=== PATIENT | male | born 1970 | race Caucasian/White ===

== ENCOUNTER → 2020-06-18 10:38 | Outpatient (CLI) | payer OTHER, SELFPAY ==
[2020-06-18 12:44] LABS: Anion Gap 6 (5-15); BUN 17 mg/dL (7-18); BUN/Creat Ratio 16.7 RATIO (10-20); Calcium,Total 9.1 mg/dL (8.5-10.1); Chloride 105 mmol/L (98-107); Cholesterol 213 mg/dL (200); Creatinine, Serum 1.02 mg/dL (0.70-1.30); EST Glomerular Filtration Rate 83 mL/min (>60); Est Glom Filt Rate - Afr Amer 100 mL/min (>60); Glucose 87 mg/dL (74-106); High Density Lipoprotein 52 mg/dL; Potassium 4.2 mmol/L (3.5-5.1); Sodium Level 137 mmol/L (136-145); Triglycerides 90 mg/dL; Very Low Density Lipoprotein 18 mg/dL (5-40)
[2020-06-22 09:08] LABS: Testosterone, Free 7.89 ng/dL (5.00-21.00)
[2020-06-22 10:18] LABS: Testosterone, % Free 3.57 % (1.50-4.20); Testosterone, Total 221 ng/dL (264-916)
== END ==
PROVIDERS: PCP Family Medicine; Visit Provider Family Medicine
DX: R79.89 Other specified abnormal findings of blood chemistry (principal); Z13.220 Encounter for screening for lipoid disorders; Z13.1 Encounter for screening for diabetes mellitus
CPT/HCPCS: 36415; 80048; 80061; 84402; 84403

== ENCOUNTER → 2020-07-19 08:16 | Outpatient (CLI) | payer OTHER, SELFPAY ==
[2020-07-19 13:28] LABS: Anion Gap 8 (5-15); BUN 19 mg/dL (7-18); Calcium,Total 8.8 mg/dL (8.5-10.1); Chloride 109 mmol/L (98-107); Cholesterol 178 mg/dL (200); Creatinine, Serum 0.91 mg/dL (0.70-1.30); EST Glomerular Filtration Rate 95 mL/min (>60); Est Glom Filt Rate - Afr Amer 115 mL/min (>60); Glucose 82 mg/dL (74-106); High Density Lipoprotein 52 mg/dL; Potassium 3.8 mmol/L (3.5-5.1); Sodium Level 141 mmol/L (136-145); Triglycerides 84 mg/dL; Very Low Density Lipoprotein 17 mg/dL (5-40)
[2020-07-22 08:08] LABS: Testosterone, Free 7.35 ng/dL (5.00-21.00)
[2020-07-22 09:34] LABS: Testosterone, Total 210 ng/dL (264-916)
== END ==
PROVIDERS: PCP Family Medicine; Visit Provider Family Medicine
DX: R79.89 Other specified abnormal findings of blood chemistry (principal); Z13.1 Encounter for screening for diabetes mellitus; Z13.220 Encounter for screening for lipoid disorders
CPT/HCPCS: 36415; 80048; 80061; 84402; 84403

== ENCOUNTER → 2022-06-30 | Outpatient (CLI) | payer OTHER, SELFPAY ==
[2022-06-30 12:36] LABS: ALB/GLOB Ratio 0.7 RATIO (0.9-2.4); AST(SGOT) 13 U/L (15-37); Alanine Aminotransfer ALT/SGPT 29 U/L (16-61); Albumin, Serum 3.4 g/dL (3.2-5.0); Alkaline Phosphatase 92 U/L (45-117); Anion Gap 7 (5-15); BUN 13 mg/dL (7-18); BUN/Creat Ratio 15.9 RATIO (10-20); Calcium,Total 8.8 mg/dL (8.5-10.1); Chloride 105 mmol/L (98-107); Cholesterol 168 mg/dL (200); Creatinine, Serum 0.82 mg/dL (0.70-1.30); EST Glomerular Filtration Rate 106 mL/min (>60); Est Glom Filt Rate - Afr Amer 128 mL/min (>60); Globulin 4.9 g/dL (2.2-4.2); Glucose 86 mg/dL (74-106); High Density Lipoprotein 45 mg/dL; PSA,Total - Annual Screen 0.82 ng/mL (0.00-4.00); Protein, Total 8.3 g/dL (6.4-8.2); Sodium Level 138 mmol/L (136-145); Triglycerides 101 mg/dL; Very Low Density Lipoprotein 20 mg/dL (5-40)
[2022-07-04 13:07] LABS: PROEL- A/G Ratio 0.8 (0.7-1.7); PROEL- Albumin 3.3 g/dL (2.9-4.4); PROEL- Alpha-1 Globulin 0.3 g/dL (0.0-0.4); PROEL- Alpha-2 Globulin 0.9 g/dL (0.4-1.0); PROEL- Beta Globulin 1.2 g/dL (0.7-1.3); PROEL- Gamma Globulin 1.8 g/dL (0.4-1.8); PROEL- Globulin, Total 4.2 g/dL (2.2-3.9); PROEL- TOTAL PROTEIN 7.5 g/dL (6.0-8.5)
== END | disposition home or self-care (01) ==
LOC: MTLAB 10:03
PROVIDERS: PCP Family Medicine; Referring Provider Family Medicine; Visit Provider Family Medicine
DX: R79.89 Other specified abnormal findings of blood chemistry (principal); Z13.220 Encounter for screening for lipoid disorders; Z12.5 Encounter for screening for malignant neoplasm of prostate
CPT/HCPCS: 36415; 80053; 80061; 84153; 84165; 84403; G0103

== ENCOUNTER → 2022-08-25 | Outpatient (CLI) | payer OTHER, SELFPAY | END | disposition home or self-care (01) | LOC: MFPLAB 09:59 | PROVIDERS: PCP Family Medicine; Visit Provider Family Medicine | DX: R79.89 Other specified abnormal findings of blood chemistry (principal) | CPT/HCPCS: 36415; 84403 ==

== ENCOUNTER → 2022-09-29 | Outpatient (CLI) | payer OTHER, SELFPAY | END | disposition home or self-care (01) | LOC: MFPLAB 15:50 | PROVIDERS: PCP Family Medicine; Visit Provider Family Medicine | DX: R79.89 Other specified abnormal findings of blood chemistry (principal) | CPT/HCPCS: 36415; 84403 ==

== ENCOUNTER → 2022-11-07 | Outpatient (CLI) | payer OTHER, SELFPAY ==
[2022-11-11 14:10] LABS: Testosterone, % Free 2.05 % (1.50-4.20); Testosterone, Free 17.57 ng/dL (5.00-21.00); Testosterone, Total 857 ng/dL (264-916)
== END | disposition home or self-care (01) ==
LOC: MFPLAB 08:39
PROVIDERS: PCP Family Medicine; Visit Provider Family Medicine
DX: R79.89 Other specified abnormal findings of blood chemistry (principal)
CPT/HCPCS: 36415; 84402; 84403

== ENCOUNTER → 2023-01-06 | Outpatient (CLI) | payer OTHER, SELFPAY ==
[2023-01-12 11:09] LABS: Testosterone, % Free 3.37 % (1.50-4.20); Testosterone, Free 8.19 ng/dL (5.00-21.00); Testosterone, Total 243 ng/dL (264-916)
== END | disposition home or self-care (01) ==
LOC: LAB 10:15
PROVIDERS: PCP Family Medicine; Visit Provider Family Medicine
DX: R79.89 Other specified abnormal findings of blood chemistry (principal)
CPT/HCPCS: 36415; 84402; 84403

== ENCOUNTER → 2023-04-19 | Outpatient (CLI) | payer OTHER, SELFPAY ==
[2023-04-19 15:01] LABS: Hematocrit 45.6 % (40-54); Hemoglobin 13.4 g/dL (13.0-16.5); Mean Corp Hgb Conc 29.4 g/dL (32-36); Mean Corpuscular Hgb 23.7 pg (27.0-32.0); Mean Corpuscular Volume 80.7 fL (80-94); Mean Platelet Vol. 9.5 fl (6.2-12.0); Platelet Count 389 K/mm3 (150-450); RBC Distribution Width CV 17.6 % (11.6-14.6); RBC Distribution Width SD 50.2 fl (35.1-43.9); Red Blood Count 5.65 M/mm3 (4.6-6.2); White Blood Count 11.6 K/mm3 (4.4-11.0)
[2023-04-19 15:34] LABS: ALB/GLOB Ratio 0.6 RATIO (0.9-2.4); AST(SGOT) 17 U/L (15-37); Alanine Aminotransfer ALT/SGPT 26 U/L (16-61); Albumin, Serum 3.1 g/dL (3.2-5.0); Alkaline Phosphatase 85 U/L (45-117); Anion Gap 5 (5-15); BUN 16 mg/dL (7-18); BUN/Creat Ratio 17.6 RATIO (10-20); Calcium,Total 9.1 mg/dL (8.5-10.1); Chloride 104 mmol/L (98-107); Creatinine, Serum 0.91 mg/dL (0.70-1.30); EST Glomerular Filtration Rate 94 mL/min (>60); Est Glom Filt Rate - Afr Amer 113 mL/min (>60); Globulin 5.1 g/dL (2.2-4.2); Glucose 74 mg/dL (74-106); Potassium 3.9 mmol/L (3.5-5.1); Protein, Total 8.2 g/dL (6.4-8.2); Sodium Level 137 mmol/L (136-145)
== END | disposition home or self-care (01) ==
LOC: MFPLAB 13:44
PROVIDERS: PCP Family Medicine; Visit Provider Family Medicine
DX: R79.89 Other specified abnormal findings of blood chemistry (principal)
CPT/HCPCS: 36415; 80053; 84403; 85027

== ENCOUNTER → 2023-07-20 | Outpatient (CLI) | payer OTHER, SELFPAY | END | disposition home or self-care (01) | LOC: MFPLAB 09:43 | PROVIDERS: PCP Family Medicine; Visit Provider Family Medicine | DX: Z00.00 Encounter for general adult medical examination without abnormal findings (principal) ==

== ENCOUNTER → 2023-08-06 | Outpatient (CLI) | payer OTHER, SELFPAY ==
[2023-08-06 12:09] LABS: Hematocrit 45.4 % (40-54); Hemoglobin 14.1 g/dL (13.0-16.5); Mean Corp Hgb Conc 31.1 g/dL (32-36); Mean Corpuscular Hgb 24.4 pg (27.0-32.0); Mean Corpuscular Volume 78.7 fL (80-94); Mean Platelet Vol. 9.4 fl (6.2-12.0); Platelet Count 391 K/mm3 (150-450); RBC Distribution Width CV 18.4 % (11.6-14.6); RBC Distribution Width SD 50.8 fl (35.1-43.9); Red Blood Count 5.77 M/mm3 (4.6-6.2); White Blood Count 11.7 K/mm3 (4.4-11.0)
[2023-08-06 13:08] LABS: ALB/GLOB Ratio 0.6 RATIO (0.9-2.4); AST(SGOT) 20 U/L (15-37); Alanine Aminotransfer ALT/SGPT 29 U/L (16-61); Albumin, Serum 3.4 g/dL (3.2-5.0); Alkaline Phosphatase 99 U/L (45-117); Anion Gap 7 (5-15); BUN 16 mg/dL (7-18); BUN/Creat Ratio 18.2 RATIO (10-20); Calcium,Total 9.2 mg/dL (8.5-10.1); Chloride 107 mmol/L (98-107); Cholesterol 190 mg/dL (200); Creatinine, Serum 0.88 mg/dL (0.70-1.30); EST Glomerular Filtration Rate 97 mL/min (>60); Est Glom Filt Rate - Afr Amer 118 mL/min (>60); Globulin 5.3 g/dL (2.2-4.2); Glucose 83 mg/dL (74-106); High Density Lipoprotein 47 mg/dL; PSA,Total- Diagnostic 1.43 ng/mL (0.0-4.0); Protein, Total 8.7 g/dL (6.4-8.2); Sodium Level 138 mmol/L (136-145); Triglycerides 111 mg/dL; Very Low Density Lipoprotein 22 mg/dL (5-40)
--- OUTSIDE RECORDS SUMMARY | 2023-08-06 18:41 | XMS RPT_ITS | CCD ---
Author Name Unknown Address [address] [place] [address] Organization [facility] Care Team Providers Care Quality Assurance Practice Manager Name Role Phone XIN HOWARD Unavailable Unavailable PHYSICIAN, NONE Unavailable Unavailable Arlin, Xin K Unavailable Unavailable Problems Active Problems Problem Classification Problem Date Documented Da te Episodic/Chronic Unclassified (1 source) Unknown / UNK(Unknown) Onset: 04-30-2018 Past or Other Problems Problem Classification Problem Date Documented Da te Episodic/Chronic Unclassified (1 source) RIGHT KNEE PRIMARY OA, PAIN Onset: 04-30-2018 Results Test Name Value Interpretation Reference Range Facil ity Encounters Encounter Date Encounter Type Care Provider Facility Start: 04-30-2018 Patient encounter procedure Xin Mendes Dago josé Facility:[facility] Start: 04-22-2018 End: 04-24-2018 Patient encounter procedure XIN HOWARD Facility:A Payers Date Payer Category Payer Private Health Insurance [id number] 1970 Unknown [id number] Unknown [id number] Summary Purpose Family History No Family History Records FoundNo Family History Records FoundNo Family History Records Found Advance Directives No Advanced Directives Records FoundNo Advanced Directives Records FoundNo Advanced Directives Records Found Additional Source Comments (unrecognized sect ion and content) No Status Records FoundNo Status Records FoundNo Status Records Found INFORMATION SOURCE (unrecogn ized section and content) DATE CREATED AUTHOR AUTHOR'S ORGANIZ ATION 05/22/2018 [facility] Josselin Sanchez DATE CREATED AUTHOR AUTHOR'S ORGANIZ ATION 10/25/2019 [facility] FOR RECORDS PERTAINING TO PATIENTS WHO ARE OR HAVE BEEN ENROLLED IN A CHEMICAL DEPENDENCY/SUBSTANCEABUSE PROGRAM, SOME INFORMATION MAY BE OMITTED. This clinical summary was aggregated from multiple sources. Caution should be exercised in using it in the provision of clinical care. This summary normalizes information from multiple sources, and as a consequence, information in this document may materially change the coding, format and clinical context of patient data. In addition, data may be omitted in some cases. CLINICAL DECISIONS SHOULD BE BASED ON THE PRIMARY CLINICAL RECORDS. [facility] [employer] [facility]. provides no warranty or guarantee of the accuracy or completeness of information in this document.
== END | disposition home or self-care (01) ==
LOC: MFPLAB 11:08
PROVIDERS: PCP Family Medicine; Visit Provider Family Medicine
DX: R79.89 Other specified abnormal findings of blood chemistry (principal)
CPT/HCPCS: 36415; 80053; 80061; 84153; 85027

== ENCOUNTER → 2024-02-15 | Outpatient (CLI) | payer OTHER, SELFPAY ==
[2024-02-15 15:19] LABS: Hematocrit 45.6 % (40-54); Hemoglobin 13.7 g/dL (13.0-16.5); Mean Platelet Vol. 9.7 fl (6.2-12.0); Platelet Count 368 K/mm3 (150-450); RBC Distribution Width CV 16.2 % (11.6-14.6); RBC Distribution Width SD 46.6 fl (35.1-43.9); White Blood Count 11.9 K/mm3 (4.4-11.0)
[2024-02-15 16:09] LABS: ALB/GLOB Ratio 0.7 RATIO (0.9-2.4); AST(SGOT) 15 U/L (15-37); Alanine Aminotransfer ALT/SGPT 23 U/L (16-61); Albumin, Serum 3.4 g/dL (3.2-5.0); Alkaline Phosphatase 91 U/L (45-117); Anion Gap 8 (5-15); BUN 14 mg/dL (7-18); Calcium,Total 9.6 mg/dL (8.5-10.1); Chloride 105 mmol/L (98-107); Creatinine, Serum 0.82 mg/dL (0.70-1.30); EST Glomerular Filtration Rate 104 mL/min (>60); Est Glom Filt Rate - Afr Amer 126 mL/min (>60); Globulin 4.9 g/dL (2.2-4.2); Glucose 75 mg/dL (74-106); Potassium 3.7 mmol/L (3.5-5.1); Protein, Total 8.3 g/dL (6.4-8.2); Sodium Level 137 mmol/L (136-145)
== END | disposition home or self-care (01) ==
LOC: MFPLAB 12:41
PROVIDERS: PCP Family Medicine; Visit Provider Family Medicine
DX: G47.30 Sleep apnea, unspecified (principal)
CPT/HCPCS: 36415; 80053; 84403; 85027

== ENCOUNTER 2024-03-21 16:45 | Inpatient (IN) | payer OTHER, SELFPAY ==
[2024-03-21] VITALS (10 sets, daily range): BP systolic 138–168; BP diastolic 76–107; PULSE 72–88; RESP 11–18; TEMP 36.2–37; O2SAT 87–100; BMI 40.0
--- NOTE | 2024-03-21 10:25 | EKG12_ITS ---
Test Reason : PREOP Blood Pressure : / mmHG Vent. Rate : 066 BPM Atrial Rate : 066 BPM P-R Int : 178 ms QRS Dur : 100 ms QT Int : 390 ms P-R-T Axes : 050 -05 007 degrees QTc Int : 408 ms Normal sinus rhythm Normal ECG No previous ECGs available Confirmed by Ashwin Segal ([id number]), video tape editor SYDNIE POWELL ([id number]) on 03/26/2024 2:02:51 PM Referred By: Wilman Agrawal Confirmed By:Ashwin Segal
--- NOTE | 2024-03-21 10:38 | PCM.PRE.AN2 ---
ASA Classification* ASA Classification ASA Classification: 2 Assessment & Plan Anesthesia* Anesthesia Assessment Anesthesia Assessment: Discussed sedation and/or anesthesia options, risks, benefits, and alternatives with patient/parents/legal guardian/POA. Questions invited. The patient/parents/legal guardian/POA seems to understand and agrees to proceed with anesthesia plan. Reviewed the physical assessment, medical history, allergy history and patient home medications list prior to surgery/procedure/anesthetic and documented any changes. Performed airway and anesthesia risk assessments. Anesthesia Type Anesthesia Type: General (see written pre anesthesia record for full assessment) Anesthesia Focused Assessment* Airway Assessment Mouth opens: >3 cm Mallampati Score: II Focused Labs Anesthesia Preop lab: CBC WBC 11.9 K/mm3 (4.4-11.0) H 02/15/24 12:41 RBC 5.70 M/mm3 (4.6-6.2) 02/15/24 12:41 Hgb 13.7 g/dL (13.0-16.5) 02/15/24 12:41 Hct 45.6 % (40-54) 02/15/24 12:41 Plt Count 368 K/mm3 (150-450) 02/15/24 12:41 CHEMISTRY Potassium 3.7 mmol/L (3.5-5.1) 02/15/24 12:41 Sodium 137 mmol/L (136-145) 02/15/24 12:41 BUN 14 mg/dL (7-18) 02/15/24 12:41 Creatinine 0.82 mg/dL (0.70-1.30) 02/15/24 12:41 Glucose 75 mg/dL (74-106) 02/15/24 12:41 TSH 1.03 uIU/mL (0.358-3.74) 10/02/14 08:59 COAG Pre-Assessment Diagnosis/Proposed Procedure Planned Operative Procedure(s): EXPLANTATION OF RIGHT TOTAL KNEE PROTEHSIS PLACEMENT OF ARTICULATING ANTIBIOTIC Anesthesia History 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 When Was Last Pacemaker Check QUESTION #4 FULL TEXT: You/Your Family Experience fever (hyperthermia) with Anesthesia Last Oral Intake Last Oral intake: Last Oral Intake NPO since Meds taken in AM with sips of water? Meds patient instructed to take am of surgery PONV PONV - licensed embalmer supervisor: PONV - licensed embalmer supervisor Female No 03/20/24 09:23 HX of Motion Sickness No 03/20/24 09:23 HX of N/V After Surgery No 03/20/24 09:23 Non-Smoker No 03/20/24 09:23 Duration of Surgery greater Yes 03/20/24 09:23 than 60 minutes Number of Risk Factors 1 03/20/24 09:23 PONV Score Low Risk 03/20/24 09:23 Respiratory Assessment Respiratory Assessment - licensed embalmer supervisor: Respiratory Tract Infection Hx - licensed embalmer supervisor Hx Respiratory Tract Infection No 03/20/24 09:23 STOP Sleep Apnea STOP Sleep Apnea - licensed embalmer supervisor: STOP Sleep Apnea - licensed embalmer supervisor Hx Hypertension No 03/20/24 09:23 Hx Sleep Apnea Yes 03/20/24 09:23 CPAP Yes 03/20/24 09:23 BIPAP No 03/20/24 09:23 Do you snore loudly (louder than talking or can be heard Do you often feel tired/ fatigued/ sleepy during daytime? Has anyone observed you stop breathing during sleep? STOP Results Positive 03/20/24 09:23 QUESTION #5 FULL TEXT : Do you snore loudly (louder than talking or can be heard through closed doors)? 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 Specify any problems Hx of Preganancy in last 3 N/A 03/20/24 09:23 Months Nurse Filling Out Transfusion DSCHRIBER 03/20/24 09:23 & Questions: Date: 03/20/24 03/20/24 09:23 Time: 09:25 03/20/24 09:23 Patient unable to answer at this time (ie. confused, unrespo /Reproduction History /Reproductive History - licensed embalmer supervisor: /Reproductive Hx- licensed embalmer supervisor Hx Now No 03/20/24 09:23 Gestational Age (in weeks): EDC: Hx Hx Para Hx Section SAB No 03/20/24 09:23 Active Medications Active Medications: Current Medications Generic Name Dose Route Start Last Admin Trade Name Freq PRN Reason Stop Dose Admin Acetaminophen 1,000 mg 03/21/24 12:30 Acetaminophen 500 Mg Tablet PO 03/21/24 12:31 X1 ONE Cefazolin Sodium 2 gm 03/21/24 12:30 Cefazolin 1 Gm/5 Ml Vial OPERA.SITE 03/21/24 12:31 X1 ONE Dexamethasone Sodium Phosphate 10 mg 03/21/24 12:30 Dexamethasone 10 Mg/Ml Vial IV 03/21/24 12:31 X1 ONE Gabapentin 600 mg 03/21/24 12:30 Gabapentin 600 Mg Tablet PO 03/21/24 12:31 X1 ONE Lactated Ringer's 1,000 mls @ 999 mls/hr 03/21/24 12:30 IV 03/21/24 13:30 .Q1H1M CRYSTAL Tranexamic Acid 1,000 mg/ 110 mls @ 660 mls/hr 03/21/24 12:30 Sodium Chloride IV 03/21/24 12:39 X1 ONE Tranexamic Acid 1,000 mg/ 110 mls @ 660 mls/hr 03/21/24 12:30 Sodium Chloride IV 03/21/24 12:39 X1 ONE Vancomycin HCl 2,000 mg/ 540 mls @ 250 mls/hr 03/21/24 12:30 Sodium Chloride IV 03/21/24 14:39 PREOP ONE Insulin Human Lispro 1 - 6 unit 03/21/24 12:30 Insulin Lispro 100 Unit/Ml Insuln.Pen SC Q4H PRN PRN BG>/= 180, SEE PROTOCOL Protocol Tobramycin Sulfate 4.8 gm 03/21/24 12:30 Tobramycin 1.2 Gm Powder OPERA.SITE 03/21/24 12:31 X1 ONE Vancomycin HCl 6,000 mg 03/21/24 12:30 Vancomycin Iv 1,000 Mg/20 Ml Vial OPERA.SITE 03/21/24 12:31 X1 ONE PFSH Medical History Arthritis Chewing tobacco dependence History of pain when walking History of edema Home Medications ?Medication ?Instructions ?Recorded ?Last Taken ?Type doxycycline hyclate 100 mg capsule 100 mg PO BID INFECTION 03/20/24 Unknown History ibuprofen 600 mg tablet (IBU) 600 mg PO Q8H PRN PAIN 03/20/24 Unknown History testosterone 100 mg/mL 1 mg IM .Q2WEEK HORMONE 03/20/24 Unknown History intramuscular suspension Allergy/AdvReac Type Severity Reaction Status Date / Time No Known Allergies Allergy Verified 03/20/24 09:19 Surgical History Hx of total knee arthroplasty Hx of right knee surgery Hx of right knee surgery Social History Smoking Status: Current every day smoker tobacco type: smokeless tobacco Review of Systems (Anesthesia) ROS Narrative System reviewed and no additional complaints, except as documented.
[2024-03-21] MEDS: Magnesium 1 GM over 15 mins IV (10:45)
[2024-03-21] MEDS: Lactated Ringers 1,000 ML 999 ML IV (11:00)
[2024-03-21 11:10] LABS: Magnesium 2.1 mg/dL (1.6-2.6)
[2024-03-21] MEDS: Vancomycin HCl 2,000 MG in 0.9% Normal Saline (500mL Bag) 500 ML 250 MG IV (11:10)
[2024-03-21] MEDS: Acetaminophen 500 MG Tablet 1000 MG PO ×2 (11:20→21:23)
[2024-03-21] MEDS: Gabapentin 600 MG Tablet PO (11:20)
[2024-03-21 12:09] LABS: Bedside Glucose 99 mg/dL (74-106)
[2024-03-21] MEDS: TXA 1000mg in NS100 100ml (IVPB at Closure) 660 MG IV (12:30)
[2024-03-21] MEDS: dexAMETHasone 10 MG/ML Vial IV (12:30)
[2024-03-21] MEDS: TXA 1000mg in NS100 100ml (IVPB at Incision) 660 MG IV (12:30)
--- NOTE | 2024-03-21 12:30 | WND_PTH ---
PATIENT: ABDIRAHMAN HERRON LOC: MS3 U#:[id number] AGE/SX: 53/M ROOM: [facility] RE03/22/[address]: Dr. Wilman Agrawal MD : 1970 BED: 1 DIS: 03/31/2024 SPEC #: [id number] RECD: 03/21/24 16:48 STATUS: DAYANNA REAna aMria #: [id number] CANDE: 03/21/24 12:[address]: Wilman Agrawal DEPT: SURGICAL PATHOLOGY RECD BY: Rivka Vizcarra ENTERED: 03/24/24 08:21 SP TYPE: Wound OTHR DR: MD Dr. Amarilis Yuen MD Dr. Robert Leininger, MD Dr. Robert Siska, MD Tissues: Knee, NOS Procedures: Surgery Specimen Level IV HEADER OPERATION: Total knee explant, with ATB spacer, placement of wound PRE-OP DIAGNOSIS: Infection and inflammatory reaction due to internal right knee prosthesis TISSUE SUBMITTED: Lateral sinus tract MICROSCOPIC DIAGNOSIS Lateral sinus tract: Skin with underlying tissue with acute and chronic inflammation, abscess formation and fat necrosis, clinically sinus tract. 03/25/2024 MICROSCOPIC DESCRIPTION Slides are reviewed. GROSS DESCRIPTION Received in fixative is one container labeled with the patient's name and designated Lateral sinus tract. The specimen consists of a piece of skin with underlying tissue measuring 8.8 x 2.7cm and up to 2.0cm in thickness. No mass lesion is identified. Focal area of ulceration is noted. Sections reveal sinus tracts underneath the area of ulceration. Arresting Gear Operator sections are submitted in two cassettes. 03/24/2024 TC:2 CPT:46807
[2024-03-21] MEDS: Cefazolin 3 GM in Syringe 1 EACH IV (12:45)
[2024-03-21] MEDS: Cefazolin 1 GM/5 ML Vial 2 GM OPERA.SITE (13:28)
[2024-03-21] MEDS: Sodium Hypochlorite (Dakin's) 0.125% Wound Irrigation IRRIGATION (15:00)
[2024-03-21] MEDS: Vancomycin IV 1,000 MG/20 ML Vial 6000 MG OPERA.SITE (15:25)
--- NOTE | 2024-03-21 15:52 | CON.PCM.SX_ITS ---
Assessment & Plan Assessment/Plan (1) Infection and inflammatory reaction due to internal right knee prosthesis, subsequent encounter: PLAN: I discussed with the patient and his extensively my role in assisting Dr. Agrawal. I discussed with them the option of a lateral gastrocnemius muscle flap with overlying skin graft, the idea being that this would provide healthy tissue and close off the communication between the wound and the joint. We discussed how this muscle flap would weaken the calf but the other muscles would compensate over time. We discussed the risks of permanent damage or temporary neuropraxia to the peroneal nerve, and we discussed the distribution of numbness as well as motor deficits (foot drop and inability to satya the foot). We also talked about flap failure and need for further options, including vastus lateralis or ALT as backup options. All her questions were answered. I talked them also about the general risks of surgery, including bleeding, infection, damage to surrounding structures, surgical site dehiscence and wound formation, need for wound care, need for repeat operations, failure to obtain the desired result (heal the wound), DVT/PE, and the risks of anesthesia including . Plan for repeat washout and debridement of the lateral wound on Sunday, 24 March 2024 (n.p.o. at midnight, okay to continue prophylactic Lovenox), and irrigating wound VAC placement. Subsequent plan will be lateral gastrocnemius flap, 26 March 2024, with skin graft from right thigh and wound VAC placement. HPI Consult Data Date of Consult: 03/22/24 Attending Care Provider: Abdirahman Fulton is a 53-year-old male who has a history of right ACL reconstruction followed by a total knee replacement in 2018 by a surgeon from an outside hospital. The patient recently presented to [facility] (Dr. Agrawal) with 2 draining sinuses over the lateral knee. His x-ray demonstrated tibial baseplate loosening and bony erosions. Dr. Agrawal recommended operative intervention with a two-stage revision of his knee. The patient was taken back to the operating room yesterday, 2023, by Dr. Agrawal where right knee explantation and placement of an articulating antibiotic spacer was performed, followed by debridement of the lateral knee wound and its sinus tracts. Cultures were taken. Plastic surgery was consulted intraoperatively for the wound and the defect was photgraphed. The sinuses tracked down to the joint via a small joint opening on the lateral aspect of the knee. Dr. Agrawal would like muscle coverage over this opening to seal off the joint. I made the recommendation for an irrigating VeraFlow wound VAC (Dakin's irrigation) to be placed. Infectious diseases has been consulted to follow-up the cultures. The patient is currently on broad-spectrum antibiotics. I spoke with the patient and his this morning about his problem and my level of involvement has a reconstructive surgeon. Patient is not a smoker, but he does chew tobacco. He does not have diabetes. He has limited medical comorbidities (BMI of 40). HPI Narrative HPI Narrative: ABDIRAHMAN FULTON, is a 53 M who presents [facility] Medical History Arthritis Chewing tobacco dependence History of pain when walking History of edema Home Medications ?Medication ?Instructions ?Recorded ?Last Taken ?Type doxycycline hyclate 100 mg capsule 100 mg PO BID INFECTION 03/20/24 03/20/24 History ibuprofen 600 mg tablet (IBU) 600 mg PO Q8H PRN PAIN 03/20/24 Unknown History testosterone 100 mg/mL 1 mg IM .Q2WEEK HORMONE 03/20/24 Unknown History intramuscular suspension Allergy/AdvReac Type Severity Reaction Status Date / Time No Known Allergies Allergy Verified 03/21/24 11:38 Surgical History Hx of total knee arthroplasty Hx of right knee surgery Hx of right knee surgery Social History Smoking Status: Current every day smoker tobacco type: smokeless tobacco Physical Exam Narrative Right upper extremity Seen and examined on the floor today. Ice pack and dressings over the knee. VeraFlow wound VAC in place holding suction. Sensation: Intact to light touch on the dorsum and plantar foot. Sensation to light touch intact over the leg. Motor: He is able to extend his foot and satya his foot. Vascular: Foot appears warm and well-perfused, 2+ dorsalis pedis and posterior tibial pulses. Photographs from the operating room: Lab / Micro Data 03/22/24 05:55 03/22/24 05:55 Labs: Laboratory Results - last 24 hr 03/21/24 10:43: Magnesium 2.1 03/21/24 11:28: POC Glucose 99 Charges/Coding Multi Select Codes Visit Charges Office Visit/Consults: 13605 IP Consult L5 (Reviewed complex history of infection, examined in the OR and on the floor, reviewed xrays )
--- NOTE | 2024-03-21 16:52 | PCM.POST.ANE ---
Anesthesia: Postop Eval I Current Vital Signs Temperature: 97.2 F Pulse Rate: 88 Blood Pressure: 159/89 Respiratory Rate: 18 Pulse Ox: 100 Oxygen Delivery Method: Simple Mask Oxygen Flow Rate (L/min): 6 Assessment Airway patent: Yes Spontaneous unlabored respirations: Yes Mental status: Awake and Calm nausea: No Vomiting: No Anesthesia Complication: No Fluid Hydration Crystalloid volume administer (ml): 1,500 Total IV fluid infused: 1,500 Progress Note Anesthesia document: Postop Eval 1 completed: Yes
--- NOTE | 2024-03-21 16:58 | OP.PCM_ITS ---
Report of Operation Date of Procedure: 03/21/24 Pre-Operative Diagnosis: Right knee periprosthetic joint infection Right knee draining sinus lateral aspect of knee times two 2 cm x 2 cm, 2 cm x 2 cm Post-Operative Diagnosis: Right knee periprosthetic joint infection Right knee draining sinus lateral aspect of knee times two 2 cm x 2 cm, 2 cm x 2 cm Surgery/Procedure Performed:: Right knee explantation and placement of articulating antibiotic spacer Right knee sinus tract excision 2 cm x 2 cm Right knee sinus tract excision 2 cm x 2 cm Placement of wound VAC 5 cm x 11 cm ellipse. Description of Surgical Findings:: Wound was not well debrided. Articulating spacer was stable. Lateral wound after sinus tract incision x 2 measured 5 cm in width by 11 cm in length with a small 1 cm x 1 cm rent communicating with joint. Surgeon: Wilman Agrawal personnel interviewer: Thai Carpenter Type of Anesthesia: General Anesthesiologist: Luis Mendez Special Medications: 3 g Ancef, vancomycin, Ancef and gentamicin in cement mixture. Specimen's removed: 4 separate specimens were sent to microbiology. Sinus tracts were sent to pathology. Drains: Wound VAC drain was placed on the lateral wound Estimated Blood Loss (mL): 500 mL Fluids Replaced: 1500 mL crystalloid Description of Procedure: Brief history operative indications: 53-year-old m with limited medical comorbidities, history of previous ACL reconstruction had a total knee replacement in 2018 by a surgeon outside of [facility]. Patient presented to my care with 2 draining sinuses over his lateral knee and x-rays consistent with tibial baseplate loosening and bony erosions behind the patella button. We obtain medical clearance at that point. Based on her history and meeting appropriate cirteria for PJI I did recommend a two-stage revision. After discussion of risks and benefits including reinfection, continued infection, blood loss, DVTs, PEs, nervous damage, fractures with explantion infection, continued and super infection, wound healing complication and the risk of anesthesia including loss of life patient was able to proceed and signed an informed consent. Procedure: On the date of procedure patient's R lower extremity was marked in the preoperative area. The patient was then taken back to the operating room where the patient was placed on the table in the supine position. All bony prominences were identified a well-padded. Anesthesia assumed control of the C-spine and airway and remained controlled throughout the remainder of the procedure. A tourniquet was placed on the R upper thigh and the leg was prepped in a sterile fashion. The surgeon then scrubbed at this time. Upon reentering the room R lower extremity was draped in a standard orthopedic fashion. A timeout was then called and everyone agreed upon the side, the site, the procedure to be performed, patient's identity and antibiotics given. The leg was elevated for period of time and the tourniquet was placed up to 250 mmHg with the knee in flexion. A midline skin incision was made using the previous incision and extending it proximally and distally to identify normal tissue planes. Medial and lateral flaps were developed appropriate releases. The standard medial parapatellar arthrotomy was made and the patella was subluxed laterally. At this time an aggressive synovectomy was performed re-creating the medial gutter first, then the suprapatellar pouch than the lateral gutter. Once this was completed the knee was flexed up an osteotome was used to remove the tibial polyethylene. The remainder of the synovium was debrided. The standard deep MCL release was done and the patella scar pad was resected and lateral releases were performed. Next our attention was directed to the femur. Flexible osteotomes and TPS saw were used to systematically break up the bone cement/implant interface. Once we had adequately disrupted this interface bone tamp was used to remove the implant. This was done with minimal bone loss on the implant however there was significant areas of bone loss especially in the posterior lateral femoral condyle.. At this time attention was now directed towards the proximal tibia. Flexible osteotomes and TPS saw were used to systematically break up the bone cement/implant interface. Once we had adequately disrupted this interface bone tamp was used to remove the implant. This was done with minimal bone loss however, due to the previous infectious etiology there was significant bony erosions mostly posterior medially and posterior laterally. Membrane was removed from these erosions. There was a contained defect. Attention was directed then towards the patella where the patella implant was removed using osteotomes and TPS saw. There was significant bony erosion behind the patella. After this was completed we carefully debrided any synovial membrane from the distal femur as well as proximal tibia. Using a bur and curettes to remove any of this. Once we are happy with this we then flexed the knee at 90 degrees and made a cut neutral to the tibial axis on the tibia to clean up the tibia. We then debrided the remainder of the posterior knee. Tourniquet was let down hemostasis was obtained. Tourniquet was placed back up as we then trialed. We trialed a size 7 femur which showed an adequate fit as well as a size 6, 16 mm tibia. After we are happy with our trial implants the trial implants were removed from the wound or tension was then directed laterally where the previous sinus tracts were wrapped. Based on the proximity of the 2 sinus tracts 1 large ellipse was used. This did leave us with a 3 to 4 cm skin bridge between the incision and the area of the sinus tracts. This area was debrided there was significant purulent and necrotic fatty tissue the tract down to the fascia. The fascia over the anterior and lateral compartments of the leg appeared to be intact. There was however communication into the joint at the level of the joint line wi th a 1 cm x 1 cm rent in the lateral structures. After this was adequately debrided with sharp dissection, the wounds were copiously irrigated out with 6 L of normal saline under low-pressure lavage while two antibiotic cement dowels were created on the back table. Femoral and tibial antibiotic cement dowels were then placed in the canals after irrigating out the knee. At this time the cement was mixed with the tibia and the tibia was connected to the cement dowel for a stem. The knee was flexed exposing the tibia and the tibia was cemented into place with cement mixing in a portion of the antibiotics. Once this was set we then mixed our cement and mixing for the femur to be carefully exposed the femur and try to pack cement into the bone defect. We then placed cement on the end of the femur and cemented the femur into place. Knee was placed in extension. Excess cement was removed from both the femur and the tibia. The cement was allowed to cure with the knee in extension. Once the final components were placed a dilute Betadine solution was used to irrigate out the wound for 3 minutes followed by chlorhexidine solution finally the wound was copiously irrigated with normal saline solution. The arthrotomy and midline incision was closed in a layer yao fashion using #1 vicryl interrupted sutures for the arthrotomy, 2-0 interrupted Vicryl for the subcuticular layer and nylon sutures for final skin closure. Our attention was then directed towards the lateral wound which could not be closed due to the significant soft tissue defect. A wound VAC with Dakin's irrigation was placed over this area and vacuum sealed. A sterile compressive dressing was then placed over the incision. The patient was then awakened from anesthesia, transferred to the [facility] and transferred to the PACU for recovery. Post op plan DVT ppx: Lovenox 40 subcu twice daily, thigh high compression stockings. We did use Lovenox so that the DVT prophylaxis could be reversed for repeat washouts and potential plastics coverage over the lateral wound. Follow up: in office in 2 weeks for wound check PT: to start POD #0 at hospital. Patient will be partial 50% weightbearing for 2 weeks followed by partial weightbearing. Based on the need for coverage patient's range of motion will be held until plastic surgery feels the wound is adequately healed. Plastic surgery will consult this weekend with future plans for coverage at their discretion. Infection: Infectious diseases consulted for antibiotic management. Infectious disease will not be in house until Sunday. I have contacted them by phone we will start the patient on vancomycin and ceftriaxone based on his reported history My physician child care assistant was a vital part of this case. He was important in appropriate retraction during the case, and protection of soft tissues during bony cuts. His intimate knowledge of the case and my steps aided in safe and expedient completion of the procedure as well as appropriate position of the leg during the case. He was also vital in assisting with closure under my direct supervision. Implants Used: Dolores 3 x size 6, 16 mm all polyethylene tibia, size 7 CR Triatholon femur Complications No intraoperative complications Admit VTE Documentation VTE Present on Admission: No VTE Mechan Device Prophylaxis: SCD's and Thigh High MUNIR Hose (Due to wound VAC we will hold stockings on the right leg) VTE Pharm Prophylaxis ordered?: Yes
[2024-03-21] MEDS: Lactated Ringers 1,000 ML 15 ML IV (17:00)
--- NOTE | 2024-03-21 17:00 | RAD_ITS ---
STUDY: X-RAY - RIGHT KNEE REASON FOR EXAM: Male, 53 years old. post op -- AP and Lateral xray of operative knee in PACU TECHNIQUE: 2 view(s) of the knee. COMPARISON: None. FINDINGS: Normal visualized distal femur. Normal visualized proximal tibia and fibula. Normal proximal tibiofibular articulation. There is no demonstrated fracture. There has been a total knee arthroplasty. Satisfactory appearance of femoral component. It appears the tibial component has been removed and spacer is in place. Normal alignment of the tibia and femur. Normal position of the patella. There is prominent soft tissue swelling consistent with the recent surgery. There is wound VAC just lateral to the head of the fibula. RAD/Knee 1 or 2 Views IMPRESSION: Postsurgical changes of the right knee as above. Electronically Signed: Dimitrios García MD at 17:54 EDT ,
[2024-03-21 18:32] LABS: Anion Gap 5 (5-15); BUN 12 mg/dL (7-18); BUN/Creat Ratio 15.2 RATIO (10-20); Calcium,Total 9.1 mg/dL (8.5-10.1); Chloride 107 mmol/L (98-107); Creatinine, Serum 0.79 mg/dL (0.70-1.30); EST Glomerular Filtration Rate 110 mL/min (>60); Est Glom Filt Rate - Afr Amer 133 mL/min (>60); Estimated Creatinine Clearance 152.25 ml/min; Glucose 90 mg/dL (74-106); Potassium 3.7 mmol/L (3.5-5.1); Sodium Level 138 mmol/L (136-145)
--- NOTE | 2024-03-21 18:46 | PCM.RX.CS ---
Consult Antibiotic Management Pharmacy has been consulted to manage selected antibiotic: Vancomycin Type of Intervention Type of Consult: New start Suspected Infection Suspected Infection: Other Labs Labs: Sodium 138 mmol/L (136-145) 03/21/24 10:43 Potassium 3.7 mmol/L (3.5-5.1) 03/21/24 10:43 Chloride 107 mmol/L (98-107) 03/21/24 10:43 Carbon Dioxide 26.0 mmol/L (21.0-32.0) 03/21/24 10:43 Anion Gap 5 (5-15) 03/21/24 10:43 BUN 12 mg/dL (7-18) 03/21/24 10:43 Creatinine 0.79 mg/dL (0.70-1.30) 03/21/24 10:43 Est GFR (MDRD) Af Amer 133 mL/min (>60) 03/21/24 10:43 Est GFR (MDRD) Non-Af 110 mL/min (>60) 03/21/24 10:43 BUN/Creatinine Ratio 15.2 RATIO (10-20) 03/21/24 10:43 Glucose 90 mg/dL (74-106) 03/21/24 10:43 Goal Trough Goal Trough: 15-20 mcg/mL Pharmacy Plan for Drug Dosing Pharmacy Plan for Drug Dosing: NEW IV VANCOMYCIN Consulting Physician: Dr. Agrawal Indication: Joint Infection Goal Trough: 15-20 SrCr: 0.79 CrCl: 150 mL/min Comments: Patient received vancomycin 2g IV preop 03/21/24 @1110 Vancomycin Dose: 1500mg IV Q8h to start 03/21/24 @1900 Pending Level: 03/22/24 @1030, prior to 4th total dose per protocol Pharmacy Service will continue to monitor and adjust dosing as required.
[2024-03-21] MEDS: 0.9% Saline Lock 10 ML Syringe IV (19:32)
[2024-03-21] MEDS: Ketorolac 15 MG/ML Vial IV (19:32)
[2024-03-21] MEDS: oxyCODONE 5 MG Tablet PO (19:33)
[2024-03-21] MEDS: Vancomycin HCl 1,500 MG in 0.9% Normal Saline (500mL Bag) 500 ML 250 MG IV (19:39)
[2024-03-21] MEDS: Senna/Docusate Sodium 1 Tablet 2 TABLET PO (21:23)
[2024-03-22 02:01] VITALS: BP 119/78; PULSE 73; RESP 16; TEMP 36.8; O2SAT 99
[2024-03-22] MEDS: Vancomycin HCl 1,500 MG in 0.9% Normal Saline (500mL Bag) 500 ML 250 MG IV ×3 (02:16→18:41)
[2024-03-22] MEDS: 0.9% Saline Lock 10 ML Syringe IV (02:17)
[2024-03-22] MEDS: Ketorolac 15 MG/ML Vial IV ×2 (02:17→07:48)
[2024-03-22] MEDS: oxyCODONE 5 MG Tablet PO ×3 (05:48→21:03)
[2024-03-22] MEDS: Acetaminophen 500 MG Tablet 1000 MG PO ×3 (05:48→21:03)
[2024-03-22] MEDS: Enoxaparin 40 MG/0.4 ML Syringe SC (05:49)
[2024-03-22 06:28] LABS: Hematocrit 38.7 % (40-54); Hemoglobin 11.6 g/dL (13.0-16.5); Mean Corpuscular Hgb 24.6 pg (27.0-32.0); Mean Corpuscular Volume 82.2 fL (80-94); Mean Platelet Vol. 9.5 fl (6.2-12.0); Platelet Count 278 K/mm3 (150-450); RBC Distribution Width CV 16.6 % (11.6-14.6); RBC Distribution Width SD 49.1 fl (35.1-43.9); Red Blood Count 4.71 M/mm3 (4.6-6.2); White Blood Count 16.8 K/mm3 (4.4-11.0)
--- NOTE | 2024-03-22 06:59 | PCM.PN.ORT ---
Subjective Subjective Patient doing well this morning. Up alert and oriented. Staff getting ready to get the patient up for the first time. Patient is in good spirits. Plastics discussed the plan with the patient. Was able to discuss the plan with me this morning. No acute events overnight. Does report some paresthesias over the foot as a whole. Primarily over the dorsum of the foot. No microbiology has returned yet. Objective Data Objective Data Vital Signs: Vital Signs Temp Pulse Resp BP Pulse Ox O2 Del Method O2 Flow Rate 98.2 F 73 16 119/78 99 Room Air 2 03/22/24 02:01 03/22/24 02:01 03/22/24 02:01 03/22/24 02:01 03/22/24 02:01 03/22/24 02:01 03/21/24 20:48 Oxygen Flow Rate (L/min) 2 Oxygen Delivery Method Room Air Weight: 287 lb 4.197 oz Body Mass Index (BMI) 40.0 Intake & Output: Intake and Output for Last 24 Hours 03/20/24 03/21/24 03/22/24 23:59 23:59 23:59 Intake Total 2484.75 / 2484.75 652.25 / 652.25 Output Total 350 / 350 500 / 500 Balance 2134.75 / 2134.75 152.25 / 152.25 Lab / Micro Data Attestation: I reviewed the patient's lab results. 03/22/24 05:55 03/21/24 10:43 Labs: Laboratory Results - last 24 hr 03/21/24 10:43: Sodium 138, Potassium 3.7, Chloride 107, Carbon Dioxide 26.0, Anion Gap 5, BUN 12, Creatinine 0.79, Estim Creat Clear Calc 152.25, Est GFR (MDRD) Af Amer 133, Est GFR (MDRD) Non-Af 110, BUN/Creatinine Ratio 15.2, Glucose 90, Calcium 9.1, Magnesium 2.1 03/21/24 11:28: POC Glucose 99 03/22/24 05:55: WBC 16.8 H, RBC 4.71, Hgb 11.6 L, Hct 38.7 L, MCV 82.2, MCH 24.6 L, MCHC 30.0 L, RDW Std Deviation 49.1 H, RDW Coeff of Luigi 16.6 H, Plt Count 278, MPV 9.5 Radiography Diagnostic Testing: Radiology Impression Knee X-Ray 03/21/24 17:00 IMPRESSION: Postsurgical changes of the right knee as above. Electronically Signed: Dimitrios García MD at 17:54 EDT , Physical Exam Const alert, oriented x3 and no apparent distress General Appearance: cooperative and comfortable Extremity Extremity Narrative: Right lower extremity: Wound VAC dressing is clean dry and intact with intermittent irrigation with Dakin solution. Sensations intact to light touch saphenous, sural, superficial peroneal, deep peroneal, and tibial distributions however, patient does report that in all distributions there is a feeling of decreased sensation Motors intact EHL, DF, PF calves are soft and supple Assessment & Plan Assessment/Plan (1) Infection and inflammatory reaction due to internal right knee prosthesis, subsequent encounter: PLAN: 1. Antibiotic treatment: Case is discussed with infectious disease. Service will round on Sunday. Cultures are pending. Patient has been started on ceftriaxone 2 g every 24 hours and vancomycin IV. Does have a history of impetigo diagnosis in that area. No previous cultures. Patient did have extensive antibiotic treatment prior to initiating treatment and obtaining cultures yesterday. Patient will require PICC line order will be placed today. 2. Lateral wound: Plastic surgery service has been consulted. Case was discussed with the's morning. Plan is to take back to the operating room to irrigate and debride once more on Sunday with soft tissue coverage most likely lateral gastroc flap on Sunday and wound VAC with removal of wound VAC and placement of skin graft the following Sunday. Patient is currently in a knee immobilizer to reduce tension on the skin. Currently patient has a wound VAC with intermittent irrigation with Dakin solution. Wound VAC will be removed on Sunday in the operating room when taken back by plastics for debridement 3. Therapy: Patient is 50% weightbearing of the right lower extremity. Should have physical therapy daily. Patient should be mobilized consistently and up to chair throughout the day. Patient is to remain in knee immobilizer with no flexion of the knee. 4. Pain control: Will use postoperative pain regimen with Tylenol, oxycodone and morphine. Have not prescribed NSAIDs at this time, may increase bleeding risk with future plastic surgery planned. 5. DVT prophylaxis: Lovenox 40 units subcu twice a day prophylactic dose. We used this because has a short half-life and will allow for good coverage up to the time of surgery as well as the ability to stop coverage for plastic surgeries planned. May want to consider aspirin or direct oral anticoagulant upon discharge from hospital. Disposition: Patient will need antibiotic regimen finalized and plastic surgery to complete their surgical plan prior to discharge. From an orthopedic standpoint patient's midline sutures can be removed at 2 weeks postoperatively. Patient will need minimum of 2 weeks coverage for DVT prophylaxis with Lovenox for direct oral anticoagulant followed by 2 weeks of aspirin 81 mg p.o. twice daily as long as this does not interfere with plastic soft tissue surgeries or coverage plans. Patient and family both expressed a desire to return home upon discharge we will plan to transfer to plastic surgery service after his surgery on Sunday. Orthopedics continue to follow at this time next planned surgery and from orthopedics this for replantation however, patient may require further debridement depending on state of the wound and joint. PATRICIA [facility] Office:
[2024-03-22 07:09] LABS: Anion Gap 4 (5-15); BUN 12 mg/dL (7-18); BUN/Creat Ratio 14.4 RATIO (10-20); Chloride 106 mmol/L (98-107); Creatinine, Serum 0.83 mg/dL (0.70-1.30); EST Glomerular Filtration Rate 103 mL/min (>60); Est Glom Filt Rate - Afr Amer 125 mL/min (>60); Estimated Creatinine Clearance 144.91 ml/min; Glucose 125 mg/dL (74-106); Potassium 3.8 mmol/L (3.5-5.1); Sodium Level 137 mmol/L (136-145)
[2024-03-22 08:00] VITALS: BP 121/75; PULSE 70; RESP 16; TEMP 36.7; O2SAT 98
[2024-03-22] MEDS: Ceftriaxone 2 GM in 0.9% Normal Saline (50mL MB+) 50 ML IV (09:46)
[2024-03-22] MEDS: Famotidine 20 MG Tablet PO (09:46)
[2024-03-22] MEDS: Senna/Docusate Sodium 1 Tablet 2 TABLET PO ×2 (09:46→21:03)
--- NOTE | 2024-03-22 10:04 | NURSING ---
pt has knee immobilizer on Right leg at all times-pt doing ankle pumps frequently
--- NOTE | 2024-03-22 11:00 | PCM.PN.HOSP ---
Subjective Subjective 53-year-old male with an infected knee replacement status post washout with a plastic surgery consult as well as an ID consult patient. Patient has no medical history and takes no medications chronically Objective Data Objective Data Vital Signs: Vital Signs Temp Pulse Resp BP Pulse Ox O2 Del Method O2 Flow Rate 98.1 F 70 16 121/75 H 98 Room Air 2 03/22/24 08:00 03/22/24 08:00 03/22/24 08:00 03/22/24 08:00 03/22/24 08:00 03/22/24 08:00 03/21/24 20:48 Oxygen Flow Rate (L/min) 2 Oxygen Delivery Method Room Air Weight: 287 lb 4.197 oz Body Mass Index (BMI) 40.0 Intake & Output: Intake and Output for Last 24 Hours 03/21/24 03/22/24 03/23/24 03:59 03:59 03:59 Intake Total 2484.75 / 2484.75 652.25 / 652.25 Output Total 350 / 350 950 / 950 Balance 2134.75 / 2134.75 -297.75 / -297.75 Lab / Micro Data 03/22/24 05:55 03/22/24 05:55 Labs: Laboratory Results - last 24 hr 03/21/24 10:43: Sodium 138, Potassium 3.7, Chloride 107, Carbon Dioxide 26.0, Anion Gap 5, BUN 12, Creatinine 0.79, Estim Creat Clear Calc 152.25, Est GFR (MDRD) Af Amer 133, Est GFR (MDRD) Non-Af 110, BUN/Creatinine Ratio 15.2, Glucose 90, Calcium 9.1, Magnesium 2.1 03/21/24 11:28: POC Glucose 99 03/22/24 05:55: WBC 16.8 H, RBC 4.71, Hgb 11.6 L, Hct 38.7 L, MCV 82.2, MCH 24.6 L, MCHC 30.0 L, RDW Std Deviation 49.1 H, RDW Coeff of Luigi 16.6 H, Plt Count 278, MPV 9.5, Sodium 137, Potassium 3.8, Chloride 106, Carbon Dioxide 26.0, Anion Gap 4 L, BUN 12, Creatinine 0.83, Estim Creat Clear Calc 144.91, Est GFR (MDRD) Af Amer 125, Est GFR (MDRD) Non-Af 103, BUN/Creatinine Ratio 14.4, Glucose 125 H, Calcium 8.0 L Radiography Diagnostic Testing: Radiology Impression Knee X-Ray 03/21/24 17:00 IMPRESSION: Postsurgical changes of the right knee as above. Electronically Signed: Dimitrios García MD at 17:54 EDT Reading Location ID and State: [facility] / [place] , Service support , Physical Exam Narrative General: Alert, Oriented x3, Cooperative, No apparent distress HEENT: Atraumatic, PERRLA, EOMI, Normocephalic Oral: Moist Mucosa Neck: Supple, No JVD Lungs: Clear to auscultation, Normal air movement, No rhonchi, No wheeze, No rales Cardiovascular: Regular rate, Regular Rhythm, Normal S1, Normal S2, No murmurs Abdomen: Soft, Non Tender, Non-Distended, No Hepato-splenomegaly Extremities: No edema, Capillary Refill Less than 3 Seconds Skin: Right lower extremity in a brace, wound VAC in place with serosanguineous drainage Musculoskeletal: No Tenderness to Palpation of Joints or Extremities Neurological: No focal neurological deficits, Motor Exam 5/5 strength throughout, Sensory exam intact to light touch and pain Psych/Mental Status: Normal Affect, Appropriate Assessment & Plan Assessment/Plan (1) Infection and 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 Pain management per primary ? Awaiting infectious disease evaluation and culture data for antibiotic long-term recommendations ? Plan is to combine with plastic surgery for flap in the meantime we will continue with wound VAC ? PT/OT No other medical history, takes testosterone injections every 2 weeks DVT: Lovenox Charges/Coding Visit Charges Office Visits / Consults: [id number] OV L3 New 30min
[2024-03-22 11:07] LABS: Vancomycin, Trough Level 16.3 ug/mL (5.0-15.0)
--- NOTE | 2024-03-22 11:07 | NURSING ---
pt 1100 vanc is not on unit at this time for pt administration-pt now having PICC line placed and nurse unable to enter room until completed
--- NOTE | 2024-03-22 11:14 | PHA.PHARE_ITS ---
Consult Antibiotic Management Pharmacy has been consulted to manage selected antibiotic: Vancomycin Type of Intervention Type of Consult: Follow-up Labs Labs: Sodium 137 mmol/L (136-145) 03/22/24 05:55 Potassium 3.8 mmol/L (3.5-5.1) 03/22/24 05:55 Chloride 106 mmol/L (98-107) 03/22/24 05:55 Carbon Dioxide 26.0 mmol/L (21.0-32.0) 03/22/24 05:55 Anion Gap 4 (5-15) L 03/22/24 05:55 BUN 12 mg/dL (7-18) 03/22/24 05:55 Creatinine 0.83 mg/dL (0.70-1.30) 03/22/24 05:55 Est GFR (MDRD) Af Amer 125 mL/min (>60) 03/22/24 05:55 Est GFR (MDRD) Non-Af 103 mL/min (>60) 03/22/24 05:55 BUN/Creatinine Ratio 14.4 RATIO (10-20) 03/22/24 05:55 Glucose 125 mg/dL (74-106) H 03/22/24 05:55 Vancomycin Trough 16.3 ug/mL (5.0-15.0) H 03/22/24 10:30 Pharmacy Plan for Drug Dosing Pharmacy Plan for Drug Dosing: VANCOMYCIN LEVEL RECEIVED Current Vancomycin Dose: 1500MG Q8 Number of Doses Received: 3 Vancomycin Level: 16.3 MG/DL Hours Since Last Dose: 8 Renal Function: SCR 0.83 MG/DL, CRCL 144 ML/MIN Renal Function Trend: STABLE Lab/Micro: surgery cultures pending Vancomycin Plan/Comments: 8 hour trough is therapeutic at 16.3 mg/dl (goal 15- 20). Will continue current dosing at this time and get a trough in 2 days. Pending Level: 03/24/24 @ 1030 Pharmacy Service will continue to monitor and adjust dosing as required.
--- NOTE | 2024-03-22 11:59 | NURSING ---
PICC in right upper arm, ready for use-pt assisted back to chair, in right knee immobilizer,walker and knee elevated 1100 vancomycin not here for pt administration at this time
[2024-03-22 13:55] VITALS: BP 119/68; PULSE 66; RESP 18; TEMP 36.7; O2SAT 97
--- NOTE | 2024-03-22 15:18 | POSTOPAN2_ITS ---
Anesthesia Postop Eval I Sum Postop Eval Completion status Anesthesia document: Postop Eval 1 completed: Yes Anesthesia Postop Eval I Summary Anesthesia Postop Eval I Summary: Anesthesia Postop Eval I: Assessment Summary Airway patent Yes 03/21/24 16:52 [email or web address] Spontaneous unlabored Yes 03/21/24 16:52 [email or web address] [email or web address] respirations Mental status Awake,Calm 03/21/24 16:52 [email or web address] nausea No 03/21/24 16:52 [email or web address] [email or web address] Vomiting No 03/21/24 16:52 [email or web address] Anesthesia Postop Eval I: Fluid Summary Crystalloid volume administer 1,500 03/21/24 16:52 [email or web address] (ml) Colloids volume administered ( ml) Blood Product volume administered (ml) Total IV fluid infused 1,500 03/21/24 16:52 [email or web address] Anesthesia Postop Eval I: Summary Notes Anesthesia Complication No 03/21/24 16:52 [email or web address] Anesthesia Complication Comment: Post-operative progress note Anesthesia: Postop Eval II Evaluation Mental status: Awake Pain Level: 2 nausea: No Vomiting: No
--- NOTE | 2024-03-22 15:18 | PCM.POSTANE2 ---
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 respirations Mental status Awake,Calm 03/21/24 16:52 [email or web address] [email or web address] [email or web address] nausea No 03/21/24 16:52 [email or web address] SCENE [email or web address] Vomiting No 03/21/24 16:52 [email or web address] SCENE [email or web address] Anesthesia Postop Eval I: Fluid Summary Crystalloid volume administer 1,500 03/21/24 16:52 CRIME [email or web address] [email or web address] (ml) Colloids volume administered ( ml) Blood Product volume administered (ml) Total IV fluid infused 1,500 03/21/24 16:52 [email or web address] [email or web address] Anesthesia Postop Eval I: Summary Notes Anesthesia Complication No 03/21/24 16:52 [email or web address] [email or web address].[email or web address] Anesthesia Complication Comment: Post-operative progress note Anesthesia: Postop Eval II Evaluation Mental status: Awake Pain Level: 2 nausea: No Vomiting: No
[2024-03-22 18:03] VITALS: BP 140/86; PULSE 63; RESP 18; TEMP 36.7; O2SAT 96
[2024-03-22 21:00] VITALS: BP 143/85; PULSE 70; RESP 16; TEMP 36.2; O2SAT 99
[2024-03-23 03:00] VITALS: BP 134/74; PULSE 72; RESP 16; TEMP 36.6; O2SAT 97
[2024-03-23] MEDS: Vancomycin HCl 1,500 MG in 0.9% Normal Saline (500mL Bag) 500 ML 250 MG IV ×3 (03:40→18:16)
[2024-03-23] MEDS: 0.9% Saline Lock 10 ML Syringe IV (03:40)
[2024-03-23] MEDS: oxyCODONE 5 MG Tablet PO ×2 (03:40→07:17)
[2024-03-23 05:45] LABS: Absolute Lymphocyte Count 1.71 X10^3/uL (0.83-4.51); Absolute Neutrophil Count 6.7 X10^3/uL (2.0-7.7); Basophil# 0.03 X10^3/uL; Basophil% 0.3 % (0-1); Eosinophil# 0.13 X10^3/uL; Eosinophils% 1.3 % (0-5); Hematocrit 34.6 % (40-54); Hemoglobin 10.8 g/dL (13.0-16.5); Lymphocyte # 1.71 X10^3/ul (0.83-4.51); Lymphocyte % 17.6 % (19-41); Mean Corp Hgb Conc 31.2 g/dL (32-36); Mean Corpuscular Hgb 25.2 pg (27.0-32.0); Mean Corpuscular Volume 80.8 fL (80-94); Mean Platelet Vol. 9.2 fl (6.2-12.0); Monocyte# 1.14 X10^3/uL; Monocyte% 11.7 % (0-10); NRBC Flagged by Analyzer 0 % (0-5); Neutrophil # 6.69 X10^3/uL (2.7-7.7); Neutrophil % 68.8 % (47-70); Platelet Count 223 K/mm3 (150-450); RBC Distribution Width CV 16.9 % (11.6-14.6); RBC Distribution Width SD 48.2 fl (35.1-43.9); Red Blood Count 4.28 M/mm3 (4.6-6.2); White Blood Count 9.7 K/mm3 (4.4-11.0)
[2024-03-23 06:31] LABS: Anion Gap 3 (5-15); BUN 8 mg/dL (7-18); BUN/Creat Ratio 12.3 RATIO (10-20); Calcium,Total 8.2 mg/dL (8.5-10.1); Chloride 109 mmol/L (98-107); Creatinine, Serum 0.65 mg/dL (0.70-1.30); EST Glomerular Filtration Rate 137 mL/min (>60); Est Glom Filt Rate - Afr Amer 165 mL/min (>60); Estimated Creatinine Clearance 185.04 ml/min; Glucose 98 mg/dL (74-106); Potassium 3.6 mmol/L (3.5-5.1); Sodium Level 139 mmol/L (136-145)
[2024-03-23] MEDS: Enoxaparin 40 MG/0.4 ML Syringe SC (06:49)
[2024-03-23] MEDS: Acetaminophen 500 MG Tablet 1000 MG PO ×3 (06:52→20:55)
--- NOTE | 2024-03-23 08:01 | PCM.PN.SRG ---
Subjective Subjective Doing well overall. Some numbness on the very distal plantar foot, but otherwise no numbness on the foot. Objective Data Objective Data Vital Signs: Vital Signs Temp Pulse Resp BP Pulse Ox O2 Del Method O2 Flow Rate 97.8 F 72 16 134/74 H 97 Room Air 2 03/23/24 03:00 03/23/24 03:00 03/23/24 03:00 03/23/24 03:00 03/23/24 03:00 03/23/24 03:00 03/21/24 20:48 Oxygen Flow Rate (L/min) 2 Oxygen Delivery Method Room Air Weight: 287 lb 4.197 oz Body Mass Index (BMI) 40.0 Intake & Output: Intake and Output for Last 24 Hours 03/21/24 03/22/24 03/23/24 23:59 23:59 23:59 Intake Total 2484.75 / 2484.75 3862.25 / 3862.25 530 / 530 Output Total 350 / 350 1450 / 2950 2500 / 2500 Balance 2134.75 / 2134.75 2412.25 / 912.25 -1969 / Lab / Micro Data 03/23/24 05:32 03/23/24 05:32 Labs: Laboratory Results - last 24 hr 03/22/24 10:30: Vancomycin Trough 16.3 H 03/23/24 05:32: WBC 9.7, RBC 4.28 L, Hgb 10.8 L, Hct 34.6 L, MCV 80.8, MCH 25.2 L, MCHC 31.2 L, RDW Std Deviation 48.2 H, RDW Coeff of Luigi 16.9 H, Plt Count 223, MPV 9.2, Immature Gran % (Auto) 0.300, Neut % (Auto) 68.8, Lymph % (Auto) 17.6 L, [place] % (Auto) 11.7 H, Eos % (Auto) 1.3, Baso % (Auto) 0.3, Absolute Neuts (auto) 6.7, Absolute Lymphs (auto) 1.71, Nucleated RBC % 0, Sodium 139, Potassium 3.6, Chloride 109 H, Carbon Dioxide 27.0, Anion Gap 3 L, BUN 8, Creatinine 0.65 L, Estim Creat Clear Calc 185.04, Est GFR (MDRD) Af Amer 165, Est GFR (MDRD) Non-Af 137, BUN/Creatinine Ratio 12.3, Glucose 98, Calcium 8.2 L Micro: Microbiology 03/21/24 16:53 Tissue - Knee Gram Stain - Final 03/21/24 16:53 Tissue - Knee Wound Culture - Preliminary No growth-Final to follow 03/21/24 16:53 Tissue - Knee Gram Stain - Final 03/21/24 16:53 Tissue - Knee Wound Culture - Preliminary No growth-Final to follow 03/21/24 16:53 Tissue - Knee Gram Stain - Final 03/21/24 16:53 Tissue - Knee Wound Culture - Preliminary No growth-Final to follow 03/21/24 16:53 Tissue - Knee Gram Stain - Final 03/21/24 16:53 Tissue - Knee Wound Culture - Preliminary No growth-Final to follow 03/21/24 10:43 Swab (Method) Nasal Screen MRSA/MSSA - Final Physical Exam Narrative Right upper extremity Seen and examined on the floor today. Ice pack and dressings over the knee. VeraFlow wound VAC in place holding suction. Sensation: Intact to light touch on the dorsum and plantar foot (feels a little different/numb on distal plantar surface, however). Sensation to light touch intact over the leg. Motor: He is able to extend his foot and satya his foot. Vascular: Foot appears warm and well-perfused, 2+ dorsalis pedis and posterior tibial pulses. Photographs from the operating room: Assessment & Plan Assessment/Plan (1) Infection and inflammatory reaction due to internal right knee prosthesis, subsequent encounter: PLAN: I discussed with the patient and his extensively my role in assisting Dr. Agrawal. I discussed with them the option of a lateral gastrocnemius muscle flap with overlying skin graft, the idea being that this would provide healthy tissue and close off the communication between the wound and the joint. We discussed how this muscle flap would weaken the calf but the other muscles would compensate over time. We discussed the risks of permanent damage or temporary neuropraxia to the peroneal nerve, and we discussed the distribution of numbness as well as motor deficits (foot drop and inability to satya the foot). We also talked about flap failure and need for further options, including vastus lateralis or ALT as backup options. All her questions were answered. I talked them also about the general risks of surgery, including bleeding, infection, damage to surrounding structures, surgical site dehiscence and wound formation, need for wound care, need for repeat operations, failure to obtain the desired result (heal the wound), DVT/PE, and the risks of anesthesia including . PLAN FROM 23 MAR 2024: Repeat washout and debridement of the lateral wound on Sunday, 24 March 2024 (n.p.o. at midnight, okay to continue prophylactic Lovenox), and irrigating wound VAC placement. Subsequent plan will be lateral gastrocnemius flap, Sunday, 26 March 2024, with skin graft from right thigh and wound VAC placement. Charges/Coding Visit Charges Inpatient E&M: 71094 Subs Hosp L1
--- NOTE | 2024-03-23 08:36 | PCM.PN.HOSP ---
Subjective Subjective Doing well, no issues overnight Objective Data Objective Data Vital Signs: Vital Signs Temp Pulse Resp BP Pulse Ox O2 Del Method O2 Flow Rate 97.8 F 72 16 134/74 H 97 Room Air 2 03/23/24 03:00 03/23/24 03:00 03/23/24 03:00 03/23/24 03:00 03/23/24 03:00 03/23/24 03:00 03/21/24 20:48 Oxygen Flow Rate (L/min) 2 Oxygen Delivery Method Room Air Weight: 287 lb 4.197 oz Body Mass Index (BMI) 40.0 Intake & Output: Intake and Output for Last 24 Hours 03/22/24 03/23/24 03/24/24 03:59 03:59 03:59 Intake Total 2484.75 / 2484.75 3862.25 / 3862.25 530 / 530 Output Total 350 / 350 2950 / 2950 1000 / 1000 Balance 2134.75 / 2134.75 912.25 / 912.25 -470 / -470 Lab / Micro Data 03/23/24 05:32 03/23/24 05:32 Labs: Laboratory Results - last 24 hr 03/22/24 10:30: Vancomycin Trough 16.3 H 03/23/24 05:32: WBC 9.7, RBC 4.28 L, Hgb 10.8 L, Hct 34.6 L, MCV 80.8, MCH 25.2 L, MCHC 31.2 L, RDW Std Deviation 48.2 H, RDW Coeff of Luigi 16.9 H, Plt Count 223, MPV 9.2, Immature Gran % (Auto) 0.300, Neut % (Auto) 68.8, Lymph % (Auto) 17.6 L, [place] % (Auto) 11.7 H, Eos % (Auto) 1.3, Baso % (Auto) 0.3, Absolute Neuts (auto) 6.7, Absolute Lymphs (auto) 1.71, Nucleated RBC % 0, Sodium 139, Potassium 3.6, Chloride 109 H, Carbon Dioxide 27.0, Anion Gap 3 L, BUN 8, Creatinine 0.65 L, Estim Creat Clear Calc 185.04, Est GFR (MDRD) Af Amer 165, Est GFR (MDRD) Non-Af 137, BUN/Creatinine Ratio 12.3, Glucose 98, Calcium 8.2 L Micro: Microbiology 03/21/24 16:53 Tissue - Knee Gram Stain - Final 03/21/24 16:53 Tissue - Knee Wound Culture - Preliminary No growth-Final to follow 03/21/24 16:53 Tissue - Knee Gram Stain - Final 03/21/24 16:53 Tissue - Knee Wound Culture - Preliminary No growth-Final to follow 03/21/24 16:53 Tissue - Knee Gram Stain - Final 03/21/24 16:53 Tissue - Knee Wound Culture - Preliminary No growth-Final to follow 03/21/24 16:53 Tissue - Knee Gram Stain - Final 03/21/24 16:53 Tissue - Knee Wound Culture - Preliminary No growth-Final to follow 03/21/24 10:43 Swab (Method) Nasal Screen MRSA/MSSA - Final Physical Exam Narrative General: Alert, Oriented x3, Cooperative, No apparent distress HEENT: Atraumatic, PERRLA, EOMI, Normocephalic Oral: Moist Mucosa Neck: Supple, No JVD Lungs: Clear to auscultation, Normal air movement, No rhonchi, No wheeze, No rales Cardiovascular: Regular rate, Regular Rhythm, Normal S1, Normal S2, No murmurs Abdomen: Soft, Non Tender, Non-Distended, No Hepato-splenomegaly Extremities: No edema, Capillary Refill Less than 3 Seconds Skin: Right lower extremity in a brace, wound VAC in place with serosanguineous drainage Musculoskeletal: No Tenderness to Palpation of Joints or Extremities Neurological: No focal neurological deficits, Motor Exam 5/5 strength throughout, Sensory exam intact to light touch and pain Psych/Mental Status: Normal Affect, Appropriate Assessment & Plan Assessment/Plan (1) Infection and 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 Pain management per primary ? Awaiting infectious disease evaluation and culture data for antibiotic long-term recommendations ? Plan is to combine with plastic surgery for flap with continued washouts on on Sunday with flap on Sunday. In the meantime we will continue with wound VAC ? PT/OT No other medical history, takes testosterone injections every 2 weeks DVT: Lovenox Will sign off please contact with any questions Charges/Coding Visit Charges Inpatient E&M: 17258 Subs Hosp L2
[2024-03-23 09:00] VITALS: BP 146/81; PULSE 68; RESP 18; TEMP 36.7; O2SAT 96
[2024-03-23] MEDS: Ceftriaxone 2 GM in 0.9% Normal Saline (50mL MB+) 50 ML IV (09:20)
[2024-03-23] MEDS: Famotidine 20 MG Tablet PO (09:21)
[2024-03-23] MEDS: Senna/Docusate Sodium 1 Tablet 2 TABLET PO ×2 (09:21→20:54)
[2024-03-23] MEDS: Meloxicam 7.5 MG Tablet PO ×2 (12:03→15:54)
--- NOTE | 2024-03-23 12:13 | PN.ORTHO_ITS ---
Subjective Subjective The patient was sitting in bedside chair with family present upon examination. Patient denies any chest pain, shortness of breath, dizziness, lightheadedness, nausea or vomiting, or calf pain. Pain is controlled on medications. No adverse overnight events. Patient overall is doing well this morning. The pain has been controlled. Patient states the numbness in his foot is significantly improved. He only has a very slight numbness on the ball of his foot. Plastics is currently involved and the plan is for patient to undergo washout on March 24, 2024 followed by the flap repair on March 26, 2024. Objective Data Objective Data Vital Signs: Vital Signs Temp Pulse Resp BP Pulse Ox O2 Del Method O2 Flow Rate 98.1 F 68 18 146/81 H 96 Room Air 2 03/23/24 09:00 03/23/24 09:00 03/23/24 09:00 03/23/24 09:00 03/23/24 09:00 03/23/24 09:00 03/21/24 20:48 Oxygen Flow Rate (L/min) 2 Oxygen Delivery Method Room Air Weight: 130.3 kg Body Mass Index (BMI) 40.0 Intake & Output: Intake and Output for Last 24 Hours 03/21/24 03/22/24 03/23/24 23:59 23:59 23:59 Intake Total 2484.75 / 2484.75 3862.25 / 3862.25 580 / 580 Output Total 350 / 350 1450 / 2950 2500 / 2500 Balance 2134.75 / 2134.75 2412.25 / 912.25 -1920 / -1920 Lab / Micro Data 03/23/24 05:32 03/23/24 05:32 Labs: Laboratory Results - last 24 hr 03/23/24 05:32: WBC 9.7, RBC 4.28 L, Hgb 10.8 L, Hct 34.6 L, MCV 80.8, MCH 25.2 L, MCHC 31.2 L, RDW Std Deviation 48.2 H, RDW Coeff of Luigi 16.9 H, Plt Count 223, MPV 9.2, Immature Gran % (Auto) 0.300, Neut % (Auto) 68.8, Lymph % (Auto) 17.6 L, [place] % (Auto) 11.7 H, Eos % (Auto) 1.3, Baso % (Auto) 0.3, Absolute Neuts (auto) 6.7, Absolute Lymphs (auto) 1.71, Nucleated RBC % 0, Sodium 139, Potassium 3.6, Chloride 109 H, Carbon Dioxide 27.0, Anion Gap 3 L, BUN 8, C reatinine 0.65 L, Estim Creat Clear Calc 185.04, Est GFR (MDRD) Af Amer 165, Est GFR (MDRD) Non-Af 137, BUN/Creatinine Ratio 12.3, Glucose 98, Calcium 8.2 L Micro: Microbiology 03/21/24 16:53 Tissue - Knee Gram Stain - Final 03/21/24 16:53 Tissue - Knee Wound Culture - Preliminary No growth-Final to follow 03/21/24 16:53 Tissue - Knee Gram Stain - Final 03/21/24 16:53 Tissue - Knee Wound Culture - Preliminary No growth-Final to follow 03/21/24 16:53 Tissue - Knee Gram Stain - Final 03/21/24 16:53 Tissue - Knee Wound Culture - Preliminary No growth-Final to follow 03/21/24 16:53 Tissue - Knee Gram Stain - Final 03/21/24 16:53 Tissue - Knee Wound Culture - Preliminary No growth-Final to follow 03/21/24 10:43 Swab (Method) Nasal Screen MRSA/MSSA - Final Physical Exam Narrative Vital signs stable and afebrile. SCDs and MUNIR hose in place Patient is able to plantarflex and dorsiflex actively. Sensation is intact to light touch to saphenous, sural, superficial and deep peroneal, and tibial distribution. Knee immobilizer in place. Patient currently has wound VAC being managed by plastics Negative Homans bilaterally, negative signs and symptoms of DVT. Const alert, oriented x3 and no apparent distress General Appearance: cooperative and comfortable Extremity Extremity Narrative: Right lower extremity: Wound VAC dressing is clean dry and intact with intermittent irrigation with Dakin solution. Sensations intact to light touch saphenous, sural, superficial peroneal, deep peroneal, and tibial distributions however, patient does report that in all distributions there is a feeling of decreased sensation Motors intact EHL, DF, PF calves are soft and supple Assessment & Plan Assessment/Plan (1) Infection and inflammatory reaction due to internal right knee prosthesis, subsequent encounter: PLAN: 1. Status post right knee explantation and placement of articulating antibiotic spacer with sinus tract POD#2 2. Antibiotic treatment: Case has been discussed with infectious disease and will round on Sunday. Cultures have been reviewed and are without any growth. Patient has been started on ceftriaxone 2 g every 24 hours and vancomycin IV. Does have a history of impetigo diagnosis in that area. No previous cultures. Patient did have extensive antibiotic treatment prior to initiating treatment and obtaining cultures yesterday. Patient has had PICC line established. Appreciate recommendations from infectious disease. 3. Lateral wound: Plastic surgery service has been consulted. Plan is to take back to the operating room to irrigate and debride once more on Sunday with soft tissue coverage most likely lateral gastroc flap on Sunday and wound VAC with removal of wound VAC and placement of skin graft the following Sunday. Patient is currently in a knee immobilizer to reduce tension on the skin. Currently patient has a wound VAC with intermittent irrigation with Dakin solution. Wound VAC will be removed on Sunday in the operating room when taken back by plastics for debridement 4. H&H: 10.8/34.6, asymptomatic. Vitals have been stable. Patient's reactive leukocytosis has resolved and the white blood cell count is currently 9.7. 5. Therapy: Patient is 50% weightbearing of the right lower extremity. Continue with physical therapy daily. Patient should be mobilized consistently and up to chair throughout the day. Patient is to remain in knee immobilizer with no flexion of the knee. 6. Continue pain medications: Will use postoperative pain regimen with Tylenol, oxycodone and meloxicam. Nursing did reach out to plastics and they are okay with patient using the meloxicam. 7. DVT prophylaxis: Lovenox 40 units subcu twice a day prophylactic dose. We used this because has a short half-life and will allow for good coverage up to the time of surgery as well as the ability to stop coverage for plastic surgeries planned. May want to consider aspirin or direct oral anticoagulant upon discharge from hospital. 8. Continue postoperative medical management per medicine 9. Encouraged incentive spirometer 10. Patient is aware of postoperative constipation that can occur from 1-3 days postoperatively. Will continue with senna 2 tablets twice daily until first bowel movement. Patient was advised if not having a bowel movement after day 3 she is to contact orthopedics so appropriate change can be made. Patient voiced understanding. 11. Disposition: Patient will need antibiotic regimen finalized and plastic surgery to complete their surgical plan prior to discharge. From an orthopedic standpoint patient's midline sutures can be removed at 2 weeks postoperatively. Patient will need minimum of 2 weeks coverage for DVT prophylaxis with Lovenox for direct oral anticoagulant followed by 2 weeks of aspirin 81 mg p.o. twice daily as long as this does not interfere with plastic soft tissue surgeries or coverage plans. Patient and family both expressed a desire to return home upon discharge we will plan to transfer to plastic surgery service after his surgery on Sunday. Orthopedics continue to follow at this time next planned surgery and from orthopedics this for replantation however, patient may require further debridement depending on state of the wound and joint. Patient and family had many questions with regards to course of treatment. This dictation was created using voice recognition software. Phonetic and/or grammatical errors may exist.
[2024-03-23 15:45] VITALS: BP 142/85; PULSE 72; RESP 18; TEMP 37.1; O2SAT 97
[2024-03-23 20:43] VITALS: BP 135/94; PULSE 70; RESP 18; TEMP 36.8; O2SAT 98
[2024-03-23 21:00] VITALS: BP 135/94; PULSE 70; RESP 18; TEMP 36.8; O2SAT 98
[2024-03-24] VITALS (12 sets, daily range): BP systolic 129–156; BP diastolic 73–97; PULSE 60–100; RESP 16–20; TEMP 36.4–36.9; O2SAT 92–100; BMI 40.0
[2024-03-24] MEDS: Vancomycin HCl 1,500 MG in 0.9% Normal Saline (500mL Bag) 500 ML 250 MG IV (03:51)
[2024-03-24] MEDS: Acetaminophen 500 MG Tablet 1000 MG PO ×2 (05:46→20:05)
--- NOTE | 2024-03-24 08:52 | PCM.PN.SRG ---
Subjective Subjective Doing well overall. Has been NPO for today's wash out/debridement. Objective Data Objective Data NGTD from OR cultures taken on 21 Mar 2024 Vital Signs: Vital Signs Temp Pulse Resp BP Pulse Ox O2 Del Method O2 Flow Rate 97.6 F L 60 16 129/87 H 98 Room Air 2 03/24/24 08:14 03/24/24 08:14 03/24/24 08:14 03/24/24 08:14 03/24/24 08:14 03/24/24 08:14 03/21/24 20:48 Oxygen Flow Rate (L/min) 2 Oxygen Delivery Method Room Air Weight: 287 lb 4.197 oz Body Mass Index (BMI) 40.0 Intake & Output: Intake and Output for Last 24 Hours 03/22/24 03/23/24 03/24/24 23:59 23:59 23:59 Intake Total 3862.25 / 3862.25 3000 / 3360 360 / 360 Output Total 1450 / 2950 2500 / 2500 Balance 2412.25 / 912.25 500 / 860 360 / 360 Lab / Micro Data 03/23/24 05:32 03/23/24 05:32 Micro: Microbiology 03/21/24 16:53 Tissue - Knee Gram Stain - Final 03/21/24 16:53 Tissue - Knee Wound Culture - Preliminary No growth-Final to follow 03/21/24 16:53 Tissue - Knee Gram Stain - Final 03/21/24 16:53 Tissue - Knee Wound Culture - Preliminary No growth-Final to follow 03/21/24 16:53 Tissue - Knee Gram Stain - Final 03/21/24 16:53 Tissue - Knee Wound Culture - Preliminary No growth-Final to follow 03/21/24 16:53 Tissue - Knee Gram Stain - Final 03/21/24 16:53 Tissue - Knee Wound Culture - Preliminary No growth-Final to follow 03/21/24 10:43 Swab (Method) Nasal Screen MRSA/MSSA - Final Physical Exam Narrative Right upper extremity Seen and examined on the floor today. Ice pack and dressings over the knee. VeraFlow wound VAC in place holding suction. Sensation: Intact to light touch on the dorsum and plantar foot (feels a little different/numb on distal plantar surface, however). Sensation to light touch intact over the leg. Motor: He is able to extend his foot and satya his foot. Vascular: Foot appears warm and well-perfused, 2+ dorsalis pedis and posterior tibial pulses. Photographs from the operating room: Assessment & Plan Assessment/Plan (1) Infection and inflammatory reaction due to internal right knee prosthesis, subsequent encounter: PLAN: I discussed with the patient and his extensively my role in assisting Dr. Agrawal. I discussed with them the option of a lateral gastrocnemius muscle flap with overlying skin graft, the idea being that this would provide healthy tissue and close off the communication between the wound and the joint. We discussed how this muscle flap would weaken the calf but the other muscles would compensate over time. We discussed the risks of permanent damage or temporary neuropraxia to the peroneal nerve, and we discussed the distribution of numbness as well as motor deficits (foot drop and inability to satya the foot). We also talked about flap failure and need for further options, including vastus lateralis or ALT as backup options. All her questions were answered. I talked them also about the general risks of surgery, including bleeding, infection, damage to surrounding structures, surgical site dehiscence and wound formation, need for wound care, need for repeat operations, failure to obtain the desired result (heal the wound), DVT/PE, and the risks of anesthesia including . PLAN FROM 24 MAR 2024: Repeat washout and debridement of the lateral wound today (n.p.o., O.K. to continue prophylactic Lovenox), and irrigating wound VAC placement. Subsequent plan will be lateral gastrocnemius flap, Sunday, 26 March 2024, with skin graft from right thigh and wound VAC placement. I will discuss with infectious disease today and make sure they're O.K. with our plans.. Charges/Coding Visit Charges Inpatient E&M: 06637 Subs Hosp L1
[2024-03-24] MEDS: Ceftriaxone 2 GM in 0.9% Normal Saline (50mL MB+) 50 ML IV (09:55)
--- NOTE | 2024-03-24 10:17 | CASEMGMT ---
SAGE MARQUEZ Assessment: Face to Face with pt for initial transition planning/care coordination assessment. SAGE MARQUEZ introduced self and role at [facility], pt voices understanding and consents to assessment. Pt is A&O x4 and answers all questions appropriately at this time. Pt sitting up in bed in no distress with at bedside. Hospitalist came in during assessment. Care providers, pharmacy, and demographics verified/updated. Admitting Dx: periprosthetic R knee infection Strata Score: 1 PCP:Esther Specialists:horacio Agrawal Pharmacy: [facility] Insurance: [facility] Prescription Benefit: yes LNOK: Yolis F[place], Living Arrangements: Pt lives with in a single story home with 3 steps to enter with a rail. Pt reports he is I in ADLs and IADLs and still works. Pt denies concerns at home. Transportation: Pt drives self and denies concerns with transportation. Pt will transport pt until he is able to drive again. DME:CPAP, FWWW, w/c, raised toilet seat HHC/SNF: Denies hx of Pt states no concerns with going home at time of dc. Discussed potential option of IV atb. Pt states she would learn how to do this. Pt has a picc line currently and has plans for surgery today and Sunday. Pt has wound vac on knee currently. Pt states no further concerns/needs. CM to follow. Advised pt to ask CM if any further question/concerns/needs arise, voices understanding. Pt Goal: Home Plan: Home pending course of hospitalization and ID consult Jessenia CAZARES CM
[2024-03-24 11:23] LABS: Vancomycin, Trough Level 13.8 ug/mL (5.0-15.0)
--- NOTE | 2024-03-24 11:34 | CASEMGMT ---
Discharge Planning A list of?HH providers including quality and resource use data and consistent with the patient's preferred geographic region, medical needs, and insurance network was created in [facility] Guide.? This list was provided to the RN JIMMY. Zena Deluca, Discharge Planning Asst.
--- NOTE | 2024-03-24 11:34 | PCM.RX.CS ---
Consult Antibiotic Management Pharmacy has been consulted to manage selected antibiotic: Vancomycin Type of Intervention Type of Consult: Follow-up Suspected Infection Suspected Infection: Skin/Soft tissue (JOINT) Prior Doses of Antibiotics Prior Doses of Antibiotics Received/Current Regimen: Vancomycin 1500 mg Q8H last dose given 03/24 @ 0351 Labs Labs: Sodium 139 mmol/L (136-145) 03/23/24 05:32 Potassium 3.6 mmol/L (3.5-5.1) 03/23/24 05:32 Chloride 109 mmol/L (98-107) H 03/23/24 05:32 Carbon Dioxide 27.0 mmol/L (21.0-32.0) 03/23/24 05:32 Anion Gap 3 (5-15) L 03/23/24 05:32 BUN 8 mg/dL (7-18) 03/23/24 05:32 Creatinine 0.65 mg/dL (0.70-1.30) L 03/23/24 05:32 Est GFR (MDRD) Af Amer 165 mL/min (>60) 03/23/24 05:32 Est GFR (MDRD) Non-Af 137 mL/min (>60) 03/23/24 05:32 BUN/Creatinine Ratio 12.3 RATIO (10-20) 03/23/24 05:32 Glucose 98 mg/dL (74-106) 03/23/24 05:32 Vancomycin Trough 13.8 ug/mL (5.0-15.0) 03/24/24 10:30 Microbiology Microbiology: Microbiology 03/21/24 16:53 Tissue - Knee Gram Stain - Final 03/21/24 16:53 Tissue - Knee Wound Culture - Preliminary No growth-Final to follow 03/21/24 16:53 Tissue - Knee Gram Stain - Final 03/21/24 16:53 Tissue - Knee Wound Culture - Preliminary No growth-Final to follow 03/21/24 16:53 Tissue - Knee Gram Stain - Final 03/21/24 16:53 Tissue - Knee Wound Culture - Preliminary No growth-Final to follow 03/21/24 16:53 Tissue - Knee Gram Stain - Final 03/21/24 16:53 Tissue - Knee Wound Culture - Preliminary No growth-Final to follow 03/21/24 10:43 Swab (Method) Nasal Screen MRSA/MSSA - Final Dosing Weight Weight used for dosin kg Estimated Creatinine Clearance Estimated Creatinine Clearance: ~ 185 Goal Trough Goal Trough: 15-20 mcg/mL Pharmacy Plan for Drug Dosing Pharmacy Plan for Drug Dosing: Vancomycin trough = 13.8, increase to 1750 mg Q8H Pharmacy Service will continue to monitor and adjust dosing as required. Follow-Up Labs Follow-Up Labs: Trough: Vancomycin Date/Time Labs Ordered Labs to be done on [date and time ordered]: 03/25 @ 1137
[2024-03-24] MEDS: Vancomycin HCl 1,750 MG in 0.9% Normal Saline (500mL Bag) 500 ML 250 MG IV ×2 (11:56→20:05)
--- NOTE | 2024-03-24 12:37 | PCM.PROGNOTE ---
Subjective Subjective Patient seen and examined. His was by his bedside. He had no active complaints and review of systems was otherwise negative. Pain in left knee is controlled. Objective Data Objective Data Vital Signs: Vital Signs Temp Pulse Resp BP Pulse Ox O2 Del Method O2 Flow Rate 97.6 F L 60 16 129/87 H 98 Room Air 2 03/24/24 08:14 03/24/24 08:14 03/24/24 08:14 03/24/24 08:14 03/24/24 08:14 03/24/24 08:14 03/21/24 20:48 Oxygen Flow Rate (L/min) 2 Oxygen Delivery Method Room Air Weight: 287 lb 4.197 oz Body Mass Index (BMI) 40.0 Intake & Output: Intake and Output for Last 24 Hours 03/22/24 03/23/24 03/24/24 23:59 23:59 23:59 Intake Total 3862.25 / 3862.25 3000 / 3360 940 / 940 Output Total 1450 / 2950 2500 / 2500 Balance 2412.25 / 912.25 500 / 860 940 / 940 Lab / Micro Data 03/23/24 05:32 03/23/24 05:32 Labs: Laboratory Results - last 24 hr 03/24/24 10:30: Vancomycin Trough 13.8 Micro: Microbiology 03/21/24 16:53 Tissue - Knee Gram Stain - Final 03/21/24 16:53 Tissue - Knee Wound Culture - Preliminary No growth-Final to follow 03/21/24 16:53 Tissue - Knee Gram Stain - Final 03/21/24 16:53 Tissue - Knee Wound Culture - Preliminary No growth-Final to follow 03/21/24 16:53 Tissue - Knee Gram Stain - Final 03/21/24 16:53 Tissue - Knee Wound Culture - Preliminary No growth-Final to follow 03/21/24 16:53 Tissue - Knee Gram Stain - Final 03/21/24 16:53 Tissue - Knee Wound Culture - Preliminary No growth-Final to follow 03/21/24 10:43 Swab (Method) Nasal Screen MRSA/MSSA - Final Physical Exam Const alert, oriented x3, no apparent distress and well nourished Constitutional Narrative: obese General Appearance: cooperative HEENT normocephalic, head/scalp atraumatic and moist oral mucous membranes Eyes PERRL and EOMs intact bilaterally Neck no lymphadenopathy and supple Lymph Lymphatic: no lymphadenopathy noted and no lymphedema noted Resp normal respiratory effort, normal air movement and clear to auscultation bilaterally Cardio regular rate, regular rhythm, S1 normal heart sound, S2 normal heart sound and no murmurs GI normal to inspection, nondistended, normoactive bowel sounds, soft to palpation, non-tender and non-distended Extremity Extremity Narrative: right knee in knee brace, with intact dressing. Skin General Skin Exam: no breakdown Neuro CN's II-XII intact bilaterally and no focal motor deficits Coordination / Balance: [id number] test normal Motor Exam: strength 5/5 throughout Psych thought process normal and cooperative Appearance: appropriate Assessment & Plan Assessment/Plan (1) Infection and inflammatory reaction due to internal right knee prosthesis, subsequent encounter: PLAN: Plan #RIght knee periprosthetic infection s/p knee explanation and placement of antibiotic spacer on 03/21/2024. Today is POD2 pain is well controlled. Management of pain as per primary service. ID consulted for antibiotic recommendations. Await [facility] plastic surgery on board. for a lateral gastrocnemius flap with overlying skin graft. on IV vancomycin DVT prophylaxis: lovenox Charges/Coding Visit Charges Inpatient E&M: 64185 Subs Hosp L2
--- NOTE | 2024-03-24 13:26 | PCM.CONS.GEN ---
Assessment & Plan Assessment/Plan (1) Infection and inflammatory reaction due to internal right knee prosthesis, subsequent encounter: PLAN: He does not think any outpt swabs were taken in [place] or [place]. Taken to OR 03/21/24 for I&D and spacer placement. On vanc/ceftriaxone. Surg cx neg so far. Picc in place. Plan per plastic surgery is OR later this week for reconstructive surgery, agree from ID perspective. Will follow, thank you HPI Consult Data Date of Consult: 03/24/24 HPI Narrative Reason for Consultation: PJI HPI Narrative: ABDIRAHMAN HERRON, is a 53 M with R knee replacement 2017, presented with about 3 weeks R knee pain, swelling, redness, and drainage. Had purulence over lateral knee, no known inciting event. No fever or chills. 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 Went to urgent care in [place], they squeezed some pus out, and he was given po abx (he thinks bactrim and keflex). Sx continued, went back to urgent care, sent to ED in [place] ([facility] kept overnight, CT done, recommended he return home to be seen by Dr. Agrawal. Admitted here, taken to OR 03/21/24 for I&D and spacer placement. On vanc/ceftriaxone, feeling better, plastic surgery now following as well. No n/v/d. Full ROS performed and neg except as noted above PFSH Medical History Arthritis Chewing tobacco dependence History of pain when walking History of edema Home Medications ?Medication ?Instructions ?Recorded ?Last Taken ?Type doxycycline hyclate 100 mg capsule 100 mg PO BID INFECTION 03/20/24 03/20/24 History ibuprofen 600 mg tablet (IBU) 600 mg PO Q8H PRN PAIN 03/20/24 Unknown History testosterone 100 mg/mL 1 mg IM .Q2WEEK HORMONE 03/20/24 Unknown History intramuscular suspension Allergy/AdvReac Type Severity Reaction Status Date / Time No Known Allergies Allergy Verified 03/21/24 11:38 Surgical History Hx of total knee arthroplasty Hx of right knee surgery Hx of right knee surgery Social History Smoking Status: Current every day smoker tobacco type: smokeless tobacco Physical Exam Const alert, oriented x3 and no apparent distress General Appearance: cooperative HEENT normocephalic and head/scalp atraumatic Eyes PERRL and EOMs intact bilaterally Neck supple and No nodes Resp normal air movement and clear to auscultation bilaterally Cardio regular rate and regular rhythm GI soft to palpation, non-tender and non-distended Extremity General Extremity: edema Skin Skin Narrative: reviewed photos Neuro CN's II-XII intact bilaterally Lab / Micro Data Attestation: I reviewed the patient's lab results. 03/23/24 05:32 03/23/24 05:32 Labs: Laboratory Results - last 24 hr 03/24/24 10:30: Vancomycin Trough 13.8
--- NOTE | 2024-03-24 13:51 | PCM.PN.ORT ---
Subjective Subjective Patient seen and examined today. He is doing well. Numbness on the top of his foot is resolved. Objective Data Objective Data Vital Signs: Vital Signs Temp Pulse Resp BP Pulse Ox O2 Del Method O2 Flow Rate 97.7 F L 65 16 145/93 H 100 Room Air 2 03/24/24 12:46 03/24/24 12:46 03/24/24 12:46 03/24/24 12:46 03/24/24 12:46 03/24/24 12:46 03/21/24 20:48 Oxygen Flow Rate (L/min) 2 Oxygen Delivery Method Room Air Weight: 287 lb 4.197 oz Body Mass Index (BMI) 40.0 Intake & Output: Intake and Output for Last 24 Hours 03/22/24 03/23/24 03/24/24 23:59 23:59 23:59 Intake Total 3862.25 / 3862.25 3000 / 3360 940 / 940 Output Total 1450 / 2950 2500 / 2500 Balance 2412.25 / 912.25 500 / 860 940 / 940 Lab / Micro Data 03/23/24 05:32 03/23/24 05:32 Labs: Laboratory Results - last 24 hr 03/24/24 10:30: Vancomycin Trough 13.8 Micro: Microbiology 03/21/24 16:53 Tissue - Knee Gram Stain - Final 03/21/24 16:53 Tissue - Knee Wound Culture - Preliminary No growth-Final to follow 03/21/24 16:53 Tissue - Knee Gram Stain - Final 03/21/24 16:53 Tissue - Knee Wound Culture - Preliminary No growth-Final to follow 03/21/24 16:53 Tissue - Knee Gram Stain - Final 03/21/24 16:53 Tissue - Knee Wound Culture - Preliminary No growth-Final to follow 03/21/24 16:53 Tissue - Knee Gram Stain - Final 03/21/24 16:53 Tissue - Knee Wound Culture - Preliminary No growth-Final to follow 03/21/24 10:43 Swab (Method) Nasal Screen MRSA/MSSA - Final Physical Exam Narrative Physical exam is unchanged from previous exam except no paresthesias today. Assessment & Plan Assessment/Plan (1) Infection and inflammatory reaction due to internal right knee prosthesis, subsequent encounter: PLAN: 1. Antibiotic treatment: Patient has been started on ceftriaxone 2 g every 24 hours and vancomycin IV. Does have a history of impetigo diagnosis in that area. No previous cultures. Patient did have extensive antibiotic treatment prior to initiating treatment and obtaining cultures yesterday. Infectious disease was able to see the patient today. At this time agree with continuing Vanco and ceftriaxone. Cultures are currently negative. 2. Lateral wound: Plastic surgery service has been consulted. Case was discussed with the's morning. Plan is to take back to the operating room to irrigate and debride once more on Sunday with soft tissue coverage most likely lateral gastroc flap on Sunday and wound VAC with removal of wound VAC and placement of skin graft the following Sunday. Patient is currently in a knee immobilizer to reduce tension on the skin. Currently patient has a wound VAC with intermittent irrigation with Dakin solution. Wound VAC will be removed on today in the operating room when taken back by plastics for debridement 3. Therapy: Patient is 50% weightbearing of the right lower extremity. Should have physical therapy daily. Patient should be mobilized consistently and up to chair throughout the day. Patient is to remain in knee immobilizer with no flexion of the knee. 4. Pain control: Will use postoperative pain regimen with Tylenol, oxycodone and morphine. We did add NSAIDs with the blessing of plastics. 5. DVT prophylaxis: Lovenox 40 units subcu twice a day prophylactic dose. We used this because has a short half-life and will allow for good coverage up to the time of surgery as well as the ability to stop coverage for plastic surgeries planned. May want to consider aspirin or direct oral anticoagulant upon discharge from hospital. Disposition: Patient will need antibiotic regimen finalized and plastic surgery to complete their surgical plan prior to discharge. From an orthopedic standpoint patient's midline sutures can be removed at 2 weeks postoperatively. Patient will need minimum of 2 weeks coverage for DVT prophylaxis with Lovenox for direct oral anticoagulant followed by 2 weeks of aspirin 81 mg p.o. twice daily as long as this does not interfere with plastic soft tissue surgeries or coverage plans. Patient and family both expressed a desire to return home upon discharge we will plan to transfer to plastic surgery service after his surgery on Sunday. Orthopedics continue to follow at this time next planned surgery and from orthopedics this for replantation however, patient may require further debridement depending on state of the wound and joint. [facility] Office:
--- NOTE | 2024-03-24 14:00 | PCM.PRE.AN2 ---
ASA Classification* ASA Classification ASA Classification: 2 Assessment & Plan Anesthesia* Anesthesia Assessment Anesthesia Assessment: Discussed sedation and/or anesthesia options, risks, benefits, and alternatives with patient/parents/legal guardian/POA. Questions invited. The patient/parents/legal guardian/POA seems to understand and agrees to proceed with anesthesia plan. Reviewed the physical assessment, medical history, allergy history and patient home medications list prior to surgery/procedure/anesthetic and documented any changes. Performed airway and anesthesia risk assessments. Anesthesia Type Anesthesia Type: MAC (Patient is discussed on general anesthesia as a backup.) History Source History Obtained from:: Patient and Chart Anesthesia Focused Assessment* Temperature: 97.7 F Pulse Rate: 65 Blood Pressure: 145/93 Respiratory Rate: 16 Pulse Ox: 100 Oxygen Delivery Method: Room Air Airway Assessment Mouth opens: >3 cm Mallampati Score: II Teeth Condition: Intact Neck Range of motion (ROM): Full ROM Focused Labs Anesthesia Preop lab: CBC WBC 9.7 K/mm3 (4.4-11.0) 03/23/24 05:32 RBC 4.28 M/mm3 (4.6-6.2) L 03/23/24 05:32 Hgb 10.8 g/dL (13.0-16.5) L 03/23/24 05:32 Hct 34.6 % (40-54) L 03/23/24 05:32 Plt Count 223 K/mm3 (150-450) 03/23/24 05:32 CHEMISTRY Potassium 3.6 mmol/L (3.5-5.1) 03/23/24 05:32 Sodium 139 mmol/L (136-145) 03/23/24 05:32 Magnesium 2.1 mg/dL (1.6-2.6) 03/21/24 10:43 BUN 8 mg/dL (7-18) 03/23/24 05:32 Creatinine 0.65 mg/dL (0.70-1.30) L 03/23/24 05:32 Glucose 98 mg/dL (74-106) 03/23/24 05:32 POC Glucose 99 mg/dL (74-106) 03/21/24 11:28 TSH 1.03 uIU/mL (0.358-3.74) 10/02/14 08:59 COAG Pre-Assessment Diagnosis/Proposed Procedure Planned Operative Procedure(s): Right knee washout and wound vacuum placement Anesthesia History Anesthesia History - order control clerk blood bank: Anesthesia History - order control clerk blood bank Hx Hospitalization Yes: KNEE INFECTION 03/202403/20/24 09:23 Any Problems With Anesthesia No 03/24/24 07:53 Cholinesterase deficiency No 03/24/24 07:53 You/Your Family Experience No 03/24/24 07:53 fever (hyperthermia) with Relationship Recent Exposure to Contagious No 03/24/24 07:53 Disease Does patient have nerve No 03/24/24 07:53 stimulator Patient instructed to have device shut off --Does patient have Pacemaker No 03/24/24 08:16 or ICD? When Was Last Pacemaker Check QUESTION #4 FULL TEXT: You/Your Family Experience fever (hyperthermia) with Anesthesia Last Oral Intake Last Oral intake: Last Oral Intake NPO since 00:00 03/24/24 08:16 Meds taken in AM with sips of No 03/24/24 08:16 water? Meds patient instructed to take am of surgery PONV PONV - order control clerk blood bank: PONV - order control clerk blood bank Female No 03/20/24 09:23 HX of Motion Sickness No 03/20/24 09:23 HX of N/V After Surgery No 03/20/24 09:23 Non-Smoker No 03/20/24 09:23 Duration of Surgery greater Yes 03/20/24 09:23 than 60 minutes Number of Risk Factors 1 03/20/24 09:23 PONV Score Low Risk 03/20/24 09:23 Height & Weight Height & Weight: Anesthesia: Height & Weight Height 5 ft 11 in 03/24/24 08:16 Weight: 130.3 kg 03/24/24 08:16 Body Mass Index (BMI) 40.0 03/24/24 08:16 Respiratory Assessment Respiratory Assessment - order control clerk blood bank: Respiratory Tract Infection Hx - order control clerk blood bank Hx Respiratory Tract Infection No 03/24/24 07:53 STOP Sleep Apnea STOP Sleep Apnea - order control clerk blood bank: STOP Sleep Apnea - order control clerk blood bank Hx Hypertension No 03/20/24 09:23 Hx Sleep Apnea Yes: HAS CPAP 03/21/24 17:48 CPAP Yes 03/20/24 09:23 BIPAP No 03/20/24 09:23 Do you snore loudly (louder than talking or can be heard Do you often feel tired/ fatigued/ sleepy during daytime? Has anyone observed you stop breathing during sleep? STOP Results Positive 03/20/24 09:23 QUESTION #5 FULL TEXT : Do you snore loudly (louder than talking or can be heard through closed doors)? 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 Specify any problems Hx of Preganancy in last 3 N/A 03/20/24 09:23 Months Nurse Filling Out Transfusion DSCHRIBER 03/20/24 09:23 & Questions: Date: 03/20/24 03/20/24 09:23 Time: 03/20/24 09:23 Patient unable to answer at this time (ie. confused, unrespo /Reproduction History /Reproductive History - order control clerk blood bank: /Reproductive Hx- order control clerk blood bank Hx Now No 03/24/24 07:53 Gestational Age (in weeks): EDC: Hx Hx Para Hx Section SAB No 03/24/24 07:53 Active Medications Active Medications: Current Medications Generic Name Dose Route Start Last Admin Trade Name Freq PRN Reason Stop Dose Admin Acetaminophen 1,000 mg 03/21/24 22:00 03/24/24 05:46 Acetaminophen 500 Mg Tablet PO 1,000 mg Q8 [facility] Administration Sodium Hypochlorite 473 ml/ 0 ml 03/21/24 15:00 03/23/24 14:38 Sodium Chloride 473 ml IRRIGATION Not Given UD [facility] Enoxaparin Sodium 40 mg 03/22/24 06:00 03/24/24 05:37 Enoxaparin 40 Mg/0.4 Ml Syringe SC Not Given DAILY@0600 [facility] Enteral Nutritional Formula 237 ml 03/21/24 17:00 03/24/24 11:41 Ensure Surgery 237 Ml Liquid PO Not Given TIDCM [facility] Famotidine 20 mg 03/22/24 10:00 03/24/24 09:40 Famotidine 20 Mg Tablet PO Not Given DAILY [facility] Ceftriaxone Sodium 2 gm/ 50 mls @ 100 mls/hr 03/22/24 10:00 03/24/24 10:30 Sodium Chloride IV Infused Q24 [facility] Infusion Vancomycin IV-PHARMACY TO DOSE 500 mls @ 250 mls/hr 03/21/24 16:44 1 each/ Sodium Chloride IV PRN PRN Rx to Dose Protocol Lactated Ringer's 1,000 mls @ 15 mls/hr 03/21/24 17:45 03/23/24 16:18 IV 03/27/24 07:04 Not Given .Q48H [facility] Protocol Sodium Chloride 100 mls @ 15 mls/hr 03/21/24 18:27 IV .Q6H40M PRN Saline Flush Sodium Chloride 100 mls @ 15 mls/hr 03/21/24 18:27 IV .Q6H40M PRN Additional IVPB Infusion Vancomycin HCl 1,750 mg/ 535 mls @ 250 mls/hr 03/24/24 12:00 03/24/24 11:56 Sodium Chloride IV 250 mls/hr Q8H [facility] Administration Insulin Human Lispro 1 - 6 unit 03/21/24 12:30 Insulin Lispro 100 Unit/Ml Insuln.Pen SC Q4H PRN PRN BG>/= 180, SEE PROTOCOL Protocol Meloxicam 7.5 mg 03/23/24 10:45 03/24/24 07:12 Meloxicam 7.5 Mg Tablet PO Not Given [facility] Morphine Sulfate 2 - 4 mg 03/21/24 16:55 Morphine 2 Mg/Ml Syringe IV Q2H PRN PRN Pain Score 6-10 Morphine Sulfate 2 - 4 mg 03/21/24 17:12 Morphine 4 Mg/Ml Syringe IV Q2H PRN PRN Pain Score 6-10 Ondansetron HCl 4 mg 03/21/24 16:55 Ondansetron 4 Mg/2 Ml Vial IV Q8H PRN PRN NAUSEA Oxycodone HCl 5 - 10 mg 03/21/24 16:55 03/23/24 07:17 Oxycodone 5 Mg Tablet PO 5 mg Q4H PRN PRN Administration Pain Score 4-10 Promethazine HCl 12.5 mg 03/21/24 16:55 Promethazine 25 Mg/Ml Syringe IM Q6H PRN PRN NAUSEA/VOMITING Protocol Senna/Docusate Sodium 2 tablet 03/21/24 22:00 03/24/24 09:40 Senna/Docusate Sodium 1 Tablet PO Not Given BID [facility] Sodium Chloride 10 - 40 ml 03/21/24 18:27 03/23/24 03:40 0.9% Saline Lock 10 Ml Syringe IV 10 ml UD PRN Administration SALINE FLUSH Vancomycin Protocol 1 lab 03/25/24 09:30 Vancomycin Trough/Random Due MC 03/25/24 13:30 DAILY [facility] PFSH Medical History Arthritis Chewing tobacco dependence History of pain when walking History of edema Home Medications ?Medication ?Instructions ?Recorded ?Last Taken ?Type doxycycline hyclate 100 mg capsule 100 mg PO BID INFECTION 03/20/24 03/20/24 History ibuprofen 600 mg tablet (IBU) 600 mg PO Q8H PRN PAIN 03/20/24 Unknown History testosterone 100 mg/mL 1 mg IM .Q2WEEK HORMONE 03/20/24 Unknown History intramuscular suspension Allergy/AdvReac Type Severity Reaction Status Date / Time No Known Allergies Allergy Verified 03/21/24 11:38 Surgical History Hx of total knee arthroplasty Hx of right knee surgery Hx of right knee surgery Social History Smoking Status: Current every day smoker tobacco type: smokeless tobacco Review of Systems (Anesthesia) ROS Narrative System reviewed and no additional complaints, except as documented.
--- NOTE | 2024-03-24 15:07 | HP.PCM.SX_ITS ---
HPI - General General Date of Admission: 03/22/24 HPI Narrative ABDIRAHMAN HERRON, is a 53 M who presents with a right knee wound. Current Encounter (DATE OF SURGERY H&P UPDATE): I saw and examined the patient this morning in pre-operative holding. We discussed risks and benefits of today's surgery and they would like to proceed. NO CHANGE in health history since last seen and evaluated. Ready to proceed with surgery. [facility] Medical History Arthritis Chewing tobacco dependence History of pain when walking History of edema Home Medications ?Medication ?Instructions ?Recorded ?Last Taken ?Type doxycycline hyclate 100 mg capsule 100 mg PO BID INFECTION 03/20/24 03/20/24 History ibuprofen 600 mg tablet (IBU) 600 mg PO Q8H PRN PAIN 03/20/24 Unknown History testosterone 100 mg/mL 1 mg IM .Q2WEEK HORMONE 03/20/24 Unknown History intramuscular suspension Allergy/AdvReac Type Severity Reaction Status Date / Time No Known Allergies Allergy Verified 03/21/24 11:38 Surgical History Hx of total knee arthroplasty Hx of right knee surgery Hx of right knee surgery Social History Smoking Status: Current every day smoker tobacco type: smokeless tobacco Vital Signs Vital Signs Vital Signs: 03/23/24 15:45 03/23/24 20:39 03/23/24 20:43 Temperature 98.7 F 98.3 F Temperature Source Temporal Oral Pulse Rate 72 70 Pulse Strength Normal (2+) Respiratory Rate 18 18 Respiratory Effort Respiratory Depth Respiratory Pattern Blood Pressure 142/85 H 135/94 H Blood Pressure Mean 104 107 Blood Pressure Source Monitor Monitor Blood Pressure Position Semi-Fowlers Semi-Fowlers Blood Pressure Location Left Arm Left Arm Pulse Ox 97 98 Oxygen Delivery Method Room Air Room Air 03/23/24 21:00 03/23/24 21:00 03/24/24 02:45 Temperature 98.3 F 98.5 F Temperature Source Oral Oral Pulse Rate 70 74 Pulse Strength Respiratory Rate 18 18 Respiratory Effort Normal Respiratory Depth Normal Respiratory Pattern Normal Blood Pressure 135/94 H 148/96 H Blood Pressure Mean 107 113 Blood Pressure Source Monitor Blood Pressure Position Semi-Fowlers Blood Pressure Location Left Arm Pulse Ox 98 98 Oxygen Delivery Method Room Air Room Air Room Air 03/24/24 08:14 03/24/24 09:58 03/24/24 12:46 Temperature 97.6 F L 97.7 F L Temperature Source Temporal Temporal Pulse Rate 60 65 Pulse Strength Normal (2+) Respiratory Rate 16 16 Respiratory Effort Respiratory Depth Respiratory Pattern Blood Pressure 129/87 H 145/93 H Blood Pressure Mean 101 110 Blood Pressure Source Monitor Blood Pressure Position Semi-Fowlers Blood Pressure Location Left Arm Pulse Ox 98 100 Oxygen Delivery Method Room Air Room Air 03/24/24 14:10 Temperature 97.7 F L Temperature Source Pulse Rate 65 Pulse Strength Respiratory Rate 16 Respiratory Effort Respiratory Depth Respiratory Pattern Blood Pressure 145/93 H Blood Pressure Mean Blood Pressure Source Blood Pressure Position Blood Pressure Location Pulse Ox 100 Oxygen Delivery Method Room Air Weight Weight: 287 lb 4.197 oz Body Mass Index (BMI) 40.0 Physical Exam Narrative Right knee VAC holding suction Results Lab / Micro Data 03/23/24 05:32 03/23/24 05:32 Labs: Laboratory Results - last 24 hr 03/24/24 10:30: Vancomycin Trough 13.8 Micro: Microbiology 03/21/24 16:53 Tissue - Knee Gram Stain - Final 03/21/24 16:53 Tissue - Knee Wound Culture - Preliminary No growth-Final to follow 03/21/24 16:53 Tissue - Knee Anaerobic Culture - Preliminary No growth in 48 hours. 03/21/24 16:53 Tissue - Knee Gram Stain - Final 03/21/24 16:53 Tissue - Knee Wound Culture - Preliminary No growth-Final to follow 03/21/24 16:53 Tissue - Knee Anaerobic Culture - Preliminary No growth in 48 hours. 03/21/24 16:53 Tissue - Knee Gram Stain - Final 03/21/24 16:53 Tissue - Knee Wound Culture - Preliminary No growth-Final to follow 03/21/24 16:53 Tissue - Knee Anaerobic Culture - Preliminary No growth in 48 hours. 03/21/24 16:53 Tissue - Knee Gram Stain - Final 03/21/24 16:53 Tissue - Knee Wound Culture - Preliminary No growth-Final to follow 03/21/24 16:53 Tissue - Knee Anaerobic Culture - Preliminary No growth in 48 hours. Assessment & Plan Assessment/Plan (1) Infection and inflammatory reaction due to internal right knee prosthesis, subsequent encounter: PLAN: INTERVAL H&P PLAN, DATE OF SURGERY: We will proceed with surgery today. I talked the patient extensively about the risks of surgery, including bleeding, infection, damage to surrounding structures, surgical site dehiscence and wound formation, need for wound care, need for repeat operations, failure to obtain the desired result, DVT/PE, and the risks of anesthesia including . All of their questions were answered, and they agreed to proceed with surgery.
--- NOTE | 2024-03-24 16:27 | PCM.POST.ANE ---
Anesthesia: Postop Eval I Current Vital Signs Temperature: 97.9 F Pulse Rate: 100 Blood Pressure: 156/77 Respiratory Rate: 20 Pulse Ox: 93 Assessment Airway patent: Yes Spontaneous unlabored respirations: Yes nausea: No Vomiting: No Anesthesia Complication: No Fluid Hydration Crystalloid volume administer (ml): 200 Total IV fluid infused: 200 Progress Note Anesthesia document: Postop Eval 1 completed: Yes
--- NOTE | 2024-03-24 16:35 | PCM.OP.BLANK ---
Operative Report Date of Procedure: 03/24/24 Surgery/Procedure Date: 24 Mar 2024 Incision/Procedure Start Time: 15:35 Incision Close/Procedure End Time: 16:16 (41 min) PATIENT: Phoenix Fulton SURGEON: Fabio Jon MD PRE-OPERATIVE DIAGNOSIS: Right lateral knee wound POST-OPERATIVE DIAGNOSIS: same PROCEDURE PERFORMED: 1) Excision of wound bed, necrotic fat and fascia 8x 5 cm (CPT: 41968, 98656) 2) Placement of irrigating wound VAC, not disposable, <50 cm ^2 (CPT: 86231) OPERATIVE FINDINGS: Arthrotomy in the lateral joint with hematoma, but no purulence (discussed with Dr. Agrawal). INDICATIONS: Phoenix Fulton is a 53-year-old male with history of an infected right knee prosthesis that was removed and an articulating antibiotic spacer was placed by orthopedic surgery, Dr. Agrawal, for whom plastic surgery was consulted regarding coverage of the lateral knee wound that communicates the joint through a small lateral arthrotomy. The patient presents today for a washout in the operating room with anticipated flap coverage in 2 days on 26 March 2024. OPERATIVE DETAILS: Patient was marked in preoperative holding and taken back to the operating room where he was administered general anesthesia. He was prepped and draped in sterile fashion and all proper timeouts were performed. The wound was overall healthy appearing however there was some necrotic debris including necrotic fat and fascia which was excised with a 15 blade scalpel. This was an excision of wound 8 x 5 cm. Hemostasis was obtained with Bovie electrocautery. There is a small lateral joint arthrotomy which had some hematoma (approximately 50 cc) which was drained and washed out. The wound was then irrigated with the pulse lavage, 3 L of normal saline. The irrigating wound VAC was then applied for application of wound VAC less than 50 cm?. The patient tolerated the procedure well and was awakened and taken to the PACU in stable condition. The knee incision was redressed with Mepilex Ag. EBL: 50 Anesthesia: General ASA: 2 IVF: 200 cc LR UOP: unmeasured Transfusions: none Vancomycin for perioperative antibiotics (given scheduled on the floor) POST-OPERATIVE PLAN: Continue irrigating wound VAC with Dakins. Plan for return to the OR on 26 Mar 2024 for a lateral gastrocnemius flap reconstruction for the wound.
--- NOTE | 2024-03-24 16:59 | POSTOPAN2_ITS ---
Anesthesia Postop Eval I Sum Postop Eval Completion status Anesthesia document: Postop Eval 1 completed: Yes Anesthesia Postop Eval I Summary Anesthesia Postop Eval I Summary: Anesthesia Postop Eval I: Assessment Summary Airway patent Yes 03/24/24 16:27 INTERACTIVE WEB DEVELOPER.[email or web address] Spontaneous unlabored Yes 03/24/24 16:27 INTERACTIVE WEB DEVELOPER.CSIR respirations Mental status Awake 03/22/24 15:19 nausea No 03/24/24 16:27 INTERACTIVE WEB DEVELOPER.CSIR Vomiting No 03/24/24 16:27 INTERACTIVE WEB DEVELOPER.CSIR Anesthesia Postop Eval I: Fluid Summary Crystalloid volume administer 200 03/24/24 16:27 INTERACTIVE WEB DEVELOPER.CSIR (ml) Colloids volume administered ( ml) Blood Product volume administered (ml) Total IV fluid infused 200 03/24/24 16:27 INTERACTIVE WEB DEVELOPER.CSIR Anesthesia Postop Eval I: Summary Notes Anesthesia Complication No 03/24/24 16:27 INTERACTIVE WEB DEVELOPER.CSIR Anesthesia Complication Comment: Post-operative progress note Anesthesia: Postop Eval II Evaluation Mental status: Awake and Calm Pain Level: 2 nausea: No Vomiting: No Complications Anesthesia Complication: No
--- NOTE | 2024-03-24 16:59 | PCM.POSTANE2 ---
Anesthesia Postop Eval I Sum Postop Eval Completion status Anesthesia document: Postop Eval 1 completed: Yes Anesthesia Postop Eval I Summary Anesthesia Postop Eval I Summary: Anesthesia Postop Eval I: Assessment Summary Airway patent Yes 03/24/24 16:27 CULTURAL ANTHROPOLOGY PROFESSOR.CSIR Spontaneous unlabored Yes 03/24/24 16:27 CULTURAL ANTHROPOLOGY PROFESSOR.CSIR respirations Mental status Awake 03/22/24 15:19 nausea No 03/24/24 16:27 CULTURAL ANTHROPOLOGY PROFESSOR.CSIR Vomiting No 03/24/24 16:27 CULTURAL ANTHROPOLOGY PROFESSOR.CSIR Anesthesia Postop Eval I: Fluid Summary Crystalloid volume administer 200 03/24/24 16:27 CULTURAL ANTHROPOLOGY PROFESSOR.CSIR (ml) Colloids volume administered ( ml) Blood Product volume administered (ml) Total IV fluid infused 200 03/24/24 16:27 CULTURAL ANTHROPOLOGY PROFESSOR.CSIR Anesthesia Postop Eval I: Summary Notes Anesthesia Complication No 03/24/24 16:27 CULTURAL ANTHROPOLOGY PROFESSOR.CSIR Anesthesia Complication Comment: Post-operative progress note Anesthesia: Postop Eval II Evaluation Mental status: Awake and Calm Pain Level: 2 nausea: No Vomiting: No Complications Anesthesia Complication: No
--- NOTE | 2024-03-24 17:00 | ANES.CONFIRM ---
Anesthesia: Confirm Documents Multiple Procedures on Account (2) Confirmed Documents: Yes
[2024-03-24] MEDS: Meloxicam 7.5 MG Tablet PO (20:05)
[2024-03-24] MEDS: Senna/Docusate Sodium 1 Tablet 2 TABLET PO (20:05)
[2024-03-25] MEDS: Vancomycin HCl 1,750 MG in 0.9% Normal Saline (500mL Bag) 500 ML 250 MG IV ×3 (03:34→19:41)
[2024-03-25 03:41] VITALS: BP 121/79; PULSE 75; RESP 16; TEMP 36.7; O2SAT 95
[2024-03-25] MEDS: Enoxaparin 40 MG/0.4 ML Syringe SC (06:17)
[2024-03-25] MEDS: Acetaminophen 500 MG Tablet 1000 MG PO ×3 (06:17→21:38)
--- NOTE | 2024-03-25 09:36 | PCM.PN.ORT ---
Subjective Subjective The patient was sitting in bed upon examination. Patient denies any chest pain, shortness of breath, dizziness, lightheadedness, nausea or vomiting, or calf pain. Pain is controlled on medications. No adverse overnight events. Patient is overall doing very well with regards to his knee. He states he has very little pain today. He did just go under a washout with plastics yesterday. The plan is for repeat surgery tomorrow with flap repair by plastics. Infectious disease has seen the patient and has recommendations from IV antibiotics. He has IV PICC line. There has been no growth with cultures today. Objective Data Objective Data Vital Signs: Vital Signs Temp Pulse Resp BP Pulse Ox O2 Del Method O2 Flow Rate 98.0 F 75 16 121/79 H 95 Room Air 2 03/25/24 03:41 03/25/24 03:41 03/25/24 03:41 03/25/24 03:41 03/25/24 03:41 03/25/24 03:41 03/21/24 20:48 Oxygen Flow Rate (L/min) 2 Oxygen Delivery Method Room Air Weight: 130.3 kg Body Mass Index (BMI) 40.0 Intake & Output: Intake and Output for Last 24 Hours 03/23/24 03/24/24 03/25/24 23:59 23:59 23:59 Intake Total 3000 / 3360 2510 / 2510 535 / 535 Output Total 2500 / 2500 Balance 500 / 860 2510 / 2510 535 / 535 Lab / Micro Data 03/23/24 05:32 03/23/24 05:32 Labs: Laboratory Results - last 24 hr 03/24/24 10:30: Vancomycin Trough 13.8 Micro: Microbiology 03/21/24 16:53 Tissue - Knee Gram Stain - Final 03/21/24 16:53 Tissue - Knee Wound Culture - Preliminary No growth-Final to follow 03/21/24 16:53 Tissue - Knee Anaerobic Culture - Preliminary No growth in 48 hours. 03/21/24 16:53 Tissue - Knee Gram Stain - Final 03/21/24 16:53 Tissue - Knee Wound Culture - Preliminary No growth-Final to follow 03/21/24 16:53 Tissue - Knee Anaerobic Culture - Preliminary No growth in 48 hours. 03/21/24 16:53 Tissue - Knee Gram Stain - Final 03/21/24 16:53 Tissue - Knee Wound Culture - Preliminary No growth-Final to follow 03/21/24 16:53 Tissue - Knee Anaerobic Culture - Preliminary No growth in 48 hours. 03/21/24 16:53 Tissue - Knee Gram Stain - Final 03/21/24 16:53 Tissue - Knee Wound Culture - Preliminary No growth-Final to follow 03/21/24 16:53 Tissue - Knee Anaerobic Culture - Preliminary No growth in 48 hours. 03/21/24 10:43 Swab (Method) Nasal Screen MRSA/MSSA - Final Physical Exam Narrative Vital signs stable and afebrile. Patient is able to plantarflex and dorsiflex actively. Sensation is intact to light touch to saphenous, sural, superficial and deep peroneal, and tibial distribution. Wound VAC is still currently in place which is being managed by plastics No range of motion with knee immobilizer in place of the knee. Negative Homans bilaterally, negative signs and symptoms of DVT. Const alert, oriented x3 and no apparent distress Assessment & Plan Assessment/Plan (1) Infection and inflammatory reaction due to internal right knee prosthesis, subsequent encounter: PLAN: PLAN: 1. Status post right knee explantation and placement of articulating antibiotic spacer with sinus tract POD#4 2. Antibiotic treatment: Infectious disease has seen the patient. Cultures have been reviewed and are without any growth. Patient has been started on ceftriaxone 2 g every 24 hours and vancomycin IV. Does have a history of impetigo diagnosis in that area. No previous cultures. Patient did have extensive antibiotic treatment prior to initiating treatment and obtaining cultures yesterday. Patient has had PICC line established. Appreciate recommendations from infectious disease. 3. Lateral wound: Plastic surgery service has been consulted. Plastics did washout the wound yesterday and will proceed with lateral gastroc flap on Sunday.. Patient is currently in a knee immobilizer to reduce tension on the skin. Currently patient has a wound VAC with intermittent irrigation with Dakin solution. Appreciate wound VAC recommendations from plastics 4. Therapy: Patient is 50% weightbearing of the right lower extremity. Continue with physical therapy daily. Patient should be mobilized consistently and up to chair throughout the day. Patient is to remain in knee immobilizer with no flexion of the knee. 5. Continue pain medications: Will use postoperative pain regimen with Tylenol, oxycodone and meloxicam. Nursing did reach out to plastics and they are okay with patient using the meloxicam. 6. DVT prophylaxis: Lovenox 40 units subcu twice a day prophylactic dose. We used this because has a short half-life and will allow for good coverage up to the time of surgery as well as the ability to stop coverage for plastic surgeries planned. May want to consider aspirin or direct oral anticoagulant upon discharge from hospital. 7. Continue postoperative medical management per medicine 8. Encouraged incentive spirometer 9. Patient is aware of postoperative constipation that can occur from 1-3 days postoperatively. Will continue with senna 2 tablets twice daily until first bowel movement. Patient was advised if not having a bowel movement after day 3 she is to contact orthopedics so appropriate change can be made. Patient voiced understanding. 10. Disposition: Patient will need antibiotic regimen finalized and plastic surgery to complete their surgical plan prior to discharge. From an orthopedic standpoint patient's midline sutures can be removed at 2 weeks postoperatively. Patient will need minimum of 2 weeks coverage for DVT prophylaxis with Lovenox for direct oral anticoagulant followed by 2 weeks of aspirin 81 mg p.o. twice daily as long as this does not interfere with plastic soft tissue surgeries or coverage plans. Patient and family both expressed a desire to return home upon discharge we will plan to transfer to plastic surgery service after his surgery on Sunday. Orthopedics continue to follow at this time next planned surgery and from orthopedics this for replantation however, patient may require further debridement depending on state of the wound and joint. At this time patient is still currently in the hospital secondary to plastics involvement. Still planning on flap repair tomorrow. Once we have recommendations from plastics can then discuss and determine appropriate discharge planning. Case was discussed with case management.
[2024-03-25] MEDS: Ceftriaxone 2 GM in 0.9% Normal Saline (50mL MB+) 50 ML IV (09:59)
[2024-03-25] MEDS: 0.9% Saline Lock 10 ML Syringe IV (09:59)
[2024-03-25 10:00] VITALS: BP 128/83; PULSE 66; RESP 18; TEMP 36.7; O2SAT 95
[2024-03-25] MEDS: Senna/Docusate Sodium 1 Tablet 2 TABLET PO ×2 (10:00→21:38)
[2024-03-25] MEDS: Meloxicam 7.5 MG Tablet PO ×2 (10:00→17:34)
[2024-03-25] MEDS: Famotidine 20 MG Tablet PO (10:00)
[2024-03-25] MEDS: Ensure Surgery 237 ML LIQUID PO ×3 (10:09→17:33)
--- NOTE | 2024-03-25 10:33 | PCM.PN.ID ---
Physical Exam Narrative Feeling ok, pain controlled, no fever, no n/v/d. Const alert and no apparent distress General Appearance: cooperative Resp normal air movement and clear to auscultation bilaterally Cardio regular rate and regular rhythm GI soft to palpation, non-tender and non-distended Skin no rashes or lesions noted ID ID: Route of nutrition/ use of supplements: [] Nutritional Intake: [] IV Site: [] Hicks Catheter: [] Assessment & Plan Assessment/Plan (1) Infection and inflammatory reaction due to internal right knee prosthesis, subsequent encounter: PLAN: He does not think any outpt swabs were taken in [place] or [place]. Taken to OR 03/21/24 for I&D and spacer placement. On vanc/ceftriaxone. Surg cx neg so far. Picc in place. Plan per plastic surgery is OR tomorrw for reconstructive surgery, agree from ID perspective. Will follow
--- NOTE | 2024-03-25 10:39 | PCM.PN.SRG ---
Subjective Subjective Postop #1 from excision of wound bed, necrotic fat and fascia and placement of irrigating wound VAC Patient states pain is well controlled. He is sitting up in chair with right leg brace and ice pack. Objective Data Objective Data Vital Signs: Vital Signs Temp Pulse Resp BP Pulse Ox O2 Del Method O2 Flow Rate 98.1 F 66 18 128/83 H 95 Room Air 2 03/25/24 10:00 03/25/24 10:00 03/25/24 10:00 03/25/24 10:00 03/25/24 10:00 03/25/24 10:00 03/21/24 20:48 Oxygen Flow Rate (L/min) 2 Oxygen Delivery Method Room Air Weight: 287 lb 4.197 oz Body Mass Index (BMI) 40.0 Intake & Output: Intake and Output for Last 24 Hours 03/23/24 03/24/24 03/25/24 23:59 23:59 23:59 Intake Total 3000 / 3360 2510 / 2510 2120 / 2120 Output Total 2500 / 2500 Balance 500 / 860 2510 / 2510 2120 / 2120 Lab / Micro Data 03/23/24 05:32 03/23/24 05:32 Labs: Laboratory Results - last 24 hr 03/25/24 11:12: Vancomycin Trough 17.8 H Micro: Microbiology 03/21/24 16:53 Tissue - Knee Gram Stain - Final 03/21/24 16:53 Tissue - Knee Wound Culture - Preliminary No growth-Final to follow 03/21/24 16:53 Tissue - Knee Anaerobic Culture - Preliminary No growth in 48 hours. 03/21/24 16:53 Tissue - Knee Gram Stain - Final 03/21/24 16:53 Tissue - Knee Wound Culture - Preliminary No growth-Final to follow 03/21/24 16:53 Tissue - Knee Anaerobic Culture - Preliminary No growth in 48 hours. 03/21/24 16:53 Tissue - Knee Gram Stain - Final 03/21/24 16:53 Tissue - Knee Wound Culture - Preliminary No growth-Final to follow 03/21/24 16:53 Tissue - Knee Anaerobic Culture - Preliminary No growth in 48 hours. 03/21/24 16:53 Tissue - Knee Gram Stain - Final 03/21/24 16:53 Tissue - Knee Wound Culture - Preliminary No growth-Final to follow 03/21/24 16:53 Tissue - Knee Anaerobic Culture - Preliminary No growth in 48 hours. 03/21/24 10:43 Swab (Method) Nasal Screen MRSA/MSSA - Final Physical Exam Const alert, oriented x3 and no apparent distress General Appearance: cooperative HEENT normocephalic Eyes General Eye: normal appearance of both eyes Neck full ROM Resp normal respiratory effort Effort and Inspection: able to speak in complete sentences Cardio regular rate Cardio Narrative: Right pedal pulse palpable +2. GI soft to palpation and non-tender Extremity normal capillary refill Extremity Narrative: Right lower leg knee immobilizer in place with ice pack on. No calf pain with foot flexion. Neuro oriented x3 Sensorium / Orientation: awake and alert Psych mental status grossly normal, thought process normal and cooperative Assessment & Plan Assessment/Plan (1) Infection and inflammatory reaction due to internal right knee prosthesis, subsequent encounter: PLAN: Plan OR 03/24/24 for excision of necrotic fat and fascia and placement of irrigating wound VAC (ortho took him to OR on 03/21/24 for I&D and spacer placement). Irrigating wound VAC with Dakin's solution in place. ID consulted. He is on Vancomycin and Ceftriaxone. Encouraged protein intake to help with wound healing. Will start him on Rick BID. Receiving Lovenox for DVT prophylaxis. Plan is to for him to have muscle flap reconstruction on 03/26/24. Charges/Coding Procedures Integumentary [id number]: 92646 Global Visit
[2024-03-25 11:39] LABS: Vancomycin, Trough Level 17.8 ug/mL (5.0-15.0)
--- NOTE | 2024-03-25 11:45 | PCM.RX.CS ---
Consult Antibiotic Management Pharmacy has been consulted to manage selected antibiotic: Vancomycin Type of Intervention Type of Consult: Follow-up Suspected Infection Suspected Infection: Skin/Soft tissue (JOINT INFECTION) Prior Doses of Antibiotics Prior Doses of Antibiotics Received/Current Regimen: Vancomycin 1750 mg Q8H last dose 03/25/24 @ 0334 Labs Labs: Sodium 139 mmol/L (136-145) 03/23/24 05:32 Potassium 3.6 mmol/L (3.5-5.1) 03/23/24 05:32 Chloride 109 mmol/L (98-107) H 03/23/24 05:32 Carbon Dioxide 27.0 mmol/L (21.0-32.0) 03/23/24 05:32 Anion Gap 3 (5-15) L 03/23/24 05:32 BUN 8 mg/dL (7-18) 03/23/24 05:32 Creatinine 0.65 mg/dL (0.70-1.30) L 03/23/24 05:32 Est GFR (MDRD) Af Amer 165 mL/min (>60) 03/23/24 05:32 Est GFR (MDRD) Non-Af 137 mL/min (>60) 03/23/24 05:32 BUN/Creatinine Ratio 12.3 RATIO (10-20) 03/23/24 05:32 Glucose 98 mg/dL (74-106) 03/23/24 05:32 Vancomycin Trough 17.8 ug/mL (5.0-15.0) H 03/25/24 11:12 Microbiology Microbiology: Microbiology 03/21/24 16:53 Tissue - Knee Gram Stain - Final 03/21/24 16:53 Tissue - Knee Wound Culture - Preliminary No growth-Final to follow 03/21/24 16:53 Tissue - Knee Anaerobic Culture - Preliminary No growth in 48 hours. 03/21/24 16:53 Tissue - Knee Gram Stain - Final 03/21/24 16:53 Tissue - Knee Wound Culture - Preliminary No growth-Final to follow 03/21/24 16:53 Tissue - Knee Anaerobic Culture - Preliminary No growth in 48 hours. 03/21/24 16:53 Tissue - Knee Gram Stain - Final 03/21/24 16:53 Tissue - Knee Wound Culture - Preliminary No growth-Final to follow 03/21/24 16:53 Tissue - Knee Anaerobic Culture - Preliminary No growth in 48 hours. 03/21/24 16:53 Tissue - Knee Gram Stain - Final 03/21/24 16:53 Tissue - Knee Wound Culture - Preliminary No growth-Final to follow 03/21/24 16:53 Tissue - Knee Anaerobic Culture - Preliminary No growth in 48 hours. 03/21/24 10:43 Swab (Method) Nasal Screen MRSA/MSSA - Final Dosing Weight Weight used for dosin kg Estimated Creatinine Clearance Estimated Creatinine Clearance: ~185 Goal Trough Goal Trough: 15-20 mcg/mL Pharmacy Plan for Drug Dosing Pharmacy Plan for Drug Dosing: Vancomycin trough 17.8, continue current dosing, trough in 2 days Pharmacy Service will continue to monitor and adjust dosing as required. Follow-Up Labs Follow-Up Labs: Trough: Vancomycin Date/Time Labs Ordered Labs to be done on [date and time ordered]: 03/27/24 @ 5794
--- NOTE | 2024-03-25 11:52 | PN_ITS ---
Subjective Subjective Patient seen and examined. He had no active complaints and felt well. He had an uneventful night and review of symptoms otherwise negative. He had excision of the wound bed and placement of irrigating wound VAC yesterday by plastic surgery. Objective Data Objective Data Vital Signs: Vital Signs Temp Pulse Resp BP Pulse Ox O2 Del Method O2 Flow Rate 98.1 F 66 18 128/83 H 95 Room Air 2 03/25/24 10:00 03/25/24 10:00 03/25/24 10:00 03/25/24 10:00 03/25/24 10:00 03/25/24 10:00 03/21/24 20:48 Oxygen Flow Rate (L/min) 2 Oxygen Delivery Method Room Air Weight: 287 lb 4.197 oz Body Mass Index (BMI) 40.0 Intake & Output: Intake and Output for Last 24 Hours 03/23/24 03/24/24 03/25/24 23:59 23:59 23:59 Intake Total 3000 / 3360 2510 / 2510 585 / 585 Output Total 2500 / 2500 Balance 500 / 860 2510 / 2510 585 / 585 Lab / Micro Data 03/23/24 05:32 03/23/24 05:32 Labs: Laboratory Results - last 24 hr 03/25/24 11:12: Vancomycin Trough 17.8 H Micro: Microbiology 03/21/24 16:53 Tissue - Knee Gram Stain - Final 03/21/24 16:53 Tissue - Knee Wound Culture - Preliminary No growth-Final to follow 03/21/24 16:53 Tissue - Knee Anaerobic Culture - Preliminary No growth in 48 hours. 03/21/24 16:53 Tissue - Knee Gram Stain - Final 03/21/24 16:53 Tissue - Knee Wound Culture - Preliminary No growth-Final to follow 03/21/24 16:53 Tissue - Knee Anaerobic Culture - Preliminary No growth in 48 hours. 03/21/24 16:53 Tissue - Knee Gram Stain - Final 03/21/24 16:53 Tissue - Knee Wound Culture - Preliminary No growth-Final to follow 03/21/24 16:53 Tissue - Knee Anaerobic Culture - Preliminary No growth in 48 hours. 03/21/24 16:53 Tissue - Knee Gram Stain - Final 03/21/24 16:53 Tissue - Knee Wound Culture - Preliminary No growth-Final to follow 03/21/24 16:53 Tissue - Knee Anaerobic Culture - Preliminary No growth in 48 hours. 03/21/24 10:43 Swab (Method) Nasal Screen MRSA/MSSA - Final Physical Exam Const alert, oriented x3, no apparent distress and well nourished Constitutional Narrative: obese General Appearance: cooperative HEENT normocephalic, head/scalp atraumatic and moist oral mucous membranes Eyes PERRL and EOMs intact bilaterally Neck no lymphadenopathy and supple Lymph Lymphatic: no lymphadenopathy noted and no lymphedema noted Resp normal respiratory effort, normal air movement and clear to auscultation bilaterally Cardio regular rate, regular rhythm, S1 normal heart sound, S2 normal heart sound and no murmurs GI normal to inspection, nondistended, normoactive bowel sounds, soft to palpation, non-tender and non-distended Extremity Extremity Narrative: right knee in knee brace, with intact dressing. 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 Today is POD2 * He had excision of the wound bed and necrotic fat and fascia as well as placement of an irrigating wound vac yesterday, 03/24/2024 * pain is well controlled. Management of pain as per primary service. * * plastic surgery on board. for a lateral gastrocnemius flap with overlying skin graft. * on IV vancomycin and ceftriaxone. ID on board.PICC line in place. Cultures so far have been negative. * Plastic surgery on board. * DVT prophylaxis: lovenox Charges/Coding Visit Charges Inpatient E&M: 13816 Subs Hosp L2
[2024-03-25] MEDS: Vancomycin Trough/Random Due 1 LAB MC ×2 (12:27)
--- NOTE | 2024-03-25 14:59 | CASEMGMT ---
SAGE MARQUEZ into pt room, provided pt with a C list created by pam williamson. Pt states she would like to discuss this with his and she may not be back in until tomorrow when pt has surgery. Pt to review with and SAGE MARQUEZ to check back with pt tomorrow. Added to RN JIMMY handoff.
[2024-03-25 15:00] VITALS: BP 135/90; PULSE 86; RESP 18; TEMP 36.9; O2SAT 98
[2024-03-25 20:42] VITALS: BP 123/85; PULSE 74; RESP 17; TEMP 36.9; O2SAT 97
[2024-03-26] VITALS (12 sets, daily range): BP systolic 113–157; BP diastolic 73–97; PULSE 64–90; RESP 14–18; TEMP 36.1–37.1; O2SAT 94–99
[2024-03-26] MEDS: Vancomycin HCl 1,750 MG in 0.9% Normal Saline (500mL Bag) 500 ML 250 MG IV ×2 (03:35→19:35)
[2024-03-26] MEDS: 0.9% Saline Lock 10 ML Syringe IV ×2 (03:36→06:41)
[2024-03-26 06:05] LABS: Absolute Lymphocyte Count 1.66 X10^3/uL (0.83-4.51); Absolute Neutrophil Count 4.7 X10^3/uL (2.0-7.7); Basophil# 0.04 X10^3/uL; Basophil% 0.5 % (0-1); Eosinophil# 0.24 X10^3/uL; Eosinophils% 3.2 % (0-5); Hematocrit 33.4 % (40-54); Hemoglobin 10.4 g/dL (13.0-16.5); Lymphocyte # 1.66 X10^3/ul (0.83-4.51); Lymphocyte % 22.2 % (19-41); Mean Corp Hgb Conc 31.1 g/dL (32-36); Mean Corpuscular Hgb 25.6 pg (27.0-32.0); Mean Corpuscular Volume 82.3 fL (80-94); Mean Platelet Vol. 9.7 fl (6.2-12.0); Monocyte# 0.83 X10^3/uL; Monocyte% 11.1 % (0-10); NRBC Flagged by Analyzer 0 % (0-5); Neutrophil # 4.65 X10^3/uL (2.7-7.7); Neutrophil % 62.3 % (47-70); Platelet Count 257 K/mm3 (150-450); RBC Distribution Width SD 50.4 fl (35.1-43.9); Red Blood Count 4.06 M/mm3 (4.6-6.2); White Blood Count 7.5 K/mm3 (4.4-11.0)
[2024-03-26 06:26] LABS: Anion Gap 4 (5-15); BUN 13 mg/dL (7-18); BUN/Creat Ratio 19.3 RATIO (10-20); Calcium,Total 8.6 mg/dL (8.5-10.1); Chloride 108 mmol/L (98-107); Creatinine, Serum 0.67 mg/dL (0.70-1.30); EST Glomerular Filtration Rate 132 mL/min (>60); Est Glom Filt Rate - Afr Amer 160 mL/min (>60); Estimated Creatinine Clearance 179.51 ml/min; Glucose 92 mg/dL (74-106); Potassium 3.7 mmol/L (3.5-5.1); Sodium Level 139 mmol/L (136-145)
[2024-03-26] MEDS: Acetaminophen 500 MG Tablet 1000 MG PO ×3 (06:42→23:12)
--- NOTE | 2024-03-26 07:30 | PCM.HP.STD ---
HPI - General General Date of Admission: 03/22/24 HPI Narrative ABDIRAHMAN HERRON, is a 53 M who presents for reconstruction of right lateral knee wound with muscle flap (lateral gastroc). Current Encounter (DATE OF SURGERY H&P UPDATE): I saw and examined the patient this morning in pre-operative holding. We discussed risks and benefits of today's surgery (Especially foot drop and numbness on the leg/foot) and they would like to proceed. NO CHANGE in health history since last seen and evaluated. Ready to proceed with surgery. [facility] Medical History Arthritis Chewing tobacco dependence History of pain when walking History of edema Home Medications ?Medication ?Instructions ?Recorded ?Last Taken ?Type doxycycline hyclate 100 mg capsule 100 mg PO BID INFECTION 03/20/24 03/20/24 History ibuprofen 600 mg tablet (IBU) 600 mg PO Q8H PRN PAIN 03/20/24 Unknown History testosterone 100 mg/mL 1 mg IM .Q2WEEK HORMONE 03/20/24 Unknown History intramuscular suspension Allergy/AdvReac Type Severity Reaction Status Date / Time No Known Allergies Allergy Verified 03/21/24 11:38 Surgical History Hx of total knee arthroplasty Hx of right knee surgery Hx of right knee surgery Social History Smoking Status: Current every day smoker tobacco type: smokeless tobacco Vital Signs Vital Signs Vital Signs: 03/25/24 09:00 03/25/24 10:00 03/25/24 10:00 Temperature 98.1 F Temperature Source Oral Pulse Rate 66 Pulse Strength Normal (2+) Respiratory Rate 18 Blood Pressure 128/83 H Blood Pressure Mean 98 Blood Pressure Source Monitor Blood Pressure Position Semi-Fowlers Blood Pressure Location Pulse Ox 95 Oxygen Delivery Method Room Air Room Air 03/25/24 15:00 03/25/24 15:00 03/25/24 20:27 Temperature 98.4 F Temperature Source Oral Pulse Rate 86 Pulse Strength Normal (2+) Respiratory Rate 18 Blood Pressure 135/90 H Blood Pressure Mean 105 Blood Pressure Source Monitor Blood Pressure Position Semi-Fowlers Blood Pressure Location Pulse Ox 98 Oxygen Delivery Method Room Air Room Air 03/25/24 20:42 10/16/24 03:40 Temperature 98.4 F 97.9 F Temperature Source Oral Temporal Pulse Rate 74 64 Pulse Strength Respiratory Rate 17 17 Blood Pressure 123/85 H 136/75 H Blood Pressure Mean 97 95 Blood Pressure Source Monitor Monitor Blood Pressure Position Semi-Fowlers Semi-Fowlers Blood Pressure Location Left Arm Left Arm Pulse Ox 97 96 Oxygen Delivery Method Room Air Room Air Weight Weight: 287 lb 4.197 oz Body Mass Index (BMI) 40.0 Physical Exam Narrative Right knee VAC holding suction over the wound Motor: No foot drop. Able to extend foot and satya foot. Const oriented x3 Resp normal respiratory effort Cardio regular rate Extremity Extremity Narrative: SCD on the left calf, no swelling Results Lab / Micro Data 03/26/24 05:10 03/26/24 05:10 Labs: Laboratory Results - last 24 hr 03/25/24 11:12: Vancomycin Trough 17.8 H 03/26/24 05:10: WBC 7.5, RBC 4.06 L, Hgb 10.4 L, Hct 33.4 L, MCV 82.3, MCH 25.6 L, MCHC 31.1 L, RDW Std Deviation 50.4 H, RDW Coeff of Luigi 17.0 H, Plt Count 257, MPV 9.7, Immature Gran % (Auto) 0.700, Neut % (Auto) 62.3, Lymph % (Auto) 22.2, [place] % (Auto) 11.1 H, Eos % (Auto) 3.2, Baso % (Auto) 0.5, Absolute Neuts (auto) 4.7, Absolute Lymphs (auto) 1.66, Nucleated RBC % 0, Sodium 139, Potassium 3.7, Chloride 108 H, Carbon Dioxide 27.0, Anion Gap 4 L, BUN 13, Creatinine 0.67 L, Estim Creat Clear Calc 179.51, Est GFR (MDRD) Af Amer 160, Est GFR (MDRD) Non-Af 132, BUN/Creatinine Ratio 19.3, Glucose 92, Calcium 8.6 Assessment & Plan Assessment/Plan (1) Infection and inflammatory reaction due to internal right knee prosthesis, subsequent encounter: PLAN: INTERVAL H&P PLAN, DATE OF SURGERY: We will proceed with surgery today.
--- NOTE | 2024-03-26 07:49 | PCM.PRE.AN2 ---
ASA Classification* ASA Classification ASA Classification: 3 Assessment & Plan Anesthesia* Anesthesia Assessment Anesthesia Assessment: Discussed sedation and/or anesthesia options, risks, benefits, and alternatives with patient/parents/legal guardian/POA. Questions invited. The patient/parents/legal guardian/POA seems to understand and agrees to proceed with anesthesia plan. Reviewed the physical assessment, medical history, allergy history and patient home medications list prior to surgery/procedure/anesthetic and documented any changes. Performed airway and anesthesia risk assessments. Anesthesia Type Anesthesia Type: General Anesthesia Focused Assessment* Temperature: 97.9 F Pulse Rate: 64 Blood Pressure: 136/75 Respiratory Rate: 17 Pulse Ox: 96 Airway Assessment Mouth opens: >3 cm Mallampati Score: II Focused Labs Anesthesia Preop lab: CBC WBC 7.5 K/mm3 (4.4-11.0) 03/26/24 05:10 RBC 4.06 M/mm3 (4.6-6.2) L 03/26/24 05:10 Hgb 10.4 g/dL (13.0-16.5) L 03/26/24 05:10 Hct 33.4 % (40-54) L 03/26/24 05:10 Plt Count 257 K/mm3 (150-450) 03/26/24 05:10 CHEMISTRY Potassium 3.7 mmol/L (3.5-5.1) 03/26/24 05:10 Sodium 139 mmol/L (136-145) 03/26/24 05:10 Magnesium 2.1 mg/dL (1.6-2.6) 03/21/24 10:43 BUN 13 mg/dL (7-18) 03/26/24 05:10 Creatinine 0.67 mg/dL (0.70-1.30) L 03/26/24 05:10 Glucose 92 mg/dL (74-106) 03/26/24 05:10 POC Glucose 99 mg/dL (74-106) 03/21/24 11:28 TSH 1.03 uIU/mL (0.358-3.74) 10/02/14 08:59 COAG Pre-Assessment Diagnosis/Proposed Procedure Planned Operative Procedure(s): Right knee wound reconstruction, gastrocnemius flap, skin graft Anesthesia History 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 When Was Last Pacemaker Check QUESTION #4 FULL TEXT: You/Your Family Experience fever (hyperthermia) with Anesthesia Last Oral Intake Last Oral intake: Last Oral Intake NPO since 00:00 03/24/24 08:16 Meds taken in AM with sips of No 03/24/24 08:16 water? Meds patient instructed to take am of surgery PONV PONV - construction superintendent: PONV - construction superintendent Female No 03/20/24 09:23 HX of Motion Sickness No 03/20/24 09:23 HX of N/V After Surgery No 03/20/24 09:23 Non-Smoker No 03/20/24 09:23 Duration of Surgery greater Yes 03/20/24 09:23 than 60 minutes Number of Risk Factors 1 03/20/24 09:23 PONV Score Low Risk 03/20/24 09:23 Height & Weight Height & Weight: Anesthesia: Height & Weight Height 5 ft 11 in 03/25/24 13:16 Weight: 130.3 kg 03/25/24 13:16 Body Mass Index (BMI) 40.0 03/24/24 08:16 Respiratory Assessment Respiratory Assessment - construction superintendent: Respiratory Tract Infection Hx - construction superintendent Hx Respiratory Tract Infection No 03/24/24 07:53 STOP Sleep Apnea STOP Sleep Apnea - construction superintendent: STOP Sleep Apnea - construction superintendent Hx Hypertension No 03/20/24 09:23 Hx Sleep Apnea Yes: HAS CPAP 03/24/24 16:45 CPAP Yes 03/24/24 16:28 BIPAP No 03/20/24 09:23 Do you snore loudly (louder than talking or can be heard Do you often feel tired/ fatigued/ sleepy during daytime? Has anyone observed you stop breathing during sleep? STOP Results Positive 03/24/24 16:28 QUESTION #5 FULL TEXT : Do you snore loudly (louder than talking or can be heard through closed doors)? 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 Specify any problems Hx of Preganancy in last 3 N/A 03/20/24 09:23 Months Nurse Filling Out Transfusion DSCHRIBER 03/20/24 09:23 & Questions: Date: 03/20/24 03/20/24 09:23 Time: :03/20/24 09:23 Patient unable to answer at this time (ie. confused, unrespo /Reproduction History /Reproductive History - construction superintendent: /Reproductive Hx- construction superintendent Hx Now No 03/24/24 07:53 Gestational Age (in weeks): EDC: Hx Hx Para Hx Section SAB No 03/24/24 07:53 Active Medications Active Medications: Current Medications Generic Name Dose Route Start Last Admin Trade Name Freq PRN Reason Stop Dose Admin Acetaminophen 1,000 mg 03/21/24 22:00 03/26/24 06:42 Acetaminophen 500 Mg Tablet PO 1,000 mg Q8 CRYSTAL Administration Sodium Hypochlorite 473 ml/ 0 ml 03/21/24 15:00 03/25/24 17:21 Sodium Chloride 473 ml IRRIGATION Not Given UD CRYSTAL Enoxaparin Sodium 40 mg 03/22/24 06:00 03/25/24 06:17 Enoxaparin 40 Mg/0.4 Ml Syringe SC 40 mg DAILY@0600 CRYSTAL Administration Enteral Nutritional Formula 237 ml 03/21/24 17:00 03/25/24 17:33 Ensure Surgery 237 Ml Liquid PO 237 ml TIDCM CRYSTAL Administration Famotidine 20 mg 03/22/24 10:00 03/25/24 10:00 Famotidine 20 Mg Tablet PO 20 mg DAILY CRYSTAL Administration Ceftriaxone Sodium 2 gm/ 50 mls @ 100 mls/hr 03/22/24 10:00 03/25/24 10:32 Sodium Chloride IV Infused Q24 CRYSTAL Infusion Vancomycin IV-PHARMACY TO DOSE 500 mls @ 250 mls/hr 03/21/24 16:44 1 each/ Sodium Chloride IV PRN PRN Rx to Dose Protocol Lactated Ringer's 1,000 mls @ 15 mls/hr 03/21/24 17:45 03/25/24 19:56 IV 03/27/24 07:04 Not Given .Q48H CRYSTAL Protocol Sodium Chloride 100 mls @ 15 mls/hr 03/21/24 18:27 IV .Q6H40M PRN Saline Flush Sodium Chloride 100 mls @ 15 mls/hr 03/21/24 18:27 IV .Q6H40M PRN Additional IVPB Infusion Vancomycin HCl 1,750 mg/ 535 mls @ 250 mls/hr 03/24/24 12:00 03/26/24 06:47 Sodium Chloride IV Infused Q8H CRYSTAL Infusion Lactated Ringer's 1,000 mls @ 15 mls/hr 03/26/24 07:37 IV 03/28/24 07:36 .Q48H ONE Protocol Insulin Human Lispro 1 - 6 unit 03/21/24 12:30 Insulin Lispro 100 Unit/Ml Insuln.Pen SC Q4H PRN PRN BG>/= 180, SEE PROTOCOL Protocol Meloxicam 7.5 mg 03/23/24 10:45 03/25/24 17:34 Meloxicam 7.5 Mg Tablet PO 7.5 mg BIDCM CRYSTAL Administration Morphine Sulfate 2 - 4 mg 03/21/24 16:55 Morphine 2 Mg/Ml Syringe IV Q2H PRN PRN Pain Score 6-10 Morphine Sulfate 2 - 4 mg 03/21/24 17:12 Morphine 4 Mg/Ml Syringe IV Q2H PRN PRN Pain Score 6-10 Ondansetron HCl 4 mg 03/21/24 16:55 Ondansetron 4 Mg/2 Ml Vial IV Q8H PRN PRN NAUSEA Oxycodone HCl 5 - 10 mg 03/21/24 16:55 03/23/24 07:17 Oxycodone 5 Mg Tablet PO 5 mg Q4H PRN PRN Administration Pain Score 4-10 Promethazine HCl 12.5 mg 03/21/24 16:55 Promethazine 25 Mg/Ml Syringe IM Q6H PRN PRN NAUSEA/VOMITING Protocol Senna/Docusate Sodium 2 tablet 03/21/24 22:00 03/25/24 21:38 Senna/Docusate Sodium 1 Tablet PO 2 tablet BID CRYSTAL Administration Sodium Chloride 10 - 40 ml 03/21/24 18:27 03/26/24 06:41 0.9% Saline Lock 10 Ml Syringe IV 10 ml UD PRN Administration SALINE FLUSH Vancomycin Protocol 1 lab 03/27/24 09:30 Vancomycin Trough/Random Due MC 03/27/24 13:30 DAILY CRYSTAL PFSH Medical History Arthritis Chewing tobacco dependence History of pain when walking History of edema Home Medications ?Medication ?Instructions ?Recorded ?Last Taken ?Type doxycycline hyclate 100 mg capsule 100 mg PO BID INFECTION 03/20/24 03/20/24 History ibuprofen 600 mg tablet (IBU) 600 mg PO Q8H PRN PAIN 03/20/24 Unknown History testosterone 100 mg/mL 1 mg IM .Q2WEEK HORMONE 03/20/24 Unknown History intramuscular suspension Allergy/AdvReac Type Severity Reaction Status Date / Time No Known Allergies Allergy Verified 03/26/24 07:44 Surgical History Hx of total knee arthroplasty Hx of right knee surgery Hx of right knee surgery Social History Smoking Status: Current every day smoker tobacco type: smokeless tobacco Review of Systems (Anesthesia) ROS Narrative System reviewed and no additional complaints, except as documented.
[2024-03-26] MEDS: Epinephrine (1 mg/ml) 1 MG/ML VIAL (08:30)
[2024-03-26] MEDS: Mineral Oil, Light Sterile 10 ML Vial MC (08:36)
--- NOTE | 2024-03-26 08:37 | WOUNDNOTE ---
Pt scheduled for surgery later today for wound reconstruction with muscle flap and skin graft per Dr Jon.
--- NOTE | 2024-03-26 12:30 | PCM.PN.ORT ---
Subjective Subjective Upon going to the hospital to see the patient patient was in surgery and unavailable for rounding. I was able to see patient's and discussed treatment. Objective Data Objective Data Vital Signs: Vital Signs Temp Pulse Resp BP Pulse Ox O2 Del Method O2 Flow Rate 97.9 F 64 17 136/75 H 96 Room Air 2 03/26/24 07:50 03/26/24 07:50 03/26/24 07:50 03/26/24 07:50 03/26/24 07:50 03/26/24 03:40 03/26/24 07:50 Oxygen Flow Rate (L/min) 2 Oxygen Delivery Method Room Air Weight: 130.3 kg Body Mass Index (BMI) 40.0 Intake & Output: Intake and Output for Last 24 Hours 03/24/24 03/25/24 03/26/24 23:59 23:59 23:59 Intake Total 2510 / 2510 3505 / 3845 935 / 935 Output Total 1000 / 1000 Balance 2510 / 2510 3505 / 3845 -65 / -65 Lab / Micro Data 03/26/24 05:10 03/26/24 05:10 Labs: Laboratory Results - last 24 hr 03/26/24 05:10: WBC 7.5, RBC 4.06 L, Hgb 10.4 L, Hct 33.4 L, MCV 82.3, MCH 25.6 L, MCHC 31.1 L, RDW Std Deviation 50.4 H, RDW Coeff of Luigi 17.0 H, Plt Count 257, MPV 9.7, Immature Gran % (Auto) 0.700, Neut % (Auto) 62.3, Lymph % (Auto) 22.2, Nye % (Auto) 11.1 H, Eos % (Auto) 3.2, Baso % (Auto) 0.5, Absolute Neuts (auto) 4.7, Absolute Lymphs (auto) 1.66, Nucleated RBC % 0, Sodium 139, Potassium 3.7, Chloride 108 H, Carbon Dioxide 27.0, Anion Gap 4 L, BUN 13, Creatinine 0.67 L, Estim Creat Clear Calc 179.51, Est GFR (MDRD) Af Amer 160, Est GFR (MDRD) Non-Af 132, BUN/Creatinine Ratio 19.3, Glucose 92, Calcium 8.6 Micro: Microbiology 03/21/24 16:53 Tissue - Knee Gram Stain - Final 03/21/24 16:53 Tissue - Knee Wound Culture - Final No growth aerobically. 03/21/24 16:53 Tissue - Knee Anaerobic Culture - Preliminary No growth in 48 hours. 03/21/24 16:53 Tissue - Knee Gram Stain - Final 03/21/24 16:53 Tissue - Knee Wound Culture - Final No growth aerobically. 03/21/24 16:53 Tissue - Knee Anaerobic Culture - Preliminary No growth in 48 hours. 03/21/24 16:53 Tissue - Knee Gram Stain - Final 03/21/24 16:53 Tissue - Knee Wound Culture - Final No growth aerobically. 03/21/24 16:53 Tissue - Knee Anaerobic Culture - Preliminary No growth in 48 hours. 03/21/24 16:53 Tissue - Knee Gram Stain - Final 03/21/24 16:53 Tissue - Knee Wound Culture - Final No growth aerobically. 03/21/24 16:53 Tissue - Knee Anaerobic Culture - Preliminary No growth in 48 hours. 03/21/24 10:43 Swab (Method) Nasal Screen MRSA/MSSA - Final Physical Exam Narrative Vital signs stable and afebrile. Patient is able to plantarflex and dorsiflex actively. Sensation is intact to light touch to saphenous, sural, superficial and deep peroneal, and tibial distribution. Wound VAC is still currently in place which is being managed by plastics No range of motion with knee immobilizer in place of the knee. Negative Homans bilaterally, negative signs and symptoms of DVT. Const alert, oriented x3 and no apparent distress General Appearance: cooperative and comfortable Extremity Extremity Narrative: Right lower extremity: Wound VAC dressing is clean dry and intact with intermittent irrigation with Dakin solution. Sensations intact to light touch saphenous, sural, superficial peroneal, deep peroneal, and tibial distributions however, patient does report that in all distributions there is a feeling of decreased sensation Motors intact EHL, DF, PF calves are soft and supple Assessment & Plan Assessment/Plan (1) Infection and inflammatory reaction due to internal right knee prosthesis, subsequent encounter: PLAN: ORTHOPEDIC PLAN: 1. Status post right knee explantation and placement of articulating antibiotic spacer with sinus tract POD#5 2. Antibiotic treatment: Infectious disease has seen the patient. Cultures have been reviewed and are without any growth. Patient has been started on ceftriaxone 2 g every 24 hours and vancomycin IV. Does have a history of impetigo diagnosis in that area. No previous cultures. Patient did have extensive antibiotic treatment prior to initiating treatment and obtaining cultures yesterday. Patient has had PICC line established. Appreciate recommendations from infectious disease. 3. Lateral wound: Plastic surgery service has been consulted. Plastics did washout the wound yesterday and will proceed with lateral gastroc flap on Sunday.. Patient is currently in a knee immobilizer to reduce tension on the skin. Currently patient has a wound VAC with intermittent irrigation with Dakin solution. Appreciate wound VAC recommendations from plastics 4. Therapy: Patient is 50% weightbearing of the right lower extremity. Continue with physical therapy daily. Patient should be mobilized consistently and up to chair throughout the day. Patient is to remain in knee immobilizer with no flexion of the knee. 5. Continue pain medications: Will use postoperative pain regimen with Tylenol, oxycodone and meloxicam. Nursing did reach out to plastics and they are okay with patient using the meloxicam. 6. DVT prophylaxis: Lovenox 40 units subcu twice a day prophylactic dose. We used this because has a short half-life and will allow for good coverage up to the time of surgery as well as the ability to stop coverage for plastic surgeries planned. May want to consider aspirin or direct oral anticoagulant upon discharge from hospital. 7. Continue postoperative medical management per medicine 8. Encouraged incentive spirometer 9. Disposition: Case was discussed with Dr. Wilman Agrawal. At this time orthopedics will sign off of the case. Patient will remain in service with plastics for the remainder of his stay. Dr. Wilman Agrawal and Dr. Jon have been in communication about treatment. At this time patient will require follow-up with infectious disease for continued management of IV antibiotics. Cultures have been negative so far. Continue per recommendations from infectious disease. With regards to pain management for the right knee patient's pain yesterday was well managed. I would recommend extra strength Tylenol and only use narcotic as needed. With regards to DVT prophylaxis patient will remain on the Lovenox and we recommend Lovenox for minimum of 2 weeks postoperatively which will then be followed by aspirin 81 mg twice daily for an additional 2 weeks. If plastics would like patient on any other direct acting oral anticoagulants okay to proceed from orthopedic standpoint. Patient will remain 50% weightbearing on the right lower extremity with knee immobilizer. Range of motion of the right knee will be determined by plastics when appropriate from wound healing. Patient will require 2 week follow-up with [facility] with x-rays on arrival. Will also need to remain with appointments with plastics for continued wound management. If there are any concerns or questions please contact orthopedics. Appreciate your assistance with regards to infectious disease and plastics with patient.
--- NOTE | 2024-03-26 13:20 | RAD_ITS ---
STUDY: X-RAY - RIGHT TIBIA AND FIBULA REASON FOR EXAM: Male, 53 years old. Suture Count Discrepancy. Lost needle during surgery. TECHNIQUE: 2 views of the right tibia and fibula were obtained. COMPARISON: Right tibia/fibula radiographs dated 03/21/2024. FINDINGS: Again seen is a right total knee arthroplasty. There is an unchanged and satisfactory appearance of the femoral component. There is an unchanged appearance of the tibial component spacer. Normal alignment of the tibia and femur. Normal proximal tibiofibular articulation. There is no demonstrated acute fracture. Normal position of the patella. Again seen is a drainage tube along the lateral aspect of the knee. There is persistent subcutaneous soft tissue swelling along the lateral aspect of the knee. There are new multiple skin bonnie along the lateral aspect of the left knee and calf. There are new small hemostat clips in the soft tissues of the knee and calf. There is no retained needle identified. RAD/Tibia & Fibula 2 Views IMPRESSION: Postsurgical changes of the right knee as above. New multiple skin bonnie along the lateral aspect of the left knee and calf. New small hemostat clips in the soft tissues of the knee and calf. No retained needle identified. Electronically Signed: Philip Lomeli MD at 14:10 EDT ,
[2024-03-26] MEDS: Bupiv/Epi 0.25% 30 ML Vial (13:25)
--- NOTE | 2024-03-26 14:11 | OP.PCM_ITS ---
Operative Report Date of Procedure: 03/26/24 Surgery/Procedure Date: 26 Mar 2024 Incision/Procedure Start Time: 8:36am Incision Close/Procedure End Time: 1:30 pm (4 hours 56 minutes) PATIENT: Phoenix Fulton SURGEON: Fabio Jon MD FINANCIAL COMPLIANCE OFFICER: Jagruti Leonard (held retractors, sutured in skin graft) PRE-OPERATIVE DIAGNOSIS: Right lateral knee wound with open joint and history of infection POST-OPERATIVE DIAGNOSIS: Same PROCEDURE PERFORMED: 1) Excision of wound bed, necrotic fat and fascia, 8 x 5 cm (CPT 47260, 55914) 2) Neuroplasty common peroneal nerve (release of fibular tunnel) ([id number]) 3) Right lateral gastrocnemius myocutaneous flap for reconstruction of right knee wound (CPT: 71240) 4) 8 x 5 cm split-thickness skin graft, 12/1,000th of an inch (right thigh) with Taylor Dermatome (CPT: 81342) OPERATIVE FINDINGS: * Peroneal nerve was identified approximately 2 cm below the fibular head and was preserved. * Lateral joint arthrotomy covered well with muscle flap. Wound was healthy enough for reconstruction. INDICATIONS: Phoenix Fulton is a 53-year-old male with past medical history of infected knee replacement status post placement of an articulating antibiotic spacer who has a lateral joint arthrotomy and a wound over the right lateral knee. Presents today for reconstruction with a muscle flap. I talked to him extensively about the risks and benefits of the right lateral gastrocnemius flap for reconstruction and he wanted to proceed. OPERATIVE DETAILS: The patient was correct identified in preoperative holding and taken back to the operating room where he was administered general anesthesia. He was prepped and draped in sterile fashion and all proper timeouts were performed. The wound bed measured 8 x 5 cm and was debrided with a curette with necrotic fat and fascia excised. The wound was then washed with 1.5 L of normal saline followed by 500 cc of Irrisept. Attention was then turned to dissection of the muscle flap. First, a curvilinear incision was made extending the wound distally and behind the leg so as to gain exposure for dissection of the peroneal nerve. Careful dissection was taken down to the overlying fascia with tenotomy scissors with care taken to preserve any cutaneous nerve branches. The nerve was identified just beneath the fibular head with overlying peroneus longus fascia which was dissected carefully over the nerve to preserve the nerve. The nerve was then released circumferentially from the fibular tunnel and care was taken to place a red vessel loop around the nerve (care taken not to put a traction on the nerve) to keep the nerve identified throughout the case. Attention was then turned to dissection distally for muscle flap reconstruction. The superficial posterior compartment fascia was incised and the gastroc and soleus muscles identified. The lateral sural nerve was also identified just above the fascia and was preserved. The lateral gastroc was then dissected posteriorly and also in the deep plane superficial to the soleus. The patient did not have an identifiable plantaris longus. Dissection was taken down to the Achilles tendon and a small 1 cm cuff of the gastrocnemius contribution to the Achilles tendon was included in the flap and the flap was incised with Bovie electrocautery on the very superior portion of the Achilles and divided at the medial raphae with care taken to preserve the medial sural nerve division. The flap was then elevated and rotated and advanced under no tension over the right lateral knee (placed over the peroneal nerve and the vessel loop was removed). The Achilles tendon contribution to the flap was then used to insert the flap underneath the skin of the proximal portions of the wound bed so as to have the flap laying over the wound. This was inset with a 0 PDS. The flap edges were then further inset with 0 and 2-0 PDS. Hemostasis was obtained with Bovie electrocautery and 3 drains were placed, 2 at the donor site and 1 underneath the flap just inferior to the joint arthrotomy. The donor site was closed with 2-0 PDS deep dermal suture followed by 3-0 deep dermal suture and bonnie. Attention was then turned to taking a split-thickness skin graft from the right thigh at 12/1,000th of an inch with a Taylor dermatome. The skin graft was approximately 8 x 5 cm and trimmed to fit over the wound with small perforations for drainage. It was sutured into place with a 4-0 Chromic gut suture. A wound VAC and Adaptic was applied and was continued as an incisional VAC over the right lateral posterior leg. It was holding suction at the end of the case. A knee immobilizer was placed. All counts were correct at the final completion of the case. The patient tolerated the procedure well and was taken to the PACU in stable condition. EBL: 100 cc Anesthesia: General + 0.25% Marcaine with epinephrine 1-200,000 at the donor site of the skin graft (20 cc) ASA: 2 IVF: 1400 cc (100 cc of normal saline and 400 cc of LR) UOP: Unmeasured no Hicks Transfusions: None Perioperative antibiotics for the scheduled vancomycin and ceftriaxone POST-OPERATIVE PLAN: Patient will come to the plastic surgery service. Knee immobilizer for 1 month. Drain care by nursing staff on the floor. Continue to follow-up cultures. Plan for wound VAC removal on Sunday, 31 March 2024.
--- NOTE | 2024-03-26 14:18 | PCM.POST.ANE ---
Anesthesia: Postop Eval I Current Vital Signs Temperature: 97 F Pulse Rate: 90 Blood Pressure: 131/90 Respiratory Rate: 16 Pulse Ox: 96 Oxygen Delivery Method: Room Air Assessment Airway patent: Yes Spontaneous unlabored respirations: Yes Mental status: Awake and Calm nausea: No Vomiting: No Anesthesia Complication: No Fluid Hydration Crystalloid volume administer (ml): 1,500 Total IV fluid infused: 1,500 Progress Note Anesthesia document: Postop Eval 1 completed: No
[2024-03-26] MEDS: Lactated Ringers 1,000 ML 15 ML IV (14:30)
--- NOTE | 2024-03-26 15:09 | PCM.PROGNOTE ---
Subjective Subjective Patient seen and examined. He had lateral joint arthrotomy covered well with a muscle flap today. Pain was well controlled. He has no other complaints. Review of systems is otherwise negative. Objective Data Objective Data Vital Signs: Vital Signs Temp Pulse Resp BP Pulse Ox O2 Del Method O2 Flow Rate 97 F L 86 18 127/79 H 96 Room Air 2 03/26/24 14:20 03/26/24 15:00 03/26/24 15:00 03/26/24 15:00 03/26/24 15:00 03/26/24 15:00 03/26/24 07:50 Oxygen Flow Rate (L/min) 2 Oxygen Delivery Method Room Air Weight: 287 lb 4.197 oz Body Mass Index (BMI) 40.0 Intake & Output: Intake and Output for Last 24 Hours 03/24/24 03/25/24 03/26/24 23:59 23:59 23:59 Intake Total 2510 / 2510 3505 / 3845 935 / 935 Output Total 1360 / 1360 Balance 2510 / 2510 3505 / 3845 -425 / -425 Lab / Micro Data 03/26/24 05:10 03/26/24 05:10 Labs: Laboratory Results - last 24 hr 03/26/24 05:10: WBC 7.5, RBC 4.06 L, Hgb 10.4 L, Hct 33.4 L, MCV 82.3, MCH 25.6 L, MCHC 31.1 L, RDW Std Deviation 50.4 H, RDW Coeff of Luigi 17.0 H, Plt Count 257, MPV 9.7, Immature Gran % (Auto) 0.700, Neut % (Auto) 62.3, Lymph % (Auto) 22.2, [place] % (Auto) 11.1 H, Eos % (Auto) 3.2, Baso % (Auto) 0.5, Absolute Neuts (auto) 4.7, Absolute Lymphs (auto) 1.66, Nucleated RBC % 0, Sodium 139, Potassium 3.7, Chloride 108 H, Carbon Dioxide 27.0, Anion Gap 4 L, BUN 13, Creatinine 0.67 L, Estim Creat Clear Calc 179.51, Est GFR (MDRD) Af Amer 160, Est GFR (MDRD) Non-Af 132, BUN/Creatinine Ratio 19.3, Glucose 92, Calcium 8.6 Micro: Microbiology 03/21/24 16:53 Tissue - Knee Gram Stain - Final 03/21/24 16:53 Tissue - Knee Wound Culture - Final No growth aerobically. 03/21/24 16:53 Tissue - Knee Anaerobic Culture - Preliminary No growth in 48 hours. 03/21/24 16:53 Tissue - Knee Gram Stain - Final 03/21/24 16:53 Tissue - Knee Wound Culture - Final No growth aerobically. 03/21/24 16:53 Tissue - Knee Anaerobic Culture - Preliminary No growth in 48 hours. 03/21/24 16:53 Tissue - Knee Gram Stain - Final 03/21/24 16:53 Tissue - Knee Wound Culture - Final No growth aerobically. 03/21/24 16:53 Tissue - Knee Anaerobic Culture - Preliminary No growth in 48 hours. 03/21/24 16:53 Tissue - Knee Gram Stain - Final 03/21/24 16:53 Tissue - Knee Wound Culture - Final No growth aerobically. 03/21/24 16:53 Tissue - Knee Anaerobic Culture - Preliminary No growth in 48 hours. 03/21/24 10:43 Swab (Method) Nasal Screen MRSA/MSSA - Final Radiography Diagnostic Testing: Radiology Impression Tibia/Fibula X-Ray 03/26/24 13:20 IMPRESSION: Postsurgical changes of the right knee as above. New multiple skin bonnie along the lateral aspect of the left knee and calf. New small hemostat clips in the soft tissues of the knee and calf. No retained needle identified. Electronically Signed: Philip Lomeli MD at 14:10 EDT Reading Location ID and State: [facility] / [place] , Service support , Physical Exam Const alert, oriented x3, no apparent distress and well nourished Constitutional Narrative: obese General Appearance: cooperative HEENT normocephalic, head/scalp atraumatic and moist oral mucous membranes Eyes PERRL and EOMs intact bilaterally Neck no lymphadenopathy and supple Lymph Lymphatic: no lymphadenopathy noted and no lymphedema noted Resp normal respiratory effort, normal air movement and clear to auscultation bilaterally Cardio regular rate, regular rhythm, S1 normal heart sound, S2 normal heart sound and no murmurs GI normal to inspection, nondistended, normoactive bowel sounds, soft to palpation, non-tender and non-distended Extremity Extremity Narrative: right knee in knee brace, with intact dressing. Skin General Skin Exam: no breakdown Neuro CN's II-XII intact bilaterally and no focal motor deficits Coordination / Balance: [id number] test normal Motor Exam: strength 5/5 throughout Psych thought process normal and cooperative Appearance: appropriate Assessment & Plan Assessment/Plan (1) Infection and inflammatory reaction due to internal right knee prosthesis, subsequent encounter: PLAN: Plan #RIght knee periprosthetic infection s/p knee explanation and placement of antibiotic spacer on 03/21/2024. Today is POD 3. He also had lateral joint arthrotomy covered well with muscle flap today. He had excision of the wound bed and necrotic fat and fascia as well as placement of an irrigating wound vac yesterday, 03/24/2024 pain is well controlled. Management of pain as per primary service. plastic surgery on board. on IV vancomycin and ceftriaxone. ID on board.PICC line in place. Cultures so far have been negative. Plastic surgery on board. DVT prophylaxis: lovenox Charges/Coding Visit Charges Inpatient E&M: 90651 Subs Hosp L2
--- NOTE | 2024-03-26 16:08 | CASEMGMT ---
SAGE MARQUEZ NOTE: RN CM to room. Pt resting in bed, @ bedside. They have reviewed the [facility] list and the following are top 3 preferences: 1) [facility] 2) [facility] 3) [facility] Currently cx's have been negative so far. ID following. states she is willing to learn IV atb administration. Per pt and , Dr Jon informed them plan is to discharge pt home on Sunday. They also state Dr Jon is hopes to remove the wound vac on Sunday prior to discharge home. Call placed to Ros @ [facility] and referral made. Made aware anticipate dc home on Sunday w/possible IV atb's and possible wound vac. Awaiting response. Andria WOLFN SAGE CM
[2024-03-26] MEDS: oxyCODONE 5 MG Tablet PO (16:25)
[2024-03-26] MEDS: Ensure Surgery 237 ML LIQUID PO (19:34)
[2024-03-26] MEDS: Meloxicam 7.5 MG Tablet PO (19:47)
--- NOTE | 2024-03-27 01:38 | POSTOPAN2_ITS ---
Anesthesia Postop Eval I Sum Postop Eval Completion status Anesthesia document: Postop Eval 1 completed: No Anesthesia Postop Eval I Summary Anesthesia Postop Eval I Summary: Anesthesia Postop Eval I: Assessment Summary Airway patent Yes 03/26/24 14:20 SEARCH [email or web address] Spontaneous unlabored Yes 03/26/24 14:20 SEARCH [email or web address] respirations Mental status Awake,Calm 03/26/24 14:20 SEARCH [email or web address] nausea No 03/26/24 14:20 SEARCH [email or web address] Vomiting No 03/26/24 14:20 SEARCH [email or web address] Anesthesia Postop Eval I: Fluid Summary Crystalloid volume administer 1,500 03/26/24 14:20 SEARCH [email or web address] (ml) Colloids volume administered ( ml) Blood Product volume administered (ml) Total IV fluid infused 1,500 03/26/24 14:20 SEARCH [email or web address] Anesthesia Postop Eval I: Summary Notes Anesthesia Complication No 03/26/24 14:20 SEARCH [email or web address] Anesthesia Complication Comment: Post-operative progress note Anesthesia: Postop Eval II Evaluation Mental status: Awake and Calm Pain Level: 1 nausea: No Vomiting: No Complications Anesthesia Complication: No
--- NOTE | 2024-03-27 01:38 | PCM.POSTANE2 ---
Anesthesia Postop Eval I Sum Postop Eval Completion status Anesthesia document: Postop Eval 1 completed: No Anesthesia Postop Eval I Summary Anesthesia Postop Eval I Summary: Anesthesia Postop Eval I: Assessment Summary Airway patent Yes 03/26/24 14:20 NEWSPAPER LIBRARY [email or web address] Spontaneous unlabored Yes 03/26/24 14:20 NEWSPAPER LIBRARY [email or web address] respirations Mental status Awake,Calm 03/26/24 14:20 NEWSPAPER LIBRARY [email or web address] nausea No 03/26/24 14:20 NEWSPAPER LIBRARY MANAGER.[email or web address] Vomiting No 03/26/24 14:20 NEWSPAPER LIBRARY [email or web address] Anesthesia Postop Eval I: Fluid Summary Crystalloid volume administer 1,500 03/26/24 14:20 NEWSPAPER LIBRARY [email or web address] (ml) Colloids volume administered ( ml) Blood Product volume administered (ml) Total IV fluid infused 1,500 03/26/24 14:20 NEWSPAPER LIBRARY [email or web address] Anesthesia Postop Eval I: Summary Notes Anesthesia Complication No 03/26/24 14:20 NEWSPAPER LIBRARY [email or web address] Anesthesia Complication Comment: Post-operative progress note Anesthesia: Postop Eval II Evaluation Mental status: Awake and Calm Pain Level: 1 nausea: No Vomiting: No Complications Anesthesia Complication: No
[2024-03-27 04:02] VITALS: BP 115/70; PULSE 77; RESP 17; TEMP 36.1; O2SAT 97
[2024-03-27] MEDS: Vancomycin HCl 1,750 MG in 0.9% Normal Saline (500mL Bag) 500 ML 250 MG IV ×3 (04:07→20:07)
[2024-03-27] MEDS: 0.9% Saline Lock 10 ML Syringe IV ×2 (04:07→20:07)
[2024-03-27 06:35] VITALS: BP 138/81; PULSE 79; RESP 18; TEMP 36.1; O2SAT 97
[2024-03-27] MEDS: Acetaminophen 500 MG Tablet 1000 MG PO ×3 (06:43→22:07)
--- NOTE | 2024-03-27 07:39 | ANES.CONF2 ---
Anesthesia: Confirm Documents Multiple Procedures on Account (3) Confirmed Documents: Yes
[2024-03-27 09:04] VITALS: BP 125/94; PULSE 79; RESP 20; TEMP 36.7; O2SAT 98
[2024-03-27] MEDS: Senna/Docusate Sodium 1 Tablet 2 TABLET PO (09:14)
[2024-03-27] MEDS: Famotidine 20 MG Tablet PO (09:14)
[2024-03-27] MEDS: Meloxicam 7.5 MG Tablet PO ×2 (09:15→17:15)
--- NOTE | 2024-03-27 09:32 | CASEMGMT ---
Addendum entered by Aureliano De Jesus 03/28/24 13:47: Per Dr Valero, if pt medically ready to discharge on Sunday, it is okay for pt to miss last dose of Vanco Sun PM for SOC HHC on Sunday AM. Addendum entered by Aureliano De Jesus 03/27/24 16:02: SAGE MARQUEZ spoke w/[facility] for rodriguez check on Vanco 1,750 mg IV Q 8 hrs and Ceftriaxone 2 GM Q 24 hrs, both x 6 weeks. Pt is covered @ 90% until he reaches [id number] max, and she states his insurance will be billed for that amt, so pt will have no co-pay for medication or supplies. Pt and made aware. [facility] was made aware anticipate discharge home on Sunday w/SOC on Sunday. She was provided w/Melly, SAGE MARQUEZ, contact #, who will be CM for pt on Sunday. Addendum entered by Aureliano De Jesus 03/27/24 14:10: Per Dr Valero, pt to discharge home on what he is currently on, Vanco and Ceftriaxone, both x 6 weeks. Information faxed to [facility] and requested rodriguez-check be done. Once information is obtained, pt and to be notified. Addendum entered by Aureliano De Jesus 03/27/24 10:01: also made aware [facility] accepted. Further questions answered. Discussed infusion company and they have no preference, agreeable to [facility]. and pt inquiring about cost of medication/supplies. Will do rodriguez check once Dr Valero determines what IV atb pt will discharge home on. Original Note: SAGE MARQUEZ note: Call received from Ros @ [facility]. They are able to accept pt w/tentative SOC date on Sunday, pending if pt is discharged on Sunday and pending atb's date/time HHC needed. Pt made aware. Andria PERES RN, CM
--- NOTE | 2024-03-27 09:48 | PN.SURG_ITS ---
<Statement entered by Fabio Jon MD - 03/27/24 17:32> Pt seen & evaluated w/RACQUEL. I personally interviewed & exam the pt. I was involved in all aspects of pt's orders, interpretation of results & treatment Subjective Subjective Postop day #1 right lateral gastrocnemius myocutaneous flap for reconstruction of right knee wound. He states his pain is well controlled. He is sitting in chair with legs elevate and right knee brace in place and right knee straight. He states that PT got him up this morning to ambulate with assistance and with his knee brace on. Objective Data Objective Data Vital Signs: Vital Signs Temp Pulse Resp BP Pulse Ox O2 Del Method O2 Flow Rate 98.1 F 79 20 H 125/94 H 98 Room Air 2 03/27/24 09:04 03/27/24 09:04 03/27/24 09:04 03/27/24 09:04 03/27/24 09:04 03/27/24 09:04 03/26/24 07:50 Oxygen Flow Rate (L/min) 2 Oxygen Delivery Method Room Air Weight: 287 lb 4.197 oz Body Mass Index (BMI) 40.0 Intake & Output: Intake and Output for Last 24 Hours 03/25/24 03/26/24 03/27/24 23:59 23:59 23:59 Intake Total 3505 / 3845 2030 / 2030 535 / 535 Output Total 2348 / 2348 700 / 700 Balance 3505 / 3845 -318 / -318 -165 / -165 Lab / Micro Data Attestation: I reviewed the patient's lab results. 03/26/24 05:10 03/26/24 05:10 Labs: Laboratory Results - last 24 hr 03/27/24 11:11: Vancomycin Trough 16.8 H Micro: Microbiology 03/21/24 16:53 Tissue - Knee Gram Stain - Final 03/21/24 16:53 Tissue - Knee Wound Culture - Final No growth aerobically. 03/21/24 16:53 Tissue - Knee Anaerobic Culture - Final No growth in 5 days. 03/21/24 16:53 Tissue - Knee Gram Stain - Final 03/21/24 16:53 Tissue - Knee Wound Culture - Final No growth aerobically. 03/21/24 16:53 Tissue - Knee Anaerobic Culture - Final No growth in 5 days. 03/21/24 16:53 Tissue - Knee Gram Stain - Final 03/21/24 16:53 Tissue - Knee Wound Culture - Final No growth aerobically. 03/21/24 16:53 Tissue - Knee Anaerobic Culture - Final No growth in 5 days. 03/21/24 16:53 Tissue - Knee Gram Stain - Final 03/21/24 16:53 Tissue - Knee Wound Culture - Final No growth aerobically. 03/21/24 16:53 Tissue - Knee Anaerobic Culture - Final No growth in 5 days. 03/21/24 10:43 Swab (Method) Nasal Screen MRSA/MSSA - Final Radiography Diagnostic Testing: Radiology Impression Tibia/Fibula X-Ray 03/26/24 13:20 IMPRESSION: Postsurgical changes of the right knee as above. New multiple skin bonnie along the lateral aspect of the left knee and calf. New small hemostat clips in the soft tissues of the knee and calf. No retained needle identified. Electronically Signed: Philip Lomeli MD at 14:10 EDT Reading Location ID and State: [facility] / [place] , Service support , Physical Exam Const alert, oriented x3 and no apparent distress General Appearance: cooperative HEENT normocephalic Eyes General Eye: normal appearance of both eyes Neck full ROM Resp normal respiratory effort Effort and Inspection: able to speak in complete sentences Cardio regular rate Back/Spine normal ROM Extremity Extremity Narrative: Right knee immobilizer brace is in place. Pedal pulses palpable. Able to flex and extend his right foot. Skin Wound Narrative: Right knee wound VAC in place. Right knee flap is covered with wound veil. 3 [place] drains draining serosanguineous drainage and stripped to make sure they continue to drain. Neuro oriented x3 Psych mental status grossly normal, thought process normal and cooperative Assessment & Plan Assessment/Plan (1) Infection and inflammatory reaction due to internal right knee prosthesis, subsequent encounter: PLAN: Plan For today only, no more PT (he ambulated with them this morning). He may sit in chair. He may have bathroom privileges. Keep right knee immobilizer in place at all times. Do not bend right knee. Keep right leg elevated when sitting in chair. When ambulating he is 50% weightbearing on right lower extremity. Foot drop splint for when not ambulating. He may start to do steps with therapy on Sunday03/31/24. ID is consulted. Currently no growth of operative cultures. He is on Vancomycin and Ceftriaxone. Wound VAC at 125 mmHg. [place] drains in place draining serosanguineous drainage. May strip drains several times per day to prevent clotting. Plan is for him to be discharged after the weekend (stay 5 days after flap procedure). Charges/Coding Procedures Integumentary [id number]: [id number] Global Visit
--- NOTE | 2024-03-27 10:17 | PN.ID_ITS ---
Physical Exam Narrative Feeling ok, pain controlled s/p OR, no fever Const alert and no apparent distress General Appearance: cooperative Resp normal air movement and clear to auscultation bilaterally Cardio regular rate and regular rhythm GI soft to palpation, non-tender and non-distended Skin Skin Narrative: wound vac in place ID ID: Route of nutrition/ use of supplements: [] Nutritional Intake: [] IV Site: [] Hicks Catheter: [] Assessment & Plan Assessment/Plan (1) Infection and inflammatory reaction due to internal right knee prosthesis, subsequent encounter: PLAN: He does not think any outpt swabs were taken in [place] or [place]. Taken to OR 03/21/24 for I&D and spacer placement. On vanc/ceftriaxone. Surg cx neg so far. Picc in place. Will follow
--- NOTE | 2024-03-27 11:00 | PN_ITS ---
Subjective Subjective Patient seen and examined. HE complained of some cramping in his leg due to the brace on his leg. He also complained of some numbness in his right fingers, likely due to his hand being outstretched during surgery. Review of systems is otherwise negative. Objective Data Objective Data Vital Signs: Vital Signs Temp Pulse Resp BP Pulse Ox O2 Del Method O2 Flow Rate 98.1 F 79 20 H 125/94 H 98 Room Air 2 03/27/24 09:04 03/27/24 09:04 03/27/24 09:04 03/27/24 09:04 03/27/24 09:04 03/27/24 09:04 03/26/24 07:50 Oxygen Flow Rate (L/min) 2 Oxygen Delivery Method Room Air Weight: 287 lb 4.197 oz Body Mass Index (BMI) 40.0 Intake & Output: Intake and Output for Last 24 Hours 03/25/24 03/26/24 03/27/24 23:59 23:59 23:59 Intake Total 3505 / 3845 2030 / 2030 535 / 535 Output Total 2348 / 2348 700 / 700 Balance 3505 / 3845 -318 / -318 -165 / -165 Lab / Micro Data 03/26/24 05:10 03/26/24 05:10 Micro: Microbiology 03/21/24 16:53 Tissue - Knee Gram Stain - Final 03/21/24 16:53 Tissue - Knee Wound Culture - Final No growth aerobically. 03/21/24 16:53 Tissue - Knee Anaerobic Culture - Final No growth in 5 days. 03/21/24 16:53 Tissue - Knee Gram Stain - Final 03/21/24 16:53 Tissue - Knee Wound Culture - Final No growth aerobically. 03/21/24 16:53 Tissue - Knee Anaerobic Culture - Final No growth in 5 days. 03/21/24 16:53 Tissue - Knee Gram Stain - Final 03/21/24 16:53 Tissue - Knee Wound Culture - Final No growth aerobically. 03/21/24 16:53 Tissue - Knee Anaerobic Culture - Final No growth in 5 days. 03/21/24 16:53 Tissue - Knee Gram Stain - Final 03/21/24 16:53 Tissue - Knee Wound Culture - Final No growth aerobically. 03/21/24 16:53 Tissue - Knee Anaerobic Culture - Final No growth in 5 days. 03/21/24 10:43 Swab (Method) Nasal Screen MRSA/MSSA - Final Radiography Diagnostic Testing: Radiology Impression Tibia/Fibula X-Ray 03/26/24 13:20 IMPRESSION: Postsurgical changes of the right knee as above. New multiple skin bonnie along the lateral aspect of the left knee and calf. New small hemostat clips in the soft tissues of the knee and calf. No retained needle identified. Electronically Signed: Philip Lomeli MD at 14:10 EDT , Physical Exam Const alert, oriented x3, no apparent distress and well nourished Constitutional Narrative: obese General Appearance: cooperative HEENT normocephalic, head/scalp atraumatic and moist oral mucous membranes Eyes PERRL and EOMs intact bilaterally Neck no lymphadenopathy and supple Lymph Lymphatic: no lymphadenopathy noted and no lymphedema noted Resp normal respiratory effort, normal air movement and clear to auscultation bilaterally Cardio regular rate, regular rhythm, S1 normal heart sound, S2 normal heart sound and no murmurs GI normal to inspection, nondistended, normoactive bowel sounds, soft to palpation, non-tender and non-distended Extremity Extremity Narrative: right knee in knee brace, with intact dressing. 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 Today is POD 3. He also had lateral joint arthrotomy covered well with muscle flap yesterday. * He had excision of the wound bed and necrotic fat and fascia as well as placement of an irrigating wound vac yesterday, 03/24/2024 * pain is well controlled. Management of pain as per primary service. * plastic surgery on board. * remains on IV vancomycin and ceftriaxone. ID on board.PICC line in place. Cultures so far have been negative. * Plastic surgery on board. * DVT prophylaxis: lovenox Charges/Coding Visit Charges Inpatient E&M: 39162 Subs Hosp L2
[2024-03-27] MEDS: Vancomycin Trough/Random Due 1 LAB MC ×2 (11:24)
[2024-03-27] MEDS: Ensure Surgery 237 ML LIQUID PO ×3 (11:24→17:26)
[2024-03-27] MEDS: Ceftriaxone 2 GM in 0.9% Normal Saline (50mL MB+) 50 ML IV (11:47)
[2024-03-27] MEDS: Enoxaparin 30 MG/0.3 ML Syringe SC ×2 (11:47→22:08)
[2024-03-27 12:22] LABS: Vancomycin, Trough Level 16.8 ug/mL (5.0-15.0)
--- NOTE | 2024-03-27 12:35 | PCM.RX.CS ---
Consult Antibiotic Management Pharmacy has been consulted to manage selected antibiotic: Vancomycin Type of Intervention Type of Consult: Follow-up Suspected Infection Suspected Infection: Other (JOINT INFECTION) Prior Doses of Antibiotics Prior Doses of Antibiotics Received/Current Regimen: Vancomycin 1750 mg Q8H last dose 03/27 @ 0407 Labs Labs: Sodium 139 mmol/L (136-145) 03/26/24 05:10 Potassium 3.7 mmol/L (3.5-5.1) 03/26/24 05:10 Chloride 108 mmol/L (98-107) H 03/26/24 05:10 Carbon Dioxide 27.0 mmol/L (21.0-32.0) 03/26/24 05:10 Anion Gap 4 (5-15) L 03/26/24 05:10 BUN 13 mg/dL (7-18) 03/26/24 05:10 Creatinine 0.67 mg/dL (0.70-1.30) L 03/26/24 05:10 Est GFR (MDRD) Af Amer 160 mL/min (>60) 03/26/24 05:10 Est GFR (MDRD) Non-Af 132 mL/min (>60) 03/26/24 05:10 BUN/Creatinine Ratio 19.3 RATIO (10-20) 03/26/24 05:10 Glucose 92 mg/dL (74-106) 03/26/24 05:10 Vancomycin Trough 16.8 ug/mL (5.0-15.0) H 03/27/24 11:11 Microbiology Microbiology: Microbiology 03/21/24 16:53 Tissue - Knee Gram Stain - Final 03/21/24 16:53 Tissue - Knee Wound Culture - Final No growth aerobically. 03/21/24 16:53 Tissue - Knee Anaerobic Culture - Final No growth in 5 days. 03/21/24 16:53 Tissue - Knee Gram Stain - Final 03/21/24 16:53 Tissue - Knee Wound Culture - Final No growth aerobically. 03/21/24 16:53 Tissue - Knee Anaerobic Culture - Final No growth in 5 days. 03/21/24 16:53 Tissue - Knee Gram Stain - Final 03/21/24 16:53 Tissue - Knee Wound Culture - Final No growth aerobically. 03/21/24 16:53 Tissue - Knee Anaerobic Culture - Final No growth in 5 days. 03/21/24 16:53 Tissue - Knee Gram Stain - Final 03/21/24 16:53 Tissue - Knee Wound Culture - Final No growth aerobically. 03/21/24 16:53 Tissue - Knee Anaerobic Culture - Final No growth in 5 days. 03/21/24 10:43 Swab (Method) Nasal Screen MRSA/MSSA - Final Dosing Weight Weight used for dosin kg Estimated Creatinine Clearance Estimated Creatinine Clearance: ~179 Goal Trough Goal Trough: 15-20 mcg/mL Pharmacy Plan for Drug Dosing Pharmacy Plan for Drug Dosing: Vancomycin trough = 16.8, continue current dosing, trough in 2 days Pharmacy Service will continue to monitor and adjust dosing as required. Follow-Up Labs Follow-Up Labs: Trough: Vancomycin Date/Time Labs Ordered Labs to be done on [date and time ordered]: 03/29/24 @ 7601
[2024-03-27 15:00] VITALS: BP 144/78; PULSE 82; RESP 18; TEMP 36.9; O2SAT 98
--- NOTE | 2024-03-27 16:16 | CASEMGMT ---
Discharge Planning Referral sent to I. Zena Deluca DC Planning Asst.
[2024-03-27 20:00] VITALS: BP 140/82; PULSE 80; RESP 14; TEMP 36.6; O2SAT 99
[2024-03-27] MEDS: Polyethylene Glycol 3350 17 GM PACKET PO (22:08)
[2024-03-28 04:00] VITALS: BP 118/75; PULSE 69; RESP 13; TEMP 36.4; O2SAT 97
[2024-03-28] MEDS: Vancomycin HCl 1,750 MG in 0.9% Normal Saline (500mL Bag) 500 ML 250 MG IV ×3 (04:06→19:49)
[2024-03-28] MEDS: Acetaminophen 500 MG Tablet 1000 MG PO ×3 (06:13→22:23)
[2024-03-28 09:00] VITALS: BP 139/94; PULSE 68; RESP 18; TEMP 36.4; O2SAT 98
--- NOTE | 2024-03-28 09:17 | PCM.PN.SRG ---
Subjective Subjective Post op day 2 from lateral gastroc flap and STSG. Doing well overall. Working with PT to get to the bathroom safely. Complaint with knee staying in extension. Pain controlled. No pulling/ripping. Objective Data Objective Data Vital Signs: Vital Signs Temp Pulse Resp BP Pulse Ox O2 Del Method O2 Flow Rate 97.5 F L 69 13 118/75 97 CPAP 2 03/28/24 04:00 03/28/24 04:00 03/28/24 04:00 03/28/24 04:00 03/28/24 04:00 03/28/24 04:00 03/26/24 07:50 Oxygen Flow Rate (L/min) 2 Oxygen Delivery Method CPAP Weight: 287 lb 4.197 oz Body Mass Index (BMI) 40.0 Intake & Output: Intake and Output for Last 24 Hours 03/26/24 03/27/24 03/28/24 23:59 23:59 23:59 Intake Total 2029 / 2029 4855 / 4855 535 / 535 Output Total 2348 / 2348 721 / 721 Balance -318 / -318 4134 / 4134 515 / 515 Lab / Micro Data 03/26/24 05:10 03/26/24 05:10 Labs: Laboratory Results - last 24 hr 03/27/24 11:11: Vancomycin Trough 16.8 H Micro: Microbiology 03/21/24 16:53 Tissue - Knee Gram Stain - Final 03/21/24 16:53 Tissue - Knee Wound Culture - Final No growth aerobically. 03/21/24 16:53 Tissue - Knee Anaerobic Culture - Final No growth in 5 days. 03/21/24 16:53 Tissue - Knee Gram Stain - Final 03/21/24 16:53 Tissue - Knee Wound Culture - Final No growth aerobically. 03/21/24 16:53 Tissue - Knee Anaerobic Culture - Final No growth in 5 days. 03/21/24 16:53 Tissue - Knee Gram Stain - Final 03/21/24 16:53 Tissue - Knee Wound Culture - Final No growth aerobically. 03/21/24 16:53 Tissue - Knee Anaerobic Culture - Final No growth in 5 days. 03/21/24 16:53 Tissue - Knee Gram Stain - Final 03/21/24 16:53 Tissue - Knee Wound Culture - Final No growth aerobically. 03/21/24 16:53 Tissue - Knee Anaerobic Culture - Final No growth in 5 days. 03/21/24 10:43 Swab (Method) Nasal Screen MRSA/MSSA - Final Physical Exam Narrative Right lower extremity: VAC holding suction. No output. Drains strip well. All three are SS. No clot. Knee appropriately splinted in extension via splint. No calf swelling on either side. Const alert and oriented x3 Eyes EOMs intact bilaterally Neck full ROM Resp normal respiratory effort Cardio regular rate and regular rhythm Assessment & Plan Assessment/Plan (1) Infection and inflammatory reaction due to internal right knee prosthesis, subsequent encounter: PLAN: Expected course thus far Pain: Controlled with current PRN pain medications Resp: Consistent IS usage (over 2.5 L, doing it correctly). Continue home CPAP Card: No concerns at this time. GI: Regular. Miralax PRN : No concerns Hem: Lovenox 30 mg BID for DVT pxx. and SCDs while in bed. ID: Infectious disease consulted (Vanc and Ceftriaxone for now). Continue consult and f/u cultures (NGTD). FEN: BMP tomorrow to check Cr in setting of Vanc/Ceftriaxone. Musculoskeletal: Weight bearing 50% (OK to walk with walker) on operative extremity per orthopedics. Continue knee extension splint. Foot drop splint is being made by [employer]. for patient and they will deliver soon (for while in bed) VAC down on Sunday, 31 Mar 2024. Charges/Coding Procedures Integumentary [id number]: 14192 Global Visit
[2024-03-28] MEDS: Ceftriaxone 2 GM in 0.9% Normal Saline (50mL MB+) 50 ML IV (09:28)
[2024-03-28] MEDS: Meloxicam 7.5 MG Tablet PO ×2 (09:28→17:49)
[2024-03-28] MEDS: Ensure Surgery 237 ML LIQUID PO ×3 (09:28→17:49)
[2024-03-28] MEDS: Enoxaparin 30 MG/0.3 ML Syringe SC ×2 (09:28→22:23)
[2024-03-28] MEDS: Polyethylene Glycol 3350 17 GM PACKET PO (09:29)
[2024-03-28] MEDS: Famotidine 20 MG Tablet PO (09:29)
[2024-03-28] MEDS: Senna/Docusate Sodium 1 Tablet 2 TABLET PO ×2 (09:29→22:23)
--- NOTE | 2024-03-28 11:31 | PN_ITS ---
Subjective Subjective Patient seen and examined. No complaints. Pain was well-controlled. Review of systems. # Main hemodynamically stable. Objective Data Objective Data Vital Signs: Vital Signs Temp Pulse Resp BP Pulse Ox O2 Del Method O2 Flow Rate 97.5 F L 69 13 118/75 97 CPAP 2 03/28/24 04:00 03/28/24 04:00 03/28/24 04:00 03/28/24 04:00 03/28/24 04:00 03/28/24 04:00 03/26/24 07:50 Oxygen Flow Rate (L/min) 2 Oxygen Delivery Method CPAP Weight: 287 lb 4.197 oz Body Mass Index (BMI) 40.0 Intake & Output: Intake and Output for Last 24 Hours 03/26/24 03/27/24 03/28/24 23:59 23:59 23:59 Intake Total 2029 / 2029 4855 / 4855 535 / 535 Output Total 2348 / 2348 721 / 721 Balance -318 / -318 4134 / 4134 515 / 515 Lab / Micro Data 03/26/24 05:10 03/26/24 05:10 Labs: Laboratory Results - last 24 hr 03/27/24 11:11: Vancomycin Trough 16.8 H Micro: Microbiology 03/21/24 16:53 Tissue - Knee Gram Stain - Final 03/21/24 16:53 Tissue - Knee Wound Culture - Final No growth aerobically. 03/21/24 16:53 Tissue - Knee Anaerobic Culture - Final No growth in 5 days. 03/21/24 16:53 Tissue - Knee Gram Stain - Final 03/21/24 16:53 Tissue - Knee Wound Culture - Final No growth aerobically. 03/21/24 16:53 Tissue - Knee Anaerobic Culture - Final No growth in 5 days. 03/21/24 16:53 Tissue - Knee Gram Stain - Final 03/21/24 16:53 Tissue - Knee Wound Culture - Final No growth aerobically. 03/21/24 16:53 Tissue - Knee Anaerobic Culture - Final No growth in 5 days. 03/21/24 16:53 Tissue - Knee Gram Stain - Final 03/21/24 16:53 Tissue - Knee Wound Culture - Final No growth aerobically. 03/21/24 16:53 Tissue - Knee Anaerobic Culture - Final No growth in 5 days. 03/21/24 10:43 Swab (Method) Nasal Screen MRSA/MSSA - Final Physical Exam Const alert, oriented x3, no apparent distress and well nourished Constitutional Narrative: obese General Appearance: cooperative and well developed HEENT normocephalic, head/scalp atraumatic and moist oral mucous membranes Eyes PERRL and EOMs intact bilaterally Neck no lymphadenopathy and supple Lymph Lymphatic: no lymphadenopathy noted and no lymphedema noted Resp normal respiratory effort, normal air movement and clear to auscultation bilaterally Cardio regular rate, regular rhythm, S1 normal heart sound, S2 normal heart sound and no murmurs GI normal to inspection, nondistended, normoactive bowel sounds, soft to palpation, non-tender and non-distended Extremity Extremity Narrative: right knee in knee brace, with intact dressing. Wound VAC in place with multiple drains and at site of the surgery. Skin Skin Narrative: As under extremities Neuro CN's II-XII intact bilaterally and no focal motor deficits Coordination / Balance: [id number] test normal Motor Exam: strength 5/5 throughout Psych thought process normal and cooperative Appearance: appropriate Assessment & Plan Assessment/Plan (1) Infection and inflammatory reaction due to internal right knee prosthesis, subsequent encounter: PLAN: Plan #RIght knee periprosthetic infection * s/p knee explanation and placement of antibiotic spacer on 03/21/2024. Today is POD 4. He also had lateral joint arthrotomy covered well with muscle flap . * He had excision of the wound bed and necrotic fat and fascia as well as placement of an irrigating wound vac on 03/24/2024 * pain is well controlled. Management of pain as per primary service. * plastic surgery on board. * remains on IV vancomycin and ceftriaxone. ID on board.PICC line in place. Cultures so far have been negative. * has wound vac in place * Wound cultures still pending. ID to determine duration of antibiotics. * DVT prophylaxis: lovenox Charges/Coding Visit Charges Inpatient E&M: 67101 Subs Hosp L2
--- NOTE | 2024-03-28 14:00 | CASEMGMT ---
Addendum entered by Aureliano De Jesus 03/28/24 15:26: Dr Valero sent message requesting trying to obtain culture results from [place]. Elizabeth, private secretary, aware and states will work on obtaining these. Addendum entered by Aureliano De Jesus 03/28/24 15:13: Pt states he had knee aspiration done @ [facility] 03/18 and cultures sent that day. He asked for this info be provided to Dr Valero, as he was wondering if getting those results would be helpful. Message sent to Dr Valero with this information. Addendum entered by Aureliano De Jesus 03/28/24 15:08: Per [facility], SOC slated for Sunday @ 0700, pt made aware and agreeable to that time for SOC. This was added to pt's discharge plan. Cris @ [facility] aware of this as well and aware to f/u with SAGE Pickard CM, on Sunday for confirmation of discharge plans and to arrange delivery of medications/tubing on Sunday. Original Note: SAGE MARQUEZ NOTE: SAGE MARQUEZ spoke w/Melinda @ [facility] and let her know Sunday SOC should be in the AM. She will take a look at it and call this SAGE MARQUEZ back. Andria PERES RN, CM
[2024-03-28 15:00] VITALS: BP 144/89; PULSE 68; RESP 18; TEMP 36.8; O2SAT 100
--- NOTE | 2024-03-28 15:39 | PCA ---
Release of Medical Records formed signed and faxed to [facility] in hopes to get knee culture results back. fax number [phone] phone number [phone]
[2024-03-28] MEDS: 0.9% Saline Lock 10 ML Syringe IV (19:48)
[2024-03-28 20:00] VITALS: BP 134/84; PULSE 71; RESP 15; TEMP 36.6; O2SAT 98
[2024-03-29 04:00] VITALS: BP 142/87; PULSE 65; RESP 14; TEMP 36.3; O2SAT 99
[2024-03-29] MEDS: Vancomycin HCl 1,750 MG in 0.9% Normal Saline (500mL Bag) 500 ML 250 MG IV (04:12)
[2024-03-29] MEDS: 0.9% Saline Lock 10 ML Syringe IV (04:12)
[2024-03-29] MEDS: Acetaminophen 500 MG Tablet 1000 MG PO ×3 (06:08→22:15)
[2024-03-29] MEDS: Meloxicam 7.5 MG Tablet PO ×2 (08:06→16:06)
[2024-03-29] MEDS: Ensure Surgery 237 ML LIQUID PO ×3 (08:19→16:06)
--- NOTE | 2024-03-29 08:59 | PN.SURG_ITS ---
Subjective Subjective Doing well overall. Pain getting better and better and is well controlled. He has been compliant with knee immobilizer. Getting foot drop splint on Sunday for while in bed/resting. Reports excellent drain care by nursing. No SOB or fevers/chills. Objective Data Objective Data Vital Signs: Vital Signs Temp Pulse Resp BP Pulse Ox O2 Del Method O2 Flow Rate 97.4 F L 65 14 142/87 H 99 Room Air 2 03/29/24 04:00 03/29/24 04:00 03/29/24 04:00 03/29/24 04:00 03/29/24 04:00 03/29/24 04:00 03/26/24 07:50 Oxygen Flow Rate (L/min) 2 Oxygen Delivery Method Room Air Weight: 287 lb 4.197 oz Body Mass Index (BMI) 40.0 Intake & Output: Intake and Output for Last 24 Hours 03/27/24 03/28/24 03/29/24 23:59 23:59 23:59 Intake Total 4855 / 4855 2135 / 2135 535 / 535 Output Total 721 / 721 70 / 75 1805 / 1805 Balance 4134 / 4134 2065 / 2060 -1270 / -1270 Lab / Micro Data 03/26/24 05:10 03/26/24 05:10 Micro: Microbiology 03/21/24 16:53 Tissue - Knee Gram Stain - Final 03/21/24 16:53 Tissue - Knee Wound Culture - Final No growth aerobically. 03/21/24 16:53 Tissue - Knee Anaerobic Culture - Final No growth in 5 days. 03/21/24 16:53 Tissue - Knee Gram Stain - Final 03/21/24 16:53 Tissue - Knee Wound Culture - Final No growth aerobically. 03/21/24 16:53 Tissue - Knee Anaerobic Culture - Final No growth in 5 days. 03/21/24 16:53 Tissue - Knee Gram Stain - Final 03/21/24 16:53 Tissue - Knee Wound Culture - Final No growth aerobically. 03/21/24 16:53 Tissue - Knee Anaerobic Culture - Final No growth in 5 days. 03/21/24 16:53 Tissue - Knee Gram Stain - Final 03/21/24 16:53 Tissue - Knee Wound Culture - Final No growth aerobically. 03/21/24 16:53 Tissue - Knee Anaerobic Culture - Final No growth in 5 days. 03/21/24 10:43 Swab (Method) Nasal Screen MRSA/MSSA - Final Physical Exam Narrative Right lower extremity: VAC holding suction. No output. Drains strip well. All three are SS. No clot. Knee appropriately splinted in extension via splint. Appropriate post-operative swelling on the right side. SCD on and activated on the left. Right calf dorsiflexion intact (no foot drop) and sensation to light touch intact throughout the left leg/dorsum of the foot. Const alert and oriented x3 Eyes EOMs intact bilaterally Neck full ROM Resp normal respiratory effort Cardio regular rate and regular rhythm Assessment & Plan Assessment/Plan (1) Infection and inflammatory reaction due to internal right knee prosthesis, subsequent encounter: PLAN: Expected course thus far Pain: Controlled with current PRN pain medications Resp: Consistent IS usage (over 2.5 L, doing it correctly). Continue home CPAP Card: No concerns at this time. GI: Regular. Miralax PRN : No concerns Hem: Lovenox 30 mg BID for DVT pxx. and SCDs while in bed. ID: Infectious disease consulted (Vanc and Ceftriaxone for now). Continue consult and f/u cultures (NGTD). FEN: High protein diet (discussed today on rounds). BMP later this morning to check Cr in setting of Vanc/Ceftriaxone. Musculoskeletal: Weight bearing 50% (OK to walk with walker) on operative extremity per orthopedics. Continue knee extension splint. Foot drop splint is being made by [employer]. (delivering Sunday) for patient and they will deliver soon (for while in bed) VAC down on Sunday, 31 Mar 2024. Charges/Coding Procedures Integumentary 111xxx-113xx: [id number] Global Visit
[2024-03-29] MEDS: Ceftriaxone 2 GM in 0.9% Normal Saline (50mL MB+) 50 ML IV (10:55)
[2024-03-29] MEDS: Enoxaparin 30 MG/0.3 ML Syringe SC ×2 (11:05→22:14)
[2024-03-29] MEDS: Polyethylene Glycol 3350 17 GM PACKET PO (11:05)
[2024-03-29] MEDS: Senna/Docusate Sodium 1 Tablet 2 TABLET PO ×2 (11:06→22:15)
[2024-03-29] MEDS: Famotidine 20 MG Tablet PO (11:11)
[2024-03-29 12:05] LABS: Anion Gap 5 (5-15); BUN 17 mg/dL (7-18); BUN/Creat Ratio 25.8 RATIO (10-20); Calcium,Total 9.2 mg/dL (8.5-10.1); Chloride 107 mmol/L (98-107); Creatinine, Serum 0.66 mg/dL (0.70-1.30); EST Glomerular Filtration Rate 135 mL/min (>60); Est Glom Filt Rate - Afr Amer 163 mL/min (>60); Estimated Creatinine Clearance 182.23 ml/min; Glucose 86 mg/dL (74-106); Potassium 3.8 mmol/L (3.5-5.1); Sodium Level 140 mmol/L (136-145)
[2024-03-29 12:34] LABS: Vancomycin, Trough Level 20.5 ug/mL (5.0-15.0)
--- NOTE | 2024-03-29 13:58 | PN_ITS ---
Subjective Subjective Patient seen and examined. He has no complaints today. He had an uneventful night. Review of systems otherwise negative. He has remained hemodynamically stable. Objective Data Objective Data Vital Signs: Vital Signs Temp Pulse Resp BP Pulse Ox O2 Del Method O2 Flow Rate 97.4 F L 65 14 142/87 H 99 Room Air 2 03/29/24 04:00 03/29/24 04:00 03/29/24 04:00 03/29/24 04:00 03/29/24 04:00 03/29/24 08:15 03/26/24 07:50 Oxygen Flow Rate (L/min) 2 Oxygen Delivery Method Room Air Weight: 287 lb 4.197 oz Body Mass Index (BMI) 40.0 Intake & Output: Intake and Output for Last 24 Hours 03/27/24 03/28/24 03/29/24 23:59 23:59 23:59 Intake Total 4855 / 4855 2135 / 2135 535 / 535 Output Total 721 / 721 70 / 75 1805 / 1805 Balance 4134 / 4134 2065 / 2060 -1270 / -1270 Lab / Micro Data 03/26/24 05:10 03/29/24 11:40 Labs: Laboratory Results - last 24 hr 03/29/24 11:40: Sodium 140, Potassium 3.8, Chloride 107, Carbon Dioxide 28.0, Anion Gap 5, BUN 17, Creatinine 0.66 L, Estim Creat Clear Calc 182.23, Est GFR (MDRD) Af Amer 163, Est GFR (MDRD) Non-Af 135, BUN/Creatinine Ratio 25.8 H, Glucose 86, Calcium 9.2, Vancomycin Trough 20.5 H Micro: Microbiology 03/21/24 16:53 Tissue - Knee Gram Stain - Final 03/21/24 16:53 Tissue - Knee Wound Culture - Final No growth aerobically. 03/21/24 16:53 Tissue - Knee Anaerobic Culture - Final No growth in 5 days. 03/21/24 16:53 Tissue - Knee Gram Stain - Final 03/21/24 16:53 Tissue - Knee Wound Culture - Final No growth aerobically. 03/21/24 16:53 Tissue - Knee Anaerobic Culture - Final No growth in 5 days. 03/21/24 16:53 Tissue - Knee Gram Stain - Final 03/21/24 16:53 Tissue - Knee Wound Culture - Final No growth aerobically. 03/21/24 16:53 Tissue - Knee Anaerobic Culture - Final No growth in 5 days. 03/21/24 16:53 Tissue - Knee Gram Stain - Final 03/21/24 16:53 Tissue - Knee Wound Culture - Final No growth aerobically. 03/21/24 16:53 Tissue - Knee Anaerobic Culture - Final No growth in 5 days. 03/21/24 10:43 Swab (Method) Nasal Screen MRSA/MSSA - Final Physical Exam Const alert, oriented x3 and no apparent distress Constitutional Narrative: obese General Appearance: cooperative and well developed HEENT normocephalic, head/scalp atraumatic and moist oral mucous membranes Eyes PERRL and EOMs intact bilaterally Neck no lymphadenopathy and supple Lymph Lymphatic: no lymphadenopathy noted and no lymphedema noted Resp normal respiratory effort, normal air movement and clear to auscultation bilaterally Cardio regular rate, regular rhythm, S1 normal heart sound, S2 normal heart sound and no murmurs GI normal to inspection, nondistended, normoactive bowel sounds, soft to palpation, non-tender and non-distended Extremity Extremity Narrative: right knee in knee brace, with intact dressing. Wound VAC in place with multiple drains and at site of the surgery. Skin Skin Narrative: As under extremities General Skin Exam: no breakdown Neuro CN's II-XII intact bilaterally and no focal motor deficits Coordination / Balance: [id number] test normal Motor Exam: strength 5/5 throughout Psych thought process normal and cooperative Appearance: appropriate Assessment & Plan Assessment/Plan (1) Infection and inflammatory reaction due to internal right knee prosthesis, subsequent encounter: PLAN: Plan #RIght knee periprosthetic infection * s/p knee explanation and placement of antibiotic spacer on 03/21/2024. He also had lateral joint arthrotomy covered well with muscle flap . * He had excision of the wound bed and necrotic fat and fascia as well as placement of an irrigating wound vac on 03/24/2024 * pain is well controlled. Management of pain as per primary service. * plastic surgery on board. * remains on IV vancomycin and ceftriaxone. ID on board.PICC line in place. Cultures so far have been negative. * has wound vac in place * ID to determine duration of antibiotics. * Told he would have the wound VAC changed on Sunday and for possible discharge on Sunday per plastic surgery * DVT prophylaxis: lovenox Charges/Coding Visit Charges Inpatient E&M: 36564 Subs Hosp L2
--- NOTE | 2024-03-29 14:05 | PCM.RX.CS ---
Consult Antibiotic Management Pharmacy has been consulted to manage selected antibiotic: Vancomycin Type of Intervention Type of Consult: Follow-up Prior Doses of Antibiotics Prior Doses of Antibiotics Received/Current Regimen: current dose is vanc 1750mg IV q8h Labs Labs: Sodium 140 mmol/L (136-145) 03/29/24 11:40 Potassium 3.8 mmol/L (3.5-5.1) 03/29/24 11:40 Chloride 107 mmol/L (98-107) 03/29/24 11:40 Carbon Dioxide 28.0 mmol/L (21.0-32.0) 03/29/24 11:40 Anion Gap 5 (5-15) 03/29/24 11:40 BUN 17 mg/dL (7-18) 03/29/24 11:40 Creatinine 0.66 mg/dL (0.70-1.30) L 03/29/24 11:40 Est GFR (MDRD) Af Amer 163 mL/min (>60) 03/29/24 11:40 Est GFR (MDRD) Non-Af 135 mL/min (>60) 03/29/24 11:40 BUN/Creatinine Ratio 25.8 RATIO (10-20) H 03/29/24 11:40 Glucose 86 mg/dL (74-106) 03/29/24 11:40 Vancomycin Trough 20.5 ug/mL (5.0-15.0) H 03/29/24 11:40 Microbiology Microbiology: Microbiology 03/21/24 16:53 Tissue - Knee Gram Stain - Final 03/21/24 16:53 Tissue - Knee Wound Culture - Final No growth aerobically. 03/21/24 16:53 Tissue - Knee Anaerobic Culture - Final No growth in 5 days. 03/21/24 16:53 Tissue - Knee Gram Stain - Final 03/21/24 16:53 Tissue - Knee Wound Culture - Final No growth aerobically. 03/21/24 16:53 Tissue - Knee Anaerobic Culture - Final No growth in 5 days. 03/21/24 16:53 Tissue - Knee Gram Stain - Final 03/21/24 16:53 Tissue - Knee Wound Culture - Final No growth aerobically. 03/21/24 16:53 Tissue - Knee Anaerobic Culture - Final No growth in 5 days. 03/21/24 16:53 Tissue - Knee Gram Stain - Final 03/21/24 16:53 Tissue - Knee Wound Culture - Final No growth aerobically. 03/21/24 16:53 Tissue - Knee Anaerobic Culture - Final No growth in 5 days. 03/21/24 10:43 Swab (Method) Nasal Screen MRSA/MSSA - Final Dosing Weight Weight used for dosin.3 kg Estimated Creatinine Clearance Estimated Creatinine Clearance: 90 ml/min Goal Trough Goal Trough: 15-20 mcg/mL Pharmacy Plan for Drug Dosing Pharmacy Plan for Drug Dosing: The vanc trough drawn at 11:40 today (approx 7.5 hours after the previous dose) was 20.5. This is slightly above goal range. While not greatly above the goal, since we are currently dosing at a 8-hour frequency, will change next dose to 1500mg IV q8h so that it does not go well above 20. Start at 16:00 today to allow the trough time to drop below 20. Will check a trough before the 4th dose tomorrow. Pharmacy Service will continue to monitor and adjust dosing as required. Follow-Up Labs Follow-Up Labs: Trough: Vancomycin Date/Time Labs Ordered Labs to be done on [date and time ordered]: 03/30/24 15:30
[2024-03-29 15:00] VITALS: BP 125/80; PULSE 75; RESP 18; TEMP 36.3; O2SAT 97
[2024-03-29] MEDS: Vancomycin HCl 1,500 MG in 0.9% Normal Saline (500mL Bag) 500 ML 250 MG IV ×2 (16:05→23:55)
[2024-03-29 20:16] VITALS: BP 128/79; PULSE 77; RESP 16; TEMP 36.6; O2SAT 99
[2024-03-30 06:00] VITALS: BP 125/87; PULSE 60; RESP 16; TEMP 36.6; O2SAT 97
[2024-03-30] MEDS: Acetaminophen 500 MG Tablet 1000 MG PO ×3 (06:23→22:17)
[2024-03-30] MEDS: Famotidine 20 MG Tablet PO (08:05)
[2024-03-30] MEDS: Senna/Docusate Sodium 1 Tablet 2 TABLET PO ×2 (08:05→22:18)
[2024-03-30] MEDS: Meloxicam 7.5 MG Tablet PO ×2 (08:05→16:41)
[2024-03-30] MEDS: Polyethylene Glycol 3350 17 GM PACKET PO (08:06)
[2024-03-30] MEDS: Ensure Surgery 237 ML LIQUID PO ×3 (08:06→16:43)
[2024-03-30] MEDS: Enoxaparin 30 MG/0.3 ML Syringe SC ×2 (08:06→22:18)
[2024-03-30] MEDS: Vancomycin HCl 1,500 MG in 0.9% Normal Saline (500mL Bag) 500 ML 250 MG IV ×2 (08:09→16:36)
[2024-03-30] MEDS: 0.9% Saline Lock 10 ML Syringe IV (08:11)
[2024-03-30 09:58] VITALS: BP 128/92; PULSE 58; RESP 16; TEMP 36.3; O2SAT 98
[2024-03-30] MEDS: Ceftriaxone 2 GM in 0.9% Normal Saline (50mL MB+) 50 ML IV (10:57)
[2024-03-30 12:24] VITALS: BP 139/93; PULSE 66; RESP 16; TEMP 36.6; O2SAT 100
--- NOTE | 2024-03-30 13:18 | PN_ITS ---
Subjective Subjective Patient seen and examined. He had no complaints and had an uneventful night. Review of systems is otherwise negative. Objective Data Objective Data Vital Signs: Vital Signs Temp Pulse Resp BP Pulse Ox O2 Del Method O2 Flow Rate 98 F 66 16 139/93 H 100 Room Air 2 03/30/24 12:24 03/30/24 12:24 03/30/24 12:24 03/30/24 12:24 03/30/24 12:24 03/30/24 12:24 03/26/24 07:50 Oxygen Flow Rate (L/min) 2 Oxygen Delivery Method Room Air Weight: 287 lb 4.197 oz Body Mass Index (BMI) 40.0 Intake & Output: Intake and Output for Last 24 Hours 03/28/24 03/29/24 03/30/24 23:59 23:59 23:59 Intake Total 2135 / 2135 2115 / 2115 1560 / 1560 Output Total 70 / 75 1898 / 1898 2049 / 0 Balance 2064 / 2059 217 / 217 -490 / -490 Lab / Micro Data 03/26/24 05:10 03/29/24 11:40 Micro: Microbiology 03/21/24 16:53 Tissue - Knee Gram Stain - Final 03/21/24 16:53 Tissue - Knee Wound Culture - Final No growth aerobically. 03/21/24 16:53 Tissue - Knee Anaerobic Culture - Final No growth in 5 days. 03/21/24 16:53 Tissue - Knee Gram Stain - Final 03/21/24 16:53 Tissue - Knee Wound Culture - Final No growth aerobically. 03/21/24 16:53 Tissue - Knee Anaerobic Culture - Final No growth in 5 days. 03/21/24 16:53 Tissue - Knee Gram Stain - Final 03/21/24 16:53 Tissue - Knee Wound Culture - Final No growth aerobically. 03/21/24 16:53 Tissue - Knee Anaerobic Culture - Final No growth in 5 days. 03/21/24 16:53 Tissue - Knee Gram Stain - Final 03/21/24 16:53 Tissue - Knee Wound Culture - Final No growth aerobically. 03/21/24 16:53 Tissue - Knee Anaerobic Culture - Final No growth in 5 days. 03/21/24 10:43 Swab (Method) Nasal Screen MRSA/MSSA - Final Physical Exam Const alert, oriented x3 and no apparent distress Constitutional Narrative: obese General Appearance: cooperative and well developed HEENT normocephalic, head/scalp atraumatic and moist oral mucous membranes Eyes PERRL and EOMs intact bilaterally Neck no lymphadenopathy and supple Lymph Lymphatic: no lymphadenopathy noted and no lymphedema noted Resp normal respiratory effort, normal air movement and clear to auscultation bilaterally Cardio regular rate, regular rhythm, S1 normal heart sound, S2 normal heart sound and no murmurs GI normal to inspection, nondistended, normoactive bowel sounds, soft to palpation, non-tender and non-distended Extremity Extremity Narrative: right knee in knee brace, with intact dressing. Wound VAC in place with multiple drains and at site of the surgery. Skin Skin Narrative: As under extremities General Skin Exam: no breakdown Neuro CN's II-XII intact bilaterally and no focal motor deficits Coordination / Balance: [id number] test normal Motor Exam: strength 5/5 throughout Psych thought process normal and cooperative Appearance: appropriate Assessment & Plan Assessment/Plan (1) Infection and inflammatory reaction due to internal right knee prosthesis, subsequent encounter: PLAN: Plan #RIght knee periprosthetic infection * s/p knee explanation and placement of antibiotic spacer on 03/21/2024. He also had lateral joint arthrotomy covered well with muscle flap . * He had excision of the wound bed and necrotic fat and fascia as well as placement of an irrigating wound vac on 03/24/2024 * pain is well controlled. Management of pain as per primary service. * plastic surgery on board. * remains on IV vancomycin and ceftriaxone. ID on board.PICC line in place. Cultures so far have been negative. * has wound vac in place * ID to determine duration of antibiotics. * Told he would have the wound VAC changed on Sunday and for possible discharge on Sunday per plastic surgery * DVT prophylaxis: lovenox Charges/Coding Visit Charges Inpatient E&M: 50921 Subs Hosp L2
[2024-03-30 16:04] VITALS: BP 142/89; PULSE 75; RESP 16; TEMP 36.8; O2SAT 98
[2024-03-30 16:05] LABS: Vancomycin, Trough Level 18.1 ug/mL (5.0-15.0)
--- NOTE | 2024-03-30 16:25 | PCM.RX.CS ---
Consult Antibiotic Management Pharmacy has been consulted to manage selected antibiotic: Vancomycin Type of Intervention Type of Consult: Follow-up Prior Doses of Antibiotics Prior Doses of Antibiotics Received/Current Regimen: current dose is vanc 1500mg IV q8h Labs Labs: Sodium 140 mmol/L (136-145) 03/29/24 11:40 Potassium 3.8 mmol/L (3.5-5.1) 03/29/24 11:40 Chloride 107 mmol/L (98-107) 03/29/24 11:40 Carbon Dioxide 28.0 mmol/L (21.0-32.0) 03/29/24 11:40 Anion Gap 5 (5-15) 03/29/24 11:40 BUN 17 mg/dL (7-18) 03/29/24 11:40 Creatinine 0.66 mg/dL (0.70-1.30) L 03/29/24 11:40 Est GFR (MDRD) Af Amer 163 mL/min (>60) 03/29/24 11:40 Est GFR (MDRD) Non-Af 135 mL/min (>60) 03/29/24 11:40 BUN/Creatinine Ratio 25.8 RATIO (10-20) H 03/29/24 11:40 Glucose 86 mg/dL (74-106) 03/29/24 11:40 Vancomycin Trough 18.1 ug/mL (5.0-15.0) H 03/30/24 15:30 Microbiology Microbiology: Microbiology 03/21/24 16:53 Tissue - Knee Gram Stain - Final 03/21/24 16:53 Tissue - Knee Wound Culture - Final No growth aerobically. 03/21/24 16:53 Tissue - Knee Anaerobic Culture - Final No growth in 5 days. 03/21/24 16:53 Tissue - Knee Gram Stain - Final 03/21/24 16:53 Tissue - Knee Wound Culture - Final No growth aerobically. 03/21/24 16:53 Tissue - Knee Anaerobic Culture - Final No growth in 5 days. 03/21/24 16:53 Tissue - Knee Gram Stain - Final 03/21/24 16:53 Tissue - Knee Wound Culture - Final No growth aerobically. 03/21/24 16:53 Tissue - Knee Anaerobic Culture - Final No growth in 5 days. 03/21/24 16:53 Tissue - Knee Gram Stain - Final 10/11/24 16:53 Tissue - Knee Wound Culture - Final No growth aerobically. 03/21/24 16:53 Tissue - Knee Anaerobic Culture - Final No growth in 5 days. 03/21/24 10:43 Swab (Method) Nasal Screen MRSA/MSSA - Final Dosing Weight Weight used for dosin.3 kg Estimated Creatinine Clearance Estimated Creatinine Clearance: >100ml/min Goal Trough Goal Trough: 15-20 mcg/mL Pharmacy Plan for Drug Dosing Pharmacy Plan for Drug Dosing: The vanc trough drawn at 15:30 today (approx 7.5 hours after the previous dose) was 18.1. This is in goal range so will keep same dose. Repeat a trough in 2 days per protocol. Pharmacy Service will continue to monitor and adjust dosing as required. Follow-Up Labs Follow-Up Labs: Trough: Vancomycin Date/Time Labs Ordered Labs to be done on [date and time ordered]: 04/01 07:30
[2024-03-30 20:26] VITALS: BP 140/92; PULSE 72; RESP 16; TEMP 36.6; O2SAT 100
--- NOTE | 2024-03-30 21:04 | PN.SURG_ITS ---
Subjective Subjective Pain controlled. Moving bowels. Minimal pain. Endorses good drain care by nursing. Objective Data Objective Data Vital Signs: Vital Signs Temp Pulse Resp BP Pulse Ox O2 Del Method O2 Flow Rate 97.9 F 72 16 140/92 H 100 Room Air 2 03/30/24 20:26 03/30/24 20:26 03/30/24 20:26 03/30/24 20:26 03/30/24 20:26 03/30/24 20:26 03/26/24 07:50 Oxygen Flow Rate (L/min) 2 Oxygen Delivery Method Room Air Weight: 287 lb 4.197 oz Body Mass Index (BMI) 40.0 Intake & Output: Intake and Output for Last 24 Hours 03/28/24 03/29/24 03/30/24 23:59 23:59 23:59 Intake Total 2135 / 2135 2115 / 2115 2890 / 2890 Output Total 70 / 75 1898 / 1898 2050 / 2050 Balance 2065 / 2060 217 / 217 840 / 840 Lab / Micro Data 03/26/24 05:10 03/29/24 11:40 Labs: Laboratory Results - last 24 hr 03/30/24 15:30: Vancomycin Trough 18.1 H Micro: Microbiology 03/21/24 16:53 Tissue - Knee Gram Stain - Final 03/21/24 16:53 Tissue - Knee Wound Culture - Final No growth aerobically. 03/21/24 16:53 Tissue - Knee Anaerobic Culture - Final No growth in 5 days. 03/21/24 16:53 Tissue - Knee Gram Stain - Final 03/21/24 16:53 Tissue - Knee Wound Culture - Final No growth aerobically. 03/21/24 16:53 Tissue - Knee Anaerobic Culture - Final No growth in 5 days. 03/21/24 16:53 Tissue - Knee Gram Stain - Final 03/21/24 16:53 Tissue - Knee Wound Culture - Final No growth aerobically. 03/21/24 16:53 Tissue - Knee Anaerobic Culture - Final No growth in 5 days. 03/21/24 16:53 Tissue - Knee Gram Stain - Final 03/21/24 16:53 Tissue - Knee Wound Culture - Final No growth aerobically. 03/21/24 16:53 Tissue - Knee Anaerobic Culture - Final No growth in 5 days. 03/21/24 10:43 Swab (Method) Nasal Screen MRSA/MSSA - Final Physical Exam Narrative Right lower extremity: VAC holding suction. No output. Drains strip well. All three are SS. No clot. Knee appropriately splinted in extension via splint. Appropriate post-operative swelling on the right side. SCD on and activated on the left. Right calf dorsiflexion intact (no foot drop) and sensation to light touch intact throughout the left leg/dorsum of the foot. Const alert and oriented x3 Eyes EOMs intact bilaterally Neck full ROM Resp normal respiratory effort Cardio regular rate and regular rhythm Assessment & Plan Assessment/Plan (1) Infection and inflammatory reaction due to internal right knee prosthesis, subsequent encounter: PLAN: Expected course thus far Pain: Controlled with current PRN pain medications Resp: Consistent IS usage. Continue home CPAP Card: No concerns at this time. GI: Regular. Miralax PRN : No concerns Hem: Lovenox 30 mg BID for DVT pxx. and SCDs while in bed. ID: Infectious disease consulted (Vanc and Ceftriaxone for now). Continue consult and f/u cultures (NGTD). FEN: High protein diet. BMP later this morning to check Cr in setting of Vanc/Ceftriaxone. Musculoskeletal: Weight bearing 50% (OK to walk with walker) on operative extremity per orthopedics. Continue knee extension splint. Foot drop splint is being made by [employer]. (delivering Sunday) for patient and they will deliver soon (for while in bed) VAC down tomorrow, Sunday, 31 Mar 2024.
[2024-03-31] MEDS: Vancomycin HCl 1,500 MG in 0.9% Normal Saline (500mL Bag) 500 ML 250 MG IV ×3 (00:08→15:48)
[2024-03-31 06:00] VITALS: BP 139/87; PULSE 67; RESP 16; TEMP 36.6; O2SAT 97
[2024-03-31] MEDS: Acetaminophen 500 MG Tablet 1000 MG PO ×2 (06:21→13:02)
[2024-03-31] MEDS: 0.9% Saline Lock 10 ML Syringe IV (08:02)
[2024-03-31] MEDS: Enoxaparin 30 MG/0.3 ML Syringe SC (08:05)
[2024-03-31] MEDS: Famotidine 20 MG Tablet PO (08:05)
[2024-03-31] MEDS: Senna/Docusate Sodium 1 Tablet 2 TABLET PO (08:05)
[2024-03-31] MEDS: Meloxicam 7.5 MG Tablet PO ×2 (08:05→16:37)
[2024-03-31] MEDS: Ensure Surgery 237 ML LIQUID PO ×3 (08:38→16:37)
[2024-03-31 08:59] VITALS: BP 137/80; PULSE 64; RESP 16; TEMP 36.6; O2SAT 96
[2024-03-31] MEDS: Ceftriaxone 2 GM in 0.9% Normal Saline (50mL MB+) 50 ML IV (10:47)
[2024-03-31 11:39] VITALS: BP 140/94; PULSE 77; RESP 16; TEMP 36.5; O2SAT 100
--- NOTE | 2024-03-31 13:45 | CASEMGMT ---
Addendum entered by Jose Aldana 03/31/24 14:26: Vanc trough sent to [facility] via [facility]. [facility] also notified that the pt will be retrieving the 1600 Vanc dose here at [facility] and that the ID doctor is OK with the pt missing tonight's dose. [facility] states appreciation and denies further needs at this time. Original Note: IV ATB prescriptions received by Dr. Valero. Rxs sent to [facility] and [facility] via [facility] at this time. Dr. Ramirez is still OK with the pt getting the 1600 Vanc dose today and missing the dose tonight. TC to [facility]. Raudel from [facility] states that they have everything that they need now and will deliver the medications by the end of the day. TC to Ros at [facility] and Ros confirms that SOC will be early tomorrow morning. RN CM to pt room at this time. yari Putnam RN at bedside. Pt at bedside. Pt and pt updated with this plan and states agreeable. Pt requesting I to communicate with the pt regarding the medication delivery. [facility] notified at this time via [facility]. Pt and pt deny further questions or concerns at this time. DC plan updated.
--- NOTE | 2024-03-31 15:47 | WOUNDNOTE ---
wound photo: right leg
[2024-03-31 16:04] VITALS: BP 129/79; PULSE 65; RESP 16; TEMP 36.5; O2SAT 96
--- NOTE | 2024-03-31 17:06 | PCM.DC ---
Discharge Instructions Diet Discharge Diet: No restrictions (High protein diet to help with wound healing) Activity Keep extremity elevated above heart level: Right Leg Additional Activity Instructions:: Keep elevated, 50% weightbearing, keep knee immobilizer on (see other restrictions on Discharge sheet from Ortho and plastics) Dressing / Incision Call your doctor if your incision/area has: Continuous Slow Oozing, Increased Pain/ Swelling, Foul Smelling Discharge and Swelling at the incision site Call your doctor if you observe: Fever of 101 or Higher, Coldness, Increased Pain, Inability to urinate, Inability to have a bowel movement, Chest pain, Calf discomfort and Uncontrolled pain Change Dressing in: leave in place till F/U Drain: Suction Additional Dressing/Incision Instructions:: Keep wound VAC in place until follow up at wound healing center. MARILYNN drain, measures output and bring measurements to follow up appointment. Follow Up Care Please Follow Up With: Fabio Jon MD When: Sunday04/07/24 at [facility]. They will call you with your appointment time. Test Results: Test results from this visit will be discussed in further detail at your follow-up appointment, if applicable. Discharge Plan Admission Admit Date/Time: 03/22/24 11:46 Attending Provider: Wilman Agrawal Primary Care Provider: Dominic Santana Consulting Providers: Fabio Jon; Fabio Valero; Melchor Page Instructions Additional Instructions / Restrictions: Orthopedic discharge instructions: 1. Continue extra strength Tylenol 500 mg 2 tablets 3 times daily not exceeding 3000 mg in a 24-hour period. Use narcotic as needed for breakthrough pain. 2. DVT prophylaxis: Currently on Lovenox and would recommend minimum of 2 weeks of Lovenox followed by aspirin 81 mg twice daily for an additional 2 weeks. If plastics would like patient on direct acting oral anticoagulant okay to change as necessary. 3. Physical therapy: Continue a knee immobilizer and protection of wound with no flexion. Flexion will be determined by plastics. Okay from orthopedic standpoint for flexion to begin when patient is safe from plastics standpoint. 50% weightbearing right lower extremity. Plastics: 1. DVT prophylaxis is Xarelto 10mg starting 04/01/24 at 6pm nightly x 7 days. 2. Keep knee immobilizer on with no knee flexion. 3. Wear foot drop splint when not ambulating (sitting and at bedtime x 6 weeks). 4. Keep right leg elevated when sitting. Discharge Orders/Prescriptions Prescriptions: New ceftriaxone 2 gram recon soln 2 g IV DAILY 32 Days Rx Instructions: stop date 05/02/24. Dx: [facility] Weekly bmp, cbc, vanc trough, and esr. Fax to [phone]. Routine picc care per protocol. vancomycin 1.5 gram recon soln 1.5 g IV Q12H 32 Days Rx Instructions: stop date 05/02/24. Dx: [facility] Weekly bmp, cbc, vanc trough, and esr. Fax to [phone]. Routine picc care per protocol. Xarelto 10 mg tablet 10 mg PO QPM 7 Days Qty: 7 0RF Rx Instructions: Start 04/01/24, take nightly at 6 pm oxycodone 5 mg tablet 5 mg PO Q4H PRN (Reason: pain (scale score 7-10)) 7 Days Qty: 20 0RF ondansetron 4 mg tablet,disintegrating 4 mg PO Q8H PRN (Reason: nausea and vomiting) 5 Days Qty: 10 0RF polyethylene glycol 3350 [Miralax] 17 gram/dose powder 17 g PO DAILY PRN (Reason: constipation) 10 Days Qty: 119 0RF Discontinued doxycycline hyclate 100 mg capsule 100 mg PO BID ibuprofen [IBU] 600 mg tablet 600 mg PO Q8H PRN No Action testosterone 100 mg/mL suspension 1 mg IM .Q2WEEK Referrals / Follow Up: Dominic Santana MD [Primary Care Provider] - Thai Carpenter PA-C [Med Staff - [facility]] - 04/02/24 1:45 pm Disposition Disposition (needs filled in before D/C Order can be placed): Home Health Service
--- NOTE | 2024-03-31 17:13 | PCM.PN.ID ---
Physical Exam Narrative Feeling ok, no fever, no n/v/d, drains in place Const alert and no apparent distress General Appearance: cooperative Resp normal air movement and clear to auscultation bilaterally Cardio regular rate and regular rhythm GI soft to palpation, non-tender and non-distended Skin Skin Narrative: RLE skin graft, drains in place ID ID: Route of nutrition/ use of supplements: [] Nutritional Intake: [] IV Site: [] Hicks Catheter: [] Assessment & Plan Assessment/Plan (1) Infection and inflammatory reaction due to internal right knee prosthesis, subsequent encounter: PLAN: Taken to OR 03/21/24 for I&D and spacer placement. On vanc/ceftriaxone. Surg cx neg so far. Picc in place. Will write for 6 weeks abx, stop date 05/02/24 with weekly labs, ID followup in 2-3 weeks. Will follow
--- NOTE | 2024-03-31 17:19 | PCM.PN.SRG ---
Subjective Subjective Doing well. No issues today Objective Data Objective Data Vital Signs: Vital Signs Temp Pulse Resp BP Pulse Ox O2 Del Method O2 Flow Rate 97.7 F L 65 16 129/79 H 96 Room Air 2 03/31/24 16:04 03/31/24 16:04 03/31/24 16:04 03/31/24 16:04 03/31/24 16:04 03/31/24 16:04 03/26/24 07:50 Oxygen Flow Rate (L/min) 2 Oxygen Delivery Method Room Air Weight: 287 lb 4.197 oz Body Mass Index (BMI) 40.0 Intake & Output: Intake and Output for Last 24 Hours 03/29/24 03/30/24 03/31/24 23:59 23:59 23:59 Intake Total 2115 / 2115 2890 / 2890 2510 / 2510 Output Total 1898 / 1898 2050 / 3300 1280 / 1280 Balance 217 / 217 840 / -410 1230 / 1230 Lab / Micro Data 03/26/24 05:10 03/29/24 11:40 Micro: Microbiology 03/21/24 16:53 Tissue - Knee Gram Stain - Final 03/21/24 16:53 Tissue - Knee Wound Culture - Final No growth aerobically. 03/21/24 16:53 Tissue - Knee Anaerobic Culture - Final No growth in 5 days. 03/21/24 16:53 Tissue - Knee Gram Stain - Final 03/21/24 16:53 Tissue - Knee Wound Culture - Final No growth aerobically. 03/21/24 16:53 Tissue - Knee Anaerobic Culture - Final No growth in 5 days. 03/21/24 16:53 Tissue - Knee Gram Stain - Final 03/21/24 16:53 Tissue - Knee Wound Culture - Final No growth aerobically. 03/21/24 16:53 Tissue - Knee Anaerobic Culture - Final No growth in 5 days. 03/21/24 16:53 Tissue - Knee Gram Stain - Final 03/21/24 16:53 Tissue - Knee Wound Culture - Final No growth aerobically. 03/21/24 16:53 Tissue - Knee Anaerobic Culture - Final No growth in 5 days. 03/21/24 10:43 Swab (Method) Nasal Screen MRSA/MSSA - Final Physical Exam Narrative Right lower extremity: VAC holding suction. No output. Drains strip well. All three are SS. No clot. I removed VAC today. Graft is stuck down over the flap. Flap is warm and viable. Healing well. Small partial thickness wound over [place] skin next to closure, possibly from VAC irritation underneath the Adaptic (red area) Knee appropriately splinted in extension via splint. Appropriate post-operative swelling on the right side. SCD on and activated on the left. Right calf dorsiflexion intact (no foot drop) and sensation to light touch intact throughout the left leg/dorsum of the foot. Const alert and oriented x3 Eyes EOMs intact bilaterally Neck full ROM Resp normal respiratory effort Cardio regular rate and regular rhythm Assessment & Plan Assessment/Plan (1) Infection and inflammatory reaction due to internal right knee prosthesis, subsequent encounter: PLAN: Expected course thus far Pain: Controlled with current PRN pain medications Resp: Consistent IS usage. Continue home CPAP Card: No concerns at this time. GI: Regular. Miralax PRN : No concerns Hem: Lovenox 30 mg BID for DVT pxx. and SCDs while in bed. Xarelto at home. ID: Infectious disease consulted (Vanc and Ceftriaxone for now). Continue consult and f/u cultures (NGTD). FEN: High protein diet Musculoskeletal: Weight bearing 50% (OK to walk with walker) on operative extremity per orthopedics. Continue knee extension splint. Foot drop splint is being made by [employer]. (delivering Sunday) for patient and they will deliver soon (for while in bed) Flap warm and viable, healthy skin graft. Continue VAC for 1 week with drain care at home. Knee must remain extended. F/u in the wound care center with me in 1 week.
--- NOTE | 2024-03-31 17:28 | DS.PCM_ITS ---
Providers Date of Admission: 03/22/24 Date of Discharge: 03/31/24 Primary Care Physician: Dr. Dominic Santana MD Attending Physician: Dr. Fabio Jon MD Consultations 03/21/24 16:49 Consult: Infectious Disease Routine Consulting Provider: Fabio Valero Reason for Consult: infection tka EMERGENT Consult: No Notified: Yes Date Notified: 03/24/24 Time Notified: 06:21 Method of Notification: Answering Service Consult: Plastic Surgery Routine Consulting Provider: Fabio Jon Reason for Consult: soft tissue coverage EMERGENT Consult: No Notified: Yes Date Notified: 03/21/24 Time Notified: 16:53 Method of Notification: Verbal 03/21/24 16:53 Consult: Hospitalist Routine Consulting Provider: Vanessa Grossman Reason for Consult: post op med management EMERGENT Consult: No Notified: Yes Date Notified: 03/21/24 Time Notified: 16:53 Method of Notification: Text Diagnosis Discharge Diagnosis (1) Infection and inflammatory reaction due to internal right knee prosthesis, subsequent encounter: Status: Acute Code(s): T84.53XD - Infection and inflammatory reaction due to internal right knee prosthesis, subsequent encounter Plan Home today. Wound VAC @[address] until follow up at the [facility] center next Sunday04/07/24. Keep right knee immobilizer in place at all times. Do not bend right knee. Keep right leg elevated when sitting in chair. When ambulating he is 50% weightbearing on right lower extremity. Foot drop splint for when not ambulating. ID is consulted. Currently no growth of operative cultures. He is going home on Vancomycin and Ceftriaxone. Start Xarelto at 6 pm tomorrow, 04/01/24. Medications at Discharge Home Medications testosterone 100 mg/mL intramuscular suspension 1 mg IM .Q2WEEK HORMONE 03/20/24 ceftriaxone 2 gram intravenous solution 2 g IV DAILY 32 days 03/31/24 ondansetron 4 mg disintegrating tablet 4 mg PO Q8H PRN nausea and vomiting 5 days #10 tabs 03/31/24 oxycodone 5 mg tablet 5 mg PO Q4H PRN pain (scale score 7-10) 7 days #20 tabs 03/31/24 polyethylene glycol 3350 17 gram/dose oral powder (Miralax) 17 g PO DAILY PRN constipation 10 days #119 grams 03/31/24 rivaroxaban 10 mg tablet (Xarelto) 10 mg PO QPM 7 days #7 tabs 03/31/24 vancomycin 1.5 gram intravenous solution 1.5 g IV Q12H 32 days 03/31/24 Hospital Course Summary of Care Provided Hospital Course: Phoenix Fulton is a 53-year-old male who has a history of right ACL reconstruction followed by a total knee replacement in 2018 by a surgeon from an outside hospital. The patient recently presented to [facility] (Dr. Agrawal) with 2 draining sinuses over the lateral knee. His x-ray demonstrated tibial baseplate loosening and bony erosions. Dr. Agrawal recommended operative intervention with a two-stage revision of his knee. The patient was taken back to the operating room yesterday, 2023, by Dr. Agrawal where right knee explantation and placement of an articulating antibiotic spacer was performed, followed by debridement of the lateral knee wound and its sinus tracts. Cultures were taken. Plastic surgery was consulted intraoperatively for the wound and the defect was photgraphed. The sinuses tracked down to the joint via a small joint opening on the lateral aspect of the knee. Dr. Agrawal would like muscle coverage over this opening to seal off the joint. Dr. Jon made the recommendation for an irrigating VeraFlow wound VAC (Dakin's irrigation) to be placed. Infectious diseases has been consulted to follow-up the cultures. The patient is currently on broad- spectrum antibiotics. 03/21/[address] Agrawal Right knee explantation and placement of articulating antibiotic spacer. 03/24/24 Dr. Jon performed excision of wound bed, necrotic fat and fascia and placement of irrigating wound VAC. 03/26/[address] Jon : 1) Excision of wound bed, necrotic fat and fascia, 8 x 5 cm (CPT 28916, 51512) 2) Neuroplasty common peroneal nerve (release of fibular tunnel) ([id number]) 3) Right lateral gastrocnemius myocutaneous flap for reconstruction of right knee wound (CPT: 26233) 4) 8 x 5 cm split-thickness skin graft, 12/,000th of an inch (right thigh) with Taylor Dermatome (CPT: 65838) Physical Exam Narrative Right lower extremity: VAC holding suction. No output. Drains strip well. All three are SS. No clot. I removed VAC today. Graft is stuck down over the flap. Flap is warm and viable. Healing well. Small partial thickness wound over [place] skin next to closure, possibly from VAC irritation underneath the Adaptic (red area) Knee appropriately splinted in extension via splint. Appropriate post-operative swelling on the right side. SCD on and activated on the left. Right calf dorsiflexion intact (no foot drop) and sensation to light touch intact throughout the left leg/dorsum of the foot. Const alert and oriented x3 Eyes EOMs intact bilaterally Neck full ROM Resp normal respiratory effort Cardio regular rate and regular rhythm Weight / BMI Weight Weight: 287 lb 4.197 oz Body Mass Index (BMI) 40.0 ABG / Lab / Microbiology Data 03/26/24 05:10 03/29/24 11:40 Microbiology: Microbiology 03/21/24 16:53 Tissue - Knee Gram Stain - Final 03/21/24 16:53 Tissue - Knee Wound Culture - Final No growth aerobically. 03/21/24 16:53 Tissue - Knee Anaerobic Culture - Final No growth in 5 days. 03/21/24 16:53 Tissue - Knee Gram Stain - Final 03/21/24 16:53 Tissue - Knee Wound Culture - Final No growth aerobically. 03/21/24 16:53 Tissue - Knee Anaerobic Culture - Final No growth in 5 days. 03/21/24 16:53 Tissue - Knee Gram Stain - Final 03/21/24 16:53 Tissue - Knee Wound Culture - Final No growth aerobically. 03/21/24 16:53 Tissue - Knee Anaerobic Culture - Final No growth in 5 days. 03/21/24 16:53 Tissue - Knee Gram Stain - Final 03/21/24 16:53 Tissue - Knee Wound Culture - Final No growth aerobically. 03/21/24 16:53 Tissue - Knee Anaerobic Culture - Final No growth in 5 days. 03/21/24 10:43 Swab (Method) Nasal Screen MRSA/MSSA - Final D/C Instructions Discharge Diet: No restrictions (High protein diet to help with wound healing) Keep extremity elevated above heart level: Right Leg Additional Activity Instructions: Keep elevated, 50% weightbearing, keep knee immobilizer on (see other restrictions on Discharge sheet from Ortho and plastics) Call your doctor if your incision/area has: Continuous Slow Oozing, Increased Pain/ Swelling, Foul Smelling Discharge and Swelling at the incision site Call your doctor if you observe: Fever of 101 or Higher, Coldness, Increased Pain, Inability to urinate, Inability to have a bowel movement, Chest pain, Calf discomfort and Uncontrolled pain Drain: Suction Additional Dressing/Incision Instructions: Keep wound VAC in place until follow up at wound healing center. MARILYNN drain, measures output and bring measurements to follow up appointment. Please Follow Up With: Fabio Jon MD When: Sunday04/07/24 at the [facility] in the [facility]. They will call you with your appointment time. Meaningful Use Info Meaningful Use Meaningful Use Diagnoses (Choose all that apply): None applicable Ischemic Stroke Statin Dosing Therapy Reference: STATIN DOSE THERAPY REFERENCE: * Patients > 75 years receive moderate or high dose statin therapy. * Patients 75 years or YOUNGER should receive HIGH intensity statin dose unless contraindicated. You will be required to document reason for non-treatment if statin daily dose does not meet guidelines. HIGH DOSE STATIN THERAPY DAILY Atorvastatin > than or = to 40 mg Rosuvastatin > than or = to 20 mg Amlodipine + Atorvastatin > than or = to 2.5/40 mg Ezetimibe + Simvastatin 10/80 mg Simvastatin 80mg Discharge Plan Admission Admit Date/Time: 03/22/24 11:46 Attending Provider: Wilman Agrawal Primary Care Provider: Dominic Santana Consulting Providers: Fabio Jon; Fabio Valero; Melchor Page Instructions Additional Instructions / Restrictions: Orthopedic discharge instructions: 1. Continue extra strength Tylenol 500 mg 2 tablets 3 times daily not exceeding 3000 mg in a 24-hour period. Use narcotic as needed for breakthrough pain. 2. DVT prophylaxis: Currently on Lovenox and would recommend minimum of 2 weeks of Lovenox followed by aspirin 81 mg twice daily for an additional 2 weeks. If plastics would like patient on direct acting oral anticoagulant okay to change as necessary. 3. Physical therapy: Continue a knee immobilizer and protection of wound with no flexion. Flexion will be determined by plastics. Okay from orthopedic standpoint for flexion to begin when patient is safe from plastics standpoint. 50% weightbearing right lower extremity. Plastics: 1. DVT prophylaxis is Xarelto 10mg starting 04/01/24 at 6pm nightly x 7 days. 2. Keep knee immobilizer on with no knee flexion. 3. Wear foot drop splint when not ambulating (sitting and at bedtime x 6 weeks). 4. Keep right leg elevated when sitting. Discharge Orders/Prescriptions Prescriptions: New ceftriaxone 2 gram recon soln 2 g IV DAILY 32 Days Rx Instructions: stop date 05/02/24. Dx: PJI Weekly bmp, cbc, vanc trough, and esr. Fax to [phone]. Routine picc care per protocol. vancomycin 1.5 gram recon soln 1.5 g IV Q12H 32 Days Rx Instructions: stop date 05/02/24. Dx: PJI Weekly bmp, cbc, vanc trough, and esr. Fax to [phone]. Routine picc care per protocol. Xarelto 10 mg tablet 10 mg PO QPM 7 Days Qty: 7 0RF Rx Instructions: Start 04/01/24, take nightly at 6 pm oxycodone 5 mg tablet 5 mg PO Q4H PRN (Reason: pain (scale score 7-10)) 7 Days Qty: 20 0RF ondansetron 4 mg tablet,disintegrating 4 mg PO Q8H PRN (Reason: nausea and vomiting) 5 Days Qty: 10 0RF polyethylene glycol 3350 [Miralax] 17 gram/dose powder 17 g PO DAILY PRN (Reason: constipation) 10 Days Qty: 119 0RF Discontinued doxycycline hyclate 100 mg capsule 100 mg PO BID ibuprofen [IBU] 600 mg tablet 600 mg PO Q8H PRN No Action testosterone 100 mg/mL suspension 1 mg IM .Q2WEEK Referrals / Follow Up: Dominic Santana MD [Primary Care Provider] - Thai Carpenter PA-C [Med Staff - [facility]] - 04/02/24 1:45 pm Disposition Disposition (needs filled in before D/C Order can be placed): Home Health Service Charges/Coding Procedures Integumentary [id number]: [id number] Global Visit
--- NOTE | 2024-03-31 19:06 | NURSING ---
home wound vac applied. discharge inst given
== END 2024-03-31 19:09 | disposition home health service (06) | DRG 464 ==
PROVIDERS: Anesthesiology; Family Medicine; Internal Medicine Infectious Disease; Student in an Organized Health Care Education/Training Program; Surgery Plastic and Reconstructive Surgery; Admitting Provider Specialist; PCP Family Medicine; Referring Provider Specialist; Visit Provider Specialist
PROC: (CPT 27488; principal; 2024-03-21 12:05)
PROC: 0JBL0ZZ Excision of Right Upper Leg Subcutaneous Tissue and Fascia, Open Approach (ICD-10-PCS; principal; 2024-03-26 13:30)
DX: T84.53XA Infection and inflammatory reaction due to internal right knee prosthesis, initial encounter (principal); Z68.41 Body mass index [BMI] 40.0-44.9, adult; E66.01 Morbid (severe) obesity due to excess calories; Z96.651 Presence of right artificial knee joint; Z72.0 Tobacco use
CPT/HCPCS: 36415; 36569; 73560; 73590; 80048; 80202; 82962; 83735; 85025; 85027; 87015; 87070; 87075; 87081; 87102; 87116; 87205; 87206; 88305; 93005; 94668; 97110; 97116; 97162; 97166; 97530; 97535; 99252; 99406; A4648; C1776; J7040; J7120; A4216; G0463; J0696; J2405; J3260; J3475

== ENCOUNTER 2024-04-06 09:09 | Outpatient (RCR) | payer OTHER, SELFPAY ==
[2024-04-06 09:44] LABS: Erythrocyte Sedimentation Rate 38 mm/hr (0-20)
[2024-04-06 09:46] LABS: Hematocrit 37.5 % (40-54); Hemoglobin 11.4 g/dL (13.0-16.5); Mean Corp Hgb Conc 30.4 g/dL (32-36); Mean Corpuscular Hgb 24.8 pg (27.0-32.0); Mean Corpuscular Volume 81.5 fL (80-94); Mean Platelet Vol. 9.1 fl (6.2-12.0); Platelet Count 430 K/mm3 (150-450); RBC Distribution Width CV 16.8 % (11.6-14.6); RBC Distribution Width SD 49.8 fl (35.1-43.9); White Blood Count 7.8 K/mm3 (4.4-11.0)
[2024-04-06 10:00] LABS: Anion Gap 5 (5-15); BUN 20 mg/dL (7-18); BUN/Creat Ratio 24.9 RATIO (10-20); Chloride 109 mmol/L (98-107); EST Glomerular Filtration Rate 107 mL/min (>60); Est Glom Filt Rate - Afr Amer 130 mL/min (>60); Glucose 100 mg/dL (74-106); Potassium 4.1 mmol/L (3.5-5.1); Sodium Level 138 mmol/L (136-145)
[2024-04-06 10:01] LABS: Vancomycin, Trough Level 8.2 ug/mL (5.0-15.0)
== END 2024-04-06 18:00 | disposition home or self-care (01) ==
LOC: HHLAB 09:09
PROVIDERS: PCP Family Medicine; Visit Provider Family Medicine
DX: T84.53XA Infection and inflammatory reaction due to internal right knee prosthesis, initial encounter (principal)
CPT/HCPCS: 80048; 80202; 85027; 85652

== ENCOUNTER 2024-04-07 12:57 | Outpatient (RCR) | payer OTHER, SELFPAY ==
[2024-04-07 13:42] VITALS: BP 126/69; PULSE 72; RESP 16; TEMP 36.6; BMI 39.7
--- NOTE | 2024-04-07 16:45 | PN.PCM_ITS ---
History of Present Illness Date of Service: 04/07/24 Subjective Subjective Doing well 12 days post op. Drains with minimal output (15 cc past 24 hours collectively, all are working fine and being taken care of well). Pain controlled. Compliant with keeping knee extended. Follows up with Dr. Agrawal on 09 Apr 2024 for orthopedics f/u. Objective Data Objective Data Vital Signs: Vital Signs Temp Pulse Resp BP O2 Del Method 97.9 F 72 16 126/69 H Room Air 04/07/24 13:42 04/07/24 13:42 04/07/24 13:42 04/07/24 13:42 04/07/24 13:42 Oxygen Delivery Method Room Air Weight: 285 lb Body Mass Index (BMI) 39.7 Charges/Coding Multi Select Codes Integumentary Integumentary CPT Codes: 30443 Global Visit Physical Exam Narrative Healing well. Skin graft with 100% take (stuck down). Small area of necrosis of the skin closure with slight dehiscence at the inferior portion. No drainage. Drains removed. Resp normal respiratory effort Cardio regular rate and regular rhythm Extremity Extremity Narrative: Appropriate RLE swelling, no swelling in the left lower extremity Debridement Note Debridement Note Post-Debridement Measurements and Additional Note: Post-Debridement Measurements/Treatment WC - Nurse 1 - General Ulcer Assessment Start: 04/07/24 13:12 Freq: Status: Active Protocol: MITCH.CARLY Activity Type Activity Date Activity User E-sign Co-sign Detail Recorded Client Recorded Date Recorded By Document 04/07/24 13:42 KW [id number] 04/07/24 13:54 KW 04/07/24 13:42 - Today's Visit Information Type of service Initial Visit Arrival Mode Ambulatory, Walker Accompanied by Patient Identification Verified (Name & Yes ) Height and Weight Height 5 ft 11 in Weight 285 lb Weight in Pounds 285.0 lbs Weight Measurement Method Estimated by Patient Body Mass Index (BMI) 39.7 BMI Classification Obese BSA - Sharon 2.45 Vital Signs Temperature (97.8 F-99.1 F) 97.9 F Temperature Source Temporal Pulse Rate (60-100) 72 Pulse Location Monitor Respiratory Rate (12-18) 16 Respiratory rate source Observation Oxygen Delivery Method Room Air Blood Pressure (90/60-120/80) 126/69 H Blood Pressure Mean (mm Hg) 88 Source Monitor Position Semi-Fowlers Blood Pressure Location Left Arm History Since Last Visit- (Skip if this is Patient's initial visit) Left Footwear Regular Shoe Right Footwear Regular Shoe Pain Scale: 0-10 Numeric Is Patient Pain Free? Yes Communication Assessment Preferred language Sri [place]an Able to Read Yes Able to Write Yes Communication Tools None Caregiver Communication Skills No Impairment Impairment Right Hearing Abillity Normal Left Hearing Abillity Normal Visual Assistive Devices None Teaching Assessment Preferences Verbal,Written, Demonstration Barriers to Learning None Readiness To Learn Excellent Willingness to Engage in Self Management High Activies Readiness to Engage in Self Management High Activities Anxiety Level Calm Cooperation Cooperative Perception Coherent Interest in Health Problem Asks Questions Education Importance Acknowledges Need Does Patient Smoke tobacco or other Yes substances Smoking Status Never smoker Is Patient Diabetic No Functional Assessment Recent Decline in Ability to Perform Denies Any Declines Culture/Mandaen/Hospital Cleaning Specialist Cultural/Mandaen Needs that may affect No Treatment Plan Would you allow our [facility] grease refiner operator to No meet you for the purpose of spiritual/ emotional support? Hospital Cleaning Specialist to contact place of hinduism No WC - Nurse 1 - General Ulcer Measurement Start: 04/07/24 13:12 Freq: Status: Active Protocol: Activity Type Activity Date Activity User E-sign Co-sign Detail Recorded Client Recorded Date Recorded By Document 04/07/24 13:42 [id number] 04/07/24 13:54 KW 04/07/24 13:42 Wound Center Nurse 1 #2 RT UPPER THIGH GRAFT SITE -Current Size (cm) - Length 0.1 -Current Size (cm) - Width 0.1 -Current Size (cm) - Depth 0.1 -Total Square Cm 0.01 -Date of Last Picture (Recall this 04/07/24 field) -Exudate Amt None Present -Granulation Amt Large (67-100%) -Granulation Quality Red -Texture (María-wound Skin Appearance) Assessed -Moisture (María-wound Skin Appearance) Assessed -Color (María-wound Skin Appearance) Assessed -Temperature (María-wound Skin No Abnormality Appearance) (Pt Warm) -Tenderness on Palpation (María-wound No Skin Appearance) -Ulcer Cleansing Soap and Water -Foul Odor after Cleansing No -Anesthetic Used 5% Lidocaine Gel #1 RT KNEE POST OP -Current Size (cm) - Length 0.1 -Current Size (cm) - Width 0.1 -Current Size (cm) - Depth 0.1 -Total Square Cm 0.01 -Date of Last Picture (Recall this 04/07/24 field) -Texture (María-wound Skin Appearance) Assessed -Moisture (María-wound Skin Appearance) Assessed -Color (María-wound Skin Appearance) Assessed -Temperature (María-wound Skin No Abnormality Appearance) (Pt Warm) -Tenderness on Palpation (María-wound No Skin Appearance) -Ulcer Cleansing Soap and Water -Foul Odor after Cleansing No -Wound Comment(s) SUTURES AND LACIE IN TACT , [address] Right Calf (cm) 41.5 Right Ankle (cm) 27 - Nurse 2 - General Ulcer CM Notes Start: 04/07/24 13:12 Freq: Status: Active Protocol: Activity Type Activity Date Activity User E-sign Co-sign Detail Recorded Client Recorded Date Recorded By Document 04/07/24 13:58 [id number] 04/07/24 14:13 04/07/24 13:58 Wound Center Nurse 2 #2 RT UPPER THIGH GRAFT SITE -Correct Patient No -Correct Side, Site, Position No -Correct Procedure No -Procedure Performed No -Wound/Ulcer Outcome Not Healed #1 RT KNEE POST OP -Correct Patient No -Correct Side, Site, Position No -Correct Procedure No -Procedure Performed No -Wound/Ulcer Outcome Not Healed Pain Scale: 0-10 Numeric Is Patient Pain Free? Yes - Nurse 3 - General Ulcer D/C NN Start: 04/07/24 13:12 Freq: Status: Active Protocol: Activity Type Activity Date Activity User E-sign Co-sign Detail Recorded Client Recorded Date Recorded By Document 04/07/24 15:12 DL [id number] 04/07/24 15:13 DL 04/07/24 15:12 Wound Care Center Nurse 3 #2 RT UPPER THIGH GRAFT SITE -Ulcer Cleansing Soap and Water -Foul Odor after Cleansing No -Other Dressing XEROFORM -Primary Dressing Covered/Secured with Dry Gauze,Dry Gauze & Roll Gauze,Secured with Tape #1 RT KNEE POST OP -Ulcer Cleansing Soap and Water -Foul Odor after Cleansing No -Other Dressing XEROFROM -Primary Dressing Covered/Secured with Dry Gauze & Roll Gauze, Secured with Tape -Other Covering josesito Treatment Response Procedure Tolerated Well Pain Scale: 0-10 Numeric Is Patient Pain Free? Yes WC - Visit Discharge Discharge Condition Stable Ambulatory Status Crutches Transportation Private Auto Facility Type Home Health Orders Sent Yes Assessment/Plan Assessment/Plan (1) Infection and inflammatory reaction due to internal right knee prosthesis, subsequent encounter: CODE(S): T84.53XD - Infection and inflammatory reaction due to internal right knee prosthesis, subsequent encounter PLAN: Doing well. Continue with plan for 1 month of knee extension and foot drop splint while sitting/laying down. Drains removed today. F/u in [address] [facility]. Continue Xeroform dressing twice daily to the wounds and over the skin graft.
--- NOTE | 2024-04-08 08:32 | WC ---
PHOTO 04/07/24 RIGHT KNEE POST OP
--- NOTE | 2024-04-08 08:35 | WC ---
PHOTO 04/07/24 RIGHT KNEE POST OP
--- NOTE | 2024-04-08 08:37 | WC ---
PHOTO 04/07/24 RIGHT THIGH GRAFT
== END 2024-04-10 23:59 | disposition home or self-care (01) ==
LOC: WC 12:57
PROVIDERS: PCP Family Medicine; Referring Provider Surgery Plastic and Reconstructive Surgery; Visit Provider Surgery Plastic and Reconstructive Surgery
DX: T84.53XD Infection and inflammatory reaction due to internal right knee prosthesis, subsequent encounter (principal)
CPT/HCPCS: 99214; G0463

== ENCOUNTER 2024-04-08 18:10 | Observation (INO) | payer OTHER, SELFPAY ==
[2024-04-08] VITALS (10 sets, daily range): BP systolic 103–134; BP diastolic 71–89; PULSE 67–93; RESP 16–18; TEMP 36.3–36.8; O2SAT 94–100; BMI 38.1; BMI 38.9
--- NOTE | 2024-04-08 13:06 | PRE.ANES_ITS ---
ASA Classification* ASA Classification ASA Classification: 3 and E Assessment & Plan Anesthesia* Anesthesia Assessment Anesthesia Assessment: Discussed sedation and/or anesthesia options, risks, benefits, and alternatives with patient/parents/legal guardian/POA. Questions invited. The patient/parents/legal guardian/POA seems to understand and agrees to proceed with anesthesia plan. Reviewed the physical assessment, medical history, allergy history and patient home medications list prior to surgery/procedure/anesthetic and documented any changes. Performed airway and anesthesia risk assessments. Anesthesia Type Anesthesia Type: General (SEE WRITTEN PRE ANESTHESIA RECORD FOR FULL ASSESSMENT) Anesthesia Focused Assessment* Airway Assessment Mouth opens: >3 cm Mallampati Score: III Focused Labs Anesthesia Preop lab: CBC WBC 7.8 K/mm3 (4.4-11.0) 04/06/24 08:10 RBC 4.60 M/mm3 (4.6-6.2) 04/06/24 08:10 Hgb 11.4 g/dL (13.0-16.5) L 04/06/24 08:10 Hct 37.5 % (40-54) L 04/06/24 08:10 Plt Count 430 K/mm3 (150-450) 04/06/24 08:10 CHEMISTRY Potassium 4.1 mmol/L (3.5-5.1) 04/06/24 08:10 Sodium 138 mmol/L (136-145) 04/06/24 08:10 Magnesium 2.1 mg/dL (1.6-2.6) 03/21/24 10:43 BUN 20 mg/dL (7-18) H 04/06/24 08:10 Creatinine 0.80 mg/dL (0.70-1.30) 04/06/24 08:10 Glucose 100 mg/dL (74-106) 04/06/24 08:10 POC Glucose 99 mg/dL (74-106) 03/21/24 11:28 TSH 1.03 uIU/mL (0.358-3.74) 10/02/14 08:59 COAG Pre-Assessment Diagnosis/Proposed Procedure Planned Operative Procedure(s): EVAC RUE HEMATOMA Anesthesia History 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 When Was Last Pacemaker Check QUESTION #4 FULL TEXT: You/Your Family Experience fever (hyperthermia) with Anesthesia Last Oral Intake Last Oral intake: Last Oral Intake NPO since Meds taken in AM with sips of water? Meds patient instructed to take am of surgery PONV PONV - appliance service supervisor: PONV - appliance service supervisor Female HX of Motion Sickness HX of N/V After Surgery Non-Smoker Duration of Surgery greater than 60 minutes Number of Risk Factors PONV Score Height & Weight Height & Weight: Anesthesia: Height & Weight Height 5 ft 11 in 04/08/24 08:37 Respiratory Assessment Respiratory Assessment - appliance service supervisor: Respiratory Tract Infection Hx - appliance service supervisor Hx Respiratory Tract Infection No 04/08/24 08:37 STOP Sleep Apnea STOP Sleep Apnea - appliance service supervisor: STOP Sleep Apnea - appliance service supervisor Hx Hypertension No 04/08/24 08:37 Hx Sleep Apnea Yes: HAS CPAP 04/08/24 08:37 CPAP Yes 04/08/24 08:37 BIPAP No 04/08/24 08:37 Do you snore loudly (louder than talking or can be heard Do you often feel tired/ fatigued/ sleepy during daytime? Has anyone observed you stop breathing during sleep? STOP Results QUESTION #5 FULL TEXT : Do you snore loudly (louder than talking or can be heard through closed doors)? 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 - appliance service supervisor: Tobacco Use History - appliance service supervisor Tobacco Use Smoking Status Never smoker 04/08/24 08:37 Hx Tobacco Use Yes 04/08/24 08:37 Years Smoking Packs Smoked per Day Smoking Cessation Date was within the last 15 years Hx Smoking Cessation Date Hx Smoking Cessation Counseling Hematologic Medial History Hematologic Hx - appliance service supervisor: Hematologic Medical Hx - inspector multifocal lens Hx of Blood Transfusion Hx of Transfusion in last 3 Months Date of Last Transfusion (if within last 3 months) Ever experience any problems with transfusion(s)? Specify any problems Hx of Preganancy in last 3 Months Nurse Filling Out Transfusion & Questions: Date: Time: Patient unable to answer at this time (ie. confused, unrespo /Reproduction History /Reproductive History - appliance service supervisor: /Reproductive Hx- appliance service supervisor Hx Now Gestational Age (in weeks): EDC: Hx Hx Para Hx Section SAB No 04/08/24 08:37 PFSH Medical History Arthritis Chewing tobacco dependence History of pain when walking History of edema Home Medications ?Medication ?Instructions ?Recorded ?Last Taken ?Type testosterone 100 mg/mL 1 mg IM .Q2WEEK HORMONE 03/20/24 Unknown History intramuscular suspension ceftriaxone 2 gram intravenous 2 g IV DAILY 32 days 03/31/24 Unknown Rx solution ondansetron 4 mg disintegrating 4 mg PO Q8H PRN nausea and 03/31/24 Unknown Rx tablet vomiting 5 days #10 tabs oxycodone 5 mg tablet 5 mg PO Q4H PRN pain (scale score 03/31/24 Unknown Rx 7-10) 7 days #20 tabs polyethylene glycol 3350 17 17 g PO DAILY PRN constipation 10 03/31/24 Unknown Rx gram/dose oral powder (Miralax) days #119 grams rivaroxaban 10 mg tablet (Xarelto) 10 mg PO QPM 7 days #7 tabs 03/31/24 Unknown Rx vancomycin 1.5 gram intravenous 1.5 g IV Q12H 32 days 03/31/24 Unknown Rx solution Allergy/AdvReac Type Severity Reaction Status Date / Time No Known Allergies Allergy Verified 04/08/24 10:28 Surgical History Hx of total knee arthroplasty Hx of right knee surgery Hx of right knee surgery Social History Smoking Status: Never smoker Review of Systems (Anesthesia) ROS Narrative System reviewed and no additional complaints, except as documented.
--- NOTE | 2024-04-08 14:10 | HP.PCM.SX_ITS ---
HPI - General HPI Narrative ABDIRAHMAN HERRON, is a 53 M who presents with a right lower extremity hematoma at the donor site of the gastroc flap. Flap is warm and viable. [facility] Medical History Arthritis Chewing tobacco dependence History of pain when walking History of edema Home Medications ?Medication ?Instructions ?Recorded ?Last Taken ?Type testosterone 100 mg/mL 1 mg IM .Q2WEEK HORMONE 03/20/24 Unknown History intramuscular suspension ceftriaxone 2 gram intravenous 2 g IV DAILY 32 days 03/31/24 04/08/24 Rx solution ondansetron 4 mg disintegrating 4 mg PO Q8H PRN nausea and 03/31/24 Unknown Rx tablet vomiting 5 days #10 tabs oxycodone 5 mg tablet 5 mg PO Q4H PRN pain (scale score 03/31/24 04/07/24 Rx 7-10) 7 days #20 tabs polyethylene glycol 3350 17 17 g PO DAILY PRN constipation 10 03/31/24 Unknown Rx gram/dose oral powder (Miralax) days #119 grams vancomycin 1.5 gram intravenous 1.5 g IV Q12H 32 days 03/31/24 04/08/24 08:00 Rx solution aspirin 81 mg tablet,delayed 81 mg PO DAILY 04/08/24 04/08/24 History release (Adult Aspirin Regimen) Allergy/AdvReac Type Severity Reaction Status Date / Time No Known Allergies Allergy Verified 04/08/24 14:05 Surgical History Hx of total knee arthroplasty Hx of right knee surgery Hx of right knee surgery Social History Smoking Status: Never smoker Vital Signs Vital Signs Vital Signs: 04/08/24 14:02 Respiratory Pattern Normal Physical Exam Narrative Flap warm and well perfused with adherent skin graft. Donor site incision tense/tight. No bruising yet, but feels fluctuant. Concern for hematoma. Assessment & Plan Assessment/Plan (1) Hematoma: PLAN: I talked the patient extensively about the risks of surgery, including bleeding, infection, damage to surrounding structures, surgical site dehiscence and wound formation, need for wound care, need for repeat operations, failure to obtain the desired result, DVT/PE, and the risks of anesthesia including . The benefits and alternatives of this surgery were also discussed. All of their questions were answered, and they agreed to proceed with surgery. Proceeding with emergent drainage of right lower extremity hematoma. We will admit post-operatively for pain control and to monitor for bleeding.
[2024-04-08] MEDS: Lactated Ringers 1,000 ML 15 ML IV (14:13)
[2024-04-08] MEDS: Cefazolin 2 GM in Syringe IV (15:37)
[2024-04-08] MEDS: Bupivacaine 0.25% 30 ML Vial (17:01)
[2024-04-08] MEDS: Bacitracin 500 UNITS/GM PACKET (17:02)
--- NOTE | 2024-04-08 17:15 | PCM.POST.ANE ---
Anesthesia: Postop Eval I Current Vital Signs Temperature: 97.3 F Pulse Rate: 92 Blood Pressure: 134/83 Respiratory Rate: 16 Pulse Ox: 98 Oxygen Delivery Method: Room Air Assessment Airway patent: Yes Spontaneous unlabored respirations: Yes Mental status: Awake and Calm nausea: No Vomiting: No Anesthesia Complication: No Fluid Hydration Crystalloid volume administer (ml): 500 Total IV fluid infused: 500 Progress Note Anesthesia document: Postop Eval 1 completed: Yes
--- NOTE | 2024-04-08 17:34 | PCM.OPRPT ---
Operative Report (Standard) Operative Information Surgery/Procedure Performed: Hematoma evacuation (79183) Surgeon: Fabio Jon Date of Procedure: 04/08/24 Procedure Start Time: 16:14 Procedure Stop Time: 17:02 Pre-Operative Diagnosis: Right leg hematoma Post-Operative Diagnosis: Same Select all DRAINS/GRAFTS/IMPLANTS that apply: Drains (2 19 ugandan chalino drains ) Drain details: hematoma cavity Type of Anesthesia: General/Supplemental (15 cc of 0.25 % bupivucaine along incision ) Estimated Blood Loss: 300 cc Fluids Replaced: 500 cc LR Specimen collected: No Description of surgery: Indications: Phoenix Fulton is a 53-year-old male with an infected right knee status post arthroplasty who has an antibiotic articulating spacer in place and required a lateral gastroc for coverage of a lateral joint arthrotomy. He was postop day 13 and the drains were removed from the donor site and unfortunately he developed a hematoma at the donor site on the calf. Presents today for evacuation hematoma. Procedure details: Patient was correctly notified in preoperative holding his right lower extremity was marked. He was taken back to the OR where he was administered general anesthesia and he was prepped and draped in sterile fashion. All proper timeouts were performed. The distal harvest incision was opened carefully with a 15 blade scalpel and the donor site cavity was identified and had approximately 250 cc of hematoma. This was evacuated and washed out with a 3 L bag of normal saline. A lighted retractor was then used to investigate the cavity and there was a pulsatile bleeder along the medial edge of the medial gastroc (where the medial raphae had been divided for flap harvest). This was cauterized with a DeBakey. The wound was then irrigated again and was hemostatic. A blood pressure challenge was then performed and his blood pressure was 25 over preop blood pressure with regards to systolic. There was no bleeding in the wound. Two 19 Welsh Chalino drains were placed. The wound was closed with 2-0 PDS deep Juanis sutures followed by 4-0 Monocryl deep dermal sutures and bonnie. Xeroform, Kerlix, and an Gerardo wrap along with a knee extension immobilizer were placed. The patient was awakened and taken the PACU in stable condition. All counts were correct at the end of the case. 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
--- NOTE | 2024-04-08 17:37 | POSTOPAN2_ITS ---
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 ADJUDICATOR.[email or web address] Spontaneous unlabored Yes 04/08/24 17:16 UNEMPLOYMENT CLAIMS ADJUDICATOR.LILLIU respirations Mental status Awake,Calm 04/08/24 17:16 UNEMPLOYMENT CLAIMS ADJUDICATOR.DIPTILOU nausea No 04/08/24 17:16 UNEMPLOYMENT CLAIMS ADJUDICATOR.DIPTILOU Vomiting No 04/08/24 17:16 UNEMPLOYMENT CLAIMS ADJUDICATOR.[email or web address] Anesthesia Postop Eval I: Fluid Summary Crystalloid volume administer 500 04/08/24 17:16 UNEMPLOYMENT CLAIMS ADJUDICATOR.JBLOU (ml) Colloids volume administered ( ml) Blood Product volume administered (ml) Total IV fluid infused 500 04/08/24 17:16 UNEMPLOYMENT CLAIMS ADJUDICATOR.DIPTILOU Anesthesia Postop Eval I: Summary Notes Anesthesia Complication No 04/08/24 17:16 UNEMPLOYMENT CLAIMS ADJUDICATOR.[email or web address] Anesthesia Complication Comment: Post-operative progress note Anesthesia: Postop Eval II Evaluation Mental status: Awake Pain Level: 0 nausea: No Vomiting: No
--- NOTE | 2024-04-08 17:37 | PCM.POSTANE2 ---
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 [email or web address].[email or web address] Spontaneous unlabored Yes 04/08/24 17:16 PARTRIDGE FARMER.LILLIU respirations Mental status Awake,Calm 04/08/24 17:16 PARTRIDGE FARMER.[email or web address] nausea No 04/08/24 17:16 PARTRIDGE FARMER.[email or web address] Vomiting No 04/08/24 17:16 PARTRIDGE [email or web address].[email or web address] Anesthesia Postop Eval I: Fluid Summary Crystalloid volume administer 500 04/08/24 17:16 PARTRIDGE [email or web address].[email or web address] (ml) Colloids volume administered ( ml) Blood Product volume administered (ml) Total IV fluid infused 500 04/08/24 17:16 PARTRIDGE [email or web address].[email or web address] Anesthesia Postop Eval I: Summary Notes Anesthesia Complication No 04/08/24 17:16 PARTRIDGE [email or web address].[email or web address] Anesthesia Complication Comment: Post-operative progress note Anesthesia: Postop Eval II Evaluation Mental status: Awake Pain Level: 0 nausea: No Vomiting: No
[2024-04-08 19:26] LABS: Anion Gap 8 (5-15); BUN 19 mg/dL (7-18); BUN/Creat Ratio 24.1 RATIO (10-20); Calcium,Total 8.9 mg/dL (8.5-10.1); Chloride 104 mmol/L (98-107); Creatinine, Serum 0.79 mg/dL (0.70-1.30); EST Glomerular Filtration Rate 110 mL/min (>60); Est Glom Filt Rate - Afr Amer 133 mL/min (>60); Estimated Creatinine Clearance 149.93 ml/min; Glucose 100 mg/dL (74-106); Potassium 4.1 mmol/L (3.5-5.1); Sodium Level 138 mmol/L (136-145)
[2024-04-08 20:37] LABS: Vancomycin, Random Level 9.8 ug/mL (0.0-15.0)
--- NOTE | 2024-04-08 20:46 | PCM.RX.CS ---
Consult Antibiotic Management Pharmacy has been consulted to manage selected antibiotic: Vancomycin Type of Intervention Type of Consult: New start (New start on this hospital visit, continuing patient's home dose of 1500mg q12h) Suspected Infection Suspected Infection: Skin/Soft tissue Prior Doses of Antibiotics Prior Doses of Antibiotics Received/Current Regimen: 1500mg q12h (last dose 04/08/24 at 0800) Labs Labs: Sodium 138 mmol/L (136-145) 04/08/24 18:40 Potassium 4.1 mmol/L (3.5-5.1) 04/08/24 18:40 Chloride 104 mmol/L (98-107) 04/08/24 18:40 Carbon Dioxide 27.0 mmol/L (21.0-32.0) 04/08/24 18:40 Anion Gap 8 (5-15) 04/08/24 18:40 BUN 19 mg/dL (7-18) H 04/08/24 18:40 Creatinine 0.79 mg/dL (0.70-1.30) 04/08/24 18:40 Est GFR (MDRD) Af Amer 133 mL/min (>60) 04/08/24 18:40 Est GFR (MDRD) Non-Af 110 mL/min (>60) 04/08/24 18:40 BUN/Creatinine Ratio 24.1 RATIO (10-20) H 04/08/24 18:40 Glucose 100 mg/dL (74-106) 04/08/24 18:40 Random Vancomycin 9.8 ug/mL (0.0-15.0) 04/08/24 19:57 Goal Trough Goal Trough: 10-15 mcg/mL Pharmacy Plan for Drug Dosing Pharmacy Plan for Drug Dosing: NEW START IV VANCOMYCIN Consulting Physician: Dr. Fabio Jon Indication: Hematoma Evacuation/Drainage Goal Trough: 10-15 SrCr: 0.75 CrCl: 150 mls/min Comments: pt is currently on 1500mg q12h for 32 days at home (last dose 04/08/24 at 0800) Vancomycin Dose: trough checked prior to initiation in hospital. trough resulted at 9.8. recommend continuing home dose of 1500mg q12h and checking a trough 04/10/24 at 0830 Pending Level: 04/10/24 at 0830 Pharmacy Service will continue to monitor and adjust dosing as required. Follow-Up Labs Follow-Up Labs: Trough: Vancomycin (10/31/24 at 0830)
[2024-04-08] MEDS: Vancomycin HCl 1,500 MG in 0.9% Normal Saline (500mL Bag) 500 ML 250 MG IV (20:56)
--- OUTSIDE RECORDS SUMMARY | 2024-04-08 22:50 | XMS RPT_ITS | CCD ---
Author Organization [facility] Care Team Providers Care Collar Starcher Name Role Phone XIN HOWARD Unavailable Unavailable PHYSICIAN, NONE Unavailable Unavailable Xin Howard Unavailable Unavailable GARY ALLRED Attending Unavailable CELESTE LOCK Attending Unavailable PARESH FREIRE Admitting Unavailable SURGERY, ORTHOPAEDIC TRAUMA Consulting Unav urbanable DIOGENES DICKSON Referring Unavailable Problems Active Problems Problem Classification Problem Date Documented Da te Episodic/Chronic Complication of device; implant or graft (1 source) Infection and inflammatory reaction due to other internal joint prosthesis, initial encounter; Translations: [Infection and inflammatory reaction due to other internal joint prosthesis, initial encounter] Onset: 03-17-2024 Episodic Other connective tissue disease (1 source) Presence of unspecified artificial knee joint; Translations: [Presence of unspecified artificial knee joint] Onset: 03-17-2024 Chronic Other connective tissue disease (2 sources) Leg swelling symptom Onset: 03-16-2024 Episodic Skin and subcutaneous tissue infections (4 sources) Cellulitis of right lower limb; Translations: [Cellulitis] Onset: 03-16-2024 Episodic Unclassified (1 source) Unknown / UNK(Unknown) Onset: 04-30-2018 Unclassified (1 source) Knee Swelling Onset: 03-16-2024 Unclassified (1 source) sent to have ortho check out right leg Onset: 03-16-2024 Past or Other Problems Problem Classification Problem Date Documented Da te Episodic/Chronic Unclassified (1 source) RIGHT KNEE PRIMARY OA, PAIN Onset: 04-30-2018 Results Test Name Value Interpretation Reference Range Facil ity CT KNEE RT W CONTon 03-17-[address] KNEE RT W CONT CT KNEE RT W CONT Contrast enhanced CT right knee HISTORY: Infection. COMPARISON: Radiographs same day. TECHNIQUE: Contrast enhanced CT reconstructed in bone and soft tissue algorithms. Coronal and sagittal reformats generated and reviewed. 100 mL Omnipaque 300 IV, no complication. IMPRESSION: Knee prosthesis in place. There is significant lucencies proximal tibia along the tibial tray and stem largest measuring 3.3 cm. Loosening is present. Infection may have this appearance as well especially given large soft tissue abscess along the anterolateral aspect of the knee at the level of the tibial plateau, this abscess measures roughly 8 x 3.4 cm in axial diameter (304/137) with internal foci of gas. Suspect subtle sinus tract to the overlying skin. This abscess tracks cranially, its cranial margin obscured by overlying artifact however appears to measure 12 cm in craniocaudal dimension. Moderate joint effusion present. Presence of septic arthritis may be present although there is no definite connection to the joint space. There is focal cortical dehiscence along the posterolateral tibial plateau (301/127). Additional soft tissue edema and skin thickening compatible with cellulitis. THIS REPORT CONTAINS A SIGNIFICANT RESULT AND/OR RECOMMENDATION, WHICH REQUIRES THE ATTENTION OF THE LICENSED CAREGIVER RESPONSIBLE FOR THIS PATIENT. THEREFORE, I SPECIFICALLY DESIGNATED THIS REPORT TO BE TELEPHONED BY THE RADIOLOGY DEPARTMENT. FINDINGS WERE INSTRUCTED TO BE CALLED TO THE CLINICAL SERVICE ON 03/17/2024 12:[address] scans at this facility use dose modulation, iterative reconstruction, and/or weight based dosing when appropriate to reduce radiation dose to as low as reasonably achievable. Finalized by Bakari Dodson MD on 03/17/2024 12:56 PM Normal [facility] FLUID CULTUREon 03-17-2024 Bacteria identified Aer cx Nom (Body fld) GRAM STAIN WHITE BLOOD CELLS PRESENT NO ORGANISMS SEEN ON CONCENTRATED SMEAR CULTURE RESULTS NO GROWTH 5 DAYS Normal [facility] Comment on above: Performed By: #### 6 03-16 #### [facility] ([id number]) [address], [address] [place] [address] XR KNEE RT 3 VWSon 4 XR KNEE RT 3 VWS XR KNEE RT 3 VWS HISTORY: A 53-year-old male with the history of the right knee pain. TECHNIQUE: Right knee: 3 views COMPARISON: No relevant prior studies are available for comparison. FINDINGS: There is a total right knee replacement. The prosthesis remains in satisfactory position. There is subtle lucency in the periprostatic region of the tibial component. Changes raise the possibility of loosening of the prosthesis. Femoral component of the prosthesis is otherwise unremarkable. There is no evidence of recent fracture or acute bony pathology. Chronic changes are seen in the patella. No significant joint effusion is seen. IMPRESSION: * Status post total right knee replacement. Metallic prosthesis is in satisfactory position. * Lucency and cystic 80 a adjacent to the tibial component of the prosthesis raises the possibility of loosening. A clinical correlation is suggested. Finalized by Pedro Little MD on 03/17/2024 9:56 AM Normal [facility] BLOOD CULTUREon 03-16-2024 Bacteria identified Aer cx Nom (Bld) CULTURE RESULTS NO GROWTH 5 DAYS Normal [facility] Bacteria identified Aer cx Nom (Bld) CULTURE RESULTS NO GROWTH 5 DAYS Normal [facility] CBC AND AUTO DIFFon 03-16-20 24 ABSOLUTE BASOPHIL 0.0 X10E9/L Normal 0.0-0.2 [facility] Comment on above: Performed By: #### C OZZIE, 38880-9, [facility], 1987-10 #### [facility] ([id number]) [address] [place] [address] #### [id number] #### [facility] ([id number]) [address] [place] [address] ABSOLUTE NEUTROPHIL 6.1 X10E9/L Normal 1.5-6.6 [facility] Comment on above: Performed By: #### C OZZIE, 55020-8, [facility], 1987-10 #### [facility] ([id number]) [address] [place] [address] #### 73830-5 #### [facility] ([id number]) [address], [address] [place] [address] Basophils/100 WBC (Bld) 0.4 % Normal [facility] Comment on above: Performed By: #### C OZZIE, 00522-4, [facility], 1987-10 #### [facility] ([id number]) [address] [place] [address] #### 83189-9 #### [facility] ([id number]) [address] [place] [address], [address] [place] [address] Eosinophils (Bld) [#/Vol] 0.2 10*3/uL Normal 0.0-0.4 [facility] Comment on above: Performed By: #### C OZZIE, 68997-8, CMP, 1987-10 #### [facility] ([id number]) [address] [place] [address] #### 61348-3 #### [facility] ([id number]) [address] [place] [address], [address] [place] [address] Eosinophils/100 WBC (Bld) 2.3 % Normal [facility] Comment on above: Performed By: #### C OZZIE, 04956-3, CMP, 1987-10 #### [facility] ([id number]) [address] [place] [address] #### 69249-9 #### [facility] ([id number]) [address] [place] [address], [address] [place] [address] Erythrocyte distribution width (RBC) [Ratio] 16.7 % High 11.5-15.0 [facility] Comment on above: Performed By: #### Checo HORNE, , CMP, 1987-10 #### [facility] ([id number]) [address] [place] [address] #### 46194-6 #### [facility] ([id number]) [address] [place] [address], [address] [place] [address] Hematocrit (Bld) [Volume fraction] 42.0 % Normal 39-49 [facility] Comment on above: Performed By: #### C OZZIE, 06501-3, CMP, 1987-10 #### [facility] ([id number]) [address] [place] [address] #### 89009-4 #### [facility] ([id number]) [address] [place] [address] Hemoglobin (Bld) [Mass/Vol] 13.5 g/dL Normal 13.0-17.0 [facility] Comment on above: Performed By: #### C OZZIE, 93107-3, CMP, 1987-10 #### [facility] ([id number]) [address] [place] [address] #### 40174-5 #### [facility] ([id number]) [address] [facility] [address], [address] [place] [address] Lymphocytes (Bld) [#/Vol] 1.7 10*3/uL Normal 1.0-3.5 [facility] Comment on above: Performed By: #### Checo HORNE, , CMP, 1987-10 #### [facility] ([id number]) [address] [place] [address] #### 48126-5 #### [facility] ([id number]) [address] [facility] [address], [address] [place] [address] Lymphocytes/100 WBC (Bld) 18.6 % Normal [facility] Comment on above: Performed By: #### Checo HORNE, , CMP, 1987-10 #### [facility] ([id number]) [address] [place] [address] #### 27768-0 #### [facility] ([id number]) [address] [facility], [address] [place] [address] MCH (RBC) [Entitic mass] 25.1 pg Low 27-34 [facility] Comment on above: Performed By: #### Checo HORNE, , CMP, 1987-10 #### [facility] ([id number]) [address] [place] [address] #### 14464-4 #### [facility] ([id number]) [address] [facility], [address] [place] [address] MCHC (RBC) [Mass/Vol] 32.1 g/dL Normal 32-36 [facility] Comment on above: Performed By: #### Checo HORNE, 88488-6, CMP, 1987-10 #### [facility] ([id number]) [address] [place] [address] #### 37225-6 #### [facility] ([id number]) [address] [place] [address], [address] [place] [address] MCV (RBC) [Entitic vol] 78 fL Low 80-100 [facility] Comment on above: Performed By: #### Checo HORNE, , CMP, 1987-10 #### [facility] ([id number]) [address] [place] [address] #### 13703-8 #### [facility] ([id number]) [address] [place] [address], [address] [place] [address] Monocytes (Bld) [#/Vol] 1.0 10*3/uL High 0-0.9 [facility] Comment on above: Performed By: #### Checo HORNE, , CMP, 1987-10 #### [facility] ([id number]) [address] [place] [address] #### 59487-3 #### [facility] ([id number]) [address] [place] [address], [address] [place] [address] Monocytes/100 WBC (Bld) 10.7 % Normal [facility] Comment on above: Performed By: #### Checo HORNE, 00279-2, CMP, 1987-10 #### [facility] ([id number]) [address] [place] [address] #### 86376-0 #### [facility] ([id number]) [address] [facility], [address] [place] [address] Neutrophils/100 WBC (Bld) 68.0 % Normal [facility] Comment on above: Performed By: #### Checo HORNE, 74096-5, CMP, 1987-10 #### [facility] ([id number]) [address] [place] [address] #### 41491-9 #### [facility] ([id number]) [address] [place] [address], [address] [place] [address] Platelet mean volume (Bld) [Entitic vol] 7.4 fL Normal 7-12 [facility] Comment on above: Performed By: #### Checo HORNE, 14218-9, CMP, 1987-10 #### [facility] ([id number]) [address] [place] [address] #### 04619-9 #### [facility] ([id number]) [address] [place] [address], [address] [place] [address] Platelets (Bld) [#/Vol] 313 10*3/uL Normal 150-450 [facility] Comment on above: Performed By: #### Checo HORNE, 37474-0, CMP, 1987-10 #### [facility] ([id number]) [address] [place] [address] #### 30908-6 #### [facility] ([id number]) [facility] [facility], [address] [place] [address] RBC COUNT 5.39 X10E12/L Normal 4.10-5.70 [facility] Comment on above: Performed By: #### Checo HORNE, 51946-2, CMP, 1987-10 #### [facility] ([id number]) [address] [place] [address] #### 07749-9 #### [facility] ([id number]) [address], [address] [place] [address] WBC (Bld) [#/Vol] 9.0 10*3/uL Normal 4.0-11.0 [facility] Comment on above: Performed By: #### C BCA, 50128-3, CMP, 1987-10 #### [facility] ([id number]) [address] [place] [address] #### 44119-6 #### [facility] ([id number]) [address], [address] [place] [address] COMPREHENSIVE METABOLIC PANE Jeremiah 03-16-2024 Albumin [Mass/Vol] 4.0 g/dL Normal 3.2-5.3 [facility] Comment on above: Performed By: #### C BCA, 99727-9, CMP, 1987-10 #### [facility] ([id number]) [address] [place] [address] #### 25057-5 #### [facility] ([id number]) [address], [address] [place] [address] ALP [Catalytic activity/Vol] 89 U/L Normal 39-130 [facility] Comment on above: Performed By: #### C BCA, 64763-8, CMP, 1987-10 #### [facility] ([id number]) [address] [place] [address] #### 27671-8 #### [facility] ([id number]) [address], [address] [place] [address] ALT [Catalytic activity/Vol] 19 U/L Normal 0-40 [facility] Comment on above: Performed By: #### C BCA, 70326-3, CMP, 1987-10 #### [facility] ([id number]) [address] [place] [address] #### 84273-1 #### [facility] ([id number]) [address] [facility] [place] [address] Anion gap [Moles/Vol] 6 mmol/L Normal 5-15 [facility] Comment on above: Performed By: #### C BCA, 58739-1, [facility], 1987-10 #### [facility] ([id number]) [address] [place] [address] #### 99583-1 #### [facility] ([id number]) [address] [facility] [place] [address] AST [Catalytic activity/Vol] 16 U/L Normal 0-41 [facility] Comment on above: Performed By: #### Checo BCA, 04683-8, [facility], 1987-10 #### [facility] ([id number]) [address] [place] [address] #### 39757-3 #### [facility] ([id number]) [address] [facility] [facility] [facility] [place] [address] Bilirubin [Mass/Vol] 0.4 mg/dL Normal 0.3-1.2 [facility] Comment on above: Performed By: #### Checo BCA, , [facility], 1987-10 #### [facility] ([id number]) [address] [place] [address] #### 50468-3 #### [facility] ([id number]) [address] [facility] [facility] [place] [address] Calcium [Mass/Vol] 9.1 mg/dL Normal 8.5-10.5 [facility] Comment on above: Performed By: #### C BCA, 73063-9, CMP, 1987-10 #### [facility] ([id number]) [address] [place] [address] #### 68100-3 #### [facility] ([id number]) [address] [facility], [address] [place] [address] Chloride [Moles/Vol] 106 mmol/L Normal 98-109 [facility] Comment on above: Performed By: #### C BCA, 85311-2, [facility], 1987-10 #### [facility] ([id number]) [address] [place] [address] #### 76705-6 #### [facility] ([id number]) [facility], [address] [place] [address] CO2 [Moles/Vol] 25 mmol/L Normal 22-32 [facility] Comment on above: Performed By: #### C BCA, 06777-9, [facility], 1987-10 #### [facility] ([id number]) [address] [place] [address] #### 52185-6 #### [facility] ([id number]) [address] [place] [address], [address] [place] [address] Creatinine [Mass/Vol] 0.74 mg/dL Normal 0.60-1.30 [facility] Comment on above: Result Comment: METH OD TRACEABLE TO IDMS STANDARD Performed By: #### C BCA, 91976-6, [facility], 1987-10 #### [facility] ([id number]) [address] [place] [address] #### 13084-7 #### [facility] ([id number]) [address] [place] [address], [address] [place] [address] eGFR (CKD-EPI) NON-RACE DEPENDENT >90 Normal >59 [facility] Comment on above: Result Comment: Reported eGFR is based on the CKD-EPI 2020 equation that does not use a race coefficient. Performed By: #### C BCA, 95623-6, [facility], 1987-10 #### [facility] ([id number]) [address] [place] [address] #### 18726-7 #### [facility] ([id number]) [address] [place] [address] Glucose [Mass/Vol] 89 mg/dL Normal 65-99 [facility] Comment on above: Performed By: #### C BCA, 27100-2, [facility], 1987-10 #### [facility] ([id number]) [address] [place] [address] #### 17901-0 #### [facility] ([id number]) [address] [place] [address] Potassium [Moles/Vol] 3.7 mmol/L Normal 3.5-5.0 [facility] Comment on above: Performed By: #### C BCA, 95426-3, [facility], 1987-10 #### [facility] ([id number]) [address] [place] [address] #### 49547-4 #### [facility] ([id number]) [address] [place] [address] Protein [Mass/Vol] 7.7 g/dL Normal 6.0-8.0 [facility] Comment on above: Performed By: #### C BCA, 89760-4, [facility], 1987-10 #### [facility] ([id number]) [address] [place] [address] #### 83887-8 #### [facility] ([id number]) [address] [place] [address] Sodium [Moles/Vol] 137 mmol/L Normal 134-146 [facility] Comment on above: Performed By: #### C BCA, 12916-4, [facility], 1987-10 #### [facility] ([id number]) [address] [place] [address] #### 69436-1 #### [facility] ([id number]) [address], [address] [place] [address] Urea nitrogen [Mass/Vol] 19 mg/dL Normal - [facility] Comment on above: Performed By: #### C BCA, 44623-4, [facility], 1987-10 #### [facility] ([id number]) [address] [place] [address] #### 50489-2 #### [facility] ([id number]) [address], [address] [place] [address] CRP [Mass/Vol]on 03-16-2024 C REACTIVE PROTEIN 3.1 mg/dL High 0.000-0.744 [facility] Comment on above: Performed By: #### C OZZIE, , [facility], 1987-10 #### [facility] ([id number]) [address] [place] [address] #### 83558-1 #### [facility] ([id number]) [address] [place] [address] ESR Photometric method (Bld) [Velocity]on 03-16-2024 ESR, ERYTHROCYTE SEDIMENTATION RATE 72 mm/h High 0-20 [facility] Comment on above: Performed By: #### C BCA, , [facility], 1987-10 #### [facility] ([id number]) [address] [place] [address] #### 36807-5 #### [facility] ([id number]) [address] [place] [address] Lactate (P frida) [Moles/Vol]o n 03-16-2024 LACTATE W/REFLEX 0.8 mmol/L Normal 0.4-2.0 [facility] Comment on above: Result Comment: Result did not trigger repeat Lactate, re-order if needed. Performed By: #### C BCA, 33487-9, CMP, 1987- #### [facility] ([id number]) [address] [place] [address] #### 19065-8 #### [facility] ([id number]) [address] [place] [address], [address] [place] [address] PROGRESSon 10-21-2019 PROGRESS HNO ID: [id number] Author: Ashanti Bear Service: ? Author Type: Nurse Practitioner Type: Progress Notes Filed: 10/21/2019 10:11 AM Note Text: Telemedicine Visit - Distance Health Virtual Visit Note Patient seen on [employer] Online platform. Location of patient: [place] No primary care provider on file. History of Present Illness Abdirahman Fulton is a 49 year old year old male who presents requesting documentation for return to work. 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 Never developed any symptoms - has been feeling well. He has obtained return to work clearance from [facility] Work is requiring documentation from HCP per his report No past medical history on file. No past surgical history on file. No family history on file. Social History Tobacco Use - Smoking status: Not on file Substance Use Topics - Alcohol use: Not on file - Drug use: Not on file No current outpatient medications on file. No current facility-administere d medications for this visit. ALLERGIES Allergies not on file Video Exam (Examination performed via Video enabled technology) General appearance: Alert, oriented, pleasant, in NAD :Yes Ill appearing :No Lethargic appearing :No Respiratory distress :No PLAN: - Letter provided with CDC RTW guidelines - Red flags discussed for need for in person care - All questions answered Ashanti Bear, ANODE ADJUSTER.FARM IMPLEMENT ENGINE MECHANIC If you let us know who your primary care provider is, we will send them a notification of today's visit through our electronic medical records system. Since not all providers have access to our notifications, we strongly encourage you to share the following record of today's visit with your primary care provider at your next visit. This will help in providing you the best care. [facility] CNPTOUTREACHon 10-14-2019 CNPTOUTREACH Patient Outreach ([facility]) ABDIRAHMAN FULTON ([id number]) 1970 M Date Time Provider Department 10/14/19 ANÍBAL MCNEIL (RUPA) [facility] During your visit today, we recorded the following information about you: Aníbal Mcneil 10/14/2019 9:07 AM Signed Unable to contact patient (Day 3) No contact information on file. Will disposition patient off call list. Aníbal Mcneil Allergies As of Date: 10/14/2019 (Not on File) Date Reviewed: Never Reviewed Reason for Visit: Covid Follow Up [4393] Cmt: No contact day 3; Declines monitoring Reason For Visit History Recorded Problem List As Of Date: 10/14/2019 (None) Encounter Status:Closed by ANÍBAL MCNEIL on 10/14/19 [facility] PROGRESSon 10-14-2019 PROGRESS HNO ID: [id number] Author: Aníbal Mcneil Service: ? Author Type: ? Type: Progress Notes Filed: 10/14/2019 9:07 AM Note Text: Unable to contact patient (Day 3) No contact information on file. Will disposition patient off call list. Aníbal Mcneil [facility] CNPTOUTREACHon 10-13-2019 CNPTOUTREACH Patient Outreach ([facility]) ABDIRAHMAN FULTON ([id number]) 1970 M Date Time Provider Department 10/13/19 YENIFER BRICE (TECH) During your visit today, we recorded the following information about you: Uzair Peres 10/13/2019 9:48 AM Signed Voice Message Disposition: Unable to reach, Left Voicemail - Continue Monitoring no voicemail left because of no contact number (day 2) Debbie, this is the [facility] calling, a member of your household has been diagnosed as positive for COVID-19. We are sorry we missed you, but your care is important to us. You will be receiving a call daily for the next few weeks. Please take a moment to answer our calls. If any of your symptoms have worsened, please call you PCP office to discuss. [facility] and NON [facility] patients may call: ? [facility] Nurse iron installer at [phone] ? Their PCP Office Caregivers may call: ? [facility] Employee Hotline: [phone] ? [facility] Employee Boost appointment for 01/01 emotional support: [phone] If you are finding it more difficult to breathe, or more short of breath when walking or climbing stairs, please go to the nearest ED. Inform the staff that you are COVID positive and you are having more shortness of breath while doing activities. SIGNATURE: Uzair Peres PATIENT NAME: Abdirahman Fulton DATE: October 13, 2019 TIME: 9:44 AM Allergies As of Date: 10/13/2019 (Not on File) Date Reviewed: Never Reviewed Reason for Visit: Covid Follow Up [3887] Cmt: covid follow up Reason For Visit History Recorded Problem List As Of Date: 10/13/2019 (None) Encounter Status:Closed by YENIFER BRICE on 10/13/19 Normal [facility] PROGRESSon 10-13-2019 PROGRESS HNO ID: [id number] Author: Yenifer Brice (Tech) Service: ? Author Type: Pastry Sous Chef Type: Progress Notes Filed: 10/13/2019 9:48 AM Note Text: Voice Message Disposition: Unable to reach, Left Voicemail - Continue Monitoring no voicemail left because of no contact number (day 2) Leolo, this is the [facility] calling, a member of your household has been diagnosed as positive for COVID-19. We are sorry we missed you, but your care is important to us. You will be receiving a call daily for the next few weeks. Please take a moment to answer our calls. If any of your symptoms have worsened, please call you PCP office to discuss. [facility] and NON [facility] patients may call: ? [facility] Nurse iron installer at [phone] ? Their PCP Office Caregivers may call: ? [facility] Employee Hotline: [phone] ? [facility] Employee Boost appointment for 01/01 emotional support: [phone] If you are finding it more difficult to breathe, or more short of breath when walking or climbing stairs, please go to the nearest ED. Inform the staff that you are COVID positive and you are having more shortness of breath while doing activities. SIGNATURE: Uzair Peres PATIENT NAME: Abdirahman Fulton DATE: October 13, 2019 TIME: 9:44 AM Normal [facility] CNPTOUTREACHon 10-12-2019 CNPTOUTREA Patient Outreach ([facility]) ABDIRAHMAN FULTON ([id number]) 1970 M Date Time Provider Department 10/12/19 MARY JO GARCIA (RN) [facility] During your visit today, we recorded the following information about you: Mary Jo Garcia RN, RN 10/12/2019 11:43 AM Signed [id number] TOUTREACHVM Voice Message Unable to reach. Pt has no contact information listed (day 1) Per Johnna Yang pt should be dispositioned off monitoring on day 3 if no contact made Debbie, this is the [facility] calling. We are sorry we missed you, but your care is important to us. 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 Please take a moment to complete the questionnaire daily. If any of your symptoms have worsened, please call you PCP office to discuss. [facility] and NON CCF patients may call: ? [facility] Nurse iron installer at [phone] ? Their PCP Office Caregivers may call: ? [facility] Employee Hotline: [phone] ? [facility] Employee Boost appointment for 01/01 emotional support: [phone] If you are finding it more difficult to breathe, or more short of breath when walking or climbing stairs, please go to the nearest ED. SIGNATURE: Mary Jo Garcia RN PATIENT NAME: Abdirahman Fulton DATE: October 12, 2019 TIME: 11:40 AM Allergies As of Date: 10/12/2019 (Not on File) Date Reviewed: Never Reviewed Reason for Visit: Covid Follow Up [0392] Cmt: covid f/u suspect-normal Unable to leave message x1 Reason For Visit History Recorded Problem List As Of Date: 10/12/2019 (None) Encounter Status:Closed by MARY JO GARCIA on 10/12/19 Normal [facility] [place] PROGRESSon 10-12-2019 PROGRESS HNO ID: [id number] Author: Mary Jo (Rn) SAGE Garcia Service: ? Author Type: Registered Nurse Type: Progress Notes Filed: 10/12/2019 11:43 AM Note Text: [id number] TOUTREACHVM Voice Message Unable to reach. Pt has no contact information listed (day 1) Per Johnna Yang pt should be dispositioned off monitoring on day 3 if no contact made Hello, this is the [facility] calling. We are sorry we missed you, but your care is important to us. 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 Please take a moment to complete the questionnaire daily. If any of your symptoms have worsened, please call you PCP office to discuss. [facility] and NON CCF patients may call: ? [facility] Nurse iron installer at [phone] ? Their PCP Office Caregivers may call: ? [facility] Employee Hotline: [phone] ? [facility] Employee Boost appointment for 01/01 emotional support: [phone] If you are finding it more difficult to breathe, or more short of breath when walking or climbing stairs, please go to the nearest ED. SIGNATURE: Mary Jo Garcia RN PATIENT NAME: Abdirahman Fulton DATE: October 12, 2019 TIME: 11:40 AM Normal [facility] PROGRESSon 10-11-2019 PROGRESS HNO ID: [id number] Author: Bindu Osuna Service: ? Author Type: Nurse Practitioner Type: Progress Notes Filed: 10/11/2019 1:15 PM Note Text: This Team Access Model visit is a virtual encounter. It required patient-provider interaction for the medical decision making as documented below. HIPAA secured video was used for evaluation of this patient. Location of patient: [place] Telemedicine Evaluation for COVID-19 Infection SUBJECTIVE: Abdirahman Fulton is a 49 year old year old male who presents with concern for COVID-19 exposure. Patient had been working in the state of [place]. Patient took his coworker to ER on 10/08/19- coworker later tested positive for COVID19. He was contacted by the [facility] who recommended he have testing donw. Per patient he was told he tested positive for COVID-19, but that the test used only has 20% accuracy. It was recommended by the [facility] that he have testing done here in [place]. So far patient has no symptoms of COVID 19 infection. He is now back in the state of [place] and has been isolating at home. Oral intake: normal Recent travel: Yes- [place] OTC meds/remedies that patient has tried: none. Has the patient had any ill contacts? Yes Has the patient had contact with anyone confirmed or a probable case with COVID-19 infection in the last 14 days? Yes Does the patient have family with confirmed COVID-19 infection: No Has the patient traveled or resided in an area with sustained or ongoing community transmission of COVID-19? Yes REVIEW OF SYSTEMS: Nasal congestion: No Decreased appetite: No Vomiting: No Diarrhea: No Signs of dehydration (low fluid intake or voiding, diarrhea, dry mucus membranes): No Decreased level of consciousness: No MAJOR COVID-19 SYMPTOMS: *Coughing: No *Shortness of breath: No *Difficulty breathing: No MINOR COVID-19 SYMPTOMS: Fever: (Temp 100.4F or greater) No Chills: No Headache: No Acute loss of smell or taste: No Sore throat: No Muscle aches: No *If the patient has one major COVID-19 symptom or two minor COVID-19 symptoms, may clinically have COVID-19 as long as there is no other clinical explanation for the symptom(s). *If the patient is in [place] and in a high risk category and has at least 2 symptoms of : fever, cough, shortness of breath, myalgia, diarrhea, anosmia, loss of taste, and sore throat then the patient may qualify for an ambulatory [facility] COVID-19 test. Route the chart to the COVID-19 HOTLINE POOL for testing determination. PATIENT'S HIGH RISK CATEGORY ASSESSMENT: No high risk factors OBJECTIVE: Video Exam (Examination performed via Video enabled technology) General appearance: Alert, oriented, pleasant, in NAD :Yes Ill appearing :No Lethargic appearing :No Eyes: Sclera clear :Yes Conjunctiva without erythema :Yes Respiratory distress :No Coughing noted :No Audible wheezing noted No ASSESSMENT/PLAN: See encounter diagnoses and orders for additional plan. ASSESSMENT/PLAN: 1. Exposure to COVID-19 virus - ICD9: , ICD10: Z20.828 2. Advice given about COVID-19 virus infection - ICD9: , ICD10: Z71.8 Discussed that since he is asymptomatic and low risk, unable to have testing done at this time Recommend he contact [facility] Patient will continue self-isolation until 14 days post-exposure (10/22/2019) He will follow up in the meantime if any symptoms should develop Abdirahman Fulton is an 49 year old who does not appear to have COVID-19 infection. recommend routine supportive measures of oral hydration, acetaminophen, and rest. This patient encounter involved the screening or treatment of novel coronavirus infection (COVID-19). - Red flags discussed for need for in person care - All questions answered SIGNATURE: Bindu Osuna APRN.FARM IMPLEMENT ENGINE MECHANIC DATE: October 11, 2019 Normal [facility] SURGon 04-30-2018 SURG Patient: ABDIRAHMAN FULTON SPECIMEN : [id number] Collection Date: 04/30/18 Received: 05/01/18 Status: DAYANNA Cabello DrVerena: Xin Howard MD Ph# Othr. Dr.: [facility] SUITESMaterial for Examination: A RIGHT KNEE SYNOVIUM BIOPSY PRE-OP DIAGNOSIS: RIGHT KNEE PRIMARY OSTEOARTHRITIS, PAIN POST-OP DIAGNOSIS: SAME SURGICAL PROCEDURE: RIGHT TOTAL KNEE WITH ROBOT WITH COMPLETE SYNOVECTOMY AND SYNOVIAL BIOPSY DIAGNOSIS A. Right knee, synovium biopsy: - Pigmented villonodular synovitis. GROSS DESCRIPTION The specimen is received in formalin and labeled with the patient's name, ID and designatedR knee synovium biopsy, is a brown-kiser mottled portion of ragged, friable, soft tissue, 5.0 x 3.2 x 1.2 cm. The specimen is serially sectioned and has a brown to kiser mottledappearance. Curb Supervisor sections are submitted in cassette A1.MICROSCOPIC DESCRIPTION One Jack and one iron stained slides with appropriate control examined.Iron stain is strongly positive.COPIES TO: Xin Howard MD [facility] CENTERSSigned Verified/Reviewed by NAYE MINOR M.D. 05/03/18 This dictation was created using voice recognition software. Phonetic and/or minor grammatical errors may exist. [facility] NAME: ABDIRAHMAN FULTON Pathology and Laboratory Medicine UNIT#: [id number] [facility] Operator: Naye Minor M.D. [facility] [id number] ROOM/BED: [employer] [facility] : 74 AGE/SEX: 47/M ORD.DR. Howard,Xin Mendes MD END OF REPORT Normal [facility] [place] .Auto Diffon 04-22-2018 Ammonia mass conc (P) 0.70 10 3/mcL Normal 0.09-1.40 [facility] ([place]) Comment on above: Performed By: #### C BC, ADIFF, ANEU, BMP, GFR ####[address] [address] Basophils Auto #/vol (Bld) 0.00 10 3/mcL Normal 0.00-0.27 [facility] ([place]) Comment on above: Performed By: #### C BC, ADIFF, ANEU, BMP, GFR ####[address] [address] Basophils/100 WBC Auto (Bld) 0.4 % Normal 0.0-2.5 [facility] ([place]) Comment on above: Performed By: #### C BC, ADIFF, ANEU, BMP, GFR ####[address] [address] Eosinophils Auto #/vol (Bld) 0.20 10 3/mcL Normal 0.00-0.65 [facility] ([place]) Comment on above: Performed By: #### C BC, ADIFF, ANEU, BMP, GFR ####[address] [address] Eosinophils/100 WBC Auto (Bld) 2.7 % Normal 0.0-6.0 [facility] ([place]) Comment on above: Performed By: #### C BC, ADIFF, ANEU, BMP, GFR ####[address] [address] Lymphocytes Auto #/vol (Bld) 2.20 10 3/mcL Normal 0.90-4.32 [facility] ([place]) Comment on above: Performed By: #### C BC, ADIFF, ANEU, BMP, GFR ####[address] [address] Lymphocytes/100 WBC Auto (Bld) 33.7 % Normal 20.0-40.0 [facility] ([place]) Comment on above: Performed By: #### C BC, ADIFF, ANEU, BMP, GFR ####[address] [address] Monocytes/100 WBC Auto (Bld) 10.6 % Normal 2.0-13.0 [facility] ([place]) Comment on above: Performed By: #### C BC, ADIFF, ANEU, BMP, GFR ####[address] [address] Neutrophils/100 WBC Auto (Bld) 52.6 % Normal 50.0-75.0 [facility] ([place]) Comment on above: Performed By: #### C BC, ADIFF, ANEU, BMP, GFR ####[address] [address] .GFRon 04-22-2018 GFR >60 Normal [facility] ([place]) Comment on above: Result Comment: GFR Population mean for , Non- Americans Ages 20-29 = 116 mL/min/1.73 sq.m. Ages 30-39 = 107 mL/min/1.73 sq.m. Ages 40-49 = 99 mL/min/1.73 sq.m. Ages 50-59 = 93 mL/min/1.73 sq.m. Ages 60-69 = 85 mL/min/1.73 sq.m. Ages 70+ = 75 mL/min/1.73 sq.m.Chronic Kidney Disease: Less than 60 mL/min/1.73 square metersEnd Stage Renal Disease: Less than 15 mL/min/1.73 square meters Performed By: #### C BC, ADIFF, ANEU, BMP, GFR ####[address] [address] GFR Non- >60 Normal [facility] ([place]) Comment on above: Result Comment: GFR Population mean for , Non- Americans Ages 20-29 = 116 mL/min/1.73 sq.m. Ages 30-39 = 107 mL/min/1.73 sq.m. Ages 40-49 = 99 mL/min/1.73 sq.m. Ages 50-59 = 93 mL/min/1.73 sq.m. Ages 60-69 = 85 mL/min/1.73 sq.m. Ages 70+ = 75 mL/min/1.73 sq.m.Chronic Kidney Disease: Less than 60 mL/min/1.73 square metersEnd Stage Renal Disease: Less than 15 mL/min/1.73 square meters Performed By: #### C BC, ADIFF, ANEU, BMP, GFR ####[address] [address] .NEUABSon 04-22-2018 Neutrophil, Absolute 3.40 10 3/mcL Normal 2.25-8.10 [facility] ([place]) Comment on above: Performed By: #### C BC, ADIFF, ANEU, BMP, GFR ####[place] [address] BMPon 04-22-2018 Creatinine mass conc 0.81 mg/dL Normal 0.60-1.40 [facility] ([place]) Comment on above: Performed By: #### C BC, ADIFF, ANEU, BMP, GFR ####[place] [address] Urea nitrogen/Creatinine mass ratio 18.5 ratio Normal 10.0-22.0 [facility] ([place]) Comment on above: Performed By: #### C BC, ADIFF, ANEU, BMP, GFR ####[address] [address] Calcium mass conc 9.2 mg/dL Normal 8.4-10.1 [facility] ([place]) Comment on above: Performed By: #### C BC, ADIFF, ANEU, BMP, GFR ####[address] [address] Chloride molar conc 106 mmol/L Normal 98-110 [facility] ([place]) Comment on above: Performed By: #### C BC, ADIFF, ANEU, BMP, GFR ####[place] [address] CO2 molar conc 25 mmol/L Normal 22-32 [facility] ([place]) Comment on above: Performed By: #### C BC, ADIFF, ANEU, BMP, GFR ####[place] [address] Electrolyte Balance 9.0 mEq/L Normal 4.0-15.0 [facility] ([place]) Comment on above: Performed By: #### C BC, ADIFF, ANEU, BMP, GFR ####[place] [address] Glucose mass conc 86 mg/dL Normal 70-110 [facility] ([place]) Comment on above: Performed By: #### C BC, ADIFF, ANEU, BMP, GFR ####[place] [address] Potassium molar conc 4.3 mmol/L Normal 3.5-5.0 [facility] ([place]) Comment on above: Performed By: #### C BC, ADIFF, ANEU, BMP, GFR ####[place] [address] Sodium molar conc 140 mmol/L Normal 136-145 [facility] ([place]) Comment on above: Performed By: #### C BC, ADIFF, ANEU, BMP, GFR ####[place] [address] Urea nitrogen mass conc 15.0 mg/dL Normal 8.0-22.0 [facility] ([place]) Comment on above: Performed By: #### C BC, ADIFF, ANEU, BMP, GFR ####[address] [address] CBCon 04-22-2018 Erythrocyte distribution width Auto Ratio (RBC) 13.4 % Normal 11.5-15.5 [facility] ([place]) Comment on above: Performed By: #### C BC, ADIFF, ANEU, BMP, GFR ####[address] [address] Hematocrit Auto Volume Fraction (Bld) 45.1 % Normal 40.0-52.0 [facility] ([place]) Comment on above: Performed By: #### C BC, ADIFF, ANEU, BMP, GFR ####[place] [address] Hemoglobin mass conc (Bld) 15.1 G/dL Normal 13.0-17.5 [facility] ([place]) Comment on above: Performed By: #### C BC, ADIFF, ANEU, BMP, GFR ####[place] [address] MCH Auto Entitic mass (RBC) 29.4 pg Normal 27.0-33.0 [facility] ([place]) Comment on above: Performed By: #### C BC, ADIFF, ANEU, BMP, GFR ####[place] [address] MCHC Auto mass conc (RBC) 33.4 G/dL Normal 32.0-36.0 [facility] ([place]) Comment on above: Performed By: #### C BC, ADIFF, ANEU, BMP, GFR ####[place] [address] MCV Auto Entitic volume (RBC) 87.9 fL Normal 81.0-100.0 [facility] ([place]) Comment on above: Performed By: #### C BC, ADIFF, ANEU, BMP, GFR ####[place] [address] Platelet mean volume Auto Entitic volume (Bld) 8.9 fL Normal 6.4-10.5 [facility] ([place]) Comment on above: Performed By: #### C BC, ADIFF, ANEU, BMP, GFR ####[place] [address] Platelets Auto #/vol (Bld) 223 10 3/mcL Normal 150-450 [facility] ([place]) Comment on above: Performed By: #### C BC, ADIFF, ANEU, BMP, GFR ####[place] [address] RBC Auto #/vol (Bld) 5.13 10 6/mcL Normal 4.50-6.00 [facility] ([place]) Comment on above: Performed By: #### C BC, ADIFF, ANEU, BMP, GFR ####[facility] [place] [address] WBC Auto #/vol (Bld) 6.50 10 3/mcL Normal 4.50-10.80 [facility] ([place]) Comment on above: Performed By: #### C BC, ADIFF, ANEU, BMP, GFR ####[facility] [place] [address] Encounters Encounter Date Encounter Type Care Provider Facility Start: 03-16-2024 Emergency department patient visit DIOGENES DICKSON [facility] Start: 03-16-2024 End: 03-17-2024 [facility] Start: 03-16-2024 End: 03-16-2024 Emergency department patient visit GARY Powell CHALINO [facility] Start: 04-30-2018 Patient encounter procedure Xin Howard Facility:[facility] Start: 04-22-2018 End: 04-24-2018 Patient encounter procedure XIN HOWARD Facility:A Payers Date Payer Category Payer Private Health Insurance [id number] 1970 Unknown [id number] [id number] [id number] 1970 Unknown [id number] 2.16.8 [id number] 1970 Unknown [id number] 2.16.8 [id number] 1970 Unknown [id number] 2.16.8 [id number] Unknown [id number] 2.16.8 [id number] Summary Purpose Family History No Family History [...] Records FoundNo Status Records FoundNo Status Records FoundNo Status Records FoundNo Status Records Found INFORMATION SOURCE (unrecogn ized section and content) DATE CREATED AUTHOR 05/20/2018 [facility] DATE CREATED AUTHOR AUTHOR'S ORGANIZ ATION 05/22/2018 [facility] bolivar Sanchez DATE CREATED AUTHOR AUTHOR'S ORGANIZ ATION 10/25/2019 [facility] DATE CREATED AUTHOR AUTHOR'S ORGANIZ ATION 03/22/2024 [facility] DATE CREATED AUTHOR AUTHOR'S ORGANIZ ATION 03/23/2024 [facility] FOR RECORDS PERTAINING TO PATIENTS WHO [...] BE BASED ON THE PRIMARY CLINICAL RECORDS. [employer] [facility]. provides no warranty or guarantee of the accuracy or completeness of information in this document.
[2024-04-09 02:29] VITALS: BP 122/74; PULSE 93; RESP 18; TEMP 37.3; O2SAT 99
[2024-04-09] MEDS: Acetaminophen 325 MG Tablet 650 MG PO ×2 (02:40→09:26)
[2024-04-09 04:20] LABS: Hematocrit 33.8 % (40-54); Hemoglobin 10.4 g/dL (13.0-16.5); Mean Corp Hgb Conc 30.8 g/dL (32-36); Mean Corpuscular Hgb 24.8 pg (27.0-32.0); Mean Corpuscular Volume 80.7 fL (80-94); Platelet Count 359 K/mm3 (150-450); RBC Distribution Width CV 16.7 % (11.6-14.6); RBC Distribution Width SD 48.6 fl (35.1-43.9); Red Blood Count 4.19 M/mm3 (4.6-6.2); White Blood Count 8.3 K/mm3 (4.4-11.0)
[2024-04-09 06:17] VITALS: BP 119/75; PULSE 81; RESP 14; TEMP 36.9; O2SAT 96
[2024-04-09] MEDS: Vancomycin HCl 1,500 MG in 0.9% Normal Saline (500mL Bag) 500 ML 250 MG IV (09:13)
[2024-04-09 10:01] VITALS: BP 120/69; PULSE 78; RESP 18; TEMP 36.8; O2SAT 96
--- NOTE | 2024-04-09 10:29 | PCM.PN.SRG ---
Subjective Subjective Postop #1 from evacuation of hematoma. He states he is having minimal discomfort. Objective Data Objective Data Vital Signs: Vital Signs Temp Pulse Resp BP Pulse Ox O2 Del Method 98.2 F 78 18 120/69 96 Room Air 04/09/24 10:01 04/09/24 10:01 04/09/24 10:01 04/09/24 10:01 04/09/24 10:01 04/09/24 10:01 Oxygen Delivery Method Room Air Weight: 279 lb 1.683 oz Body Mass Index (BMI) 38.9 Intake & Output: Intake and Output for Last 24 Hours 04/07/24 04/08/24 04/09/24 23:59 23:59 23:59 Intake Total 170 / 170 830 / 830 Output Total 662 / 662 580 / 580 Balance -492 / -492 250 / 250 Chalino drain #1- 30 ml since surgery #2- 27 ml since surgery Lab / Micro Data Attestation: I reviewed the patient's lab results. 04/09/24 03:42 04/08/24 18:40 Labs: Laboratory Results - last 24 hr 04/08/24 18:40: Sodium 138, Potassium 4.1, Chloride 104, Carbon Dioxide 27.0, Anion Gap 8, BUN 19 H, Creatinine 0.79, Estim Creat Clear Calc 149.93, Est GFR (MDRD) Af Amer 133, Est GFR (MDRD) Non-Af 110, BUN/Creatinine Ratio 24.1 H, Glucose 100, Calcium 8.9 04/08/24 19:57: Random Vancomycin 9.8 04/09/24 03:42: WBC 8.3, RBC 4.19 L, Hgb 10.4 L, Hct 33.8 L, MCV 80.7, MCH 24.8 L, MCHC 30.8 L, RDW Std Deviation 48.6 H, RDW Coeff of Luigi 16.7 H, Plt Count 359, MPV 9.0 Physical Exam Narrative Right knee/leg flap site healing well. Right thigh donor site is almost healed. Chalino drains draining 30 ml each since surgery yesterday of serosanguineous drainage. Minimal swelling present. Const alert and oriented x3 Eyes General Eye: normal appearance of both eyes Resp normal respiratory effort and normal air movement Effort and Inspection: able to speak in complete sentences Cardio regular rate Assessment & Plan Assessment/Plan (1) Hematoma: (2) Infection and inflammatory reaction due to internal right knee prosthesis, subsequent encounter: PLAN: Plan Patient doing well. Minimal amount of discomfort. He will continue with the knee immobilizer at all times. He will place xeroform gauze over the flap site and the donor site and cover with gauze/ABD/Kerlix. He will keep track of the drainage amount from the drains. He has an appointment on Sunday04/14/24 at 3:00 [address] the wound center with Dr. Jon. He will start his ASA 81 mg daily starting 04/10/24. He will be discharged home today. Charges/Coding Procedures Integumentary 111xxx-113xx: 13010 Global Visit
--- NOTE | 2024-04-09 10:39 | DCINST_ITS ---
Discharge Instructions Diet Discharge Diet: No restrictions (High protein diet. Rick twice daily for protein supplementation. ) Activity Weight Bearing Status: Partial weight bearing Keep extremity elevated above heart level: Operative Extremity Dressing / Incision Call your doctor if your incision/area has: Continuous Slow Oozing, Sudden Increased Bleeding, Increased Pain/ Swelling, Increased Redness, Foul Smelling Discharge and Swelling at the incision site Call your doctor if you observe: Fever of 101 or Higher, Coldness, Increased Pain, Numbness or Tingling, Change in Color, Inability to urinate, Inability to have a bowel movement, Shortness of breath, Chest pain, Calf discomfort and Uncontrolled pain Change Dressing in: 1 day Cleanse incision/area with: Soap & Water Drain: Suction Additional Dressing/Incision Instructions:: Keep track of drain amount and bring sheet to follow up appointment Follow Up Care Please Follow Up With: Fabio Jon MD When: Sunday04/14/24 at 3pm at the wound healing center Test Results: Test results from this visit will be discussed in further detail at your follow- up appointment, if applicable. Discharge Plan Admission Admit Date/Time: 04/08/24 18:10 Attending Provider: Fabio Jon Primary Care Provider: Dominic Santana Instructions Additional Instructions / Restrictions: Orthopedic discharge instructions: 1. Continue extra strength Tylenol 500 mg 2 tablets 3 times daily not exceeding 3000 mg in a 24-hour period. Use narcotic as needed for breakthrough pain. 2. Physical therapy: Continue a knee immobilizer and protection of wound with no flexion. Flexion will be determined by plastics. Okay from orthopedic standpoint for flexion to begin when patient is safe from plastics standpoint. 50% weightbearing right lower extremity. Plastics: 1. DVT prophylaxis is ASA 81 mg starting 04/10/24. 2. Keep knee immobilizer on with no knee flexion. 3. Wear foot drop splint when not ambulating (sitting and at bedtime x 6 weeks). 4. Keep right leg elevated when sitting. 5. No pressure over flap site on right lateral leg/knee. 6. Dressing is Xeroform gauze over flap site and donor site covered with gauze or ABD. May use Kerlix to secure. СВЕТЛАНА wrap on right foot and lower leg but not over the flap site. Discharge Orders/Prescriptions Prescriptions: No Action aspirin [Adult Aspirin Regimen] 81 mg tablet,delayed release (/EC) 81 mg PO DAILY testosterone 100 mg/mL suspension 1 mg IM .Q2WEEK ceftriaxone 2 gram recon soln 2 g IV DAILY 32 Days Rx Instructions: stop date 05/02/24. Dx: PJI Weekly bmp, cbc, vanc trough, and esr. Fax to [phone]. Routine picc care per protocol. vancomycin 1.5 gram recon soln 1.5 g IV Q12H 32 Days Rx Instructions: stop date 05/02/24. Dx: PJI Weekly bmp, cbc, vanc trough, and esr. Fax to [phone]. Routine picc care per protocol. oxycodone 5 mg tablet 5 mg PO Q4H PRN (Reason: pain (scale score 7-10)) 7 Days Qty: 20 0RF ondansetron 4 mg tablet,disintegrating 4 mg PO Q8H PRN (Reason: nausea and vomiting) 5 Days Qty: 10 0RF polyethylene glycol 3350 [Miralax] 17 gram/dose powder 17 g PO DAILY PRN (Reason: constipation) 10 Days Qty: 119 0RF Referrals / Follow Up: Dominic Santana MD [Primary Care Provider] - Disposition Disposition (needs filled in before D/C Order can be placed): Home, Self Care
--- NOTE | 2024-04-09 11:07 | CASEMGMT ---
Addendum entered by Melly Cardozo 04/09/24 12:03: SAGE MARQUEZ into pt room, he is aware that the med dose was changed but his dc paperwork will not reflect this. He is aware that [facility] has the correct orders and will deliver updated dose this evening. He is also aware that [facility] will see him tomorrow. He denies further questions at this time. Addendum entered by Melly Cardozo 04/09/24 11:59: Notified Ros at [facility] that pt dose was changed yesterday per ID to 1.75 g BID of vanc. She is aware that dc instructions state 1.5 grams as this was a previous dose and just resumed. [facility] to see pt tomorrow. Addendum entered by Melly Cardozo 04/09/24 11:56: Received notification back from Dr. Valero to contact his office. TC to Emily at Dr. Valero's office. She states she called [facility] yesterday to increase vanc to 1.75 grams bid. TC to [facility], spoke with Ariadne who confirmed that the order was received. She is aware that pt is dc'ing from hospital today and does not have the correct dose at home. She states to send dc information. She is aware that dose on dc instructions state previous dose. Updated Jeanna on dose change per ID. Addendum entered by Melly Cardozo 04/09/24 11:33: Received notification that the vanc dose should be addressed with Dr. Valero. Message sent to him at this time. Original Note: SAGE MARQUEZ into pt room, pt sitting up in chair. Pt states that the [facility] is going well, his is doing the IV's at home without difficulty. Pt with concerns that he is receiving vancomycin 1500mg instead of 1750mg which is what Dr. Valero ordered from labs on Sunday. SAGE MARQUEZ noted orders on dc instructions state 1500mg. Message sent to Jeanna to confirm. Will await response. Pt has 2 MARILYNN drains. He states he had these last time and is comfortable with the care of them. Pt came in room at end of discussion. Plan for pt to dc today. TC to [facility], spoke with Ros, she is aware pt will dc today.
[2024-04-09] MEDS: Ceftriaxone 2 GM in 0.9% Normal Saline (50mL MB+) 50 ML IV (11:48)
[2024-04-09 12:50] VITALS: BP 121/76; PULSE 70; RESP 18; TEMP 37.2; O2SAT 98
== END 2024-04-09 13:09 | disposition home health service (06) ==
LOC: SDC 22:48 → MS3 22:48
PROVIDERS: Admitting Provider Surgery Plastic and Reconstructive Surgery; PCP Family Medicine; Referring Provider Surgery Plastic and Reconstructive Surgery; Visit Provider Surgery Plastic and Reconstructive Surgery
PROC: (CPT 27603; principal; 2024-04-08 15:15)
DX: L76.32 Postprocedural hematoma of skin and subcutaneous tissue following other procedure (principal); T81.43XD Infection following a procedure, organ and space surgical site, subsequent encounter; Y83.8 Other surgical procedures as the cause of abnormal reaction of the patient, or of later complication, without mention of misadventure at the time of the procedure; F17.220 Nicotine dependence, chewing tobacco, uncomplicated; M19.90 Unspecified osteoarthritis, unspecified site; Z79.899 Other long term (current) drug therapy; Z79.82 Long term (current) use of aspirin; Y79.2 Prosthetic and other implants, materials and accessory orthopedic devices associated with adverse incidents
CPT/HCPCS: 27603; 01470; 36415; 80048; 80202; 85027; 96365; 96366; 96367; 99221; J7040; J7120; G0378; J0696; J2405

== ENCOUNTER 2024-04-16 11:01 | Outpatient (CLI) | payer OTHER, SELFPAY ==
[2024-04-16] MEDS: Alteplase 2 MG/2 ML Vial IV ×2 (11:32)
== END 2024-04-16 23:59 | disposition home or self-care (01) ==
LOC: MEDOUTP 11:02
PROVIDERS: PCP Family Medicine; Referring Provider Internal Medicine Infectious Disease; Visit Provider Internal Medicine Infectious Disease
DX: T84.59XA Infection and inflammatory reaction due to other internal joint prosthesis, initial encounter (principal); X58.XXXA Exposure to other specified factors, initial encounter
CPT/HCPCS: 96374; 36593; J2997; A4216

== ENCOUNTER 2024-04-22 09:59 | Outpatient (RCR) | payer OTHER, SELFPAY ==
[2024-04-14 12:41] LABS: Erythrocyte Sedimentation Rate 40 mm/hr (0-20)
[2024-04-14 12:47] LABS: Hematocrit 37.4 % (40-54); Hemoglobin 11.2 g/dL (13.0-16.5); Mean Corp Hgb Conc 29.9 g/dL (32-36); Mean Corpuscular Hgb 24.7 pg (27.0-32.0); Mean Corpuscular Volume 82.6 fL (80-94); Mean Platelet Vol. 9.5 fl (6.2-12.0); Platelet Count 361 K/mm3 (150-450); RBC Distribution Width CV 16.7 % (11.6-14.6); RBC Distribution Width SD 49.8 fl (35.1-43.9); Red Blood Count 4.53 M/mm3 (4.6-6.2); White Blood Count 5.9 K/mm3 (4.4-11.0)
[2024-04-14 13:08] LABS: Vancomycin, Trough Level 9.3 ug/mL (5.0-15.0)
[2024-04-14 13:11] LABS: Anion Gap 7 (5-15); BUN 16 mg/dL (7-18); BUN/Creat Ratio 20.9 RATIO (10-20); Calcium,Total 9.2 mg/dL (8.5-10.1); Chloride 105 mmol/L (98-107); Creatinine, Serum 0.76 mg/dL (0.70-1.30); EST Glomerular Filtration Rate 114 mL/min (>60); Est Glom Filt Rate - Afr Amer 138 mL/min (>60); Glucose 94 mg/dL (74-106); Potassium 4.3 mmol/L (3.5-5.1); Sodium Level 137 mmol/L (136-145)
[2024-04-22 11:40] LABS: Hematocrit 36.9 % (40-54); Hemoglobin 11.2 g/dL (13.0-16.5); Mean Corp Hgb Conc 30.4 g/dL (32-36); Mean Corpuscular Hgb 24.7 pg (27.0-32.0); Mean Corpuscular Volume 81.3 fL (80-94); Mean Platelet Vol. 9.7 fl (6.2-12.0); Platelet Count 315 K/mm3 (150-450); RBC Distribution Width CV 16.2 % (11.6-14.6); RBC Distribution Width SD 47.8 fl (35.1-43.9); Red Blood Count 4.54 M/mm3 (4.6-6.2); White Blood Count 7.2 K/mm3 (4.4-11.0)
[2024-04-22 11:43] LABS: Anion Gap 7 (5-15); BUN 22 mg/dL (7-18); BUN/Creat Ratio 29.3 RATIO (10-20); Calcium,Total 9.1 mg/dL (8.5-10.1); Chloride 108 mmol/L (98-107); Creatinine, Serum 0.75 mg/dL (0.70-1.30); EST Glomerular Filtration Rate 116 mL/min (>60); Est Glom Filt Rate - Afr Amer 141 mL/min (>60); Glucose 97 mg/dL (74-106); Sodium Level 139 mmol/L (136-145)
[2024-04-22 12:49] LABS: Vancomycin, Trough Level 12.3 ug/mL (5.0-15.0)
[2024-04-22 14:09] LABS: Erythrocyte Sedimentation Rate 26 mm/hr (0-20)
[2024-04-29 12:18] LABS: Erythrocyte Sedimentation Rate 25 mm/hr (0-20)
[2024-04-29 12:21] LABS: Anion Gap 6 (5-15); BUN 17 mg/dL (7-18); BUN/Creat Ratio 24.7 RATIO (10-20); Calcium,Total 8.8 mg/dL (8.5-10.1); Chloride 109 mmol/L (98-107); Creatinine, Serum 0.69 mg/dL (0.70-1.30); EST Glomerular Filtration Rate 128 mL/min (>60); Est Glom Filt Rate - Afr Amer 155 mL/min (>60); Glucose 98 mg/dL (74-106); Potassium 3.8 mmol/L (3.5-5.1); Sodium Level 140 mmol/L (136-145)
[2024-04-29 12:23] LABS: Hematocrit 37.1 % (40-54); Mean Corp Hgb Conc 29.6 g/dL (32-36); Mean Corpuscular Hgb 24.1 pg (27.0-32.0); Mean Corpuscular Volume 81.4 fL (80-94); Mean Platelet Vol. 9.6 fl (6.2-12.0); Platelet Count 309 K/mm3 (150-450); RBC Distribution Width SD 47.9 fl (35.1-43.9); Red Blood Count 4.56 M/mm3 (4.6-6.2); White Blood Count 5.2 K/mm3 (4.4-11.0)
[2024-04-29 12:47] LABS: Vancomycin, Trough Level 12.6 ug/mL (5.0-15.0)
== END 2024-05-10 18:00 | disposition home or self-care (01) ==
LOC: HHLAB 09:59
PROVIDERS: PCP Family Medicine; Visit Provider Internal Medicine Infectious Disease
DX: T84.53XA Infection and inflammatory reaction due to internal right knee prosthesis, initial encounter (principal)
CPT/HCPCS: 80048; 80202; 85027; 85652

== ENCOUNTER 2024-05-05 14:45 | Outpatient (RCR) | payer OTHER, SELFPAY ==
[2024-04-11 00:54] VITALS: BP 126/69; PULSE 72; RESP 16; TEMP 36.6; BMI 39.7
[2024-04-14 14:44] VITALS: BP 147/94; PULSE 83; RESP 16; TEMP 36.1; BMI 39.7
--- NOTE | 2024-04-14 21:30 | PCM.PN.SRG ---
Subjective Subjective Doing well overall. <10 cc from drains in last 24 hours from the calf. Minimal pain . Objective Data Objective Data Vital Signs: Vital Signs Temp Pulse Resp BP O2 Del Method 96.9 F L 83 16 147/94 H Room Air 04/14/24 14:44 04/14/24 14:44 04/14/24 14:44 04/14/24 14:44 04/14/24 14:44 Oxygen Delivery Method Room Air Weight: 285 lb Body Mass Index (BMI) 39.7 Physical Exam Narrative Right knee/leg flap site healing well with skin graft 100% take. Right thigh donor site has healed. [place] drains SS. Minimal swelling present. Const alert and oriented x3 Eyes General Eye: normal appearance of both eyes Resp normal respiratory effort and normal air movement Effort and Inspection: able to speak in complete sentences Cardio regular rate Assessment & Plan Assessment/Plan (1) Hematoma: (2) Infection and inflammatory reaction due to internal right knee prosthesis, subsequent encounter: PLAN: Plan One drain removed from the calf today, the other left in place I removed sutures from the knee incision for Dr. Agrawal upon request. I will likely remove the other drain and the bonnie next week in clinic Continue ASA for DVT pxx. per Orthopedics. Continue knee immobilizer (extension) for another week (3 weeks out now). Charges/Coding Procedures Integumentary 111xxx-113xx: 49816 Global Visit
--- NOTE | 2024-04-16 13:29 | WC ---
PHOTO 04/14/24 RIGHT UPPER THIGH
[2024-04-21 15:15] VITALS: BP 141/94; PULSE 77; RESP 16; TEMP 36.1; BMI 39.7
--- NOTE | 2024-04-21 17:27 | PN.PCM_ITS ---
History of Present Illness Date of Service: 04/21/24 Subjective Subjective Doing well overall. Minimal drain output. Objective Data Objective Data Vital Signs: Vital Signs Temp Pulse Resp BP O2 Del Method 96.9 F L 77 16 141/94 H Room Air 04/21/24 15:15 04/21/24 15:15 04/21/24 15:15 04/21/24 15:15 04/21/24 15:15 Oxygen Delivery Method Room Air Weight: 285 lb Body Mass Index (BMI) 39.7 Charges/Coding Procedures Integumentary 111xxx-113xx: 51903 Global Visit Physical Exam Narrative Right knee/leg flap site healing well with skin graft 95% take (some of the proximal portion had scab removed today and has open wound over muscle). Right thigh donor site has healed. [place] drains SS (removed) Minimal swelling present. Const alert and oriented x3 Eyes General Eye: normal appearance of both eyes Resp normal respiratory effort and normal air movement Effort and Inspection: able to speak in complete sentences Cardio regular rate Debridement Note Debridement Note Post-Debridement Measurements and Additional Note: Post-Debridement Measurements/Treatment - Nurse 1 - General Ulcer Assessment Start: 04/14/24 14:44 Freq: Status: Active Protocol: MITCH.CARLY Activity Type Activity Date Activity User E-sign Co-sign Detail Recorded Client Recorded Date Recorded By Document 04/14/24 14:44 [facility] [id number] 04/14/24 15:00 [facility] Document 04/21/24 15:15 [id number] 04/21/24 15:26 KW 04/14/24 04/21/24 14:44 15:15 - Today's Visit Information Type of service Follow-up Visit Follow-up Visit (Physician/DIRECTOR OF SPECIAL SERVICES (Physician/DIRECTOR OF SPECIAL SERVICES ) ) Arrival Mode Ambulatory, Ambulatory Walker Transfer Assistance None Accompanied by Patient Identification Verified (Name & Yes Yes ) Patient Requires Transmission-Based No Precautions Height and Weight Body Mass Index (BMI) 39.7 39.7 BMI Classification Obese Obese Vital Signs Temperature (97.8 F-99.1 F) 96.9 F L 96.9 F L Temperature Source Temporal Temporal Pulse Rate (60-100) 83 77 Pulse Location Monitor Monitor Respiratory Rate (12-18) 16 16 Respiratory rate source Observation Observation Oxygen Delivery Method Room Air Room Air Blood Pressure (90/60-120/80) 147/94 H 141/94 H Blood Pressure Mean (mm Hg) 111 109 Source Monitor Monitor Position Sitting Sitting Blood Pressure Location Left Arm Left Arm History Since Last Visit- (Skip if this is Patient's initial visit) Have you changed medications since your No No last visit? Any new allergies or adverse reactions No No Had a fall/change in ADL's that may No No increase risk of falls Signs or symptoms of abuse and/or No No neglect since last visit Have you been in the hospital since your No No last visit? Has dressing in place as prescribed Yes Yes Has compression in place as prescribed Yes Yes Has offloadiing in place as prescribed Yes Yes Experienced any changes in pain level or No No management Left Footwear Regular Shoe Regular Shoe Right Footwear Regular Shoe Regular Shoe Pain Scale: 0-10 Numeric Is Patient Pain Free? Yes Yes WC - Nurse 1 - General Ulcer Measurement Start: 04/14/24 14:44 Freq: Status: Active Protocol: Activity Type Activity Date Activity User E-sign Co-sign Detail Recorded Client Recorded Date Recorded By Document 04/14/24 14:44 [facility] [id number] 04/14/24 15:00 [facility] Document 04/21/24 15:15 [id number] 04/21/24 15:26 KW 04/14/24 04/21/24 14:44 15:15 Wound Center Nurse 1 #2 RT UPPER THIGH GRAFT SITE -Combined with other wound No -Current Size (cm) - Length 0.1 0 -Current Size (cm) - Width 0.1 0 -Current Size (cm) - Depth 0.1 0 -Total Square Cm 0.01 0 -Date of Last Picture (Recall this 04/14/24 field) -Photo Taken Yes -Epithelialization Large 67-100% -Texture (María-wound Skin Appearance) Assessed -Moisture (María-wound Skin Appearance) Assessed,Dry/ Scaly -Color (María-wound Skin Appearance) Assessed -Temperature (María-wound Skin No Abnormality Appearance) (Pt Warm) -Tenderness on Palpation (María-wound No Skin Appearance) #1 RT KNEE POST OP -Combined with other wound No -Current Size (cm) - Length 0.1 0.8 -Current Size (cm) - Width 0.1 0.3 -Current Size (cm) - Depth 0.1 0.1 -Total Square Cm 0.01 0.24 -Date of Last Picture (Recall this 04/14/24 field) -Photo Taken Yes -Exudate Amt Small None Present -Exudate Type Serosanguineous -Granulation Amt Small (1-33%) -Granulation Quality [place] -Texture (María-wound Skin Appearance) Assessed Assessed -Moisture (María-wound Skin Appearance) Assessed Assessed -Color (María-wound Skin Appearance) Assessed Assessed -Temperature (María-wound Skin No Abnormality No Abnormality Appearance) (Pt Warm) (Pt Warm) -Tenderness on Palpation (María-wound No No Skin Appearance) -Ulcer Cleansing Soap and Water Rinsed/ Irrigated with Saline -Foul Odor after Cleansing No No -Anesthetic Used 4% Lidocaine Solution Lower Limb Edema Present Yes Right Calf (cm) 45.5 Right Ankle (cm) 26.3 WC - Nurse 2 - General Ulcer CM Notes Start: 04/14/24 14:44 Freq: Status: Active Protocol: Activity Type Activity Date Activity User E-sign Co-sign Detail Recorded Client Recorded Date Recorded By Document 04/14/24 15:47 [id number] 04/14/24 15:53 Document 04/21/24 15:53 [id number] 04/21/24 16:07 04/14/24 04/21/24 15:47 15:53 Wound Center Nurse 2 #2 RT UPPER THIGH GRAFT SITE -Correct Patient No -Correct Side, Site, Position No -Correct Procedure No -Procedure Performed No -Wound/Ulcer Outcome Not Healed -Debridement - Subq, 1st 20sq cm No #1 RT KNEE POST OP -Time 15:56 -Correct Patient No No -Correct Side, Site, Position No No -Correct Procedure No No -Procedure Performed No No -Post Debridement (cm) - Length 1.5 -Post Debridement (cm) - Width 1.5 -Post Debridement (cm) - Depth 0.3 -Total Square (Post) (cm) 2.25 -Area of Debridement (cm) - Length 1.5 -Area of Debridement (cm) - Width 1.5 -Total Square (Area) (cm) 2.25 -Tunneling No -Undermining/Tunneling No -Circular Undermining No -Wound/Ulcer Outcome Not Healed Not Healed -Ulcer Cleansing Rinsed/ Irrigated with Saline -Foul Odor after Cleansing No -Bioengineered Tissue No -Bleeding Controlled with Pressure -Treatment Response Procedure Tolerated Well -Offloading No -Debridement - Subq, 1st 20sq cm No Pain Scale: 0-10 Numeric Is Patient Pain Free? Yes Yes - Nurse 3 - General Ulcer D/C NN Start: 04/14/24 14:44 Freq: Status: Active Protocol: Activity Type Activity Date Activity User E-sign Co-sign Detail Recorded Client Recorded Date Recorded By Document 04/14/24 15:57 [id number] 04/14/24 15:57 Document 04/21/24 16:16 [facility] [id number] 04/21/24 16:17 [facility] 04/14/24 04/21/24 15:57 16:16 Wound Care Center Nurse 3 #2 RT UPPER THIGH GRAFT SITE -Other Dressing xeroform -Primary Dressing Covered/Secured with Dry Gauze, Secured with Tape #1 RT KNEE POST OP -Foul Odor after Cleansing No -Primary Dressing Applied NonAdherent Contact Layer -Other Dressing knee wound w/ depth packed per dr nolan -Primary Dressing Covered/Secured with Dry Gauze, Secured with Secured with Tape Tape -Other Covering xeroform to superficial areas per this nurse; abd Treatment Response Procedure Tolerated Well Pain Scale: 0-10 Numeric Is Patient Pain Free? Yes Yes - Visit Discharge Discharge Condition Stable Ambulatory Status Ambulatory, Crutches Transportation Private Auto Accompanied by Assessment/Plan Assessment/Plan (1) Infection and inflammatory reaction due to internal right knee prosthesis, subsequent encounter: CODE(S): T84.53XD - Infection and inflammatory reaction due to internal right knee prosthesis, subsequent encounter (2) Acute post-operative pain: CODE(S): G89.18 - Other acute postprocedural pain (3) Hematoma: CODE(S): T14.8XXA - Other injury of unspecified body region, initial encounter PLAN: Plan Drain removed today without any problems. Some of the bonnie removed WTD dressing changes over the proximal portion of the gastroc flap to promote granulation. F/u on , 24 Apr 2024, to check progress. Continue knee extension (no bending)
[2024-04-28 14:00] VITALS: BP 139/82; PULSE 72; RESP 18; TEMP 35.8; BMI 39.7
--- NOTE | 2024-04-28 18:09 | PCM.PN.SRG ---
Subjective Subjective Doing well overall. No fevers/chills or drainage. Objective Data Objective Data Vital Signs: Vital Signs Temp Pulse Resp BP O2 Del Method 96.5 F L 72 18 139/82 H Room Air 04/28/24 14:00 04/28/24 14:00 04/28/24 14:00 04/28/24 14:00 04/21/24 15:15 Oxygen Delivery Method Room Air Weight: 285 lb Body Mass Index (BMI) 39.7 Physical Exam Narrative Right knee/leg flap site healing well with skin graft 95% take. Small wound proximally and distally, superficial and does not tack deep. No drainage. Right thigh donor site has healed. [place] removed today Minimal swelling present. Const alert and oriented x3 Eyes General Eye: normal appearance of both eyes Resp normal respiratory effort and normal air movement Effort and Inspection: able to speak in complete sentences Cardio regular rate Assessment & Plan Assessment/Plan (1) Infection and inflammatory reaction due to internal right knee prosthesis, subsequent encounter: PLAN: Discussed with Dr. Agrawal (orthopedics) Patient will f/u with Dr. Agrawal soon for surgical planning. Continue knee extension from my standpoint for another week with TID dressing changes to small wounds (Saline-soaked gauze). F/u in 1 week Charges/Coding Procedures Integumentary 111xxx-113xx: 24864 Global Visit
[2024-05-05 14:29] VITALS: BP 125/77; PULSE 80; RESP 16; TEMP 36.1; BMI 39.7
--- NOTE | 2024-05-05 17:04 | PCM.PN.BLA ---
Progress Note Doing well overall. Compliant with WTD dressings. Reports no drainage from the wound. No fevers/chills. Physical Exam Narrative Right knee/leg flap site healing well with skin graft 95% take. Small wound proximally and distally, superficial and does not tack deep (1 cm). No drainage. Right thigh donor site has healed. Minimal swelling present. Const alert and oriented x3 Eyes General Eye: normal appearance of both eyes Resp normal respiratory effort and normal air movement Effort and Inspection: able to speak in complete sentences Cardio regular rate Assessment & Plan Assessment/Plan (1) Infection and inflammatory reaction due to internal right knee prosthesis, subsequent encounter: PLAN: O.K. to bend right knee (muscle flap is in place, most of skin graft has healed). D.C. knee immobilizer and continue 50% weight bearing (per orthopedics). Plan is for patient to see orthopedics (Dr. Agrawal) on 07 May 2024, to assess and for PT. O.K. for ROM from plastics standpoint. As for proximal wound, it just needs help granulating in from inside out. I do not see any foreign body or any reason to believe there is a draining sinus. To speed things up/promote granulation/closure, I've ordered a wound VAC for three times weekly dressing changes with NPWT. Patient and his , Yolis, are happy with the plan. Continue BID WTD dressings until the VAC is delivered. F/u with me next week Patient has finished IV antibiotics per ID and understands concerning signs/symptoms of return infection. Procedures Integumentary 111xxx-113xx: [id number] Global Visit
== END 2024-05-10 23:59 | disposition home or self-care (01) ==
LOC: WC 14:45
PROVIDERS: PCP Family Medicine; Referring Provider Surgery Plastic and Reconstructive Surgery; Visit Provider Surgery Plastic and Reconstructive Surgery
DX: T84.53XD Infection and inflammatory reaction due to internal right knee prosthesis, subsequent encounter (principal); Z96.651 Presence of right artificial knee joint; G89.18 Other acute postprocedural pain
CPT/HCPCS: 11042; 99214; G0463

== ENCOUNTER → 2024-05-07 | Outpatient (CLI) | payer OTHER, SELFPAY ==
[2024-05-07 15:54] LABS: Erythrocyte Sedimentation Rate 20 mm/hr (0-20)
[2024-05-07 15:55] LABS: Absolute Lymphocyte Count 1.83 X10^3/uL (0.83-4.51); Absolute Neutrophil Count 2.8 X10^3/uL (2.0-7.7); Basophil# 0.03 X10^3/uL; Basophil% 0.5 % (0-1); Eosinophils% 5.3 % (0-5); Hematocrit 38.6 % (40-54); Hemoglobin 11.8 g/dL (13.0-16.5); Lymphocyte # 1.83 X10^3/ul (0.83-4.51); Lymphocyte % 32.2 % (19-41); Mean Corp Hgb Conc 30.6 g/dL (32-36); Mean Corpuscular Hgb 24.3 pg (27.0-32.0); Mean Corpuscular Volume 79.6 fL (80-94); Mean Platelet Vol. 10.1 fl (6.2-12.0); Monocyte# 0.68 X10^3/uL; NRBC Flagged by Analyzer 0 % (0-5); Neutrophil # 2.84 X10^3/uL (2.7-7.7); Neutrophil % 49.8 % (47-70); Platelet Count 311 K/mm3 (150-450); RBC Distribution Width SD 46.3 fl (35.1-43.9); Red Blood Count 4.85 M/mm3 (4.6-6.2); White Blood Count 5.7 K/mm3 (4.4-11.0)
[2024-05-07 16:14] LABS: CRP 6.55 mg/L (0.0-3.0)
== END | disposition home or self-care (01) ==
LOC: MTLAB 11:12
PROVIDERS: PCP Family Medicine; Referring Provider Specialist; Visit Provider Specialist
DX: T84.53XD Infection and inflammatory reaction due to internal right knee prosthesis, subsequent encounter (principal); X58.XXXD Exposure to other specified factors, subsequent encounter
CPT/HCPCS: 36415; 85025; 85652; 86140

== ENCOUNTER 2024-05-21 11:28 | Outpatient (RCR) | payer OTHER, SELFPAY ==
[2024-05-21 11:56] LABS: Erythrocyte Sedimentation Rate 20 mm/hr (0-20)
[2024-05-21 12:13] LABS: CRP 6.75 mg/L (0.0-3.0)
== END 2024-05-21 18:00 | disposition home or self-care (01) ==
LOC: HHLAB 11:28
PROVIDERS: PCP Family Medicine
DX: T84.53XA Infection and inflammatory reaction due to internal right knee prosthesis, initial encounter (principal)
CPT/HCPCS: 85652; 86140

== ENCOUNTER 2024-06-02 14:30 | Outpatient (RCR) | payer OTHER, SELFPAY ==
[2024-05-11 00:29] VITALS: BP 126/69; PULSE 72; RESP 16; TEMP 36.6; BMI 39.7
[2024-05-12 13:53] VITALS: BP 156/79; PULSE 72; RESP 18; TEMP 36.8; BMI 39.7
--- NOTE | 2024-05-12 15:11 | PCM.WC.PN ---
History of Present Illness Date of Service: 05/12/24 Chief Complaint: Right lateral knee ulcer History of Wound: Phoenix Fulton is a 53-year-old male who has a history of right ACL reconstruction followed by a total knee replacement in 2018 by a surgeon from an outside hospital. The patient recently presented to [facility] (Dr. Agrawal) with 2 draining sinuses over the lateral knee. His x-ray demonstrated tibial baseplate loosening and bony erosions. Dr. Agrawal recommended operative intervention with a two-stage revision of his knee. The patient was taken back to the operating room 21 March 2024, by Dr. Agrawal where right knee explantation and placement of an articulating antibiotic spacer was performed, followed by debridement of the lateral knee wound and its sinus tracts. Cultures were taken. Plastic surgery was consulted intraoperatively for the wound and the defect was photographed. The sinuses tracked down to the joint via a small joint opening on the lateral aspect of the knee. Dr. Agrawal would like muscle coverage over this opening to seal off the joint. 24 March 2024, surgery by Dr. Jon for Excision of wound bed, necrotic fat and fascia 8x 5 cm and Placement of irrigating wound VAC, not disposable, <50 cm ^2. [address] Jon for Excision of wound bed, necrotic fat and fascia, 8 x 5 cm and Neuroplasty common peroneal nerve (release of fibular tunnel) and Right lateral gastrocnemius myocutaneous flap for reconstruction of right knee wound and 8 x 5 cm split-thickness skin graft, 12/1,000th of an inch (right thigh) with [facility]. Discharged home 31 March 2024. Developed a hematoma after Chalino drains removed. 08 April 2024, surgery for evacuation of right leg hematoma. Progress of Wound: Current Encounter 12 May 2024: He is doing well. He has had some concerns about the wound VAC placement. Will have his instructed how to place the wound VAC to do his dressing changes. Overall, his proximal wound is nice beefy pink with less depth. The distal wound is smaller in size. He has some edema (+1) of his right leg/knee area, this could be slowing the healing process down. Objective Data Objective Data Vital Signs: Vital Signs Temp Pulse Resp BP 98.3 F 72 18 156/79 H 05/12/24 13:53 05/12/24 13:53 05/12/24 13:53 05/12/24 13:53 Weight: 285 lb Body Mass Index (BMI) 39.7 Charges/Coding Procedures Integumentary 111xxx-113xx: [id number] Global Visit Physical Exam Narrative Right lateral leg/knee proximal ulcer is nice beefy pink, with decrease depth. Distal ulcer is healing well. Debridement Note Debridement Note Wound debrided: knee superior and inferior wounds Laterality: Right Type of Debridement: Excisional debridement Anesthesia Used: 5% Lidocaine Gel Depth: Down to and including healthy tissue and in the subcutaneous layer Percentage of wound debrided: 100 Instrument Used: 5mm curette Tissue Removed: Non viable tissue and slough Severity: Fat Layer Exposed Amount of bleeding with debridement: Mild Bleeding Controlled with: Compression and gauze Patient tolerated procedure: Patient tolerated procedure well Post-Debridement Measurements and Additional Note: Post-Debridement Measurements/Treatment WC - Nurse 1 - General Ulcer Assessment Start: 05/12/24 13:53 Freq: Status: Active Protocol: KOMAL Activity Type Activity Date Activity User E-sign Co-sign Detail Recorded Client Recorded Date Recorded By Document 05/12/24 13:53 DL [id number] 05/12/24 14:03 DL 05/12/24 13:53 WC - Today's Visit Information Type of service Follow-up Visit (Physician/FACILITIES COORDINATOR ) Arrival Mode Ambulatory Transfer Assistance None Patient Identification Verified (Name & Yes ) Patient Requires Transmission-Based No Precautions Height and Weight Body Mass Index (BMI) 39.7 BMI Classification Obese Vital Signs Temperature (97.8 F-99.1 F) 98.3 F Temperature Source Temporal Pulse Rate (60-100) 72 Pulse Location Monitor Respiratory Rate (12-18) 18 Respiratory rate source Observation Blood Pressure (90/60-120/80) 156/79 H Blood Pressure Mean (mm Hg) 104 Source Monitor History Since Last Visit- (Skip if this is Patient's initial visit) Have you changed medications since your No last visit? Any new allergies or adverse reactions No Had a fall/change in ADL's that may No increase risk of falls Signs or symptoms of abuse and/or No neglect since last visit Have you been in the hospital since your No last visit? Has dressing in place as prescribed Yes Has compression in place as prescribed N/A Has offloadiing in place as prescribed N/A Experienced any changes in pain level or No management Pain Scale: 0-10 Numeric Is Patient Pain Free? Yes WC - Nurse 1 - General Ulcer Measurement Start: 05/12/24 13:53 Freq: Status: Active Protocol: Activity Type Activity Date Activity User E-sign Co-sign Detail Recorded Client Recorded Date Recorded By Document 05/12/24 13:53 DL [id number] 05/12/24 14:03 DL 05/12/24 13:53 Wound Center Nurse 1 #3 R Knee Sup -Current Size (cm) - Length 0.8 -Current Size (cm) - Width 0.8 -Current Size (cm) - Depth 0.8 -Total Square Cm 0.64 -Photo Taken Yes -Exudate Amt Medium -Wound Margin Distinct, Outline Attached -Granulation Amt Large (67-100%) -Granulation Quality Red -Necrosis Amt None Present (0 %) -Structure Exposed N/A -Texture (María-wound Skin Appearance) Scarring -Moisture (María-wound Skin Appearance) No Abnormality -Color (María-wound Skin Appearance) No Abnormality -Temperature (María-wound Skin No Abnormality Appearance) (Pt Warm) -Tenderness on Palpation (María-wound No Skin Appearance) -Ulcer Cleansing Soap and Water -Foul Odor after Cleansing No -Anesthetic Used 5% Lidocaine Gel #1 RT KNEE POST OP -Current Size (cm) - Length 1 -Current Size (cm) - Width 0.2 -Current Size (cm) - Depth 0.1 -Total Square Cm 0.2 -Photo Taken Yes -Exudate Amt Small -Exudate Type Serosanguineous -Wound Margin Distinct, Outline Attached -Granulation Amt Small (1-33%) -Granulation Quality [place] -Necrosis Amt Small (1-33%) -Necrotic Tissue Type Adherent Slough -Structure Exposed N/A -Texture (María-wound Skin Appearance) Scarring -Moisture (María-wound Skin Appearance) No Abnormality -Color (María-wound Skin Appearance) No Abnormality -Temperature (María-wound Skin No Abnormality Appearance) (Pt Warm) -Tenderness on Palpation (María-wound No Skin Appearance) -Ulcer Cleansing Soap and Water -Foul Odor after Cleansing No -Anesthetic Used 5% Lidocaine Gel WC - Nurse 2 - General Ulcer CM Notes Start: 05/12/24 13:53 Freq: Status: Active Protocol: Activity Type Activity Date Activity User E-sign Co-sign Detail Recorded Client Recorded Date Recorded By Document 05/12/24 14:13 RENE [id number] 05/12/24 14:17 RENE 05/12/24 14:13 Wound Center Nurse 2 #3 R Knee Sup -Time 14:14 -Correct Patient Yes -Correct Side, Site, Position Yes -Correct Procedure Yes -Procedure Performed Yes -Type of Procedure Debridement -Clinical Debridement Subcutaneous -Tissue Removed Subcutaneous -Post Debridement (cm) - Length 1 -Post Debridement (cm) - Width 1 -Post Debridement (cm) - Depth 0.8 -Total Square (Post) (cm) 1 -Area of Debridement (cm) - Length 1 -Area of Debridement (cm) - Width 1 -Total Square (Area) (cm) 1 -Tunneling No -Undermining/Tunneling No -Circular Undermining No -Wound/Ulcer Outcome Not Healed -Ulcer Cleansing Rinsed/ Irrigated with Saline -Foul Odor after Cleansing No -Bioengineered Tissue No -Bleeding Controlled with Pressure -Treatment Response Procedure Tolerated Well -Offloading No -Debridement - Subq, 1st 20sq cm No -Debridement - Muscle / Fascia, 1st No 20sq cm #1 RT KNEE POST OP -Time 14:14 -Correct Patient Yes -Correct Side, Site, Position Yes -Correct Procedure Yes -Procedure Performed Yes -Type of Procedure Debridement -Clinical Debridement Subcutaneous -Tissue Removed Subcutaneous -Post Debridement (cm) - Length 1.8 -Post Debridement (cm) - Width 0.5 -Post Debridement (cm) - Depth 0.1 -Total Square (Post) (cm) 0.90 -Area of Debridement (cm) - Length 1.8 -Area of Debridement (cm) - Width 0.5 -Total Square (Area) (cm) 0.90 -Tunneling No -Undermining/Tunneling No -Circular Undermining No -Wound/Ulcer Outcome Not Healed -Ulcer Cleansing Rinsed/ Irrigated with Saline -Foul Odor after Cleansing No -Bioengineered Tissue No -Bleeding Controlled with Pressure -Treatment Response Procedure Tolerated Well -Offloading No -Debridement - Subq, 1st 20sq cm Yes Pain Scale: 0-10 Numeric Is Patient Pain Free? Yes WC - Nurse 3 - General Ulcer D/C NN Start: 05/12/24 13:53 Freq: Status: Active Protocol: Activity Type Activity Date Activity User E-sign Co-sign Detail Recorded Client Recorded Date Recorded By Document 05/12/24 14:46 DL [id number] 05/12/24 14:48 DL 05/12/24 14:46 Wound Care Center Nurse 3 #3 R Knee Sup -Ulcer Cleansing Soap and Water -Foul Odor after Cleansing No -Negative Pressure Wound Therapy Continue -Setting (mmHg) 125 -Negative Pressure is Continuous -NPWT Application Charge NPWT & Debridement (nc ) #1 RT KNEE POST OP -Ulcer Cleansing Soap and Water -Foul Odor after Cleansing No -Primary Dressing Applied Promogran Cristine Matter -Primary Dressing Covered/Secured with Dry Gauze, Secured with Tape -Promogran Cristine Matter 1 -Wound Comment(s) dressing applied per K Lilly today Right -Stockings Yes Treatment Response Procedure Tolerated Well Pain Scale: 0-10 Numeric Is Patient Pain Free? Yes WC - Visit Discharge Discharge Condition Stable Ambulatory Status Ambulatory Transportation [facility] Facility Type Home Health Telephoned (if yes, spoke with:) Yes Assessment/Plan Assessment/Plan (1) Infection and inflammatory reaction due to internal right knee prosthesis, subsequent encounter: CODE(S): T84.53XD - Infection and inflammatory reaction due to internal right knee prosthesis, subsequent encounter (2) Acute post-operative pain: CODE(S): G89.18 - Other acute postprocedural pain (3) Hematoma: CODE(S): T14.8XXA - Other injury of unspecified body region, initial encounter (4) Delayed surgical wound healing: CODE(S): T81.89XA - Other complications of procedures, not elsewhere classified, initial encounter PLAN: Plan Right knee flap is pink. He has a wound on the superior edge of the flap that has a little depth. Wound care is Wound VAC at 125 mmHg 3 times per week. Wash with soap and water at the time of the dressing changes, pat dry. On the inferior edge there is a small wound that we will place Cristine and will change it at the same time as the wound VAC. Compression - will have him start wearing compression stockings (which he already has). Instructed to place an ABD pad under the vac tubing to prevent pressure of the tube on his skin. Hopefully some mild compression will help decrease his swelling and help with wound healing. He and his have concerns about the wound VAC dressing. Will have his instructed how to place the wound VAC so she can take over the VAC dressing changes if she feels comfortable doing so. Discussed plan of care with Dr. Jon. Follow up one week with Dr. Jon.
[2024-05-14 15:45] VITALS: BP 127/76; PULSE 69; RESP 18; TEMP 36.2; BMI 39.7
[2024-05-19 15:00] VITALS: BP 144/87; PULSE 69; RESP 18; TEMP 36.4; BMI 39.7
--- NOTE | 2024-05-19 17:39 | PCM.PN.BLA ---
Progress Note Doing well with VAC changes. No drainage. No Fevers or chills. Doing well moving knee with rehabilitation. Physical Exam Narrative Right lateral leg/knee proximal ulcer is nice beefy pink, with decrease depth. Distal ulcer is healing well. Assessment & Plan Assessment/Plan (1) Delayed surgical wound healing: PLAN: Doing well with VAC changes. Wound getting smaller. No signs of infection. F/u in 2 weeks. Procedures Integumentary 111xxx-113xx: [id number] Global Visit
[2024-06-02 14:34] VITALS: BP 133/81; PULSE 82; RESP 16; BMI 39.7
--- NOTE | 2024-06-02 18:12 | PCM.PN.BLA ---
Progress Note Doing well. Has discontinued VAC because wounds quite small now. Physical Exam Narrative Right lateral leg/knee proximal ulcer is nice beefy pink, with decrease depth. Distal ulcer has healed. Assessment & Plan Assessment/Plan (1) Delayed surgical wound healing: PLAN: Continue Cristine daily to the two small areas around the flap. F/u in 2 weeks Procedures Integumentary 111xxx-113xx: [id number] Global Visit
--- NOTE | 2024-06-05 09:25 | WC ---
PHOTO 06/02/24 RIGHT KNEE SUP/RIGHT KNEE POST OP/RIGHT LATERAL LEG
--- NOTE | 2024-06-05 09:26 | WC ---
PHOTO 06/02/24 RIGHT KNEE POST OP
== END 2024-06-10 23:59 | disposition home or self-care (01) ==
LOC: WC 14:30
PROVIDERS: PCP Family Medicine; Referring Provider Surgery Plastic and Reconstructive Surgery; Visit Provider Surgery Plastic and Reconstructive Surgery
DX: T84.53XD Infection and inflammatory reaction due to internal right knee prosthesis, subsequent encounter (principal); L97.912 Non-pressure chronic ulcer of unspecified part of right lower leg with fat layer exposed; R60.9 Edema, unspecified; G89.18 Other acute postprocedural pain; T81.89XA Other complications of procedures, not elsewhere classified, initial encounter
CPT/HCPCS: 11042; 97605; 99214; G0463

== ENCOUNTER → 2024-06-13 | Outpatient (CLI) | payer OTHER, SELFPAY ==
[2024-06-13 12:53] LABS: Absolute Lymphocyte Count 1.76 X10^3/uL (0.83-4.51); Absolute Neutrophil Count 3.5 X10^3/uL (2.0-7.7); Basophil# 0.03 X10^3/uL; Basophil% 0.5 % (0-1); Eosinophil# 0.23 X10^3/uL; Eosinophils% 3.6 % (0-5); Lymphocyte # 1.76 X10^3/ul (0.83-4.51); Lymphocyte % 27.7 % (19-41); Mean Corp Hgb Conc 30.2 g/dL (32-36); Mean Corpuscular Hgb 24.1 pg (27.0-32.0); Mean Corpuscular Volume 79.8 fL (80-94); Mean Platelet Vol. 9.7 fl (6.2-12.0); Monocyte# 0.86 X10^3/uL; Monocyte% 13.5 % (0-10); NRBC Flagged by Analyzer 0 % (0-5); Neutrophil # 3.45 X10^3/uL (2.7-7.7); Neutrophil % 54.2 % (47-70); Platelet Count 277 K/mm3 (150-450); RBC Distribution Width CV 16.6 % (11.6-14.6); RBC Distribution Width SD 47.7 fl (35.1-43.9); Red Blood Count 5.39 M/mm3 (4.6-6.2); White Blood Count 6.4 K/mm3 (4.4-11.0)
[2024-06-13 15:52] LABS: Albumin, Serum 3.7 g/dL (3.2-5.0); Anion Gap 4 (5-15); BUN 16 mg/dL (7-18); BUN/Creat Ratio 17.6 RATIO (10-20); Calcium,Total 9.1 mg/dL (8.5-10.1); Chloride 108 mmol/L (98-107); Creatinine, Serum 0.91 mg/dL (0.70-1.30); EST Glomerular Filtration Rate 93 mL/min (>60); Est Glom Filt Rate - Afr Amer 113 mL/min (>60); Glucose 109 mg/dL (74-106); Potassium 4.1 mmol/L (3.5-5.1); Sodium Level 139 mmol/L (136-145)
== END | disposition home or self-care (01) ==
LOC: MTLAB 10:58
PROVIDERS: PCP Family Medicine; Referring Provider Physician Assistant Surgical; Visit Provider Physician Assistant Surgical
DX: Z01.818 Encounter for other preprocedural examination (principal); T84.53XD Infection and inflammatory reaction due to internal right knee prosthesis, subsequent encounter; Z01.810 Encounter for preprocedural cardiovascular examination; X58.XXXD Exposure to other specified factors, subsequent encounter
CPT/HCPCS: 36415; 80048; 82040; 85025; 87077; 87081

== ENCOUNTER 2024-06-27 10:57 | Inpatient (IN) | payer OTHER, SELFPAY ==
--- NOTE | 2024-06-22 20:58 | HP.PCM_ITS ---
History and Physical History and Physical Patient Name: Phoenix Fulton : 1970From:? OSVALDO COLE PA-C DATE OF PRE-OPERATIVE EXAM: 06/20/2024 DATE OF SURGERY:? 06/27/2024 SCHEDULED PROCEDURE:? Removal antibiotic spacer with revision right total knee arthroplasty HISTORY OF PRESENT ILLNESS: Preoperative history and physical exam was performed on June 20, 2024. Patient does have past history of previous ACL reconstruction and total knee arthroplasty in 2018 by surgeon outside at [facility]. He presented to Dr. Wilman Agrawal with 2 draining sinuses over his lateral knee and x-rays were consistent with tibial base plate loosening with bony erosions behind the patella button. He underwent a previous right knee explantation and placement of articulating antibiotic spacer with sinus tract excision and placement of wound VAC. This was performed by Dr. Wilman Agrawal on March 21, 2024. Following this procedure patient required follow-up surgeries with local plastic surgeon for lateral gastroc flap repair. Range of motion and weightbearing restrictions were in place postoperatively due to the surgical wound. He was followed by infectious disease Dr. Valero. Patient was placed on IV antibiotics including ceftriaxone and vancomycin. Postoperatively he was treated with Rivaroxaban due to limited mobility. Patient has finished all care with the local plastic surgeon. Patient is doing well from pain standpoint. Patient had recent inflammatory workup with ESR 20 and CRP 6.55. He has seen improvement with his hemoglobin and currently 13.0. There was some concern with the wound postoperatively however wound has been doing well and we will move forward with surgery. After discussion with Dr. Wilman Agrawal, the patient wishes to proceed forward with removal antibiotic spacer and revision total knee arthroplasty. Patient has medical history pertinent for sleep apnea. Denies past history of DVT or pulmonary embolism. Patient denies any recent chest pain, short of breath, fevers chills or recent infections. Patient has been doing home exercises for range of motion and strengthening prior to this upcoming surgery. He has only been using Tylenol and ibuprofen as needed. REVIEW OF SYSTEMS: Review Of Systems: Constitutional: Denies change in appetite, fever and weight change. Cardiovasular: Denies chest pain, heart murmur and irregular heartbeat. Respiratory: Denies cough, pneumonia, shortness of breath, tuberculosis and wheezing. Gastrointestinal: Denies constipation, diarrhea, heartburn, nausea, rectal i tching, bloody stools and vomiting. Genitourinary: Denies incontinence. Musculoskeletal: Reports trouble walking, but denies leg swelling, pain and weakness. Skin: Reports tattoo, but denies Raynaud's and history of shingles. Neurological: Denies ambulatory dysfunction, dizziness, numbness/tingling and tremor. Psychiatric: Denies anxiety, insomnia and stress. Hematologic/Lymphatic: Denies anemia, bleeding/bruising tendency and past transfusion. Reviewed and updated. PAST MEDICAL HISTORY: Advance Care Plan: No Advance Directives Effective Date: 03/19/2024 Past Medical History: Medical Problems: Arthritis, Sleep Apnea Accidents: Sports Related Injury - ACL L knee 1987, R knee 1990 Surgical Hx: Knee Replacement RT - (2018) [facility] Dr. Oliveros Right TKR Explantation And Placement Articulating Spacer - (03/21/2024) DR. AGRAWAL AT [facility] muscle flap repair - 03/2024 hematoma surgery - 04/08/2024 Anesthesia Complications: None Assistive Devices: Walker, Cpap Reviewed and updated. SOCIAL HISTORY: Social History: Marital: .Occupation: [employer] - [place].Work Status: Not Working Currently - OFF SINCE 04/22/18.Hand Dominance: Right-handed. Personal Habits:? Cigarette Use: Never Smoked Cigarettes.Smokeless Tobacco: Current Smokeless Tobacco User.E-Cigarette Use: Never used.Alcohol: Occasionally.Drug Use: Denies Use.Enjoy Exercising: Exercises 1-3 X/Week. Reviewed and updated. VITALS: Ht: 71 Wt: 289lb 8oz Wt k.317 BMI: 40.4 BP: 111/80 Pulse: 82 T: 98.2 T: 36.8C Pain Level: 0 O2SatR: 97 ALLERGIES: No Known Drug Allergy No Known Substance Allergies MEDICATIONS: Mupirocin 2 % use qtip and apply inside each nostril twice a day until the day of surgery, Tylenol 500mg by mouth twice daily PRE-OP EXAM: General appearance:NORMAL? Other: Eyes: Conjunctivae and lids: NORMAL? Pupils: ERR Ears, Nose, Mouth, and Throat: NORMAL? Other: Inspection of lips, teeth and gums: NORMAL?? Other: Neck: Examination of neck: no masses noted. Respiratory: Assessment of respiratory effort: NORMAL?? Other: ? Auscultation of lungs: clear to auscultation no wheezes, rhonchi or rales. Cardiovascular:? Auscultation of heart: regular rate and rhythm, no murmurs, gallops or rubs. PHYSICAL EXAMINATION: Patient currently ambulating without assistance.? Incision is well healed.? Range of motion: Lacks 2 full extension to 110 flexion.? Sensation intact to light touch.? Previous muscle graft is well-healed. IMAGING STUDIES: Previous x-rays show a stable articulating antibiotic spacer with dowel rods in the femur and tibia IMPRESSION: 1.? Right knee articulating antibiotic spacer with previous gastroc flap repair 2.? Obstructive sleep apnea 3.? Morbid obesity with BMI 40.4 PLAN: Dr. Wilman Agrawal did discuss and review with the patient all treatment options including surgical versus nonsurgical options.? I will continue plan established by Dr. Wilman Agrawal.? Patient does wish to proceed with the above-stated procedure.? Will continue plan that has been established by Dr. Wilman Agrawal.? Potential risks, benefits, and complications of the procedure were discussed in detail including but not limited to , infection, nerve and blood vessel damage, persistent pain, numbness, tingling, paresthesias, blood clot, pulmonary embolism, and requirement for possible further surgery.? The patient expressed full understanding and has no further questions for the doctor.? Patient does agree to proceed with the above-stated procedure and has signed the surgery consent form. POST-OP MEDICATION PLAN: Pain Medications:? Postoperative pain regimen will be initially at by Dr. Wilman Agrawal in the hospital.? Labs and EKG have been reviewed and stable.? Patient's previous postoperative anemia is stable and most recent hemoglobin 13.0.? Patient did test positive for staph aureus and we will use doxycycline for 2 weeks postoperatively.? I discussed with the patient and he is more sensitive to the sunlight and should take appropriate precautions.? Also recommend probiotic while on the antibiotic.? We will bring Walker to the hospital. DVT Prophylaxis:? Aspirin 81 mg twice daily for 4 weeks postoperatively.? Denies past history of DVT or pulmonary embolism This dictation was created using voice recognition software. Phonetic and/or grammatical errors may exist. ___? I have re-examined the patient.? There are no clinical changes since date of exam. ___? See progress notes for changes. ___? Dictated on admission Date: ? Time: Signature:
[2024-06-27] VITALS (13 sets, daily range): BP systolic 113–139; BP diastolic 66–82; PULSE 72–95; RESP 16–20; TEMP 35.9–36.9; O2SAT 94–98; BMI 39.1
[2024-06-27] MEDS: Vancomycin HCl 2,000 MG in 0.9% Normal Saline (500mL Bag) 500 ML 250 MG IV (06:25)
[2024-06-27] MEDS: Lactated Ringers 1,000 ML 999 ML IV (06:25)
[2024-06-27] MEDS: Celecoxib 200 MG Capsule 400 MG PO (06:26)
[2024-06-27] MEDS: Gabapentin 600 MG Tablet PO (06:26)
[2024-06-27] MEDS: Acetaminophen 500 MG Tablet 1000 MG PO ×3 (06:26→22:00)
--- NOTE | 2024-06-27 06:40 | PRE.ANES_ITS ---
ASA Classification* ASA Classification ASA Classification: 2 Assessment & Plan Anesthesia* Anesthesia Assessment Anesthesia Assessment: Discussed sedation and/or anesthesia options, risks, benefits, and alternatives with patient/parents/legal guardian/POA. Questions invited. The patient/parents/legal guardian/POA seems to understand and agrees to proceed with anesthesia plan. Reviewed the physical assessment, medical history, allergy history and patient home medications list prior to surgery/procedure/anesthetic and documented any changes. Performed airway and anesthesia risk assessments. Anesthesia Type Anesthesia Type: Spinal History Source History Obtained from:: Patient and Chart Anesthesia Focused Assessment* Temperature: 97.6 F Pulse Rate: 72 Blood Pressure: 135/82 Respiratory Rate: 16 Pulse Ox: 97 Oxygen Delivery Method: Room Air Airway Assessment Mouth opens: >3 cm Mallampati Score: I Teeth Condition: Intact Neck Range of motion (ROM): Full ROM Comment: Patient does have a thick neck. Focused Labs Anesthesia Preop lab: CBC WBC 6.4 K/mm3 (4.4-11.0) 06/13/24 11:14 RBC 5.39 M/mm3 (4.6-6.2) 06/13/24 11:14 Hgb 13.0 g/dL (13.0-16.5) 06/13/24 11:14 Hct 43.0 % (40-54) 06/13/24 11:14 Plt Count 277 K/mm3 (150-450) 06/13/24 11:14 CHEMISTRY Potassium 4.1 mmol/L (3.5-5.1) 06/13/24 11:14 Sodium 139 mmol/L (136-145) 06/13/24 11:14 Magnesium 2.1 mg/dL (1.6-2.6) 03/21/24 10:43 BUN 16 mg/dL (7-18) 06/13/24 11:14 Creatinine 0.91 mg/dL (0.70-1.30) 06/13/24 11:14 Glucose 109 mg/dL (74-106) H 06/13/24 11:14 POC Glucose 99 mg/dL (74-106) 03/21/24 11:28 TSH 1.03 uIU/mL (0.358-3.74) 10/02/14 08:59 COAG Pre-Assessment Diagnosis/Proposed Procedure Planned Operative Procedure(s): REMOVAL ANTIBIOTIC SPACER WITH REVISION RIGHT TOTAL KNEE ARTHROPLASTY Anesthesia History Anesthesia History - field services director: Anesthesia History - field services director Hx Hospitalization Yes: KNEE INFECTION 03/202406/25/24 10:26 Any Problems With Anesthesia No 06/25/24 10:26 Cholinesterase deficiency No 06/25/24 10:26 You/Your Family Experience No 06/25/24 10:26 fever (hyperthermia) with Relationship Recent Exposure to Contagious No 06/27/24 06:16 Disease Does patient have nerve No 06/25/24 10:26 stimulator Patient instructed to have device shut off --Does patient have Pacemaker No 06/27/24 06:16 or ICD? When Was Last Pacemaker Check QUESTION #4 FULL TEXT: You/Your Family Experience fever (hyperthermia) with Anesthesia Last Oral Intake Last Oral intake: Last Oral Intake NPO since 03:00 06/27/24 06:16 Meds taken in AM with sips of Yes 06/27/24 06:16 water? Meds patient instructed to take am of surgery Any additional information?: Yes NPO since: 03:00 (Patient finished his preop Ensure at 3 AM this morning.) PONV PONV - field services director: PONV - field services director Female No 06/25/24 10:26 HX of Motion Sickness No 06/25/24 10:26 HX of N/V After Surgery No 06/25/24 10:26 Non-Smoker Yes 06/25/24 10:26 Duration of Surgery greater Yes 06/25/24 10:26 than 60 minutes Number of Risk Factors 2 06/25/24 10:26 PONV Score Moderate Risk 06/25/24 10:26 Height & Weight Height & Weight: Anesthesia: Height & Weight Height 6 ft 06/27/24 06:16 Weight: 130.8 kg 06/27/24 06:16 Body Mass Index (BMI) 39.1 06/27/24 06:16 Respiratory Assessment Respiratory Assessment - field services director: Respiratory Tract Infection Hx - field services director Hx Respiratory Tract Infection No 06/25/24 10:26 STOP Sleep Apnea STOP Sleep Apnea - field services director: STOP Sleep Apnea - field services director Hx Hypertension No 06/25/24 10:26 Hx Sleep Apnea Yes 06/25/24 10:26 CPAP Yes 06/25/24 10:26 BIPAP No 06/25/24 10:26 Do you snore loudly (louder than talking or can be heard Do you often feel tired/ fatigued/ sleepy during daytime? Has anyone observed you stop breathing during sleep? STOP Results Positive 06/25/24 10:26 QUESTION #5 FULL TEXT : Do you snore loudly (louder than talking or can be heard through closed doors)? 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 - field services director: Tobacco Use History - field services director Tobacco Use Smoking Status Current every day smoker 06/25/24 10:26 Hx Tobacco Use Yes 06/25/24 10:26 Years Smoking Packs Smoked per Day Smoking Cessation Date was within the last 15 years Hx Smoking Cessation Date Hx Smoking Cessation Yes 06/25/24 10:26 Counseling Any additional information?: Yes Tobacco Use: Non-smoker Smoking Cessation Date was within the last 15 years: Yes - quit smoking within 15 years Hematologic Medial History Hematologic Hx - field services director: Hematologic Medical Hx - behavioral technician Hx of Blood Transfusion No 06/25/24 10:26 Hx of Transfusion in last 3 No 06/25/24 10:26 Months Date of Last Transfusion (if within last 3 months) Ever experience any problems No 06/25/24 10:26 with transfusion(s)? Specify any problems Hx of Preganancy in last 3 N/A 06/25/24 10:26 Months Nurse Filling Out Transfusion DSCHRIBER 06/25/24 10:26 & Questions: Date: 06/25/24 06/25/24 10:26 Time: 10:27 06/25/24 10:26 Patient unable to answer at this time (ie. confused, unrespo /Reproduction History /Reproductive History - field services director: /Reproductive Hx- field services director Hx Now Gestational Age (in weeks): EDC: Hx Hx Para Hx Section SAB No 06/25/24 10:26 Active Medications Active Medications: Current Medications Generic Name Dose Route Start Last Admin Trade Name Freq PRN Reason Stop Dose Admin Acetaminophen 1,000 mg 06/27/24 07:30 06/27/24 06:26 Acetaminophen 500 Mg Tablet PO 06/27/24 07:31 1,000 mg X1 ONE Administration Celecoxib 400 mg 06/27/24 07:30 06/27/24 06:26 Celecoxib 200 Mg Capsule PO 06/27/24 07:31 400 mg X1 ONE Administration Sodium Chloride 77.4 ml/ 0 ml 06/27/24 07:30 Ropivacaine 200 mg/ OPERA.SITE 06/27/24 07:31 Epinephrine HCl 0.6 mg/ X1 ONE Ketorolac Tromethamine 30 mg/ Morphine Sulfate 5 mg Dexamethasone Sodium Phosphate 10 mg 06/27/24 07:30 Dexamethasone 10 Mg/Ml Vial IV 06/27/24 07:31 X1 ONE Gabapentin 600 mg 06/27/24 07:30 06/27/24 06:26 Gabapentin 600 Mg Tablet PO 06/27/24 07:31 600 mg X1 ONE Administration Lactated Ringer's 1,000 mls @ 999 mls/hr 06/27/24 07:30 06/27/24 06:25 IV 06/27/24 08:30 999 mls/hr .Q1H1M CRYSTAL Administration Cefazolin Sodium 3 gm/ N/A 30 mls @ 600 mls/hr 06/27/24 07:30 IV 06/27/24 07:32 PREOP ONE Tranexamic Acid 1,000 mg/ 110 mls @ 660 mls/hr 06/27/24 07:30 Sodium Chloride IV 06/27/24 07:39 X1 ONE Tranexamic Acid 1,000 mg/ 110 mls @ 660 mls/hr 06/27/24 07:30 Sodium Chloride IV 06/27/24 07:39 X1 ONE Lactated Ringer's 1,000 mls @ 75 mls/hr 06/27/24 07:30 IV 06/27/24 20:49 .[id number] CRYSTAL Magnesium Sulfate 1 gm/ 102 mls @ 408 mls/hr 06/27/24 07:30 Dextrose IV 06/27/24 07:44 X1 ONE Vancomycin HCl 2,000 mg/ 540 mls @ 250 mls/hr 06/27/24 06:00 06/27/24 06:25 Sodium Chloride IV 06/27/24 08:09 250 mls/hr X1 ONE Administration Insulin Human Lispro 1 - 6 unit 06/27/24 07:30 Insulin Lispro 100 Unit/Ml Insuln.Pen SC 06/27/24 13:00 Q4H PRN PRN BG>/= 180, SEE PROTOCOL Protocol PFSH Medical History Arthritis Chewing tobacco dependence History of pain when walking History of edema Home Medications ?Medication ?Instructions ?Recorded ?Last Taken ?Type acetaminophen 325 mg tablet 650 mg PO Q4H PRN pain 06/25/24 06/26/24 History (Tylenol) mupirocin 2 % topical ointment See Rx Instructions topical TID 06/27/24 06/26/24 History MRSA Allergy/AdvReac Type Severity Reaction Status Date / Time No Known Allergies Allergy Verified 06/27/24 06:13 Surgical History History of incision and drainage Hx of knee surgery Hx of knee surgery Hx of knee surgery Hx of total knee arthroplasty Hx of right knee surgery Hx of right knee surgery Social History Smoking Status: Current every day smoker tobacco type: smokeless tobacco Review of Systems (Anesthesia) ROS Narrative System reviewed and no additional complaints, except as documented.
[2024-06-27 06:57] LABS: Magnesium 2.3 mg/dL (1.6-2.6)
[2024-06-27] MEDS: Magnesium 1 GM over 15 mins IV (07:01)
[2024-06-27] MEDS: Lactated Ringers 1,000 ML 75 ML IV ×2 (07:30→12:08)
[2024-06-27] MEDS: TXA 1000mg in NS100 100ml (IVPB at Incision) 660 MG IV (07:51)
[2024-06-27] MEDS: Cefazolin 3 GM in Syringe 15 ML IV (07:52)
[2024-06-27] MEDS: dexAMETHasone 10 MG/ML Vial IV (07:55)
[2024-06-27 08:01] LABS: Bedside Glucose 79 mg/dL (74-106)
[2024-06-27] MEDS: TXA 1000mg in NS100 100ml (IVPB at Closure) 660 MG IV (10:41)
[2024-06-27] MEDS: JPS (Morphine 10mg/ml) OPERA.SITE (10:54)
--- NOTE | 2024-06-27 11:10 | OP.PCM_ITS ---
Operative Report (Standard) Operative Information Date of Procedure: 06/27/24 Pre-Operative Diagnosis: Right knee periprosthetic joint infection Post-Operative Diagnosis: Right knee periprosthetic joint infection Surgery/Procedure Performed: Revision right total knee replacement both components (Removal of articulating antibiotic spacer conversion to total knee replacement) Removal nonbiodegradable antibiotic delivery system electrical engineer mep: Yes Viscosity Inspector: Thai Carpenter Tasks completed by acute care assistant: Other (See operative report body) Type of Anesthesia: General RN Documented Start/Stop Times: Operation Date: 06/27/24 07:30 Case Time Into Pre-Op 06/27/24 05:42 Out of Pre-Op 06/27/24 07:30 Anesthesia Start 06/27/24 07:33 Into Room 06/27/24 07:33 Procedure Start 06/27/24 08:07 Procedure End 06/27/24 11:32 Anesthesia End 06/27/24 11:39 Out of Room 06/27/24 11:39 Into Recovery 06/27/24 11:41 Out of Recovery 06/27/24 12:55 Procedure Start Time: 08:07 Procedure Stop Time: 11:32 Select all DRAINS/GRAFTS/IMPLANTS that apply: Prosthetic device Prosthetic device details: See operative report body Special Medications: Ancef, TXA Estimated Blood Loss: 400 mL Fluids Replaced: 1800 mL crystalloid Specimen collected: Yes Description of specimen(s) removed: 3 separate specimens were sent to microbiology Description of surgery: Implants used: Femur: [place] triathlon size 6 right distal femoral component with 15 x 50 mm cemented stem and 5 mm distal augments medially and laterally Tibia: Size 6 Dolores triathlon universal tibial baseplate with 15 x 50 mm cemented stem Poly: 19 mm X3 PS polyethylene Dolores insert Patella: 40 mm press-fit asymmetric Dolores patella Brief history operative indications: 54-year-old m with previous total knee replacement and subsequent infectious etiology. Patient underwent explant and placement of antibiotic spacer with nonbiodegradable antibiotic delivery system on March 21, 2024. Subsequently he had plastics coverage over his significant lateral wound. After patient's wound had adequately healed with treatment from plastic surgery and we had established that the infection was adequately stabilized the patient completed his IV antibiotics we eventually agreed to proceed with revision total knee replacement which had risks which include but not limited to blood loss, DVTs, PEs, nervous damage, infection, the risk of anesthesia. Patient demonstrate understanding was able to sign informed consent. Medical clearance was obtained. Procedure: On the date of procedure patient's R lower extremity was marked in the preoperative area. The patient was then taken back to the operating room where the patient was placed on the table in the supine position. All bony prominences were identified a well-padded. Anesthesia assumed control of the C-spine and airway and remained controlled throughout the remainder of the procedure. A tourniquet was placed on the R upper thigh and the leg was prepped in a sterile fashion. The surgeon then scrubbed at this time. Upon reentering the room R lower extremity was draped in a standard orthopedic fashion. A timeout was then called and everyone agreed upon the side, the site, the procedure to be performed, patient's identity and antibiotics given. An Esmarch bandage was used to exsanguinate the extremity and the tourniquet was placed up to 250 mmHg with the knee in flexion. A midline skin incision was made using the previous incision and extending it proximally and distally to identify normal tissue planes. Medial and lateral flaps were developed appropriate releases. The standard medial parapatellar arthrotomy was made and extended to proximal extent proximally increased position and the patella was subluxed laterally. At this time an aggressive synovectomy was performed re-creating the medial gutter first, then the suprapatellar pouch than the lateral gutter. Once this was completed the knee was flexed up an osteotome was used to remove the tibial polyethylene. The remainder of the synovium was debrided. The standard deep MCL release was done and the patella scar pad was resected and lateral releases were performed. Next our attention was directed to the femur. Where flexible osteotomes and TPS saw were used to break up the implant cement interface. This was done both medially and laterally. After this a bone tamp was used to remove the femur component from the end of the bone. This was done with minimal bone loss. At this time attention was now directed towards the proximal tibia. Possible osteotome and TPS saw were then used to break up the proximal tibia implant interface and stacked osteotomes were used to remove the tibial implant. This was done with minimal bone loss. Our attention was then turned to the tibia where the intramedullary canal was reamed to 17 MM and a size C asymmetric right lateral tibial cone was reamed. We then made a cleanup cut on the tibia, A drop radha was then used to verify the cut. A size 6 tibial base plate was selected. the knee was flexed and the tibial component was pinned into place and the Copinys reamer was used to ream the proximal medullary canal. The trial implant was impacted in its prepared position. Our attention was then turned back to the femur or the femur intramedullary canal was reamed to 21 mm using the previous implants a size 6 TCG cutting guide with a 21 mm stem was put into place. The medial epicondyle was used to set the joint line. With this TCG cutting guide we used a 19 mm polyethylene trial in order to help balance the gaps. Once the gaps were appropriately balanced the guide was firmly pinned into place. Distal cuts were made with 5 mm augments medially and 5 mm augment laterally. Posterior cuts were made with 0 mm augments medially and 0 mm augment laterally. Using the guide the box cut was made using a reciprocating saw. The appropriate trials were then placed on the femur and tibia. A trial polyethylene was trialed to ensure proper balancing and stability of the knee. Patella tracking, was then verified and corrected appropriately as needed. Our attention was then directed to the patella. Cleanup cut was made on the patella. There were some bony defects in the patella we were able to find good areas to place pegs for a press-fit implant. We elected to do this. Bone was then prepared for a 40 mm press-fit patella. Final components were verified and opened, 6 liters of normal saline were irrigated throughout the joint under low-pressure lavage. Then the cement was mixed in a vacuum. [place] Simplex cement with tobramycin was used. The wound was copiously irrigated with normal saline. When the cement was ready cement plugs were placed in the tibial cone was placed the components were cemented into place starting with the tibia, femur. The trial poly component was placed and the knee was placed in full extension. All excess cement was removed in the process. While the cement was curing on the femoral tibial components we then everted the tibia. We did packed the bone defect with bone graft. We then again overreamed through the bone graft where the peg holes were for the patella. Patella was then impacted into place and was very stable. Once the cement had cured the tracking, alignment and balance were verified and a size 19 mm PS polyethylene component was placed. We elected to use PS in order to limit patella impingement and based on the patient's age and overall stability of the knee TS was not felt to be needed. Once the final components were placed a 3-minute dilute Betadine lavage was performed a chlorhexidine lavage was used and the wound was copiously irrigated with normal saline solution and the remainder of the periarticular injection was given. The wound was closed in a layer yao fashion using #2 FiberWire at the side of the quadriceps snip and proximal and distal apexes of the patella. #1 vicryl interrupted sutures for the arthrotomy, 2-0 interrupted Vicryl for the subcuticular layer and 2-0 nylon sutures in a mattress fashion for final skin closure. A sterile compressive dressing was then placed. The patient was then awakened from anesthesia, transferred to the [facility] and transferred to the PACU for recovery. Post op plan DVT ppx: ASA 81mg BID, thigh high compression stockings Follow up: in office in 2 weeks for wound check PT: to start POD #0 at hospital, outpatient PT should be arranged. I will place patient on doxycycline 100 mg p.o. twice daily for 2 weeks postoperatively as we follow wound cultures. Patient will stay in the hospital for at least 48 hours postoperatively as we follow cultures. Finally I did consult infectious disease for any further input on postoperative antibiotics for this patient. My physician graduate research assistant was a vital part of this case, they was important because there was not another skilled set of hands available to their training and aptitude needed for safe and appropriate completion of this case. They were important in appropriate retraction during the case, and protection of soft tissues during bony cuts. In particular the experience and skill of this graduate research assistant made for safe retraction and exposure during implantation of medical implants without damage or fracture to vital soft tissues or structures. His intimate knowledge of the case and my steps aided in safe and expedient completion of the procedure as well as appropriate position of the leg during the case. He was also vital in assisting with closure and placement of the dressing under my direct supervision. Surgical Findings: Intraoperative inflammation of the synovium was noted. No purulence was appreciated. Quadriceps snip was performed. Complications Complications: No Admit VTE Documentation VTE Present on Admission: No VTE Mechan Device Prophylaxis: SCD's and Thigh High MUNIR Hose VTE Pharm Prophylaxis ordered?: Yes
--- NOTE | 2024-06-27 11:50 | RAD_ITS ---
INDICATION: post op -- AP and Lateral xray of operative knee in PACU EXAMINATION/TECHNIQUE: X-RAY - RIGHT XR Knee 1 or 2 Views 3 VIEWS COMPARISON: Prior study dated: 03/26/2024 FINDINGS: There is a total right knee arthroplasty revision. Femoral component articulates appropriately with the tibial and patellar components. No periprosthetic lucency or fracture. Postoperative soft tissue swelling and gas with gas in the joint space. RAD/Knee 1 or 2 Views IMPRESSION: Total right knee arthroplasty in typical positioning and alignment. Electronically Signed: Kar Izquierdo MD at 12:43 EST ,
--- NOTE | 2024-06-27 11:50 | PCM.POST.ANE ---
Anesthesia: Postop Eval I Current Vital Signs Temperature: 96.8 F Pulse Rate: 95 Blood Pressure: 134/71 Respiratory Rate: 20 Pulse Ox: 97 Assessment Airway patent: Yes Spontaneous unlabored respirations: Yes nausea: No Vomiting: No Anesthesia Complication: No Fluid Hydration Crystalloid volume administer (ml): 2,100 Total IV fluid infused: 2,100 Progress Note Anesthesia document: Postop Eval 1 completed: Yes
--- NOTE | 2024-06-27 12:35 | POSTOPAN2_ITS ---
Anesthesia Postop Eval I Sum Postop Eval Completion status Anesthesia document: Postop Eval 1 completed: Yes Anesthesia Postop Eval I Summary Anesthesia Postop Eval I Summary: Anesthesia Postop Eval I: Assessment Summary Airway patent Yes 06/27/24 11:50 [email or web address] Spontaneous unlabored Yes 06/27/24 11:50 [email or web address] [email or web address] respirations Mental status nausea No 06/27/24 11:50 [email or web address] Vomiting No 06/27/24 11:50 [email or web address] Anesthesia Postop Eval I: Fluid Summary Crystalloid volume administer 2,100 06/27/24 11:50 [email or web address] (ml) Colloids volume administered ( ml) Blood Product volume administered (ml) Total IV fluid infused 2,100 06/27/24 11:50 [email or web address] Anesthesia Postop Eval I: Summary Notes Anesthesia Complication No 06/27/24 11:50 [email or web address] Anesthesia Complication Comment: Post-operative progress note Anesthesia: Postop Eval II Evaluation Mental status: Awake and Calm Pain Level: 3 nausea: No Vomiting: No Complications Anesthesia Complication: No
--- NOTE | 2024-06-27 12:35 | PCM.POSTANE2 ---
Anesthesia Postop Eval I Sum Postop Eval Completion status Anesthesia document: Postop Eval 1 completed: Yes Anesthesia Postop Eval I Summary Anesthesia Postop Eval I Summary: Anesthesia Postop Eval I: Assessment Summary Airway patent Yes 06/27/24 11:50 [email or web address] [email or web address] Spontaneous unlabored Yes 06/27/24 11:50 MARKET RESEARCH [email or web address] respirations Mental status nausea No 06/27/24 11:50 MARKET [email or web address] [email or web address] Vomiting No 06/27/24 11:50 MARKET [email or web address] Anesthesia Postop Eval I: Fluid Summary Crystalloid volume administer 2,100 06/27/24 11:50 MARKET [email or web address] [email or web address] (ml) Colloids volume administered ( ml) Blood Product volume administered (ml) Total IV fluid infused 2,100 06/27/24 11:50 MARKET [email or web address] [email or web address] Anesthesia Postop Eval I: Summary Notes Anesthesia Complication No 06/27/24 11:50 MARKET [email or web address] Anesthesia Complication Comment: Post-operative progress note Anesthesia: Postop Eval II Evaluation Mental status: Awake and Calm Pain Level: 3 nausea: No Vomiting: No Complications Anesthesia Complication: No
[2024-06-27] MEDS: Ensure Surgery 237 ML LIQUID PO ×2 (13:55→16:26)
--- NOTE | 2024-06-27 14:21 | CON.PCM.ID_ITS ---
Assessment & Plan Assessment/Plan (1) Infection and inflammatory reaction due to internal right knee prosthesis, subsequent encounter: PLAN: OR 03/21/[address] Agrawal for R knee PJI with spacer placement. Given 6 weeks iv vanc/ceftriaxone for culture neg infection. Doing well past few weeks, now s/p 2nd stage replacement by Dr. Agrawal 06/27/24. Surg cx pending. Plan at this point will be one month po doxy 100mg bid after discharge and monitor cxs. ID followup in 2 weeks. Will follow, thank you HPI Consult Data Date of Consult: 06/27/24 HPI Narrative Reason for Consultation: PJI HPI Narrative: ABDIRAHMAN HERRON, is a 54 M who presented for 2nd stage replacement of R knee PJI this AM with Dr. Agrawal. Taken to OR 03/21/24 for spacer placement, surg cx n eg. Given 6 weeks iv vanc/ceftriaxone and had surgery with Dr. Jon for wound coverage. Since abx stopped, doing well, walking, wound has been closed. Feeling well post op today. Full ROS performed and neg except as noted above. [facility] Medical History Arthritis Chewing tobacco dependence History of pain when walking History of edema Home Medications ?Medication ?Instructions ?Recorded ?Last Taken ?Type acetaminophen 325 mg tablet 650 mg PO Q4H PRN pain 06/25/24 06/26/24 History (Tylenol) mupirocin 2 % topical ointment See Rx Instructions topical TID 06/27/24 06/26/24 History MRSA Allergy/AdvReac Type Severity Reaction Status Date / Time No Known Allergies Allergy Verified 06/27/24 06:13 Surgical History History of incision and drainage Hx of knee surgery Hx of knee surgery Hx of knee surgery Hx of total knee arthroplasty Hx of right knee surgery Hx of right knee surgery Social History Smoking Status: Current every day smoker tobacco type: smokeless tobacco Physical Exam Const alert, oriented x3 and no apparent distress General Appearance: cooperative HEENT normocephalic and head/scalp atraumatic Eyes PERRL and EOMs intact bilaterally Neck supple and No nodes Resp normal air movement and clear to auscultation bilaterally Cardio regular rate and regular rhythm GI soft to palpation, non-tender and non-distended Extremity General Extremity: Negative for edema Skin Skin Narrative: RLE wrapped Neuro CN's II-XII intact bilaterally Lab / Micro Data Attestation: I reviewed the patient's lab results. Labs: Laboratory Results - last 24 hr 06/27/24 06:12: Magnesium 2.3 06/27/24 06:21: POC Glucose 79 Imaging Radiology Impression Knee X-Ray 06/27/24 11:50 IMPRESSION: Total right knee arthroplasty in typical positioning and alignment. Electronically Signed: Kar Izquierdo MD at 12:43 EST ,
[2024-06-27] MEDS: Cefazolin 1 GM/50 ML BAG IV ×2 (15:18→23:31)
--- NOTE | 2024-06-27 16:11 | PCM.PN.HOSP ---
Reason for Visit Reason for Visit: Right knee pain Subjective Subjective Patient is a 54-year-old male who had a previous knee replacement and subsequent infection. He underwent an explant and placement of an antibiotic spacer with a nonbiodegradable antibiotic delivery system on March 21, 2024 and had plastic coverage over a significant lateral wound. He is now healed with regards to his plastic surgery and the infection was deemed stabilized with IV antibiotics being completed. He agreed to proceed with a revision of a total knee arthroplasty which was performed today. We have been consulted postoperatively for medical management in the postoperative period. Patient states he has no chronic medical problems and only takes as needed pain medication for his joint pain. He was seen postoperatively up in the medical floor. He was sleeping upon my arrival but awakened easily and was alert and oriented x 3. He denied any acute complaints at this time. Objective Data Objective Data Vital Signs: Vital Signs Temp Pulse Resp BP Pulse Ox O2 Del Method O2 Flow Rate 97.8 F 80 16 139/82 H 94 Room Air 2 06/27/24 15:27 06/27/24 15:27 06/27/24 15:27 06/27/24 15:27 06/27/24 15:27 06/27/24 15:27 06/27/24 13:33 Oxygen Flow Rate (L/min) 2 Oxygen Delivery Method Room Air Weight: 130.8 kg Body Mass Index (BMI) 39.1 Intake & Output: Intake and Output for Last 24 Hours 06/25/24 06/26/24 06/27/24 23:59 23:59 23:59 Intake Total 2528.25 / 2528.25 Balance 2528.25 / 2528.25 Lab / Micro Data Labs: Laboratory Results - last 24 hr 06/27/24 06:12: Magnesium 2.3 06/27/24 06:21: POC Glucose 79 Micro: Microbiology 06/27/24 09:10 Tissue - Knee Gram Stain - Final 06/27/24 09:10 Tissue - Knee Gram Stain - Final 06/27/24 09:10 Tissue - Knee Gram Stain - Final Radiography Diagnostic Testing: Radiology Impression Knee X-Ray 06/27/24 11:50 IMPRESSION: Total right knee arthroplasty in typical positioning and alignment. Electronically Signed: Kar Izquierdo MD at 12:43 EST , Physical Exam Const alert, oriented x3, no apparent distress and well nourished; Negative for average body habitus Constitutional Narrative: Obese, white male, that sleeping but awakens easily, appears comfortable, nontoxic HEENT head/scalp atraumatic and moist oral mucous membranes Head and Scalp: normocephalic Resp normal respiratory effort, no retractions, no use of accessory muscles and clear to auscultation bilaterally Cardio regular rate and regular rhythm Extremity Extremity Narrative: MUNIR hose in place, polar ice on right knee, drain in place Neuro no focal motor deficits Speech: speech normal Psych affect normal Psych Narrative: Pleasant interacts appropriately Assessment & Plan Assessment/Plan (1) Localized osteoarthritis of left knee: PLAN: Plan Right knee OA with postoperative infection -Postop day 0 revision total knee arthroplasty -Pain management per primary service -Recommend bowel regimen -PT/OT -Infectious diseases been consulted and recommending 2 weeks of oral doxycycline -Intraoperative cultures are pending -Aspirin 81 mg p.o. twice daily for DVT prophylaxis and conjunction with thigh-high MUNIR hose -Plan is for 48 hours of hospitalization to observe cultures Morbid obesity -BMI 39.1 -Recommend weight loss -Highly suspect patient has obstructive sleep apnea as he was having periods of apnea when I arrived in the room -Recommend outpatient polysomnography DVT prophylaxis -Per primary service Disposition: Will likely sign off tomorrow if patient is medically stable as he has no chronic medical issues to address Charges/Coding Visit Charges Inpatient E&M: 71118 [facility] L1
[2024-06-27] MEDS: Aspirin 81 MG TAB.CHEW PO (16:24)
[2024-06-27] MEDS: oxyCODONE 5 MG Tablet PO (17:49)
[2024-06-27] MEDS: 0.9% Saline Lock 10 ML Syringe IV (21:57)
[2024-06-27] MEDS: Ketorolac 15 MG/ML Vial IV (21:57)
[2024-06-27] MEDS: Senna/Docusate Sodium 1 Tablet 2 TABLET PO (22:01)
[2024-06-28 01:46] VITALS: BP 123/71; PULSE 68; RESP 18; TEMP 36.6; O2SAT 96
[2024-06-28 04:57] VITALS: BP 125/73; PULSE 83; RESP 16; TEMP 36.5; O2SAT 94
[2024-06-28] MEDS: Ketorolac 15 MG/ML Vial IV ×2 (05:01→11:15)
[2024-06-28] MEDS: 0.9% Saline Lock 10 ML Syringe IV ×2 (05:01→11:19)
[2024-06-28] MEDS: Acetaminophen 500 MG Tablet 1000 MG PO ×3 (05:01→21:34)
[2024-06-28 06:01] LABS: Hemoglobin 10.5 g/dL (13.0-16.5); Mean Corp Hgb Conc 30.9 g/dL (32-36); Mean Corpuscular Hgb 24.8 pg (27.0-32.0); Mean Corpuscular Volume 80.4 fL (80-94); Mean Platelet Vol. 9.9 fl (6.2-12.0); Platelet Count 220 K/mm3 (150-450); RBC Distribution Width CV 17.3 % (11.6-14.6); RBC Distribution Width SD 50.8 fl (35.1-43.9); Red Blood Count 4.23 M/mm3 (4.6-6.2); White Blood Count 15.1 K/mm3 (4.4-11.0)
[2024-06-28 06:30] LABS: Anion Gap 5 (5-15); BUN 25 mg/dL (7-18); Calcium,Total 8.6 mg/dL (8.5-10.1); Chloride 106 mmol/L (98-107); Creatinine, Serum 0.93 mg/dL (0.70-1.30); EST Glomerular Filtration Rate 91 mL/min (>60); Est Glom Filt Rate - Afr Amer 110 mL/min (>60); Estimated Creatinine Clearance 129.95 ml/min; Glucose 119 mg/dL (74-106); Potassium 4.2 mmol/L (3.5-5.1); Sodium Level 136 mmol/L (136-145)
--- NOTE | 2024-06-28 09:43 | PN.ORTHO_ITS ---
Subjective Subjective The patient was sitting in bed upon examination. Patient denies any chest pain, shortness of breath, dizziness, lightheadedness, nausea or vomiting, or calf pain. Pain is controlled on medications. Patient has been doing well from pain standpoint. He also reports that he has been working on a lot of range of motion in which she could flex the knee past 90 degrees. However nursing already changed the canister for the Prevena wound VAC once overnight and it is already filled completely today. Patient is also complaining of some thigh discomfort which is from the tourniquet. Objective Data Objective Data Vital Signs: Vital Signs Temp Pulse Resp BP Pulse Ox O2 Del Method O2 Flow Rate 97.7 F L 83 16 125/73 H 94 Room Air 2 06/28/24 04:57 06/28/24 04:57 06/28/24 04:57 06/28/24 04:57 06/28/24 04:57 06/28/24 04:57 06/27/24 13:33 Oxygen Flow Rate (L/min) 2 Oxygen Delivery Method Room Air Weight: 130.8 kg Body Mass Index (BMI) 39.1 Intake & Output: Intake and Output for Last 24 Hours 06/26/24 06/27/24 06/28/24 23:59 23:59 23:59 Intake Total 3078.25 / 3578.25 1290 / 1290 Output Total 110 / 110 Balance 3078.25 / 3468.25 1180 / 1180 Lab / Micro Data 06/28/24 05:39 06/28/24 05:39 Labs: Laboratory Results - last 24 hr 06/28/24 05:39: WBC 15.1 H, RBC 4.23 L, Hgb 10.5 L, Hct 34.0 L, MCV 80.4, MCH 24.8 L, MCHC 30.9 L, RDW Std Deviation 50.8 H, RDW Coeff of Luigi 17.3 H, Plt Count 220, MPV 9.9, Sodium 136, Potassium 4.2, Chloride 106, Carbon Dioxide 25.0, Anion Gap 5, BUN 25 H, Creatinine 0.93, Estim Creat Clear Calc 129.95, Est GFR (MDRD) Af Amer 110, Est GFR (MDRD) Non-Af 91, BUN/Creatinine Ratio 27.0 H, G lucose 119 H, Calcium 8.6 Micro: Microbiology 06/27/24 09:10 Tissue - Knee Gram Stain - Final 06/27/24 09:10 Tissue - Knee Gram Stain - Final 06/27/24 09:10 Tissue - Knee Gram Stain - Final Radiography Diagnostic Testing: Radiology Impression Knee X-Ray 06/27/24 11:50 IMPRESSION: Total right knee arthroplasty in typical positioning and alignment. Electronically Signed: Kar Izquierdo MD at 12:43 EST , Physical Exam Narrative Vital signs stable and afebrile. SCDs and MUNIR hose are in place bilaterally Patient is able to plantarflex and dorsiflex actively. Sensation is intact to light touch to saphenous, sural, superficial and deep peroneal, and tibial distribution. Prevena incisional wound VAC has full canister of bloody discharge. No purulence appreciated. Wound VAC was removed and sutures are all in place. There is slow ooze over the distal incision between 2 sutures. Patient has lateral flap repair at the apex there is small area that Xeroform was placed. Compressive Gerardo wrap with 6 ABDs were placed. Negative Homans bilaterally, negative signs and symptoms of DVT. Const alert, oriented x3 and no apparent distress Assessment & Plan Assessment/Plan (1) Status post revision of total replacement of right knee: PLAN: 1. S/P revision right total knee replacement with removal of antibiotic spacer POD #1 2. Continue Pain Medications: Tylenol, meloxicam, oxycodone. Do not take any other nonsteroidal anti-inflammatories while using meloxicam/Mobic. 3. DVT Prophylaxis: Take 81 mg aspirin twice daily for 4 weeks postoperatively for DVT prophylaxis. Patient denies past history of DVT or pulmonary embolism. Patient will continue with SCDs while in the hospital and MUNIR hose for 2 weeks postoperatively 4. PT/OT: Case was discussed with Wilman Agrawal and due to the drainage we are now going to avoid flexion exercises for the right knee. I would like patient to still get up and walk to prevent blood clots but avoid flexing as much as possible. 5. H & H: 10.5/34.0, asymptomatic. Estimated blood loss was 400 mL. Patient is asymptomatic with vital stable. Monitoring patient's hemoglobin and hematocrit with postoperative drop in hemoglobin without any intra operative complications. At this time no treatment is required. Will repeat labs tomorrow. 6. Reactive leukocytosis: 15.1, Afebrile. Patient did receive Decadron intraoperatively. No clinical signs of infection. 7. Postoperative drainage: The Prevena incisional wound VAC was removed today due to significant drainage. Case was discussed with Wilman Agrawal. Upon removal of the Prevena incisional wound VAC there is a slow ooze over the distal incision between 2 sutures. Xeroform was placed over the apex of the lateral flap repair. Compressive Gerardo wrap with 6 ABDs were placed over the incision. Plan will be for dressing changes as needed for any breakthrough drainage. Sandbag will also be placed over the distal aspect of the incision. We will have restrictions on therapy for incision rest. I discussed with the patient and his family importance of getting the incision to heal. Consultation for possible wound VAC for Sunday, June 30, 2024 will be placed with the wound nurse. 8. Infectious disease consultation: Gram stains have been negative at this time and cultures are pending. Infectious disease is recommending oral doxycycline 100 mg twice daily for 4 weeks postoperatively. Will require 2-week follow-up with infectious disease. Will continue to monitor cultures 9. Encouraged Incentive Spirometry 10. Patient is aware of postoperative constipation that can occur from 1-3 days postoperatively. Will continue with senna 2 tablets twice daily until first bowel movement. Patient was advised if not having a bowel movement after day 3 she is to contact orthopedics so appropriate change can be made. Patient voiced understanding. 11. Continue postoperative medical treatment per medicine 12. Disposition: Case has been discussed with Dr. Wilman Agrawal. I will continue established plan per Dr. Wilman Agrawal. Extent amount of time was taken discussing treatment plan with the patient and his family. I emphasized the importance of incision rest and getting the incision to heal appropriately. Consultation for infectious disease has been obtained and appreciate recommendations. Will also place consultation for wound nurse for possible wound VAC on June 30, 2024. Case was discussed with the nurse and okay to do dressing changes as needed. Will place restrictions on physical therapy with no flexion of the right knee. I would still like patient to be able to get up and walk minimizing the flexion so that we can help avoid DVT. Continue with the sandbag and compressive Gerardo wrap while at rest. Continue above pain medications. Due to the draining incision as well as waiting on cultures patient will require multiple days in the hospital postoperatively. I have reviewed the [place] Automated Rx Reporting System (OARRS) report for this patient for refill pattern and other prescriber involvement as part of the appropriate surveillance for the provision of acute and chronic controlled medications. The report was requested and reviewed on the date of this entry and was considered in the prescribing process. This dictation was created using voice recognition software. Phonetic and/or grammatical errors may exist.
[2024-06-28] MEDS: Ensure Surgery 237 ML LIQUID PO ×3 (09:55→18:29)
[2024-06-28] MEDS: Famotidine 20 MG Tablet PO (09:57)
[2024-06-28] MEDS: Aspirin 81 MG TAB.CHEW PO ×2 (09:57→18:29)
[2024-06-28] MEDS: Doxycycline 100 MG CAPSULE PO ×2 (09:57→21:34)
[2024-06-28] MEDS: Senna/Docusate Sodium 1 Tablet 2 TABLET PO ×2 (09:58→21:34)
--- NOTE | 2024-06-28 10:20 | CASEMGMT ---
SAGE MARQUEZ Face to Face with patient for initial transition planning/care coordination assessment. RN CM introduced self and role at [facility]. Patient lying in bed, alert and oriented. Patient willing to participate in assessment and is able to answer all questions appropriately. Care providers, pharmacy, and demographics verified. Strata: 1 PCP: Esther Specialists: jay Agrawal; Danay, rosas; JUAN Valero Preferred Pharmacy: [facility] Insurance: [facility] Prescription Benefit: yes Living Will/HPOA: none LNOK: Living Arrangements: Patient lives with in a single story home with 3 steps and railing to enter. Patient was independent at home. Transportation: self, DME/HHC: Patien has raised toilet, cane, walker, grab bars, and cpap at home. No previous SNF. Patient has had [facility] in the past and has done wound care and IV ATBs at home previously. Patient wishes to discharge home, will monitor for need for HHC pending wound care and ATBs at discharge. Patient states he has no further needs or concerns at this time. CM to follow for discharge planning needs that may arise. Disposition Plan: Patient to discharge home with family support and follow-up plans in place. Will monitor for HHC, wound care, and ATBs at discharge. Kathi PERES, RN, CM
[2024-06-28 10:41] VITALS: BP 129/76; PULSE 82; RESP 14; TEMP 36.7; O2SAT 97
[2024-06-28 16:41] VITALS: BP 148/88; PULSE 75; RESP 16; TEMP 36.7; O2SAT 98
[2024-06-28] MEDS: oxyCODONE 5 MG Tablet PO ×2 (18:28→22:37)
[2024-06-28 21:28] VITALS: BP 141/79; PULSE 78; RESP 15; TEMP 36.8; O2SAT 97
[2024-06-28 22:00] VITALS: RESP 15
[2024-06-29 04:00] VITALS: BP 114/70; PULSE 73; RESP 15; TEMP 36.3; O2SAT 98
[2024-06-29] MEDS: oxyCODONE 5 MG Tablet PO ×4 (04:14→18:03)
[2024-06-29 04:37] LABS: Hematocrit 30.3 % (40-54); Hemoglobin 9.4 g/dL (13.0-16.5); Mean Corpuscular Hgb 24.8 pg (27.0-32.0); Mean Corpuscular Volume 79.9 fL (80-94); Mean Platelet Vol. 9.8 fl (6.2-12.0); Platelet Count 173 K/mm3 (150-450); RBC Distribution Width CV 17.7 % (11.6-14.6); Red Blood Count 3.79 M/mm3 (4.6-6.2); White Blood Count 8.2 K/mm3 (4.4-11.0)
[2024-06-29 04:55] LABS: Anion Gap 4 (5-15); BUN 24 mg/dL (7-18); BUN/Creat Ratio 32.1 RATIO (10-20); Calcium,Total 8.6 mg/dL (8.5-10.1); Chloride 108 mmol/L (98-107); Creatinine, Serum 0.75 mg/dL (0.70-1.30); EST Glomerular Filtration Rate 117 mL/min (>60); Est Glom Filt Rate - Afr Amer 141 mL/min (>60); Estimated Creatinine Clearance 161.14 ml/min; Glucose 98 mg/dL (74-106); Potassium 3.8 mmol/L (3.5-5.1); Sodium Level 139 mmol/L (136-145)
--- NOTE | 2024-06-29 09:16 | PN.ORTHO_ITS ---
Subjective Subjective The patient was sitting in bed upon examination. Patient denies any chest pain, shortness of breath, dizziness, lightheadedness, nausea or vomiting, or calf pain. Pain is controlled on medications. No adverse overnight events. We did place flexion restrictions. He has been working with therapy and states he walked the full [place]. Patient does report more pain and stiffness today. The pain is controlled. He also states that he had some slight rash on his body and his leg felt warmer. It is much better today. There has been no breakthrough drainage on the dressing. Objective Data Objective Data Vital Signs: Vital Signs Temp Pulse Resp BP Pulse Ox O2 Del Method O2 Flow Rate 97.3 F L 73 15 114/70 98 Room Air 2 06/29/24 04:00 06/29/24 04:00 06/29/24 04:00 06/29/24 04:00 06/29/24 04:00 06/29/24 04:00 06/27/24 13:33 Oxygen Flow Rate (L/min) 2 Oxygen Delivery Method Room Air Weight: 130.8 kg Body Mass Index (BMI) 39.1 Intake & Output: Intake and Output for Last 24 Hours 06/27/24 06/28/24 06/29/24 23:59 23:59 23:59 Intake Total 3078.25 / 3578.25 1290 / 1290 300 / 300 Output Total 110 / 110 600 / 600 Balance 3078.25 / 3468.25 1180 / 1180 -300 / -300 Lab / Micro Data 06/29/24 04:06 06/29/24 04:06 Labs: Laboratory Results - last 24 hr 06/29/24 04:06: WBC 8.2, RBC 3.79 L, Hgb 9.4 L, Hct 30.3 L, MCV 79.9 L, MCH 24.8 L, MCHC 31.0 L, RDW Std Deviation 51.0 H, RDW Coeff of Luigi 17.7 H, Plt Count 173, MPV 9.8, Sodium 139, Potassium 3.8, Chloride 108 H, Carbon Dioxide 27.0, A nion Gap 4 L, BUN 24 H, Creatinine 0.75, Estim Creat Clear Calc 161.14, Est GFR (MDRD) Af Amer 141, Est GFR (MDRD) Non-Af 117, BUN/Creatinine Ratio 32.1 H, Glucose 98, Calcium 8.6 Micro: Microbiology 06/27/24 09:10 Tissue - Knee Gram Stain - Final 06/27/24 09:10 Tissue - Knee Wound Culture - Preliminary No growth-Final to follow 06/27/24 09:10 Tissue - Knee Anaerobic Culture - Preliminary No growth in 48 hours. 06/27/24 09:10 Tissue - Knee Gram Stain - Final 06/27/24 09:10 Tissue - Knee Wound Culture - Preliminary No growth-Final to follow 06/27/24 09:10 Tissue - Knee Anaerobic Culture - Preliminary No growth in 48 hours. 06/27/24 09:10 Tissue - Knee Gram Stain - Final 06/27/24 09:10 Tissue - Knee Wound Culture - Preliminary No growth-Final to follow 06/27/24 09:10 Tissue - Knee Anaerobic Culture - Preliminary No growth in 48 hours. Physical Exam Narrative Vital signs stable and afebrile. SCDs and MUNIR hose are in place bilaterally Patient is able to plantarflex and dorsiflex actively. Sensation is intact to light touch to saphenous, sural, superficial and deep peroneal, and tibial distribution. Compressive Gerardo wrap clean dry and intact on the surface. This was removed and there is old bloody drainage on the 4 x 4 dressings underneath the ABD. Today there was no active drainage. No erythema. Sutures are in place. Negative Homans bilaterally, negative signs and symptoms of DVT. Const alert, oriented x3 and no apparent distress Assessment & Plan Assessment/Plan (1) Status post revision of total replacement of right knee: PLAN: 1. S/P revision right total knee replacement with removal of antibiotic spacer POD #2 2. Continue Pain Medications: Tylenol, meloxicam, oxycodone. Do not take any other nonsteroidal anti-inflammatories while using meloxicam/Mobic. Discussed the importance of staying ahead of the pain. Discussed with him that the narcotics are not scheduled and he will need to ask the nurse for narcotic breakthrough pain medication. He voiced understanding. 3. DVT Prophylaxis: Take 81 mg aspirin twice daily for 4 weeks postoperatively for DVT prophylaxis. Patient denies past history of DVT or pulmonary embolism. Patient will continue with SCDs while in the hospital and MUNIR hose for 2 weeks postoperatively 4. PT/OT: Case was discussed with Wilman Agrawal and due to the drainage we are now going to avoid flexion exercises for the right knee. I would like patient to still get up and walk to prevent blood clots but avoid flexing as much as possible. 5. H & H: 9.4/30.3, asymptomatic. Estimated blood loss was 400 mL. Patient is asymptomatic with vital stable. Monitoring patient's hemoglobin and hematocrit with postoperative drop in hemoglobin secondary to blood loss versus dilutional component without any intra operative complications. I will add in ferrous sulfate and folic acid today. Will repeat CBC tomorrow. Plan will be upon discharge follow-up with the primary care physician in 2-3 weeks for repeat labs. 6. Reactive leukocytosis: Resolved and currently 8.2, Afebrile. Patient did receive Decadron intraoperatively. No clinical signs of infection. 7. Postoperative drainage: Case was discussed with Wilman Agrawal. The compressive Gerardo wrap and ABDs were removed. No significant drainage at this time. Incision appears without erythema or drainage. Sutures in place. Xeroform was replaced over the apex of the lateral flap repair. Compressive Gerardo wrap with 6 ABDs were placed over the incision. Plan will be for dressing changes as needed for any breakthrough drainage. Sandbag will also be placed over the distal aspect of the incision. We will continue restrictions on therapy for incision rest. I discussed with the patient and his family importance of getting the incision to heal. Consultation for possible wound VAC for Sunday, June 30, 2024 will be placed with the wound nurse. 8. Infectious disease consultation: Gram stains have been negative at this time and preliminary cultures are without growth. Infectious disease is recommending oral doxycycline 100 mg twice daily for 4 weeks postoperatively. Will require 2-week follow-up with infectious disease. Will continue to monitor cultures 9. Encouraged Incentive Spirometry 10. Patient is aware of postoperative constipation that can occur from 1-3 days postoperatively. Will continue with senna 2 tablets twice daily until first bowel movement. Patient was advised if not having a bowel movement after day 3 she is to contact orthopedics so appropriate change can be made. Patient voiced understanding. 11. Continue postoperative medical treatment per medicine 12. Disposition: Case has been discussed with Dr. Wilman Agrawal. I will continue established plan per Dr. Wilman Agarwal. I emphasized the importance of continued incision rest and getting the incision to heal appropriately. Consultation for infectious disease has been obtained and we will continue recommendations. Consultation for wound nurse for possible wound VAC on June 30, 2024 was placed. Case was discussed with the nurse and okay to do dressing changes as needed. Will continue restrictions on physical therapy with no flexion of the right knee. I would still like patient to be able to get up and walk minimizing the flexion so that we can help avoid DVT. Continue with the sandbag and compressive Gerardo wrap while at rest. Continue above pain medications. I do not feel patient is ready for discharge home at this time as I want to make sure patient does not have complications with drainage. Will continue for incision rest and decision for possible wound VAC for discharge planning tomorrow. Advised patient to continue on current pain meds and make sure his pain is adequately controlled. I have reviewed the [place] Automated Rx Reporting System (OARRS) report for this patient for refill pattern and other prescriber involvement as part of the appropriate surveillance for the provision of acute and chronic controlled medications. The report was requested and reviewed on the date of this entry and was considered in the prescribing process. This dictation was created using voice recognition software. Phonetic and/or grammatical errors may exist.
[2024-06-29] MEDS: Acetaminophen 500 MG Tablet 1000 MG PO ×3 (09:26→21:49)
[2024-06-29] MEDS: Doxycycline 100 MG CAPSULE PO ×2 (09:28→21:49)
[2024-06-29] MEDS: Senna/Docusate Sodium 1 Tablet 2 TABLET PO ×2 (09:28→21:49)
[2024-06-29] MEDS: Meloxicam 7.5 MG Tablet PO ×2 (09:28→21:49)
[2024-06-29] MEDS: Aspirin 81 MG TAB.CHEW PO ×2 (09:28→17:04)
[2024-06-29] MEDS: Ensure Surgery 237 ML LIQUID PO ×3 (09:28→17:12)
[2024-06-29] MEDS: Famotidine 20 MG Tablet PO (09:29)
[2024-06-29 09:36] VITALS: BP 140/86; PULSE 80; RESP 18; TEMP 36.6; O2SAT 99
[2024-06-29] MEDS: Ferrous Sulfate 325 MG Tablet PO ×2 (13:17→17:04)
[2024-06-29] MEDS: Bisacodyl 5 MG Tablet 10 MG PO (14:00)
[2024-06-29 16:59] VITALS: BP 145/80; PULSE 79; RESP 16; TEMP 36.9; O2SAT 100
[2024-06-29 21:46] VITALS: BP 134/81; PULSE 81; RESP 15; TEMP 36.7; O2SAT 97
[2024-06-29 22:00] VITALS: RESP 15; O2SAT 97
[2024-06-30 02:22] VITALS: BP 140/83; PULSE 71; RESP 15; TEMP 36.6; O2SAT 96
[2024-06-30] MEDS: oxyCODONE 5 MG Tablet PO ×2 (02:25→06:33)
[2024-06-30 03:08] VITALS: RESP 15
[2024-06-30] MEDS: Acetaminophen 500 MG Tablet 1000 MG PO (06:29)
[2024-06-30 06:48] LABS: Hematocrit 29.3 % (40-54); Hemoglobin 9.1 g/dL (13.0-16.5); Mean Corp Hgb Conc 31.1 g/dL (32-36); Mean Corpuscular Hgb 24.7 pg (27.0-32.0); Mean Corpuscular Volume 79.4 fL (80-94); Mean Platelet Vol. 9.4 fl (6.2-12.0); Platelet Count 182 K/mm3 (150-450); RBC Distribution Width CV 17.2 % (11.6-14.6); Red Blood Count 3.69 M/mm3 (4.6-6.2)
[2024-06-30] MEDS: Aspirin 81 MG TAB.CHEW PO (07:54)
[2024-06-30] MEDS: Doxycycline 100 MG CAPSULE PO (07:54)
[2024-06-30] MEDS: Folic Acid 1 MG Tablet PO (07:54)
[2024-06-30] MEDS: Ferrous Sulfate 325 MG Tablet PO (07:55)
[2024-06-30] MEDS: Meloxicam 7.5 MG Tablet PO (07:55)
[2024-06-30] MEDS: Famotidine 20 MG Tablet PO (07:55)
[2024-06-30] MEDS: Ensure Surgery 237 ML LIQUID PO (07:58)
[2024-06-30] MEDS: Senna/Docusate Sodium 1 Tablet 2 TABLET PO (07:58)
[2024-06-30 08:50] VITALS: BP 148/87; PULSE 77; RESP 16; TEMP 36.8; O2SAT 99
--- NOTE | 2024-06-30 09:48 | CASEMGMT ---
Ortho doctor informed SAGE MARQUEZ Pt might need a permanent wound vac placement. SAGE MARQUEZ into pt room to discuss HHC options, while in room ortho doctor came in and assessed patient. Pt states just had therapy. Doctor states a lot of improvement from yesterday and will do a disposable wound vac before leaving hospital. Plan is for pt to go home on oral antibiotics. Pt denies needs for HHC and has OP therapy scheduled for 07/02/24. Denies additional needs at this time.
--- NOTE | 2024-06-30 10:17 | PN.ORTHO_ITS ---
Subjective Subjective The patient was sitting in bed side chair with present upon examination. Patient denies any chest pain, shortness of breath, dizziness, lightheadedness, nausea or vomiting, or calf pain. Pain is controlled on medications. No adverse overnight events. Patient overall is doing very well this morning. He has been passing gas but is not had a bowel movement. He has been using stool softeners. He does feel he is ready to have a bowel movement. Denies any abdominal pain. Patient has had compressive Gerardo wrap with sandbag and flexion restrictions. Initial Prevena incision wound VAC was removed due to the amount of drainage. Patient has nearly completely resolved drainage. Objective Data Objective Data Vital Signs: Vital Signs Temp Pulse Resp BP Pulse Ox O2 Del Method O2 Flow Rate 98.2 F 77 16 148/87 H 99 Room Air 2 06/30/24 08:50 06/30/24 08:50 06/30/24 08:50 06/30/24 08:50 06/30/24 08:50 06/30/24 08:50 06/27/24 13:33 Oxygen Flow Rate (L/min) 2 Oxygen Delivery Method Room Air Weight: 130.8 kg Body Mass Index (BMI) 39.1 Intake & Output: Intake and Output for Last 24 Hours 06/28/24 06/29/24 06/30/24 23:59 23:59 23:59 Intake Total 1290 / 1290 300 / 300 Output Total 110 / 110 600 / 600 Balance 1180 / 1180 -300 / -300 Lab / Micro Data 06/30/24 06:36 06/29/24 04:06 Labs: Laboratory Results - last 24 hr 06/30/24 06:36: WBC 7.0, RBC 3.69 L, Hgb 9.1 L, Hct 29.3 L, MCV 79.4 L, MCH 24.7 L, MCHC 31.1 L, RDW Std Deviation 50.0 H, RDW Coeff of Luigi 17.2 H, Plt Count 182, MPV 9.4 Micro: Microbiology 06/27/24 09:10 Tissue - Knee Gram Stain - Final 06/27/24 09:10 Tissue - Knee Wound Culture - Final No growth aerobically. 06/27/24 09:10 Tissue - Knee Anaerobic Culture - Preliminary No growth in 48 hours. 06/27/24 09:10 Tissue - Knee Gram Stain - Final 06/27/24 09:10 Tissue - Knee Wound Culture - Final No growth aerobically. 06/27/24 09:10 Tissue - Knee Anaerobic Culture - Preliminary No growth in 48 hours. 06/27/24 09:10 Tissue - Knee Gram Stain - Final 06/27/24 09:10 Tissue - Knee Wound Culture - Final No growth aerobically. 06/27/24 09:10 Tissue - Knee Anaerobic Culture - Preliminary No growth in 48 hours. Physical Exam Narrative Vital signs stable and afebrile. SCDs and MUNIR hose are in place bilaterally Patient is able to plantarflex and dorsiflex actively. Sensation is intact to light touch to saphenous, sural, superficial and deep peroneal, and tibial distribution. Compressive Gerardo wrap clean dry and intact on the surface. There is some drainage on ABD minimally over the distal aspect. Today there was no active drainage once dressing has been removed. No erythema. Sutures are in place. Negative Homans bilaterally, negative signs and symptoms of DVT. Const alert, oriented x3 and no apparent distress Assessment & Plan Assessment/Plan (1) Status post revision of total replacement of right knee: PLAN: 1. S/P revision right total knee replacement with removal of antibiotic spacer POD #3 2. Continue Pain Medications: Tylenol, meloxicam, oxycodone. Do not take any other nonsteroidal anti-inflammatories while using meloxicam/Mobic. Discussed the importance of staying ahead of the pain. 3. DVT Prophylaxis: Take 81 mg aspirin twice daily for 4 weeks postoperatively for DVT prophylaxis. Patient denies past history of DVT or pulmonary embolism. Patient will continue with SCDs while in the hospital and MUNIR hose for 2 weeks postoperatively 4. PT/OT: Weightbearing as tolerated with walker. Dr. Wilman Agrawal did discuss with the patient today no active flexion on his own passive 80-90 degrees. We will let physical therapy upon discharge work on further range of motion. 5. H & H: 9.1/29.3, asymptomatic. Estimated blood loss was 400 mL. Patient is asymptomatic with vital stable. Monitoring patient's hemoglobin and hematocrit with postoperative drop in hemoglobin secondary to blood loss versus dilutional component without any intra operative complications. Patient will continue with the ferrous sulfate and folic acid. Instructed patient the possibility of some constipation with ferrous sulfate. If he is having any further constipation may decrease from twice daily to once daily. He will contact our office with any issues. Plan will be upon discharge follow-up with the primary care physician in 2-3 weeks for repeat labs. Lab order will be placed on chart. He will get the lab done prior to his appointment with Dr. Luo 6. Reactive leukocytosis: Resolved and currently 7.0, Afebrile. Patient did receive Decadron intraoperatively. No clinical signs of infection. 7. Postoperative drainage: Case was discussed with Wilman Agrawal. Patient's drainage has significantly improved and the plan now will be for patient to use the Prevena incisional wound VAC for an additional 5 days. He will remove this on July 05, 2024. He was instructed to contact our office if he has further drainage or complications with the wound VAC. We discussed the possibility of removal at home and using compressive Gerardo wrap with ABDs. Patient's states they have ABDs and Gerardo wrap if needed. 8. Infectious disease consultation: Gram stains have been negative at this time and cultures are without growth. Infectious disease is recommending oral doxycycline 100 mg twice daily for 4 weeks postoperatively. Will require 2-week follow-up with infectious disease. Will continue to monitor cultures. Advised the patient side effect on this medication including sensitivity to the sunlight and he should take appropriate precautions. Also recommend using a probiotic while on the antibiotics for 4 weeks postoperatively. 9. Encouraged Incentive Spirometry 10. Patient is aware of postoperative constipation that can occur from 1-3 days postoperatively. Will continue with senna 2 tablets twice daily and Dulcolax until first bowel movement. Patient states he feels he is ready to have a bowel movement. He is passing gas. Denies any abdominal pain. If patient does not have bowel movement over the next 2 days he will contact our office. 11. Continue postoperative medical treatment per medicine 12. Disposition: Plan at this time will be discharged home with Prevena incisional wound VAC. Case was discussed with Dr. Wilman Agrawal. Please see above recommendations for the wound VAC. Patient has been overall medically stable. Vitals have been stable. Pain has been well-controlled. He will continue on above pain medications. Patient would like his medications E scribed to [facility] pharmacy. He will follow-up per postoperative instructions. I did discuss case with social worker masters and at this time they will help assist him in getting follow-up appointment with his primary care physician in 2-3 weeks with repeat labs and continued following of his postoperative anemia. After his visit with his primary care physician I would leave it up to him for further recommendations on treatment. Patient will also require 2-week follow-up with infectious disease. He will follow-up per our postoperative instructions. Upon discharge she was instructed to contact our office with any worsening symptoms. Patient and his were able to ask all questions. They voiced understanding agreement with above treatment plan. I have reviewed the [place] Automated Rx Reporting System (OARRS) report for this patient for refill pattern and other prescriber involvement as part of the appropriate surveillance for the provision of acute and chronic controlled medications. The report was requested and reviewed on the date of this entry and was considered in the prescribing process. This dictation was created using voice recognition software. Phonetic and/or grammatical errors may exist.
--- NOTE | 2024-06-30 10:27 | PCM.DC ---
Discharge Instructions Diet Discharge Diet: No restrictions DC O2, CPAP, BIPAP needs Home O2 Discharge instructions: No Dressing / Incision Discharge Activity: May Not Drive (No driving for 6 weeks postoperatively. Must also be off all narcotics and able to walk 100 feet without the use of cane or walker.) May shower in (days): 5 (Will need to sponge bathe while Prevena incisional wound VAC in place. Once wound VAC is removed okay to shower) Ice area for (Minutes): 20 (Every 1-2 hours while awake. [address] place barrier between the skin and ice pack.) Weight Bearing Status: Weight bearing as tolerated Keep extremity elevated above heart level: Operative Extremity Dressing / Incision Call your doctor if your incision/area has: Continuous Slow Oozing, Sudden Increased Bleeding, Increased Pain/ Swelling, Increased Redness and Foul Smelling Discharge Call your doctor if you observe: Fever of 101 or Higher, Coldness, Increased Pain, Numbness or Tingling, Change in Color, Shortness of breath, Chest pain, Calf discomfort and Uncontrolled pain Remove Dressing in: 5 days (Patient will remove Prevena incisional wound VAC on July 05, 2024) Additional Dressing/Incision Instructions:: Follow [facility] Post-op Instructions. Continue ferrous sulfate and folic acid until follow-up with primary care provider. Potential for constipation on the ferrous sulfate. Contact our office if having further constipation. Remove Prevena incisional wound VAC on July 05, 2024. Will need to sponge bathe until the wound VAC has been removed. Once removal of the wound VAC as long as there is no drainage okay to shower only. Do not use any ointments, Neosporin, salves, alcohol pads over the incision for 6 weeks postoperatively. Do not submerge underwater for 6 weeks postoperatively. Continue with MUNIR hose/elastic stockings for 2 weeks postoperatively. May remove at nighttime but needs to be placed back on the leg during the day. Do NOT use alcohol with narcotic pain medication. Do NOT make important decisions while taking narcotic medication. If you have problems with taking your medication (rash, itching, nausea, etc.) call the office at once. Follow Up Care Test Results: Test results from this visit will be discussed in further detail at your follow-up appointment, if applicable. Discharge Plan Admission Admit Date/Time: 06/27/24 10:57 Attending Provider: Wilman Agrawal Primary Care Provider: Dominic Santana Consulting Providers: Fabio Valero; Melchor Page Discharge Orders/Prescriptions Prescriptions: New acetaminophen 500 mg Tablet 1,000 mg PO TID 14 Days Qty: 84 0RF Rx Instructions: Do not take more than 3000 mg Tylenol in a 24-hour period. aspirin 81 mg capsule 81 mg PO BIDCM 30 Days Qty: 60 0RF Rx Instructions: Take 81 mg aspirin twice daily for 4 weeks postoperatively for DVT prophylaxis. doxycycline monohydrate 100 mg Capsule 100 mg PO BID 30 Days Qty: 60 0RF Rx Instructions: Take for 4 weeks postoperatively famotidine 20 mg Tablet 20 mg PO DAILY 30 Days Qty: 30 0RF ferrous sulfate 325 mg (65 mg iron) tablet,delayed release (DR/EC) 325 mg PO BID 21 Days Qty: 42 0RF meloxicam 7.5 mg Tablet 7.5 mg PO BID 30 Days Qty: 60 0RF Rx Instructions: Do not take any other nonsteroidal anti-inflammatories while using meloxicam/Mobic. folic acid 1 mg Tablet 1 mg PO BREAKFAST 21 Days Qty: 21 0RF oxycodone 5 mg Tablet 5 - 10 mg PO Q4H PRN PRN (Reason: As needed for pain) 7 Days Qty: 42 0RF Senna Plus 8.6-50 mg capsule 2 tab-cap PO BID 3 Days Qty: 12 0RF Discontinued acetaminophen [Tylenol] 325 mg tablet 650 mg PO Q4H PRN (Reason: pain) mupirocin 2 % ointment See Rx Instructions topical TID Rx Instructions: 1 application topically three times a day; Other Ambulatory Orders: CBC-Complete Blood Cnt No Diff (Routine) Timeframe: 3 Weeks Facility: [facility] - Location: Laboratory Ordered By: Thai PATEL Referrals / Follow Up: Physical,Therapy [Other] - 07/02/24 11:00 am Dominic Santana MD [Primary Care Provider] - 07/08/24 11:10 am (For Labs and Follow Up) Fabio Valero MD [Med Staff - Active Staff] - 07/16/24 1:30 pm (At [facility] [address] [place] [address]. [address]) Deb Oropeza PA [Med Staff - Adv Practice Prof] - 07/11/24 1:15 pm Disposition Disposition (needs filled in before D/C Order can be placed): Home, Self Care
--- NOTE | 2024-06-30 10:34 | CASEMGMT ---
PA requested F/U appointments for PCP and ID doctor in 2 weeks as well as labs. RN CM asked life science technician to make appointments, agreed to schedule.
--- NOTE | 2024-06-30 10:44 | DS.PCM_ITS ---
Providers Date of Admission: 06/27/24 Primary Care Physician: Dr. Dominic Santana MD Consultations 06/27/24 10:57 Consult: Infectious Disease Routine Consulting Provider: Fabio Valero Reason for Consult: input on extended post op antibiotic EMERGENT Consult: No Notified: Yes Date Notified: 06/27/24 Time Notified: 10:58 Method of Notification: Verbal 06/27/24 10:58 Consult: Hospitalist Routine Consulting Provider: Sonal Lomeli Reason for Consult: post op med management EMERGENT Consult: No Notified: Yes Date Notified: 06/27/24 Time Notified: 14:45 Method of Notification: Text 06/28/24 09:56 Consult: Onc/Wound/morning news anchor Routine Comment: Reason for Consult:: Post-operative draining incision right knee Comments:: Evaluate for possible wound vac Reason For Visit: REVISION RIGHT TOTAL KNEE ARTHROPLA Diagnosis Discharge Diagnosis (1) Status post revision of total replacement of right knee: Status: Acute Code(s): Z96.651 - Presence of right artificial knee joint Plan: 1. S/P revision right total knee replacement with removal of antibiotic spacer POD #3 2. Continue Pain Medications: Tylenol, meloxicam, oxycodone. Do not take any other nonsteroidal anti-inflammatories while using meloxicam/Mobic. Discussed the importance of staying ahead of the pain. 3. DVT Prophylaxis: Take 81 mg aspirin twice daily for 4 weeks postoperatively for DVT prophylaxis. Patient denies past history of DVT or pulmonary embolism. Patient will continue with SCDs while in the hospital and [facility] 4. PT/OT: Weightbearing as tolerated with walker. Dr. Wilman Agrawal did discuss with the patient today no active flexion on his own passive 80-90 degrees. We will let physical therapy upon discharge work on further range of motion. 5. H & H: 9.1/29.3, asymptomatic. Estimated blood loss was 400 mL. Patient is asymptomatic with vital stable. Monitoring patient's hemoglobin and hematocrit with postoperative drop in hemoglobin secondary to blood loss versus dilutional component without any intra operative complications. Patient will continue with the ferrous sulfate and folic acid. Instructed patient the possibility of some constipation with ferrous sulfate. If he is having any further constipation may decrease from twice daily to once daily. He will contact our office with any issues. Plan will be upon discharge follow-up with the primary care physician in 2-3 weeks for repeat labs. Lab order will be placed on chart. He will get the lab done prior to his appointment with Dr. Luo 6. Reactive leukocytosis: Resolved and currently 7.0, Afebrile. Patient did receive Decadron intraoperatively. No clinical signs of infection. 7. Postoperative drainage: Case was discussed with Wilman Agrawal. Patient's drainage has significantly improved and the plan now will be for patient to use the Prevena incisional wound VAC for an additional 5 days. He will remove this on July 05, 2024. He was instructed to contact our office if he has further drainage or complications with the wound VAC. We discussed the possibility of removal at home and using compressive Gerardo wrap with ABDs. Patient's states they have ABDs and Gerardo wrap if needed. 8. Infectious disease consultation: Gram stains have been negative at this time and cultures are without growth. Infectious disease is recommending oral doxycycline 100 mg twice daily for 4 weeks postoperatively. Will require 2-week follow-up with infectious disease. Will continue to monitor cultures. Advised the patient side effect on this medication including sensitivity to the sunlight and he should take appropriate precautions. Also recommend using a probiotic while on the antibiotics for 4 weeks postoperatively. 9. Encouraged Incentive Spirometry 10. Patient is aware of postoperative constipation that can occur from 1-3 days postoperatively. Will continue with senna 2 tablets twice daily and Dulcolax until first bowel movement. Patient states he feels he is ready to have a bowel movement. He is passing gas. Denies any abdominal pain. If patient does not have bowel movement over the next 2 days he will contact our office. 11. Continue postoperative medical treatment per medicine 12. Disposition: Plan at this time will be discharged home with Prevena incisional wound VAC. Case was discussed with Dr. iWlman Agrawal. Please see above recommendations for the wound VAC. Patient has been overall medically stable. Vitals have been stable. Pain has been well-controlled. He will continue on above pain medications. Patient would like his medications E scribed to [facility] pharmacy. He will follow-up per postoperative instructions. I did discuss case with health and social care teacher and at this time they will help assist him in getting follow-up appointment with his primary care physician in 2-3 weeks with repeat labs and continued following of his postoperative anemia. After his visit with his primary care physician I would leave it up to him for further recommendations on treatment. Patient will also require 2-week follow-up with infectious disease. He will follow-up per our postoperative instructions. Upon discharge she was instructed to contact our office with any worsening symptoms. Patient and his were able to ask all questions. They voiced understanding agreement with above treatment plan. I have reviewed the [place] Automated Rx Reporting System (OARRS) report for this patient for refill pattern and other prescriber involvement as part of the appropriate surveillance for the provision of acute and chronic controlled medications. The report was requested and reviewed on the date of this entry and was considered in the prescribing process. This dictation was created using voice recognition software. Phonetic and/or grammatical errors may exist. Medications at Discharge Home Medications acetaminophen 500 mg tablet 1,000 mg (2 x 500 mg) PO TID 14 days #84 tabs 06/30/24 aspirin 81 mg capsule 81 mg PO BIDCM 30 days #60 caps 06/30/24 doxycycline monohydrate 100 mg capsule 100 mg PO BID 30 days #60 caps 06/30/24 famotidine 20 mg tablet 20 mg PO DAILY 30 days #30 tabs 06/30/24 ferrous sulfate 325 mg (65 mg iron) tablet,delayed release 325 mg PO BID 21 days #42 tabs 06/30/24 folic acid 1 mg tablet 1 mg PO BREAKFAST 21 days #21 tabs 06/30/24 meloxicam 7.5 mg tablet 7.5 mg PO BID 30 days #60 tabs 06/30/24 oxycodone 5 mg tablet 5 - 10 mg (1 - 2 x 5 mg) PO Q4H PRN PRN As needed for pain 7 days #42 tabs 06/30/24 sennosides 8.6 mg-docusate sodium 50 mg capsule (Senna Plus) 2 tab-cap (2 x 8.6- 50 mg) PO BID 3 days #12 caps 06/30/24 Hospital Course Operations total knee replacement (Right revision knee total knee replacement with removal of antibiotic spacer) Summary of Care Provided Hospital Course: Patient is a 54-year-old male who has had history of previous ACL reconstruction and total knee arthroplasty. Previous total knee arthroplasty was in 2018 by outside orthopedic surgeon. Patient initially presented to Dr. Wilman Agrawal with 2 draining sinuses over the lateral knee in which x-rays were consistent with tibial baseplate loosening with bony erosions behind the patella button. He underwent a previous right knee explantation and placement of articulating antibiotic spacer with sinus tract excision and placement of wound VAC. This was performed by Dr. Wilman Agrawal on March 21, 2024. Following this procedure patient required follow-up surgeries with local plastic surgeon for lateral gastroc flap repair. Range of motion and weightbearing restrictions were in place postoperatively due to the surgical wound. He was followed by infectious disease Dr. Valero. Patient was placed on IV antibiotics including ceftriaxone and vancomycin. Postoperatively he was treated with Rivaroxaban due to limited mobility. Patient has finished all care with the local plastic surgeon. Patient was doing well from pain standpoint. Patient had recent inflammatory workup with ESR 20 and CRP 6.55. He has seen improvement with his hemoglobin and currently 13.0. There was some concern with the wound postoperatively however wound has been doing well and we will move forward with surgery. After failing conservative measures, the patient opted to proceed with a revision right total knee arthroplasty with removal of antibiotic spacer. The patient underwent the above-stated procedure on June 27, 2024. Patient did receive perioperative antibiotics. Intraoperatively was uneventful. For details please see dictated operative note. The patient was placed in thigh-high teds, bilateral SCDs, remained stable in recovery. Patient was admitted to the 3rd floor at [facility]. The patient's pain was managed with the use of IV and p.o. pain medications. Patient participated in physical therapy with flexion restrictions. Postoperatively patient did have significant amount of drainage in which the Prevena incisional wound VAC was removed. Compressive Gerardo wrap with ABDs and sandbag was used. Drainage significantly improved in which patient was sent home with Prevena incisional wound VAC which will be removed on July 05, 2024. Patient also had a drop in his hemoglobin postoperatively in which she was started on ferrous sulfate and folic acid. Patient will follow-up with his primary care provider in 2-3 weeks with repeat lab work and discussion for further treatment for the postoperative anemia. Patient's cultures were negative. Infectious disease was consulted while in hospital and recommendation is doxycycline for 4 weeks postoperatively. Patient was advised on potential side effects including sensitivity to the sunlight and should take appropriate precautions. Also recommended probiotics while on the antibiotic. Patient will continue with Tylenol, meloxicam, and oxycodone for pain control. DVT prophylaxis patient will use aspirin 81 mg twice daily for 4 weeks postoperatively. Patient will continue with stool softener and was advised to contact our office if he has not had a bowel movement upon discharge. Also recommended stool softener as needed while on the ferrous sulfate. He denies past history of DVT or pulmonary embolism. Patient was discharged on postoperative day # 3 to home. Patient was given medications stated below. Patient will follow up with [facility] per postop instructions for reassessment. Weight / BMI Weight Weight: 130.8 kg Body Mass Index (BMI) 39.1 ABG / Lab / Microbiology Data 06/30/24 06:36 06/29/24 04:06 Laboratory: Laboratory Results - last 24 hr 06/30/24 06:36: WBC 7.0, RBC 3.69 L, Hgb 9.1 L, Hct 29.3 L, MCV 79.4 L, MCH 24.7 L, MCHC 31.1 L, RDW Std Deviation 50.0 H, RDW Coeff of Luigi 17.2 H, Plt Count 182, MPV 9.4 Microbiology: Microbiology 06/27/24 09:10 Tissue - Knee Gram Stain - Final 06/27/24 09:10 Tissue - Knee Wound Culture - Final No growth aerobically. 06/27/24 09:10 Tissue - Knee Anaerobic Culture - Preliminary No growth in 48 hours. 06/27/24 09:10 Tissue - Knee Gram Stain - Final 06/27/24 09:10 Tissue - Knee Wound Culture - Final No growth aerobically. 06/27/24 09:10 Tissue - Knee Anaerobic Culture - Preliminary No growth in 48 hours. 06/27/24 09:10 Tissue - Knee Gram Stain - Final 06/27/24 09:10 Tissue - Knee Wound Culture - Final No growth aerobically. 06/27/24 09:10 Tissue - Knee Anaerobic Culture - Preliminary No growth in 48 hours. D/C Instructions Discharge Diet: No restrictions May shower in (days): 5 (Will need to sponge bathe while Prevena incisional wound VAC in place. Once wound VAC is removed okay to shower) Ice area for (Minutes): 20 (Every 1-2 hours while awake[address] Please place barrier between the skin and ice pack.) Weight Bearing Status: Weight bearing as tolerated Keep extremity elevated above heart level: Operative Extremity Call your doctor if your incision/area has: Continuous Slow Oozing, Sudden Increased Bleeding, Increased Pain/ Swelling, Increased Redness and Foul Smelling Discharge Call your doctor if you observe: Fever of 101 or Higher, Coldness, Increased Pain, Numbness or Tingling, Change in Color, Shortness of breath, Chest pain, Calf discomfort and Uncontrolled pain Additional Dressing/Incision Instructions: Follow [facility] Post-op Instructions. Continue ferrous sulfate and folic acid until follow-up with primary care provider. Potential for constipation on the ferrous sulfate. Contact our office if having further constipation. Remove Prevena incisional wound VAC on July 05, 2024. Will need to sponge bathe until the wound VAC has been removed. Once removal of the wound VAC as long as there is no drainage okay to shower only. Do not use any ointments, Neosporin, salves, alcohol pads over the incision for 6 weeks postoperatively. Do not submerge underwater for 6 weeks postoperatively. Continue with MUNIR hose/elastic stockings for 2 weeks postoperatively. May remove at nighttime but needs to be placed back on the leg during the day. Do NOT use alcohol with narcotic pain medication. Do NOT make important decisions while taking narcotic medication. If you have problems with taking your medication (rash, itching, nausea, etc.) call the office at once. DC O2, CPAP, BIPAP Needs Home O2 Discharge instructions: No Meaningful Use Info Meaningful Use Meaningful Use Diagnoses (Choose all that apply): None applicable Ischemic Stroke Statin Dosing Therapy Reference: STATIN DOSE THERAPY REFERENCE: * Patients > 75 years receive moderate or high dose statin therapy. * Patients 75 years or YOUNGER should receive HIGH intensity statin dose unless contraindicated. You will be required to document reason for non-treatment if statin daily dose does not meet guidelines. HIGH DOSE STATIN THERAPY DAILY Atorvastatin > than or = to 40 mg Rosuvastatin > than or = to 20 mg Amlodipine + Atorvastatin > than or = to 2.5/40 mg Ezetimibe + Simvastatin 10/80 mg Simvastatin 80mg Discharge Plan Admission Admit Date/Time: 06/27/24 10:57 Attending Provider: Wilman Agrawal Primary Care Provider: Dominic Santana Consulting Providers: Fabio Valero; Melchor Page Discharge Orders/Prescriptions Prescriptions: New acetaminophen 500 mg Tablet 1,000 mg PO TID 14 Days Qty: 84 0RF Rx Instructions: Do not take more than 3000 mg Tylenol in a 24-hour period. aspirin 81 mg capsule 81 mg PO BIDCM 30 Days Qty: 60 0RF Rx Instructions: Take 81 mg aspirin twice daily for 4 weeks postoperatively for DVT prophylaxis. doxycycline monohydrate 100 mg Capsule 100 mg PO BID 30 Days Qty: 60 0RF Rx Instructions: Take for 4 weeks postoperatively famotidine 20 mg Tablet 20 mg PO DAILY 30 Days Qty: 30 0RF ferrous sulfate 325 mg (65 mg iron) tablet,delayed release (DR/EC) 325 mg PO BID 21 Days Qty: 42 0RF meloxicam 7.5 mg Tablet 7.5 mg PO BID 30 Days Qty: 60 0RF Rx Instructions: Do not take any other nonsteroidal anti-inflammatories while using meloxicam/Mobic. folic acid 1 mg Tablet 1 mg PO BREAKFAST 21 Days Qty: 21 0RF oxycodone 5 mg Tablet 5 - 10 mg PO Q4H PRN PRN (Reason: As needed for pain) 7 Days Qty: 42 0RF Senna Plus 8.6-50 mg capsule 2 tab-cap PO BID 3 Days Qty: 12 0RF Discontinued acetaminophen [Tylenol] 325 mg tablet 650 mg PO Q4H PRN (Reason: pain) mupirocin 2 % ointment See Rx Instructions topical TID Rx Instructions: 1 application topically three times a day; Other Ambulatory Orders: CBC-Complete Blood Cnt No Diff (Routine) Timeframe: 3 Weeks Facility: [facility] - Location: Laboratory Ordered By: Thai PATEL Referrals / Follow Up: Physical,Therapy [Other] - 07/02/24 11:00 am Dominic Santana MD [Primary Care Provider] - 07/08/24 11:10 am (For Labs and Follow Up) Fabio Valero MD [Med Staff - Active Staff] - 07/16/24 1:30 pm (At [facility] [address] [place] [address]. [address]) Deb Oropeza PA [Med Staff - Adv Practice Prof] - 07/11/24 1:15 pm Disposition Disposition (needs filled in before D/C Order can be placed): Home, Self Care
--- NOTE | 2024-06-30 12:33 | CASEMGMT ---
SAGE MARQUEZ was informed Pt appointments scheduled. Added to DC plan. Notified Pt of upcoming follow ups with PCP and ID doctor, as well as lab work follow up. Pt denies any questions or concerns at this time.
--- NOTE | 2024-06-30 13:42 | PHA.DC.MR.R ---
Pharmacy ID Med Reconciliation Pharmacy Service has performed discharge medication reconciliation for this patient. Medication education papers prepared but patient was discharged before I was able to student financial services counselor. Medications reviewed. The patient's discharge medication list was reviewed for discrepancies and discrepancies were resolved. Medications at Discharge Home Medications acetaminophen 500 mg tablet 1,000 mg (2 x 500 mg) PO TID 14 days #84 tabs 06/30/24 aspirin 81 mg capsule 81 mg PO BIDCM 30 days #60 caps 06/30/24 doxycycline monohydrate 100 mg capsule 100 mg PO BID 30 days #60 caps 06/30/24 famotidine 20 mg tablet 20 mg PO DAILY 30 days #30 tabs 06/30/24 ferrous sulfate 325 mg (65 mg iron) tablet,delayed release 325 mg PO BID 21 days #42 tabs 06/30/24 folic acid 1 mg tablet 1 mg PO BREAKFAST 21 days #21 tabs 06/30/24 meloxicam 7.5 mg tablet 7.5 mg PO BID 30 days #60 tabs 06/30/24 oxycodone 5 mg tablet 5 - 10 mg (1 - 2 x 5 mg) PO Q4H PRN PRN As needed for pain 7 days #42 tabs 06/30/24 sennosides 8.6 mg-docusate sodium 50 mg capsule (Senna Plus) 2 tab-cap (2 x 8.6-50 mg) PO BID 3 days #12 caps 06/30/24
== END 2024-06-30 13:10 | disposition home or self-care (01) | DRG 467 ==
LOC: MS3 12:07
PROVIDERS: Anesthesiology; Physician Assistant Surgical; Admitting Provider Specialist; PCP Family Medicine; Referring Provider Specialist; Visit Provider Specialist
PROC: 0SPC0JZ Removal of Synthetic Substitute from Right Knee Joint, Open Approach (ICD-10-PCS; principal; 2024-06-27 07:05)
DX: T84.53XA Infection and inflammatory reaction due to internal right knee prosthesis, initial encounter (principal); D62 Acute posthemorrhagic anemia; E66.9 Obesity, unspecified; M17.0 Bilateral primary osteoarthritis of knee; G47.33 Obstructive sleep apnea (adult) (pediatric); F17.200 Nicotine dependence, unspecified, uncomplicated; Z79.1 Long term (current) use of non-steroidal anti-inflammatories (NSAID); Z68.39 Body mass index [BMI] 39.0-39.9, adult; Y79.2 Prosthetic and other implants, materials and accessory orthopedic devices associated with adverse incidents
CPT/HCPCS: 36415; 73560; 80048; 82962; 83735; 85027; 87015; 87070; 87075; 87102; 87116; 87205; 87206; 94668; 97110; 97116; 97162; 97166; 97530; 99252; C1776; A4216; G0463; J2405; J3475

== ENCOUNTER 2024-07-10 14:00 | Outpatient (RCR) | payer OTHER, SELFPAY ==
[2024-06-11 00:18] VITALS: BP 126/69; PULSE 72; RESP 16; TEMP 36.6; BMI 39.7
[2024-06-16 14:55] VITALS: BP 158/86; RESP 16; TEMP 36.5; BMI 39.7
--- NOTE | 2024-06-16 16:42 | PCM.PN.SRG ---
Subjective Subjective Doing well. No new pain/discomfort. XF daily going well. No drainage. No fevers or chills. Sees Dr. Agrawal later this week to check progress and discuss timing of antibiotic spacer removal and replacement with new knee. Objective Data Objective Data Vital Signs: Vital Signs Temp Pulse Resp BP O2 Del Method 97.7 F L 72 16 158/86 H Room Air 06/16/24 14:55 06/11/24 00:18 06/16/24 14:55 06/16/24 14:55 06/16/24 14:55 Oxygen Delivery Method Room Air Weight: 285 lb Body Mass Index (BMI) 39.7 Physical Exam Narrative RIGHT LOWER EXTREMITY: Right lateral leg/knee proximal ulcer is nice beefy pink, no depth. Sensation: Intact to light touch throughout Motor: 5/5 dorsiflexion Vascular: 2+ DP and PT pulses. Assessment & Plan Assessment/Plan (1) Delayed surgical wound healing: PLAN: Near complete healing. Still open area with beefy red granulation, no depth. Continue XF twice daily and wash with soapy water between dressing changes. Charges/Coding Procedures Integumentary 111xxx-113xx: [id number] Global Visit
[2024-07-07 15:35] VITALS: BP 132/69; PULSE 76; RESP 16; TEMP 36.7; BMI 39.7
--- NOTE | 2024-07-08 14:12 | PN.PCM_ITS ---
History of Present Illness Date of Service: 07/07/24 Chief Complaint: Right lateral knee ulcer History of Wound: Phoenix Fulton is a 53-year-old male who has a history of right ACL reconstruction followed by a total knee replacement in 2018 by a surgeon from an outside hospital. The patient recently presented to [facility] (Dr. Agrawal) with 2 draining sinuses over the lateral knee. His x-ray demonstrated tibial baseplate loosening and bony erosions. Dr. Agrawal recommended operative intervention with a two-stage revision of his knee. The patient was taken back to the operating room 21 March 2024, by Dr. Agrawal where right knee explantation and placement of an articulating antibiotic spacer was performed, followed by debridement of the lateral knee wound and its sinus tracts. Cultures were taken. Plastic surgery was consulted intraoperatively for the wound and the defect was photographed. The sinuses tracked down to the joint via a small joint opening on the lateral aspect of the knee. Dr. Agrawal would like muscle coverage over this opening to seal off the joint. 24 March 2024, surgery by Dr. Jon for Excision of wound bed, necrotic fat and fascia 8x 5 cm and Placement of irrigating wound VAC, not disposable, <50 cm ^2. [address] Jon for Excision of wound bed, necrotic fat and fascia, 8 x 5 cm and Neuroplasty common peroneal nerve (release of fibular tunnel) and Right lateral gastrocnemius myocutaneous flap for reconstruction of right knee wound and 8 x 5 cm split-thickness skin graft, 12/1,000th of an inch (right thigh) with Taylor Dermatome. Discharged home 31 March 2024. Developed a hematoma after Chalino drains removed. 08 April 2024, surgery for evacuation of right leg hematoma. Subjective Subjective Patient had antibiotic spacer removal and arthroplasty on 27 June 2024. His lateral gastroc has healed and the orthopedist thought it appropriate to start further reconstruction of his knee. Since then there has been a small amount of drainage in the distal aspect of the knee arthroplasty incision (separate from the gastroc incision or from the gastroc flap with the original area of concern). Patient presents today for evaluation of drainage from the new arthroplasty wound. The drainage has been serosanguineous and there is no signs of purulence or fevers or chills. I spoke with his orthopedic surgeon Dr. Agrawal who asked that we consider placement of another incisional VAC (there was an incisional VAC on the wound for 1 week postoperatively, and then the drainage recurred when he started moving his leg doing physical therapy). Objective Data Objective Data Vital Signs: Vital Signs Temp Pulse Resp BP O2 Del Method 98.1 F 76 16 132/69 H Room Air 07/07/24 15:35 07/07/24 15:35 07/07/24 15:35 07/07/24 15:35 07/07/24 15:35 Oxygen Delivery Method Room Air Weight: 285 lb Body Mass Index (BMI) 39.7 Charges/Coding Visit Charges Office Visits / Consults: 29987 OV L4 Est 30min Physical Exam Narrative RIGHT LOWER EXTREMITY: Right lateral leg/knee has healed status post flap with lateral gastroc The anterior knee incision has some drainage distally, but no dehiscence. No large underlying fluid collections on my exam/palpation. No signs of acute induration inflammation around the incision. The nylon sutures are intact. Sensation: Intact to light touch throughout Motor: 5/5 dorsiflexion Vascular: 2+ DP and PT pulses. 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/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 (Physician/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 ) ) Arrival Mode Ambulatory Ambulatory,Cane Accompanied by Patient Identification Verified (Name & Yes Yes ) Height and Weight Body Mass Index (BMI) 39.7 39.7 BMI Classification Obese Obese Vital Signs Temperature (97.8 F-99.1 F) 97.7 F L 98.1 F Temperature Source Temporal Temporal Pulse Rate (60-100) 76 Pulse Location Monitor Monitor Respiratory Rate (12-18) 16 16 Respiratory rate source Monitor Observation Oxygen Delivery Method Room Air Room Air Blood Pressure (90/60-120/80) 158/86 H 132/69 H Blood Pressure Mean (mm Hg) 110 90 Source Monitor Monitor Position Semi-Fowlers Sitting Blood Pressure Location Left Arm Right Arm History Since Last Visit- (Skip if this is Patient's initial visit) Have you changed medications since your No No last visit? Any new allergies or adverse reactions No No Had a fall/change in ADL's that may No No increase risk of falls Signs or symptoms of abuse and/or No No neglect since last visit Have you been in the hospital since your No Yes last visit? Has dressing in place as prescribed Yes Yes Has compression in place as prescribed Yes Yes Has offloadiing in place as prescribed N/A Yes Experienced any changes in pain level or No No management Left Footwear Regular Shoe Regular Shoe Right Footwear Regular Shoe Regular Shoe Pain Scale: 0-10 Numeric Is Patient Pain Free? Yes Yes WC - Nurse 1 - General Ulcer Measurement Start: 06/16/24 14:55 Freq: Status: Active Protocol: Activity Type Activity Date Activity User E-sign Co-sign Detail Recorded Client Recorded Date Recorded By Document 06/16/24 14:55 KW [id number] 06/16/24 15:03 KW Document 07/07/24 15:35 KW [id number] 07/07/24 15:43 KW 06/16/24 07/07/24 14:55 15:35 Wound Center Nurse 1 #1 RT KNEE POST OP -Current Size (cm) - Length 0.1 -Current Size (cm) - Width 0.1 -Current Size (cm) - Depth 0 -Total Square Cm 0.01 -Epithelialization Large 67-100% -Exudate Amt None Present -Texture (María-wound Skin Appearance) Assessed -Moisture (María-wound Skin Appearance) Assessed -Color (María-wound Skin Appearance) Assessed -Temperature (María-wound Skin No Abnormality Appearance) (Pt Warm) -Tenderness on Palpation (María-wound No Skin Appearance) -Ulcer Cleansing Rinsed/ Irrigated with Saline -Foul Odor after Cleansing No #4- R LAT LE -Current Size (cm) - Length 0.1 0.5 -Current Size (cm) - Width 0.1 0.1 -Current Size (cm) - Depth 0 0 -Total Square Cm 0.01 0.05 -Exudate Amt None Present Medium -Exudate Type Serosanguineous -Wound Margin Indistinct, Non -Visible -Texture (María-wound Skin Appearance) Assessed Assessed -Moisture (María-wound Skin Appearance) Assessed Assessed -Color (María-wound Skin Appearance) Assessed Assessed -Temperature (María-wound Skin No Abnormality No Abnormality Appearance) (Pt Warm) (Pt Warm) -Tenderness on Palpation (María-wound No No Skin Appearance) -Ulcer Cleansing Rinsed/ Rinsed/ Irrigated with Irrigated with Saline Saline -Foul Odor after Cleansing No No -Wound Comment(s) scabbed INCISION SUTURES INTACT, SMALL AREA IS DRAINING #3 R Knee Sup -Current Size (cm) - Length 0.1 -Current Size (cm) - Width 0.1 -Current Size (cm) - Depth 0 -Total Square Cm 0.01 -Epithelialization Large 67-100% -Exudate Amt None Present -Texture (María-wound Skin Appearance) Assessed -Moisture (María-wound Skin Appearance) Assessed -Color (María-wound Skin Appearance) Assessed -Temperature (María-wound Skin No Abnormality Appearance) (Pt Warm) -Tenderness on Palpation (María-wound No Skin Appearance) -Ulcer Cleansing Rinsed/ Irrigated with Saline WC - Nurse 2 - General Ulcer CM Notes Start: 06/16/24 14:55 Freq: Status: Active Protocol: Activity Type Activity Date Activity User E-sign Co-sign Detail Recorded Client Recorded Date Recorded By Document 06/16/24 15:09 [id number] 06/16/24 15:20 Document 07/07/24 16:36 [id number] 07/07/24 16:39 06/16/24 07/07/24 15:09 16:36 Wound Center Nurse 2 #1 RT KNEE POST OP -Correct Patient Yes -Correct Side, Site, Position No -Correct Procedure No -Procedure Performed No -Post Debridement (cm) - Length 0 -Post Debridement (cm) - Width 0 -Post Debridement (cm) - Depth 0 -Total Square (Post) (cm) 0 -Area of Debridement (cm) - Length 0 -Area of Debridement (cm) - Width 0 -Total Square (Area) (cm) 0 -Wound/Ulcer Outcome Healed- Epithelialized #4- R LAT LE -Correct Patient Yes No -Correct Side, Site, Position No No -Correct Procedure No No -Procedure Performed No No -Type of Procedure Debridement -Clinical Debridement Subcutaneous -Tissue Removed Subcutaneous -Post Debridement (cm) - Length 0.1 -Post Debridement (cm) - Width 0.1 -Post Debridement (cm) - Depth 0.1 -Total Square (Post) (cm) 0.01 -Area of Debridement (cm) - Length 0.1 -Area of Debridement (cm) - Width 0.1 -Total Square (Area) (cm) 0.01 -Wound/Ulcer Outcome Not Healed Not Healed -Ulcer Cleansing Rinsed/ Irrigated with Saline -Foul Odor after Cleansing No -Bioengineered Tissue No -Bleeding Controlled with Pressure -Treatment Response Procedure Tolerated Well -Offloading No -Debridement - Subq, 1st 20sq cm No No #3 R Knee Sup -Time 15:20 -Correct Patient Yes No -Correct Side, Site, Position Yes No -Correct Procedure Yes No -Procedure Performed Yes No -Type of Procedure Debridement -Clinical Debridement Subcutaneous -Tissue Removed Subcutaneous -Post Debridement (cm) - Length 0.1 -Post Debridement (cm) - Width 0.1 -Post Debridement (cm) - Depth 0.1 -Total Square (Post) (cm) 0.01 -Area of Debridement (cm) - Length 0.1 -Area of Debridement (cm) - Width 0.1 -Total Square (Area) (cm) 0.01 -Tunneling No -Undermining/Tunneling No -Circular Undermining No -Wound/Ulcer Outcome Not Healed Not Healed -Ulcer Cleansing Rinsed/ Irrigated with Saline -Foul Odor after Cleansing No -Bioengineered Tissue No -Bleeding Controlled with Pressure -Treatment Response Procedure Tolerated Well -Offloading No -Debridement - Subq, 1st 20sq cm Yes Pain Scale: 0-10 Numeric Is Patient Pain Free? Yes Yes - Nurse 3 - General Ulcer D/C NN Start: 06/16/24 14:55 Freq: Status: Active Protocol: Activity Type Activity Date Activity User E-sign Co-sign Detail Recorded Client Recorded Date Recorded By Document 06/16/24 15:20 JF [id number] 06/16/24 15:21 JF Document 07/07/24 16:44 KW [id number] 07/07/24 16:45 KW 06/16/24 07/07/24 15:20 16:44 Wound Care Center Nurse 3 #4- R LAT LE -Ulcer Cleansing Rinsed/ Irrigated with Saline -Other Dressing xeroform [id number] -Primary Dressing Covered/Secured with Dry Gauze, Dry Gauze Secured with Tape #3 R Knee Sup -Ulcer Cleansing Rinsed/ Irrigated with Saline -Foul Odor after Cleansing No -Primary Dressing Applied Silvercel -Other Dressing xeroform -Primary Dressing Covered/Secured with Dry Gauze, Dry Gauze,Dry Secured with Gauze & Roll Tape Gauze,Secured with Tape -Silvercel 1 Right -Compression Wrap Gerardo Wrap -Stockings Yes: 20-30mmHg Pain Scale: 0-10 Numeric Is Patient Pain Free? Yes Yes WC - Visit Discharge Discharge Condition Stable Stable Ambulatory Status Ambulatory Ambulatory,Cane Transportation Private Auto Private Auto Accompanied by Medication Reconcilliation completed & Yes No provided to patient/care provider Clinical Summary of Care Provided Yes Yes Assessment/Plan Assessment/Plan (1) Status post revision of total replacement of right knee: CODE(S): Z96.651 - Presence of right artificial knee joint PLAN: To prevent further fluid collections and promote healing, our team is ordering negative pressure wound therapy at -125 to the incision. We will protect the incision with Adaptic. Patient and his are happy with the plan, as is Dr. Agrawal from orthopedics. Plastics will follow closely in the wound care center. Follow-up on Sunday, 14 July 2024 for wound check.
[2024-07-10 13:58] VITALS: BP 130/70; PULSE 70; RESP 18; TEMP 36.3; BMI 39.7
== END 2024-07-11 23:59 | disposition home or self-care (01) ==
LOC: WC 14:00
PROVIDERS: PCP Family Medicine; Referring Provider Surgery Plastic and Reconstructive Surgery; Visit Provider Surgery Plastic and Reconstructive Surgery
DX: T81.31XA Disruption of external operation (surgical) wound, not elsewhere classified, initial encounter (principal); Z96.651 Presence of right artificial knee joint
CPT/HCPCS: 11042; 97605; 99214; G0463

== ENCOUNTER 2024-07-21 15:00 | Outpatient (RCR) | payer OTHER, SELFPAY ==
[2024-07-12 00:43] VITALS: BP 130/70; PULSE 70; RESP 18; TEMP 36.3; BMI 39.7
[2024-07-14 14:59] VITALS: BP 136/79; PULSE 74; RESP 16; TEMP 36.1; BMI 39.7
--- NOTE | 2024-07-15 07:39 | PN.PCM_ITS ---
History of Present Illness Date of Service: 07/14/24 Chief Complaint: Right lateral knee ulcer History of Wound: Phoenix Fulton is a 53-year-old male who has a history of right ACL reconstruction followed by a total knee replacement in 2018 by a surgeon from an outside hospital. The patient recently presented to [facility] (Dr. Agrawal) with 2 draining sinuses over the lateral knee. His x-ray demonstrated tibial baseplate loosening and bony erosions. Dr. Agrawal recommended operative intervention with a two-stage revision of his knee. The patient was taken back to the operating room 21 March 2024, by Dr. Agrawal where right knee explantation and placement of an articulating antibiotic spacer was performed, followed by debridement of the lateral knee wound and its sinus tracts. Cultures were taken. Plastic surgery was consulted intraoperatively for the wound and the defect was photographed. The sinuses tracked down to the joint via a small joint opening on the lateral aspect of the knee. Dr. Agrawal would like muscle coverage over this opening to seal off the joint. 24 March 2024, surgery by Dr. Jon for Excision of wound bed, necrotic fat and fascia 8x 5 cm and Placement of irrigating wound VAC, not disposable, <50 cm ^2. [address] Jon for Excision of wound bed, necrotic fat and fascia, 8 x 5 cm and Neuroplasty common peroneal nerve (release of fibular tunnel) and Right lateral gastrocnemius myocutaneous flap for reconstruction of right knee wound and 8 x 5 cm split-thickness skin graft, 12/1,000th of an inch (right thigh) with [facility] Dermatome. Discharged home 31 March 2024. Developed a hematoma after Chalino drains removed. 08 April 2024, surgery for evacuation of right leg hematoma. Subjective Subjective 07 July 2024: patient had antibiotic spacer removal and arthroplasty on 27 June 2024. His lateral gastroc has healed and the orthopedist thought it appropriate to start further reconstruction of his knee. Since then there has been a small amount of drainage in the distal aspect of the knee arthroplasty incision (separate from the gastroc incision or from the gastroc flap with the original area of concern). Patient presents today for evaluation of drainage from the new arthroplasty wound. The drainage has been serosanguineous and there is no signs of purulence or fevers or chills. I spoke with his orthopedic surgeon Dr. Agrawal who asked that we consider placement of another incisional VAC (there was an incisional VAC on the wound for 1 week postoperatively, and then the drainage recurred when he started moving his leg doing physical therapy). 14 July 2024: Doing well overall. Has been using the wound VAC. Less drainage and improving range of motion with physical therapy which was allowed by Dr. Agrawal once the VAC was placed. No fevers or chills. Pain controlled. Objective Data Objective Data Vital Signs: Vital Signs Temp Pulse Resp BP O2 Del Method 97.0 F L 74 16 136/79 H Room Air 07/14/24 14:59 07/14/24 14:59 07/14/24 14:59 07/14/24 14:59 07/14/24 14:59 Oxygen Delivery Method Room Air Weight: 285 lb Body Mass Index (BMI) 39.7 Charges/Coding Multi Select Codes Visit Charges Office Visit/Consults: 28705 OV L3 Est 20min Physical Exam Narrative RIGHT LOWER EXTREMITY: Right lateral leg/knee has healed status post flap with lateral gastroc The anterior knee incision does not have any drainage today. I could not milk any drainage from the incision either. No large underlying fluid collections on my exam/palpation. No signs of acute induration inflammation around the incision. The nylon sutures are intact and were left in place again today. Sensation: Intact to light touch throughout Motor: 5/5 dorsiflexion Vascular: 2+ DP and PT pulses. 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 ) Arrival Mode Ambulatory Accompanied by Patient Identification Verified (Name & Yes ) Height and Weight Body Mass Index (BMI) 39.7 BMI Classification Obese Vital Signs Temperature (97.8 F-99.1 F) 97.0 F L Temperature Source Temporal Pulse Rate (60-100) 74 Pulse Location Monitor Respiratory Rate (12-18) 16 Respiratory rate source Observation Oxygen Delivery Method Room Air Blood Pressure (90/60-120/80) 136/79 H Blood Pressure Mean (mm Hg) 98 Source Monitor Position Sitting Blood Pressure Location Right Arm History Since Last Visit- (Skip if this is Patient's initial visit) Have you changed medications since your No last visit? Any new allergies or adverse reactions No Had a fall/change in ADL's that may No increase risk of falls Signs or symptoms of abuse and/or No neglect since last visit Have you been in the hospital since your No last visit? Has dressing in place as prescribed Yes Has compression in place as prescribed Yes Has offloadiing in place as prescribed N/A Experienced any changes in pain level or No management Pain Scale: 0-10 Numeric Is Patient Pain Free? Yes WC - Nurse 1 - General Ulcer Measurement Start: 07/14/24 14:59 Freq: Status: Active Protocol: Activity Type Activity Date Activity User E-sign Co-sign Detail Recorded Client Recorded Date Recorded By Document 07/14/24 14:59 [id number] 07/14/24 15:08 KW 07/14/24 14:59 Wound Center Nurse 1 #4- R LAT LE -Current Size (cm) - Length 0.1 -Current Size (cm) - Width 0.1 -Current Size (cm) - Depth 0 -Total Square Cm 0.01 -Date of Last Picture (Recall this 07/14/24 field) -Exudate Amt Small -Exudate Type Serosanguineous -Wound Margin Indistinct, Non -Visible -Texture (María-wound Skin Appearance) Assessed -Moisture (María-wound Skin Appearance) Assessed -Color (María-wound Skin Appearance) Assessed -Temperature (María-wound Skin No Abnormality Appearance) (Pt Warm) -Tenderness on Palpation (María-wound No Skin Appearance) -Ulcer Cleansing Soap and Water -Foul Odor after Cleansing No #3 R Knee Sup -Current Size (cm) - Length 0.1 -Current Size (cm) - Width 0.1 -Current Size (cm) - Depth 0 -Total Square Cm 0.01 -Date of Last Picture (Recall this 07/14/24 field) -Exudate Amt Small -Exudate Type Serosanguineous -Wound Margin Distinct, Outline Attached -Texture (María-wound Skin Appearance) Assessed -Moisture (María-wound Skin Appearance) Assessed -Color (María-wound Skin Appearance) Assessed -Temperature (María-wound Skin No Abnormality Appearance) (Pt Warm) -Tenderness on Palpation (María-wound No Skin Appearance) -Ulcer Cleansing Soap and Water -Foul Odor after Cleansing No -Wound Comment(s) SUTURES INTACT - Nurse 2 - General Ulcer CM Notes Start: 07/14/24 14:59 Freq: Status: Active Protocol: Activity Type Activity Date Activity User E-sign Co-sign Detail Recorded Client Recorded Date Recorded By Document 07/14/24 15:50 [id number] 07/14/24 15:50 07/14/24 15:50 Wound Center Nurse 2 -Correct Patient No -Correct Side, Site, Position No -Correct Procedure No -Procedure Performed No -Wound/Ulcer Outcome Not Healed Pain Scale: 0-10 Numeric Is Patient Pain Free? Yes - Nurse 3 - General Ulcer D/C NN Start: 07/14/24 14:59 Freq: Status: Active Protocol: Activity Type Activity Date Activity User E-sign Co-sign Detail Recorded Client Recorded Date Recorded By Document 07/14/24 15:56 [id number] 07/14/24 15:59 DL 07/14/24 15:56 Wound Care Center Nurse 3 #3 R Knee Sup -Ulcer Cleansing Rinsed/ Irrigated with Saline -Foul Odor after Cleansing No -Negative Pressure Wound Therapy Continue -Setting (mmHg) 125 -Negative Pressure is Continuous -Primary Dressing Applied NonAdherent Contact Layer -Other Covering ADAPTIC TO INCISION LINE -NPWT Application Charge NPWT </= 50 sq cm ($) Right -Stockings Yes Treatment Response Procedure Tolerated Well Pain Scale: 0-10 Numeric Is Patient Pain Free? Yes WC - Visit Discharge Discharge Condition Stable Ambulatory Status Ambulatory Transportation Private Auto Notes: DRESSING APPLIED PER B CHIRINOS TODAY Facility Type Home Health Orders Sent Yes Assessment/Plan Assessment/Plan (1) Status post revision of total replacement of right knee: CODE(S): Z96.651 - Presence of right artificial knee joint PLAN: Plan from 07 July 2024: to prevent further fluid collections and promote healing, our team is ordering negative pressure wound therapy at -125 to the incision. We will protect the incision with Adaptic. Patient and his are happy with the plan, as is Dr. Agrawal from orthopedics. Plastics will follow closely in the wound care center. Follow-up on Sunday, 14 July 2024 for wound check. Plan from 14 July 2024: Continue wound VAC 3 times per week with Adaptic. Follow-up in 1 week for a check (follow-up on efficacy of the VAC).
--- NOTE | 2024-07-15 12:18 | WC ---
PHOTO 07/14/24 RIGHT KNEE
[2024-07-17 11:11] VITALS: BP 137/78; PULSE 76; RESP 18; TEMP 36.9; BMI 39.7
[2024-07-21 14:57] VITALS: BP 147/70; PULSE 79; RESP 18; TEMP 36.6; BMI 39.7
--- NOTE | 2024-07-21 17:41 | PCM.WC.PN ---
History of Present Illness Date of Service: 07/21/24 Chief Complaint: Right lateral knee ulcer History of Wound: Phoenix Fulton is a 53-year-old male who has a history of right ACL reconstruction followed by a total knee replacement in 2018 by a surgeon from an outside hospital. The patient recently presented to [facility] (Dr. Agrawal) with 2 draining sinuses over the lateral knee. His x-ray demonstrated tibial baseplate loosening and bony erosions. Dr. Agrawal recommended operative intervention with a two-stage revision of his knee. The patient was taken back to the operating room 21 March 2024, by Dr. Agrawal where right knee explantation and placement of an articulating antibiotic spacer was performed, followed by debridement of the lateral knee wound and its sinus tracts. Cultures were taken. Plastic surgery was consulted intraoperatively for the wound and the defect was photographed. The sinuses tracked down to the joint via a small joint opening on the lateral aspect of the knee. Dr. Agrawal would like muscle coverage over this opening to seal off the joint. 24 March 2024, surgery by Dr. Jon for Excision of wound bed, necrotic fat and fascia 8x 5 cm and Placement of irrigating wound VAC, not disposable, <50 cm ^2. [address] Jon for Excision of wound bed, necrotic fat and fascia, 8 x 5 cm and Neuroplasty common peroneal nerve (release of fibular tunnel) and Right lateral gastrocnemius myocutaneous flap for reconstruction of right knee wound and 8 x 5 cm split-thickness skin graft, 12/1,000th of an inch (right thigh) with [facility]. Discharged home 31 March 2024. Developed a hematoma after Chalino drains removed. 08 April 2024, surgery for evacuation of right leg hematoma. Subjective Subjective 07 July 2024: patient had antibiotic spacer removal and arthroplasty on 27 June 2024. His lateral gastroc has healed and the orthopedist thought it appropriate to start further reconstruction of his knee. Since then there has been a small amount of drainage in the distal aspect of the knee arthroplasty incision (separate from the gastroc incision or from the gastroc flap with the original area of concern). Patient presents today for evaluation of drainage from the new arthroplasty wound. The drainage has been serosanguineous and there is no signs of purulence or fevers or chills. I spoke with his orthopedic surgeon Dr. Agrawal who asked that we consider placement of another incisional VAC (there was an incisional VAC on the wound for 1 week postoperatively, and then the drainage recurred when he started moving his leg doing physical therapy). 14 July 2024: Doing well overall. Has been using the wound VAC. Less drainage and improving range of motion with physical therapy which was allowed by Dr. Agrawal once the VAC was placed. No fevers or chills. Pain controlled. Current encounter, 21 July 2024: Doing well overall with therapy. Wound VAC removed today and there was some reactive erythema redness. Sutures removed per Dr. Agrawal's request. Appear to be some serous fluctuance beneath the suture line, although no drainage and the wound VAC. Discussed with Dr. Agrawal and he recommended aspiration in his clinic. Patient will head to orthopedic surgery clinic. Patient has not had any fevers or chills or any significant pain. Objective Data Objective Data Vital Signs: Vital Signs Temp Pulse Resp BP O2 Del Method 97.8 F 79 18 147/70 H Room Air 07/21/24 14:57 07/21/24 14:57 07/21/24 14:57 07/21/24 14:57 07/21/24 14:57 Oxygen Delivery Method Room Air Weight: 285 lb Body Mass Index (BMI) 39.7 Charges/Coding Visit Charges Office Visits / Consults: 41002 OV L4 Est 30min Physical Exam Narrative RIGHT LOWER EXTREMITY: Right lateral leg/knee has healed status post flap with lateral gastrocnemius The anterior knee incision without any drainage but some fluctuance. Minimal warmth and some reactive erythema. Sensation: Intact to light touch throughout Motor: 5/5 dorsiflexion Vascular: 2+ DP and PT pulses. Debridement Note Debridement Note No debridement was completed: No debridement was completed today Post-Debridement Measurements and Additional Note: Post-Debridement Measurements/Treatment WC - Nurse 1 - General Ulcer Assessment Start: 07/14/24 14:59 Freq: Status: Active Protocol: KOMAL Activity Type Activity Date Activity User E-sign Co-sign Detail Recorded Client Recorded Date Recorded By Document 07/14/24 14:59 KW [id number] 07/14/24 15:08 KW Document 07/17/24 11:11 KW [id number] 07/17/24 13:10 KW Document 07/21/24 14:57 KW [id number] 07/21/24 15:07 KW 07/14/24 07/17/24 07/21/24 14:59 11:11 14:57 WC - Today's Visit Information Type of service Follow-up Visit Nurse-only Nurse-only (Physician/TIME STUDY STATISTICIAN Visit Visit ) Arrival Mode Ambulatory Ambulatory,Cane Ambulatory,Cane Accompanied by Patient Identification Verified (Name & Yes Yes Yes ) Height and Weight Body Mass Index (BMI) 39.7 39.7 39.7 BMI Classification Obese Obese Obese Vital Signs Temperature (97.8 F-99.1 F) 97.0 F L 98.5 F 97.8 F Temperature Source Temporal Temporal Temporal Pulse Rate (60-100) 74 76 79 Pulse Location Monitor Monitor Monitor Respiratory Rate (12-18) 16 18 18 Respiratory rate source Observation Observation Observation Oxygen Delivery Method Room Air Room Air Room Air Blood Pressure (90/60-120/80) 136/79 H 137/78 H 147/70 H Blood Pressure Mean (mm Hg) 98 97 95 Source Monitor Monitor Monitor Position Sitting Semi-Fowlers Semi-Fowlers Blood Pressure Location Right Arm Left Forearm Left Arm History Since Last Visit- (Skip if this is Patient's initial visit) Have you changed medications since your No No No last visit? Any new allergies or adverse reactions No No No Had a fall/change in ADL's that may No No No increase risk of falls Signs or symptoms of abuse and/or No No No neglect since last visit Have you been in the hospital since your No No No last visit? Has dressing in place as prescribed Yes Yes Yes Has compression in place as prescribed Yes Yes Yes Has offloadiing in place as prescribed N/A N/A N/A Experienced any changes in pain level or No No No management Left Footwear Regular Shoe Regular Shoe Right Footwear Regular Shoe Regular Shoe Pain Scale: 0-10 Numeric Is Patient Pain Free? Yes Yes Yes - Nurse 1 - General Ulcer Measurement Start: 07/14/24 14:59 Freq: Status: Active Protocol: Activity Type Activity Date Activity User E-sign Co-sign Detail Recorded Client Recorded Date Recorded By Document 07/14/24 14:59 KW [id number] 07/14/24 15:08 KW Document 07/21/24 14:57 KW [id number] 07/21/24 15:07 KW 07/14/24 07/21/24 14:59 14:57 Wound Center Nurse 1 #4- R LAT LE -Current Size (cm) - Length 0.1 -Current Size (cm) - Width 0.1 -Current Size (cm) - Depth 0 -Total Square Cm 0.01 -Date of Last Picture (Recall this 07/14/24 field) -Exudate Amt Small -Exudate Type Serosanguineous -Wound Margin Indistinct, Non -Visible -Texture (María-wound Skin Appearance) Assessed -Moisture (María-wound Skin Appearance) Assessed -Color (María-wound Skin Appearance) Assessed -Temperature (María-wound Skin No Abnormality Appearance) (Pt Warm) -Tenderness on Palpation (María-wound No Skin Appearance) -Ulcer Cleansing Soap and Water -Foul Odor after Cleansing No #3 R Knee Sup -Current Size (cm) - Length 0.1 0.1 -Current Size (cm) - Width 0.1 0.1 -Current Size (cm) - Depth 0 0 -Total Square Cm 0.01 0.01 -Date of Last Picture (Recall this 07/14/24 field) -Exudate Amt Small Small -Exudate Type Serosanguineous Serosanguineous -Wound Margin Distinct, Distinct, Outline Outline Attached Attached -Granulation Amt Large (67-100%) -Granulation Quality Thomson -Texture (María-wound Skin Appearance) Assessed Assessed -Moisture (María-wound Skin Appearance) Assessed Maceration -Color (María-wound Skin Appearance) Assessed Assessed, Erythema -Temperature (María-wound Skin No Abnormality No Abnormality Appearance) (Pt Warm) (Pt Warm) -Tenderness on Palpation (María-wound No No Skin Appearance) -Ulcer Cleansing Soap and Water Soap and Water -Foul Odor after Cleansing No No -Wound Comment(s) SUTURES INTACT WC - Nurse 2 - General Ulcer CM Notes Start: 07/14/24 14:59 Freq: Status: Active Protocol: Activity Type Activity Date Activity User E-sign Co-sign Detail Recorded Client Recorded Date Recorded By Document 07/14/24 15:50 JF [id number] 07/14/24 15:50 JF Document 07/21/24 15:23 JF [id number] 07/21/24 15:31 JF 07/14/24 07/21/24 15:50 15:23 Wound Center Nurse 2 #3 R Knee Sup -Correct Patient No No -Correct Side, Site, Position No No -Correct Procedure No No -Procedure Performed No No -Wound/Ulcer Outcome Not Healed Not Healed -Debridement - Subq, 1st 20sq cm No Pain Scale: 0-10 Numeric Is Patient Pain Free? Yes Yes - Nurse 3 - General Ulcer D/C NN Start: 07/14/24 14:59 Freq: Status: Active Protocol: Activity Type Activity Date Activity User E-sign Co-sign Detail Recorded Client Recorded Date Recorded By Document 07/14/24 15:56 DL [id number] 07/14/24 15:59 DL Document 07/17/24 11:11 KW [id number] 07/17/24 13:10 KW Edit Result 07/17/24 11:11 KW (1) [id number] 07/21/24 15:33 KW Document 07/21/24 15:45 BMF [id number] 07/21/24 15:46 BMF (1) #3 R Knee Sup - NPWT Application Charge => NPWT </= 50 sq cm => ($) 07/14/24 07/17/24 07/21/24 15:56 11:11 15:45 Wound Care Center Nurse 3 #3 R Knee Sup -Ulcer Cleansing Rinsed/ Soap and Water Irrigated with Saline -Foul Odor after Cleansing No -Negative Pressure Wound Therapy Continue -Setting (mmHg) 125 125 -Negative Pressure is Continuous Continuous -Primary Dressing Applied NonAdherent NonAdherent Contact Layer Contact Layer -Other Dressing abd pad x2 -Primary Dressing Covered/Secured with Secured with Tape -Other Covering ADAPTIC TO INCISION LINE -NPWT Application Charge NPWT </= 50 sq NPWT </= 50 sq cm ($) cm ($) Right -Stockings Yes -Other pt thigh high pt applies own teds thigh high compression stocking Treatment Response Procedure Procedure Tolerated Well Tolerated Well Vital Signs Temperature (97.8 F-99.1 F) 98.5 F Temperature Source Temporal Pulse Rate (60-100) 76 Pulse Location Monitor Respiratory Rate (12-18) 18 Respiratory rate source Observation Oxygen Delivery Method Room Air Blood Pressure (90/60-120/80) 137/78 H Blood Pressure Mean (mm Hg) 97 Source Monitor Position Semi-Fowlers Blood Pressure Location Left Forearm Pain Scale: 0-10 Numeric Is Patient Pain Free? Yes Yes Yes - Visit Discharge Discharge Condition Stable Stable Stable Ambulatory Status Ambulatory Ambulatory Ambulatory,Cane Transportation Private Auto Private Auto Private Auto Accompanied by Medication Reconcilliation completed & No provided to patient/care provider Clinical Summary of Care Provided Yes Notes: DRESSING APPLIED PER B CHIRINOS TODAY Facility Type Home Health Orders Sent Yes Assessment/Plan Assessment/Plan (1) Status post revision of total replacement of right knee: CODE(S): Z96.651 - Presence of right artificial knee joint PLAN: Plan from 07 July 2024: to prevent further fluid collections and promote healing, our team is ordering negative pressure wound therapy at -125 to the incision. We will protect the incision with Adaptic. Patient and his are happy with the plan, as is Dr. Agrawal from orthopedics. Plastics will follow closely in the wound care center. Follow-up on Sunday, 14 July 2024 for wound check. Plan from 14 July 2024: Continue wound VAC 3 times per week with Adaptic. Follow-up in 1 week for a check (follow-up on efficacy of the VAC). Plan from 21 July 2024: Wound VAC replacement deferred at this time as some of the reactive erythema may be from skin irritation. Dr. Hanson is planning aspiration in his clinic of the fluid collection. Plastic surgery will follow and be available as needed. Follow-up with me in 1 week. Continue doxycycline as antibiotic per infectious disease.
== END 2024-08-08 23:59 | disposition home or self-care (01) ==
LOC: WC 15:00
PROVIDERS: PCP Family Medicine; Referring Provider Surgery Plastic and Reconstructive Surgery; Visit Provider Surgery Plastic and Reconstructive Surgery
DX: T81.31XA Disruption of external operation (surgical) wound, not elsewhere classified, initial encounter (principal); Z96.651 Presence of right artificial knee joint
CPT/HCPCS: 97605; 99213; 99214; G0463

== ENCOUNTER → 2024-07-23 | Outpatient (CLI) | payer OTHER, SELFPAY ==
[2024-07-23 10:21] LABS: Hematocrit 37.3 % (40-54); Hemoglobin 11.5 g/dL (13.0-16.5); Mean Corp Hgb Conc 30.8 g/dL (32-36); Mean Corpuscular Volume 84.2 fL (80-94); Platelet Count 351 K/mm3 (150-450); RBC Distribution Width CV 18.5 % (11.6-14.6); RBC Distribution Width SD 57.1 fl (35.1-43.9); Red Blood Count 4.43 M/mm3 (4.6-6.2); White Blood Count 6.6 K/mm3 (4.4-11.0)
== END | disposition home or self-care (01) ==
LOC: MTLAB 08:21
PROVIDERS: PCP Family Medicine; Referring Provider Physician Assistant Surgical; Visit Provider Physician Assistant Surgical
DX: D64.9 Anemia, unspecified (principal)
CPT/HCPCS: 36415; 85027

== ENCOUNTER 2024-07-25 17:00 | Inpatient (IN) | payer OTHER, SELFPAY ==
[2024-07-25] VITALS (11 sets, daily range): BP systolic 115–142; BP diastolic 72–92; PULSE 67–87; RESP 14–18; TEMP 36.2–37.3; O2SAT 96–100; BMI 38.8
--- NOTE | 2024-07-25 11:55 | PRE.ANES_ITS ---
ASA Classification* ASA Classification ASA Classification: 3 Assessment & Plan Anesthesia* Anesthesia Assessment Anesthesia Assessment: Discussed sedation and/or anesthesia options, risks, benefits, and alternatives with patient/parents/legal guardian/POA. Questions invited. The patient/parents/legal guardian/POA seems to understand and agrees to proceed with anesthesia plan. Reviewed the physical assessment, medical history, allergy history and patient home medications list prior to surgery/procedure/anesthetic and documented any changes. Performed airway and anesthesia risk assessments. Anesthesia Type Anesthesia Type: Spinal and Block Anesthesia Focused Assessment* Airway Assessment Mouth opens: >3 cm Mallampati Score: II Focused Labs Anesthesia Preop lab: CBC WBC 6.6 K/mm3 (4.4-11.0) 07/23/24 08:23 07/23/24 RBC 4.43 M/mm3 (4.6-6.2) L 07/23/24 08:23 07/23/24 Hgb 11.5 g/dL (13.0-16.5) L 07/23/24 08:23 5 Hct 37.3 % (40-54) L 07/23/24 08:23 07/23/24 Plt Count 351 K/mm3 (150-450) 07/23/24 08:23 07/23/24 CHEMISTRY Potassium 3.8 mmol/L (3.5-5.1) 06/29/24 04:06 06/29/24 Sodium 139 mmol/L (136-145) 06/29/24 04:06 06/29/24 Magnesium 2.3 mg/dL (1.6-2.6) 06/27/24 06:12 06/27/24 BUN 24 mg/dL (7-18) H 06/29/24 04:06 06/29/24 Creatinine 0.75 mg/dL (0.70-1.30) 06/29/24 04:06 06/29/24 Glucose 98 mg/dL (74-106) 06/29/24 04:06 06/29/24 POC Glucose 79 mg/dL (74-106) 06/27/24 06:21 06/27/24 TSH 1.03 uIU/mL (0.358-3.74) 10/02/14 08:59 04/24/ 15 COAG Pre-Assessment Diagnosis/Proposed Procedure Planned Operative Procedure(s): I&D, POLY EXCHANGE RIGHT TKA WITH WOUND VAC APPLICATION AND SINUS TRACT EXCISION Anesthesia History 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 When Was Last Pacemaker Check QUESTION #4 FULL TEXT: You/Your Family Experience fever (hyperthermia) with Anesthesia Last Oral Intake Last Oral intake: Last Oral Intake NPO since Meds taken in AM with sips of water? Meds patient instructed to take am of surgery PONV PONV - leather production artisan: PONV - leather production artisan Female No 07/23/24 12:50 HX of Motion Sickness No 07/23/24 12:50 HX of N/V After Surgery No 07/23/24 12:50 Non-Smoker Yes 07/23/24 12:50 Duration of Surgery greater Yes 07/23/24 12:50 than 60 minutes Number of Risk Factors 2 07/23/24 12:50 PONV Score Moderate Risk 07/23/24 12:50 Height & Weight Height & Weight: Anesthesia: Height & Weight Height 6 ft 07/24/24 11:36 Weight: 129.727 kg 07/24/24 11:36 Respiratory Assessment Respiratory Assessment - leather production artisan: Respiratory Tract Infection Hx - leather production artisan Hx Respiratory Tract Infection No 07/23/24 12:50 STOP Sleep Apnea STOP Sleep Apnea - leather production artisan: STOP Sleep Apnea - leather production artisan Hx Hypertension No 07/23/24 12:50 Hx Sleep Apnea Yes 07/23/24 12:50 CPAP Yes 07/23/24 12:50 BIPAP No 07/23/24 12:50 Do you snore loudly (louder than talking or can be heard Do you often feel tired/ fatigued/ sleepy during daytime? Has anyone observed you stop breathing during sleep? STOP Results Positive 07/23/24 12:50 QUESTION #5 FULL TEXT : Do you snore loudly (louder than talking or can be heard through closed doors)? 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 Specify any problems Hx of Preganancy in last 3 N/A 07/23/24 12:50 Months Nurse Filling Out Transfusion NBUCHER 07/23/24 12:50 & Questions: Date: 07/23/24 07/23/24 12:50 Time: 12:51 07/23/24 12:50 Patient unable to answer at this time (ie. confused, unrespo /Reproduction History /Reproductive History - leather production artisan: /Reproductive Hx- leather production artisan Hx Now Gestational Age (in weeks): EDC: Hx Hx Para Hx Section SAB No 07/23/24 12:50 Active Medications Active Medications: Current Medications Generic Name Dose Route Start Last Admin Trade Name Yisel PRN Reason Stop Dose Admin Acetaminophen 1,000 mg 07/25/24 13:30 Acetaminophen 500 Mg Tablet PO 07/25/24 13:31 X1 ONE Gabapentin 600 mg 07/25/24 13:30 Gabapentin 600 Mg Tablet PO 07/25/24 13:31 X1 ONE Lactated Ringer's 1,000 mls @ 999 mls/hr 07/25/24 13:30 IV 07/25/24 14:30 .Q1H1M CRYSTAL Cefazolin Sodium 3 gm/ N/A 30 mls @ 600 mls/hr 07/25/24 13:30 IV 07/25/24 13:32 PREOP ONE Vancomycin HCl 2,000 mg/ 540 mls @ 250 mls/hr 07/25/24 13:30 Sodium Chloride IV 07/25/24 15:39 PREOP ONE Lactated Ringer's 1,000 mls @ 75 mls/hr 07/25/24 13:30 IV 07/26/24 02:49 .[id number] CRYSTAL Tranexamic Acid 1,000 mg/ 110 mls @ 660 mls/hr 07/25/24 13:30 Sodium Chloride IV 07/25/24 13:39 X1 ONE Tranexamic Acid 1,000 mg/ 110 mls @ 660 mls/hr 07/25/24 13:30 Sodium Chloride IV 07/25/24 13:39 X1 ONE Magnesium Sulfate 1 gm/ 102 mls @ 408 mls/hr 07/25/24 13:30 Dextrose IV 07/25/24 13:44 X1 ONE Sodium Chloride 1,000 mls @ 15 mls/hr 07/25/24 11:30 IV 07/31/24 00:49 .Q48H [facility] Protocol Insulin Human Lispro 1 - 6 unit 07/25/24 13:30 Insulin Lispro 100 Unit/Ml Insuln.Pen SC 07/25/24 19:00 Q4H PRN PRN BG>/= 180, SEE PROTOCOL Protocol PFSH Medical History (Updated 07/23/24 @ 12:59 by Anne Marie Prajapati) Arthritis Chewing tobacco dependence History of pain when walking History of edema Home Medications ?Medication ?Instructions ?Recorded ?Last Taken ?Type acetaminophen 500 mg tablet 1,000 mg (2 x 500 mg) PO T ID pain 06/30/24 07/24/24 Rx 14 days #84 tabs aspirin 81 mg capsule 81 mg PO BIDCM blood thinner 30 06/30/24 07/24/24 Rx days #60 caps doxycycline monohydrate 100 mg 100 mg PO BID antibioti c 30 days 06/30/24 07/25/24 Rx capsule #60 caps famotidine 20 mg tablet 20 mg PO DAILY gerd 30 days #30 06/30/24 07/24/24 Rx tabs ibuprofen 600 mg tablet 600 mg PO Q8H PRN pain 07/2307/24/24 History Allergy/AdvReac Type Severity Reaction Status Date / Time No Known Allergies Allergy Verified 07/25/24 11:54 Surgical History History of incision and drainage Hx of knee surgery Hx of knee surgery Hx of knee surgery Hx of total knee arthroplasty Hx of right knee surgery Hx of right knee surgery Social History Smoking Status: Never smoker Review of Systems (Anesthesia) ROS Narrative System reviewed and no additional complaints, except as documented.
[2024-07-25] MEDS: Lactated Ringers 1,000 ML 999 ML IV (11:56)
[2024-07-25] MEDS: Magnesium 1 GM over 15 mins IV (11:56)
[2024-07-25] MEDS: Gabapentin 600 MG Tablet PO (12:00)
[2024-07-25] MEDS: Acetaminophen 500 MG Tablet 1000 MG PO ×2 (12:00→22:28)
[2024-07-25] MEDS: Vancomycin HCl 2,000 MG in 0.9% Normal Saline (500mL Bag) 500 ML 250 MG IV (12:00)
[2024-07-25] MEDS: Lactated Ringers 1,000 ML 75 ML IV ×2 (12:11→14:00)
[2024-07-25 12:15] LABS: Bedside Glucose 86 mg/dL (74-106)
--- NOTE | 2024-07-25 13:30 | KNEE_PTH ---
PATIENT: ABDIRAHMAN HERRON LOC: [facility]3 U#:[id number] AGE/SX: 54/M ROOM: [facility] RE07/25/[address]: Dr. Wilman Agrawal MD : 1970 BED: 1 DIS: 08/05/2024 SPEC #: [id number] RECD: 07/25/24 16:41 STATUS: DAYANNA TAVAREZ #: [id number] CANDE: 07/25/24 13:[address]: Wilman Agrawal DEPT: SURGICAL PATHOLOGY RECD BY: [place] Jacob ENTERED: 07/28/24 09:47 SP TYPE: TOTAL KNEE OTHR DR: MD Dr. Fabio Yuen MD Dr. Robert Siska, MD Tissues: Knee, NOS Procedures: Surgery Specimen Level IV HEADER OPERATION: Irrigation and debridement, polyp exchange right total knee PRE-OP DIAGNOSIS: Aftercare following joint replacement surgery, presence of right artificial knee joint, infection and inflammatory reaction due to internal right knee prosthesis, subsequent TISSUE SUBMITTED: Right knee sinus tract MICROSCOPIC DIAGNOSIS Right knee sinus: Skin with sinus tract and severe acute and chronic inflammation with abscess formation and granulation tissue formation. Focal foreign body giant cell reaction. GRADY. 07/29/2024 MICROSCOPIC DESCRIPTION Slides are reviewed. GROSS DESCRIPTION Received in fixative is one container labeled with the patient's name and designated Right knee sinus tract. The specimen consists of three pieces of skin with underlying tissue measuring in aggregate 3.5 x 1.5 x 0.8cm. The entire specimen is submitted in two cassettes. 07/28/2024 TC:3 CPT:48135
[2024-07-25] MEDS: Cefazolin 3 GM in Syringe 15 ML IV (13:35)
[2024-07-25] MEDS: TXA 1000mg in NS100 100ml (IVPB at Incision) 660 MG IV (13:56)
--- NOTE | 2024-07-25 14:48 | CON.PCM.SX_ITS ---
HPI Consult Data Date of Consult: 07/25/24 HPI Narrative HPI Narrative: This is an intraoperative consultation for ABDIRAHMAN HERRON who is a 54 M well- known to the plastic surgery service (infected knee arthroplasty March 2024 requiring antibiotic spacer and reconstruction with lateral gastrocnemius flap for a lateral joint arthrotomy, followed by removal of the antibiotic spacer in June 2024 with placement of permanent knee arthroplasty) for whom we are jason ng consulted for regarding knee wound after soft tissue infection. [facility] Medical History (Updated 07/23/24 @ 12:59 by Anne Marie Prajapati) Arthritis Chewing tobacco dependence History of pain when walking History of edema Home Medications ?Medication ?Instructions ?Recorded ?Last Taken ?Type acetaminophen 500 mg tablet 1,000 mg (2 x 500 mg) PO T ID pain 06/30/24 07/24/24 Rx 14 days #84 tabs aspirin 81 mg capsule 81 mg PO BIDCM blood thinner 30 06/30/24 07/24/24 Rx days #60 caps doxycycline monohydrate 100 mg 100 mg PO BID antibioti c 30 days 06/30/24 07/25/24 Rx capsule #60 caps famotidine 20 mg tablet 20 mg PO DAILY gerd 30 days #30 06/30/24 07/24/24 Rx tabs ibuprofen 600 mg tablet 600 mg PO Q8H PRN pain 07/2307/24/24 History Allergy/AdvReac Type Severity Reaction Status Date / Time No Known Allergies Allergy Verified 07/25/24 11:54 Surgical History History of incision and drainage Hx of knee surgery Hx of knee surgery Hx of knee surgery Hx of total knee arthroplasty Hx of right knee surgery Hx of right knee surgery Social History Smoking Status: Never smoker Lab / Micro Data Labs: Laboratory Results - last 24 hr 07/25/24 11:50: POC Glucose 86
--- NOTE | 2024-07-25 14:48 | EX.PCM.CON.S ---
Assessment & Plan Assessment/Plan (1) Infection and inflammatory reaction due to internal right knee prosthesis, subsequent encounter: PLAN: Patient is being admitted to the orthopedic surgery service. Plan to follow-up cultures and contact infectious disease. For now infectious diseases recommended doxycycline. I agree with irrigating wound VAC with Dakin's to the inferior portions of the incision with planned sterile (operating room) debridement and wound VAC change with plastics on Sunday, 28 July 2024. Orthopedic surgery is requesting muscle flap soft tissue coverage of the inferior portion of the joint to prevent worsening or further infection via the above-noted opening in the joint and lack of soft tissue coverage. I will discuss with the patient a medial gastrocnemius flap for reconstruction of this deficit. HPI Consult Data Date of Consult: 07/25/24 HPI Narrative HPI Narrative: This is an intraoperative consultation for ABDIRAHMAN GERMAINE who is a 54 M well-known to the plastic surgery service (infected knee arthroplasty March 2024 requiring antibiotic spacer and reconstruction with lateral gastrocnemius flap for a lateral joint arthrotomy, followed by removal of the antibiotic spacer in June 2024 with placement of permanent knee arthroplasty) for whom we are being consulted for regarding knee wound after soft tissue infection. He was initially referred to the wound care center for incisional wound VAC (orthopedic surgery team having trouble getting wound VAC as an outpatient and wanted it for persistent drainage from the incision site), and I was in close communication the entire time with Dr. Agrawal, the arthroplasty surgeon. Out of concern for a fluid collection/redness, we communicated with orthopedics earlier this week subsequently leading to this washout (he was seen seen and evaluated in their clinic earlier this week and scheduled for the surgery today). Today in the operating room, there is concern for a small gap of joint capsule/patellar tendon inferiorly with limited skin and other soft tissue coverage inferiorly. Dr. Agrawal performing a polyethylene exchange today and placing a wound VAC. Patient has not been smoking or using any tobacco products. He has been following closely with his orthopedic surgeon at rehab team. [facility] Medical History Arthritis Chewing tobacco dependence History of pain when walking History of edema Home Medications ?Medication ?Instructions ?Recorded ?Last Taken ?Type acetaminophen 500 mg tablet 1,000 mg (2 x 500 mg) PO TID pain 06/30/24 07/24/24 Rx 14 days #84 tabs aspirin 81 mg capsule 81 mg PO BIDCM blood thinner 30 06/30/24 07/24/24 Rx days #60 caps doxycycline monohydrate 100 mg 100 mg PO BID antibiotic 30 days 06/30/24 07/25/24 Rx capsule #60 caps famotidine 20 mg tablet 20 mg PO DAILY gerd 30 days #30 06/30/24 07/24/24 Rx tabs ibuprofen 600 mg tablet 600 mg PO Q8H PRN pain 07/23/24 07/24/24 History Allergy/AdvReac Type Severity Reaction Status Date / Time No Known Allergies Allergy Verified 07/25/24 11:54 Surgical History History of incision and drainage Hx of knee surgery Hx of knee surgery Hx of knee surgery Hx of total knee arthroplasty Hx of right knee surgery Hx of right knee surgery Social History Smoking Status: Never smoker Physical Exam Narrative Patient prepped and draped at the time of the consult Wound examined with orthopedics. Approximately 3 x 2 cm defect in the joint capsule/patellar tendon inferiorly with exposed bone (tibial plateau) and open joint inferiorly with limited soft tissue coverage at the inferior portion of the incision. Lab / Micro Data Labs: Laboratory Results - last 24 hr 07/25/24 11:50: POC Glucose 86 Charges/Coding Multi Select Codes Visit Charges Office Visit/Consults: 09108 IP Consult L4
--- NOTE | 2024-07-25 14:52 | OP.PCM_ITS ---
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 Irrigation debridement complete synovectomy wound debridement with fascia, skin and subcutaneous tissue right knee 2. Wound VAC placement area 4 cm x 2 cm, 8 cm? 3. Sinus tract [id number] x 3 intake rn: Yes Test Technician: Thai Carpenter Tasks completed by assistant professor of spanish: Other (See operative report) Additional assistant professor of spanish?: No Type of Anesthesia: General/Regional RN Documented Start/Stop Times: Operation Date: 07/25/24 13:30 Case Time Into Pre-Op 07/25/24 11:21 Anesthesia Start 07/25/24 13:27 Into Room 07/25/24 13:27 Out of Pre-Op 07/25/24 13:27 Procedure Start 07/25/24 13:58 Procedure Start Time: 13:58 Procedure Stop Time: 16:00 Select all DRAINS/GRAFTS/IMPLANTS that apply: Drains Drain details: Wound VAC distal incision Special Medications: Ancef and vancomycin Estimated Blood Loss: 100 mL Fluids Replaced: 1500 mm crystalloid Specimen collected: Yes Description of specimen(s) removed: 3 separate specimens were sent to microbiology. Sinus tracts were sent to pathology Description of surgery: 54 yo m history of right revision TKA in June 2024 presents with wound drainage for weeks status post surgery. Reviewed options were discussed the patient. Based on acuity of the symptoms and organism irrigation debridement with polyethylene exchange is recommended. Risks and benefits of the procedure were discussed with the patient including but not limited to blood loss, DVTs, PEs, neurovascular damage, infection, general risk of anesthesia including loss of life. Demonstrated understanding and was able to sign informed consent. On the date of procedure patient's right lower extremity was marked in the preoperative area. The patient was then taken back to the operating room where the patient was placed on the table in the supine position. All bony prominences were identified a well-padded. Anesthesia assumed control of the C-spine and airway and remained controlled throughout the remainder of the procedure. A tourniquet was placed on the operative thigh and the leg was prepped in a sterile fashion. The surgeon then scrubbed at this time .Upon reentering the room left lower extremity was draped in a standard orthopedic fashion. A timeout was then called and everyone agreed upon the side, the site, the procedure to be performed, patient's identity and antibiotics given. A midline skin incision was made and sharp dissection was taken down through skin subcutaneous tissue and fat. There were 3 areas of sinus which were excised and ellipsed removing skin and the sinus tract. Appropriate flaps were elevated medially and laterally. In this area of subcutaneous tissue there was significant amount of fluid which was evacuated and a lot of synovial tissue which was debrided. Cultures were taken from this area called the prepatellar bursa. His arthrotomy was identified and there was a small area of rent in communication proximally just at the proximal pole of the patella and distally just medial to the patellar tendon the medial retinacular and periosteal tissue was not completely healed. Using the previous arthrotomy, a standard medial parapatellar incision was made and the patella was subluxed laterally. The standard deep MCL release was done. At this point an aggressive synovectomy commenced. Our attention was first turned towards the subpatellar pouch and all suspicious synovium and tissues were debrided. We then directed our attention towards medial lateral gutters were these tissues were aggressively debrided. Knee was then flexed up the polyethylene was removed. Once polyethylene was removed we did the remainder of the synovium in the medial and lateral gutters and along the lateral structures and MCL. We then debrided the posterior knee. Knee was flexed up and an osteotome was used to remove the 19 mm polyethylene. There was a membrane beneath the tibial polyethylene that was removed and sent for culture. He had completed our synovectomy and were happy with the joint. Once this is completed we went back and again examined the tissues. We sharply debrided at wrist skin mostly along the distal incision roughly about 2 mm of skin subtenons tissue and fat medial and lateral to the incision over the distal 10 cm of the incision. 6 L of normal saline were then irrigated throughout the wound with low-pressure lavage and the wound was once again explored. All remaining tissue that was suspicious was seen in the wound was once again irrigated with normal saline. 19 mm PS polyethylene was then opened and put back into place after appropriate trialing. Tourniquet was let down and hemostasis was obtained as well as possible. Once the final components were placed the wound was copiously irrigated with normal saline solution. The wound was closed in a layer yao fashion using #2 FiberWire and #1 vicryl interrupted sutures for the arthrotomy, this was reinforced with a #1 strata fix running suture to get a watertight closure. However, distally there was a 3 cm x 1-1/2 cm area of medial retinaculum that need to be debrided and cannot be repaired distally. This left exposed bone. Plastic surgery came and was able to review the defect and did feel that further involvement including soft tissue coverage would likely need to be done. 2-0 interrupted Vicryl and running barbed suture for the subcuticular layer and 2-0 nylon for final skin closure. At this point we then placed a ellipse of wound VAC into the open portion of the distal wound which was 4 cm x 2 cm and could not be closed due to increased tension on the skin and debridement skin defect. The remainder of the incision that was closed and incisional wound VAC was placed with Adaptic to protect the skin. Once the wound VAC was placed the seal was tested and was appropriate. A sterile compressive dressing was then placed. The patient was then awakened from anesthesia, transferred to the [facility] and transferred to the PACU for recovery. Post op plan Patient replaced on 24 hours of antibiotics IV. Case was discussed with infectious ease they would like to continue the patient on doxycycline through the weekend and follow cultures. Plan is for plastics to assume care of the wound and likely proceed with soft tissue coverage at this time. They plan to take him back for a further debridement of the open area on Sunday with likely soft tissue coverage on Sunday is a tentative plan. Patient was placed in knee immobilizer we will restrict motion at this time for tissue tension relief. My physician assistant professor of spanish was a vital part of this case, they was important because there was not another skilled set of hands available to their training and aptitude needed for safe and appropriate completion of this case. They were important in appropriate retraction during the case, and protection of soft tissues during bony cuts. In particular the experience and skill of this assistant professor of spanish made for safe retraction and exposure during implantation of medical implants without damage or fracture to vital soft tissues or structures. His intimate knowledge of the case and my steps aided in safe and expedient completion of the procedure as well as appropriate position of the leg during the case. He was also vital in assisting with closure and placement of the dressing under my direct supervision. Surgical Findings: See operative report for description of findings skin and wound could not be completely closed distally wound vacs placed. Complications Complications: No Admit VTE Documentation VTE Mechan Device Prophylaxis: SCD's and Thigh High MUNIR Hose VTE Pharm Prophylaxis ordered?: Yes
[2024-07-25] MEDS: TXA 1000mg in NS100 100ml (IVPB at Closure) 660 MG IV (15:12)
--- NOTE | 2024-07-25 16:29 | PCM.POST.ANE ---
Anesthesia: Postop Eval I Current Vital Signs Temperature: 97.2 F Pulse Rate: 83 Blood Pressure: 135/90 Respiratory Rate: 18 Pulse Ox: 98 Oxygen Delivery Method: Nasal Cannula Oxygen Flow Rate (L/min): 2 Assessment Airway patent: Yes Spontaneous unlabored respirations: Yes Mental status: Awake and Calm nausea: No Vomiting: No Anesthesia Complication: No Fluid Hydration Crystalloid volume administer (ml): 1,500 Total IV fluid infused: 1,500 Progress Note Anesthesia document: Postop Eval 1 completed: Yes
[2024-07-25] MEDS: oxyCODONE 5 MG Tablet PO (18:44)
[2024-07-25] MEDS: Ensure Surgery 237 ML LIQUID PO (19:00)
[2024-07-25] MEDS: Cefazolin 1 GM/50 ML BAG IV (22:15)
[2024-07-25] MEDS: 0.9% Saline Lock 10 ML Syringe IV (22:17)
[2024-07-25] MEDS: 0.9% Normal Saline (100mL Bag) 100 ML 15 ML IV (22:21)
--- NOTE | 2024-07-25 22:22 | POSTOPAN2_ITS ---
Anesthesia Postop Eval I Sum Postop Eval Completion status Anesthesia document: Postop Eval 1 completed: Yes Anesthesia Postop Eval I Summary Anesthesia Postop Eval I Summary: Anesthesia Postop Eval I: Assessment Summary Airway patent Yes 07/25/24 16:29 [email or web address] Spontaneous unlabored Yes 07/25/24 16:29 DAY [email or web address] respirations Mental status Awake,Calm 07/25/24 16:29 [email or web address] [email or web address] nausea No 07/25/24 16:29 DAY [email or web address] Vomiting No 07/25/24 16:29 [email or web address] [email or web address] Anesthesia Postop Eval I: Fluid Summary Crystalloid volume administer 1,500 07/25/24 16:29 DAY [email or web address] (ml) Colloids volume administered ( ml) Blood Product volume administered (ml) Total IV fluid infused 1,500 07/25/24 16:29 [email or web address] Anesthesia Postop Eval I: Summary Notes Anesthesia Complication No 07/25/24 16:29 [email or web address] Anesthesia Complication Comment: Post-operative progress note Anesthesia: Postop Eval II Evaluation Mental status: Awake and Calm Pain Level: 1 nausea: No Vomiting: No Complications Anesthesia Complication: No
--- NOTE | 2024-07-25 22:22 | PCM.POSTANE2 ---
Anesthesia Postop Eval I Sum Postop Eval Completion status Anesthesia document: Postop Eval 1 completed: Yes Anesthesia Postop Eval I Summary Anesthesia Postop Eval I Summary: Anesthesia Postop Eval I: Assessment Summary Airway patent Yes 07/25/24 16:29 AGRICULTURAL EXTENSION [email or web address] Spontaneous unlabored Yes 07/25/24 16:29 AGRICULTURAL EXTENSION SPECIALIST.[email or web address] respirations Mental status Awake,Calm 07/25/24 16:29 AGRICULTURAL EXTENSION SPECIALIST.[email or web address] nausea No 07/25/24 16:29 AGRICULTURAL EXTENSION SPECIALIST.[email or web address] Vomiting No 07/25/24 16:29 AGRICULTURAL EXTENSION [email or web address].[email or web address] Anesthesia Postop Eval I: Fluid Summary Crystalloid volume administer 1,500 07/25/24 16:29 AGRICULTURAL EXTENSION SPECIALIST.[email or web address] (ml) Colloids volume administered ( ml) Blood Product volume administered (ml) Total IV fluid infused 1,500 07/25/24 16:29 AGRICULTURAL EXTENSION SPECIALIST.[email or web address] Anesthesia Postop Eval I: Summary Notes Anesthesia Complication No 07/25/24 16:29 AGRICULTURAL EXTENSION SPECIALIST.JRIV Anesthesia Complication Comment: Post-operative progress note Anesthesia: Postop Eval II Evaluation Mental status: Awake and Calm Pain Level: 1 nausea: No Vomiting: No Complications Anesthesia Complication: No
[2024-07-25] MEDS: Aspirin 81 MG TAB.CHEW PO (22:27)
[2024-07-25] MEDS: Senna/Docusate Sodium 1 Tablet 2 TABLET PO (22:27)
[2024-07-26] VITALS (7 sets, daily range): BP systolic 127–150; BP diastolic 82–91; PULSE 80–88; RESP 14–16; TEMP 36.4–37.2; O2SAT 95–98
[2024-07-26] MEDS: oxyCODONE 5 MG Tablet PO ×5 (00:08→20:06)
[2024-07-26] MEDS: Vancomycin HCl 2,000 MG in 0.9% Normal Saline (500mL Bag) 500 ML 250 MG IV (00:11)
[2024-07-26 06:10] LABS: Hematocrit 33.9 % (40-54); Hemoglobin 10.4 g/dL (13.0-16.5); Mean Corp Hgb Conc 30.7 g/dL (32-36); Mean Corpuscular Hgb 25.8 pg (27.0-32.0); Mean Corpuscular Volume 84.1 fL (80-94); Mean Platelet Vol. 8.8 fl (6.2-12.0); Platelet Count 304 K/mm3 (150-450); RBC Distribution Width CV 18.4 % (11.6-14.6); RBC Distribution Width SD 56.4 fl (35.1-43.9); Red Blood Count 4.03 M/mm3 (4.6-6.2); White Blood Count 8.5 K/mm3 (4.4-11.0)
[2024-07-26] MEDS: Cefazolin 1 GM/50 ML BAG IV (06:18)
[2024-07-26] MEDS: Acetaminophen 500 MG Tablet 1000 MG PO ×3 (06:19→20:07)
--- NOTE | 2024-07-26 06:20 | PCM.PROGNOTE ---
Subjective Subjective Pain controlled. Discussed status of wound and need for wash out Sun, followed by likely definitive reconstruction on Sun. Objective Data Objective Data Vital Signs: Vital Signs Temp Pulse Resp BP Pulse Ox O2 Del Method O2 Flow Rate 98.9 F 84 14 132/87 H 95 CPAP 4 07/26/24 03:47 07/26/24 03:47 07/26/24 03:47 07/26/24 03:47 07/26/24 03:47 07/26/24 03:47 07/25/24 17:30 Oxygen Flow Rate (L/min) 4 Oxygen Delivery Method CPAP Weight: 286 lb 3.2 oz Body Mass Index (BMI) 38.8 Intake & Output: Intake and Output for Last 24 Hours 07/24/24 07/25/24 07/26/24 23:59 23:59 23:59 Intake Total 2942 / 2942 1989 Output Total 1325 / 1325 Balance 2942 / 2942 665 / 665 Lab / Micro Data 07/26/24 05:47 07/26/24 05:47 Labs: Laboratory Results - last 24 hr 07/25/24 11:50: POC Glucose 86 07/26/24 05:47: WBC 8.5, RBC 4.03 L, Hgb 10.4 L, Hct 33.9 L, MCV 84.1, MCH 25.8 L, MCHC 30.7 L, RDW Std Deviation 56.4 H, RDW Coeff of Luigi 18.4 H, Plt Count 304, MPV 8.8 Physical Exam Narrative VAC holding suction on RLE Const alert and oriented x3 Extremity Extremity Narrative: SCD in place on the LLE. No swelling. Assessment & Plan Assessment/Plan (1) Infection and inflammatory reaction due to internal right knee prosthesis, subsequent encounter: PLAN: Patient admitted to the orthopedic surgery service. Plan to follow-up cultures and contact infectious disease. For now infectious diseases recommended doxycycline. I agree with irrigating wound VAC with Dakin's to the inferior portions of the incision with planned sterile (operating room) debridement and wound VAC change with plastics on Sunday, 28 July 2024. Orthopedic surgery is requesting muscle flap soft tissue coverage of the inferior portion of the joint to prevent worsening or further infection via the above-noted opening in the joint and lack of soft tissue coverage. Plan from 26 JUL 2024: Discussed plan for medial gastrocnemius flap for reconstruction of this deficit. I talked the patient extensively about the risks of surgery, including bleeding, infection, damage to surrounding structures, flap failure/necrosis, surgical site dehiscence and wound formation, need for wound care, need for repeat operations, failure to obtain the desired result, DVT/PE, and the risks of anesthesia including , including stroke (from low blood pressure/ischemia or clot). The benefits and alternatives of this surgery were also discussed. All of their questions were answered, and they agreed to proceed with surgery (wash out Sunday, 28 Jul 2023, and likely reconstruction on 30 Jul 2024). Charges/Coding Multi Select Codes Visit Charges Visit Charges: 00802 Subs Hosp L2
[2024-07-26 06:32] LABS: Anion Gap 7 (5-15); BUN 14 mg/dL (7-18); BUN/Creat Ratio 18.4 RATIO (10-20); Calcium,Total 8.9 mg/dL (8.5-10.1); Chloride 105 mmol/L (98-107); Creatinine, Serum 0.76 mg/dL (0.70-1.30); EST Glomerular Filtration Rate 115 mL/min (>60); Est Glom Filt Rate - Afr Amer 139 mL/min (>60); Estimated Creatinine Clearance 158.39 ml/min; Glucose 125 mg/dL (74-106); Potassium 3.6 mmol/L (3.5-5.1); Sodium Level 137 mmol/L (136-145)
--- NOTE | 2024-07-26 07:19 | PN.ORTHO_ITS ---
Subjective Subjective Patient is doing well. No acute events overnight. Complaining of some mild redness over the distal incision and leg. Otherwise has been stable. No chest pain or shortness of breath. Culture results have not returned yet. Objective Data Objective Data Vital Signs: Vital Signs Temp Pulse Resp BP Pulse Ox O2 Del Method O2 Flow Rate 98.7 F 86 16 128/82 H 98 Room Air 4 07/26/24 06:34 07/26/24 06:34 07/26/24 06:34 07/26/24 06:34 07/26/24 06:34 07/26/24 06:34 07/25/24 17:30 Oxygen Flow Rate (L/min) 4 Oxygen Delivery Method Room Air Weight: 286 lb 3.2 oz Body Mass Index (BMI) 38.8 Intake & Output: Intake and Output for Last 24 Hours 07/24/24 07/25/24 07/26/24 23:59 23:59 23:59 Intake Total 2942 / 2942 2440 / 2440 Output Total 1999 / 1999 Balance 2942 / 2942 440 / 440 Lab / Micro Data Attestation: I reviewed the patient's lab results. 07/26/24 05:47 07/26/24 05:47 Labs: Laboratory Results - last 24 hr 07/25/24 11:50: POC Glucose 86 07/26/24 05:47: WBC 8.5, RBC 4.03 L, Hgb 10.4 L, Hct 33.9 L, MCV 84.1, MCH 25.8 L, MCHC 30.7 L, RDW Std Deviation 56.4 H, RDW Coeff of Luigi 18.4 H, Plt Count 304, MPV 8.8, Sodium 137, Potassium 3.6, Chloride 105, Carbon Dioxide 26.0, Anion Gap 7, BUN 14, Creatinine 0.76, Estim Creat Clear Calc 158.39, Est GFR (MDRD) Af Amer 139, Est GFR (MDRD) Non-Af 115, BUN/Creatinine Ratio 18.4, G lucose 125 H, Calcium 8.9 Physical Exam Narrative Right lower extremity: Wound VAC is in place. Small amount of serosanguineous drainage in the tubing and at the distal site where the wound is open. Incisional part is stable. Mild erythema around distal incision and mild erythema down leg stable from yesterday in preoperative state. Const alert, oriented x3 and no apparent distress Assessment & Plan Assessment/Plan (1) Infection and inflammatory reaction due to internal right knee prosthesis, subsequent encounter: PLAN: Postop day 1 right knee irrigation debridement, complete synovectomy, sinus tract excision and placement of wound VAC over distal incision open area. 1. Wound management: Wound VAC is in place. Plastic surgery is on board. I was able to speak with plastic surgery this morning continuing to determine appropriate way to bring soft tissue to the area. Patient does have a lateral gastroc flap already. Tentative plan is to bring the medial gastroc flap around the medial side. 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 However benefits outweigh the risk. If this is the appropriate treatment method. Wound VAC is in place now plan is to return to the OR for debridement on Sunday. Cultures results have not yet returned from the operating room specimens. Will maintain knee immobilizer for tissue rest as we treat the wound. 2. 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 Patient did have labs 2 days prior to surgery and white blood cell count continues to trend towards normal. Spoke with infectious disease yesterday on the phone as they will not be in over the weekend they did recommend 24 hours of Ancef and vancomycin followed by continued oral doxycycline as we follow cultures. 3. Pain control: Pain is currently under control continue with current regimen limit IV medications 4. DVT prophylaxis: Aspirin 81 mg p.o. twice daily. SCDs. Patient able to ambulate with knee immobilizer 5. Physical therapy: Patient only activity restriction is no flexion of the right knee. Okay to ambulate with therapy, activity as tolerated throughout the day with knee immobilizer on. 6. Disposition: At this point we need to follow cultures to determine appropriate discharge antibiotic regimen with infectious disease additionally, patient is being followed by plastics to determine appropriate coverage. Goal would be that patient is able to be discharged after soft tissue coverage has been obtained.
[2024-07-26 07:27] LABS: Albumin, Serum 2.9 g/dL (3.2-5.0)
[2024-07-26] MEDS: Doxycycline 100 MG CAPSULE PO ×2 (08:12→20:06)
[2024-07-26] MEDS: Aspirin 81 MG TAB.CHEW PO ×2 (08:12→20:07)
[2024-07-26] MEDS: Senna/Docusate Sodium 1 Tablet 2 TABLET PO ×2 (08:12→20:05)
[2024-07-26] MEDS: Famotidine 20 MG Tablet PO (08:13)
[2024-07-26] MEDS: Ensure Surgery 237 ML LIQUID PO ×3 (08:16→16:57)
[2024-07-26 09:14] LABS: Hemoglobin A1c 5.1 % (3.8-5.6)
--- NOTE | 2024-07-26 10:37 | CASEMGMT ---
SAGE MARQUEZ Readmission Note Previous Admission: 06/27/24-06/30/24 Diagnosis: Revision R TK DC Disposition: Home with outpatient therapy, oral atb and wound vac Current Admission: Admitted 07/25/24 Current Diagnosis: Draining sinus and R TKR revision Pt dc'd from previous admission with wound vac. Dr. Jon changing in office. Pt was going to OP therapy. Pt returned with planned surgery for draining sinus and R TK revision. Pt had irrigation and debridement, hardware switched out with vac placement as incision could not be closed. ID c/s. Plastics to further debride on Sunday with plan for soft tissue coverage on Sunday. Pt is currently in a knee immobilizer. SAGE CM into pt room, pt present at bedside. Pt has DME: walker, cane, raised toilet seat. Pt has had IV's at home with [facility] in the past. Pt states should he need IV's again, he would like to have the [facility] setup with [facility] and [facility] for homecare. SAGE MARQUEZ to follow for pt needs upon dc. DC Plan: TBD pending course of hospitalization
[2024-07-27] MEDS: oxyCODONE 5 MG Tablet PO ×2 (03:46→09:07)
[2024-07-27 03:50] VITALS: BP 136/93; PULSE 73; RESP 17; TEMP 36.5; O2SAT 96
[2024-07-27 03:52] VITALS: BP 136/93; PULSE 73; RESP 17; TEMP 36.5; O2SAT 96
[2024-07-27] MEDS: Acetaminophen 500 MG Tablet 1000 MG PO ×3 (05:32→21:12)
[2024-07-27 06:20] LABS: Hematocrit 35.2 % (40-54); Hemoglobin 10.8 g/dL (13.0-16.5); Mean Corp Hgb Conc 30.7 g/dL (32-36); Mean Corpuscular Hgb 25.4 pg (27.0-32.0); Mean Corpuscular Volume 82.6 fL (80-94); Mean Platelet Vol. 8.8 fl (6.2-12.0); Platelet Count 299 K/mm3 (150-450); RBC Distribution Width CV 18.1 % (11.6-14.6); Red Blood Count 4.26 M/mm3 (4.6-6.2); White Blood Count 7.7 K/mm3 (4.4-11.0)
[2024-07-27 06:31] LABS: ERROR FUNCTION FLAG NO; Scan Indicated on CBC? Y/N NO
[2024-07-27 07:07] LABS: Prealbumin 16 mg/dL (10-36)
[2024-07-27 08:53] VITALS: BP 119/70; PULSE 73; RESP 16; TEMP 36.7; O2SAT 96
[2024-07-27] MEDS: Senna/Docusate Sodium 1 Tablet 2 TABLET PO ×2 (09:07→21:13)
[2024-07-27] MEDS: Famotidine 20 MG Tablet PO (09:07)
[2024-07-27] MEDS: Doxycycline 100 MG CAPSULE PO ×2 (09:07→21:13)
[2024-07-27] MEDS: Aspirin 81 MG TAB.CHEW PO (09:08)
--- NOTE | 2024-07-27 13:18 | PCM.PN.ORT ---
Subjective Subjective Patient is doing well. No new symptoms today. Cultures did result with 1 out of 3 so far coag negative staph. Sensitivities awaiting. Objective Data Objective Data Vital Signs: Vital Signs Temp Pulse Resp BP Pulse Ox O2 Del Method O2 Flow Rate 98.1 F 73 16 119/70 96 Room Air 4 07/27/24 08:53 07/27/24 08:53 07/27/24 08:53 07/27/24 08:53 07/27/24 08:53 07/27/24 08:53 07/25/24 17:30 Oxygen Flow Rate (L/min) 4 Oxygen Delivery Method Room Air Weight: 286 lb 3.2 oz Body Mass Index (BMI) 38.8 Intake & Output: Intake and Output for Last 24 Hours 07/25/24 07/26/24 07/27/24 23:59 23:59 23:59 Intake Total 2942 / 2942 3490 / 3790 600 / 600 Output Total 1999 / 2375 1375 / 1375 Balance 2942 / 2942 1490 / 1415 -775 / -775 Lab / Micro Data Attestation: I reviewed the patient's lab results. 07/27/24 05:41 07/26/24 05:47 Labs: Laboratory Results - last 24 hr 07/26/24 05:47: Prealbumin 16 07/27/24 05:41: WBC 7.7, RBC 4.26 L, Hgb 10.8 L, Hct 35.2 L, MCV 82.6, MCH 25.4 L, MCHC 30.7 L, RDW Std Deviation 55.0 H, RDW Coeff of Luigi 18.1 H, Plt Count 299, MPV 8.8 Micro: Microbiology 07/25/24 14:40 Tissue - Knee Wound Culture - Preliminary Coag Negative Staph 07/25/24 14:40 Tissue - Knee Wound Culture - Preliminary No growth-Final to follow 07/25/24 14:40 Tissue - Knee Wound Culture - Preliminary No growth-Final to follow Physical Exam Narrative Left lower extremity: Wound VAC Dressing is clean dry and intact. no appreciable drainage in the tubing today. Erythema down anterior leg improved Sensations intact to light touch saphenous, sural, superficial peroneal, deep peroneal, and tibial distributions Motors intact EHL, DF, PF calves are soft and supple Const alert, oriented x3 and no apparent distress Assessment & Plan Assessment/Plan (1) Infection and inflammatory reaction due to internal right knee prosthesis, subsequent encounter: PLAN: Postop day 2 right knee irrigation debridement, complete synovectomy, sinus tract excision and placement of wound VAC over distal incision open area. 1. Wound management: Wound VAC is in place. Plastic surgery is on board. Plan for repeat washout tomorrow with plastics. Will maintain knee immobilizer for tissue rest as we treat the wound. 2. 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 Patient did have labs 2 days prior to surgery and white blood cell count continues to trend towards normal. 1 out of 3 cultures so far positive for coag negative staph. Currently on doxycycline. Infectious disease should be in tomorrow to adjust antibiotics. 3. Pain control: Pain is currently under control continue with current regimen limit IV medications 4. DVT prophylaxis: Aspirin 81 mg p.o. twice daily. SCDs. Patient able to ambulate with knee immobilizer 5. Physical therapy: Patient only activity restriction is no flexion of the right knee. Okay to ambulate with therapy, activity as tolerated throughout the day with knee immobilizer on. 6. Disposition: At this point we need to follow cultures to determine appropriate discharge antibiotic regimen with infectious disease additionally, patient is being followed by plastics to determine appropriate coverage. Goal would be that patient is able to be discharged after soft tissue coverage has been obtained.
[2024-07-27 14:49] VITALS: PULSE 95; RESP 16; TEMP 36.6; O2SAT 96
--- NOTE | 2024-07-27 19:00 | NURSING ---
very tiny piece of foam applied to wound vac area, as it appears that the two pieces of foam were not touching causing a leak alarm. new circular piece applied on top and drape placed. no longer seal leak.
[2024-07-27] MEDS: MELATONIN 10 MG TABLET PO (21:12)
[2024-07-27 21:14] VITALS: BP 137/88; PULSE 80; RESP 16; TEMP 36.4; O2SAT 97
[2024-07-28] VITALS (12 sets, daily range): BP systolic 119–168; BP diastolic 73–97; PULSE 71–89; RESP 16–20; TEMP 36.4–36.7; O2SAT 93–100; BMI 38.7
[2024-07-28] MEDS: Acetaminophen 500 MG Tablet 1000 MG PO ×3 (05:42→21:13)
[2024-07-28 06:11] LABS: Hematocrit 36.1 % (40-54); Hemoglobin 10.9 g/dL (13.0-16.5); Mean Corp Hgb Conc 30.2 g/dL (32-36); Mean Corpuscular Hgb 24.8 pg (27.0-32.0); Mean Corpuscular Volume 82.2 fL (80-94); Mean Platelet Vol. 8.9 fl (6.2-12.0); Platelet Count 315 K/mm3 (150-450); RBC Distribution Width CV 17.9 % (11.6-14.6); Red Blood Count 4.39 M/mm3 (4.6-6.2); White Blood Count 5.9 K/mm3 (4.4-11.0)
[2024-07-28] MEDS: 0.9% Normal Saline (1000mL) 1,000 ML 15 ML IV (08:34)
--- NOTE | 2024-07-28 09:40 | PCM.HP.STD ---
HPI - General General Date of Admission: 07/25/24 HPI Narrative ABDIRAHMAN HERRON, is a 54 M who presents with a right knee wound over arthroplasty. Presents today for debridement/wash out and VAC change. [facility] Medical History Arthritis Chewing tobacco dependence History of pain when walking History of edema Home Medications ?Medication ?Instructions ?Recorded ?Last Taken ?Type acetaminophen 500 mg tablet 1,000 mg (2 x 500 mg) PO TID pain 06/30/24 07/24/24 Rx 14 days #84 tabs aspirin 81 mg capsule 81 mg PO BIDCM blood thinner 30 06/30/24 07/24/24 Rx days #60 caps doxycycline monohydrate 100 mg 100 mg PO BID antibiotic 30 days 06/30/24 07/25/24 Rx capsule #60 caps famotidine 20 mg tablet 20 mg PO DAILY gerd 30 days #30 06/30/24 07/24/24 Rx tabs ibuprofen 600 mg tablet 600 mg PO Q8H PRN pain 07/23/24 07/24/24 History Allergy/AdvReac Type Severity Reaction Status Date / Time No Known Allergies Allergy Verified 07/28/24 08:32 Surgical History History of incision and drainage Hx of knee surgery Hx of knee surgery Hx of knee surgery Hx of total knee arthroplasty Hx of right knee surgery Hx of right knee surgery Social History Smoking Status: Never smoker Vital Signs Vital Signs Vital Signs: 07/27/24 14:49 07/27/24 14:49 07/27/24 21:14 Temperature 97.8 F 97.5 F L Temperature Source Oral Oral Pulse Rate 95 80 Respiratory Rate 16 16 Respiratory Effort Normal Blood Pressure 137/88 H Blood Pressure Mean 104 Blood Pressure Source Monitor Blood Pressure Position Semi-Fowlers Blood Pressure Location Right Arm Pulse Ox 96 97 Oxygen Delivery Method Room Air Room Air 07/28/24 05:50 07/28/24 07:37 Temperature 97.6 F L 97.6 F L Temperature Source Oral Oral Pulse Rate 75 72 Respiratory Rate 16 16 Respiratory Effort Blood Pressure 140/76 H 120/78 Blood Pressure Mean 97 92 Blood Pressure Source Monitor Monitor Blood Pressure Position Semi-Fowlers Semi-Fowlers Blood Pressure Location Right Arm Right Arm Pulse Ox 98 97 Oxygen Delivery Method Room Air Room Air Weight Weight: 286 lb 2.913 oz Body Mass Index (BMI) 38.7 Physical Exam Narrative Left lower extremity: Wound VAC Dressing holding suction, no appreciable drainage in the tubing today. Erythema down anterior leg improved Sensations intact to light touch saphenous, sural, superficial peroneal, deep peroneal, and tibial distributions Motors intact EHL, DF, PF calves are soft Const alert, oriented x3 and no apparent distress Results Lab / Micro Data 07/28/24 05:29 07/26/24 05:47 Labs: Laboratory Results - last 24 hr 07/28/24 05:29: WBC 5.9, RBC 4.39 L, Hgb 10.9 L, Hct 36.1 L, MCV 82.2, MCH 24.8 L, MCHC 30.2 L, RDW Std Deviation 54.0 H, RDW Coeff of Luigi 17.9 H, Plt Count 315, MPV 8.9 Micro: Microbiology 07/25/24 14:40 Tissue - Knee Gram Stain - Final 07/25/24 14:40 Tissue - Knee Wound Culture - Final Staphylococcus epidermidis 07/25/24 14:40 Tissue - Knee Anaerobic Culture - Preliminary Checking for anaerobes, further studies to follow. 07/25/24 14:40 Tissue - Knee Gram Stain - Final 07/25/24 14:40 Tissue - Knee Wound Culture - Preliminary No growth-Final to follow 07/25/24 14:40 Tissue - Knee Anaerobic Culture - Preliminary No growth in 48 hours. 07/25/24 14:40 Tissue - Knee Gram Stain - Final 07/25/24 14:40 Tissue - Knee Wound Culture - Preliminary 07/25/24 14:40 Tissue - Knee Anaerobic Culture - Preliminary Checking for anaerobes, further studies to follow. Assessment & Plan Assessment/Plan (1) Status post revision of total replacement of right knee: PLAN: Plan I talked the patient extensively about the risks of surgery, including bleeding, infection, damage to surrounding structures, surgical site dehiscence and wound formation, need for wound care, need for repeat operations, failure to obtain the desired result, DVT/PE, and the risks of anesthesia including , including stroke (from low blood pressure/ischemia or clot). The benefits and alternatives of this surgery were also discussed. All of their questions were answered, and they agreed to proceed with surgery. INTERVAL H&P PLAN, DATE OF SURGERY: We will proceed with surgery today. I marked his RLE
--- NOTE | 2024-07-28 10:49 | PCM.POST.ANE ---
Anesthesia: Postop Eval I Current Vital Signs Temperature: 97.8 F Pulse Rate: 86 Blood Pressure: 158/84 Respiratory Rate: 20 Pulse Ox: 100 Assessment Airway patent: Yes Spontaneous unlabored respirations: Yes nausea: No Vomiting: No Anesthesia Complication: No Fluid Hydration Crystalloid volume administer (ml): 700 Total IV fluid infused: 700 Progress Note Anesthesia document: Postop Eval 1 completed: Yes
--- NOTE | 2024-07-28 11:10 | OP.PCM_ITS ---
Operative Report (Standard) Operative Information Date of Procedure: 07/28/24 Pre-Operative Diagnosis: Right anterior knee wound following arthroplasty with sinus from inferior joint capsule in the setting of recent infected seroma Post-Operative Diagnosis: Same Surgery/Procedure Performed: 1) Debridement of right knee wound (surgical preparation) 4 x 5 cm (CPT: 17034) 2) Placement of wound VAC, <50 cm ^2 (CPT: 07188) painter hand: No Type of Anesthesia: General RN Documented Start/Stop Times: Operation Date: 07/28/24 09:20 Case Time Into Pre-Op 07/28/24 08:16 Anesthesia Start 07/28/24 09:42 Into Room 07/28/24 09:42 Procedure Start 07/28/24 10:07 Procedure End 07/28/24 10:38 Anesthesia End 07/28/24 10:43 Out of Room 07/28/24 10:43 Into Recovery 07/28/24 10:45 Procedure Start Time: 10:07 Procedure Stop Time: 10:38 Select all DRAINS/GRAFTS/IMPLANTS that apply: None Estimated Blood Loss: 20 cc Specimen collected: No Description of surgery: Indications: Phoenix Fulton is a delightful 54-year-old male who underwent debridement/complete synovectomy with polyethylene exchange and Sunday, 25 July 2024, with his arthroplasty surgeon, Dr. Agrawal. Plastic surgery was consulted. Patient had a sinus in the inferior of the joint capsule with limited soft tissue. His cultures are growing staph epidermidis. I talked to the patient extensively about risks, benefits, and alternatives with the treatment plan, and he elected to proceed with surgery. Procedure Details: Patient was correctly identified in preoperative holding and taken back to the operating room where timeout was performed he was administered general anesthesia and he was prepped and draped in sterile fashion. There was fibrinous exudate at the base of the wound but no purulence. There was no exposed hardware but a small 1 x 2 cm sinus/inferior arthrotomy with li mited viable adjacent soft tissue for direct closure. The skin and subcutaneous tissue in the inferior portions of the wound was also tight and inflamed, and would not closed without significant amount of tension. The fibrinous exudate from the wound edges and the wound base was excised with a curette (debridement of 4 x 5 cm) and the wound was irrigated with 450 cc of Irrisept followed by 3 L of normal saline. The wound VAC was then placed over the wound for placement of a nondisposable wound VAC less than 50 cm?. The patient was awakened and taken to the PACU in stable condition. He was placed back in his knee immobilizer. Postoperative Plan: I spoke with Dr. Agrawal from orthopedics. He was in agreement with the treatment plan for definitive reconstruction with a medial gastrocnemius. We discussed potnetial polyethylene exchange at the time of the gastrocnemius flap (the flap is plan for 2 days from now on 30 July 2024); however, Dr. Agrawal feels that since the debridement on 25 July 2024 was adequate and there is no current exposed hardware (albeit a sinus), further polyethylene exchange is not indicated at this time. Plan will be for continued wound VAC therapy and antibiotics and culture follow-up with infectious disease recommendations. Plan for Lovenox 40 mg subcutaneous daily (no need to hold for surgery). Surgical Findings: * Fibrinous exudate at the base of the wound with a small 1 x 2 cm sinus/inferior arthrotomy, but no exposed hardware. * Limited soft tissue for closure directly over the draining sinus (unable to close without significant tension in the inferior portion of the incision) Complications Complications: No Admit VTE Documentation VTE Present on Admission: No VTE Mechan Device Prophylaxis: SCD's VTE Pharm Prophylaxis ordered?: Yes
[2024-07-28] MEDS: Aspirin 81 MG TAB.CHEW PO ×2 (11:54→21:19)
[2024-07-28] MEDS: Doxycycline 100 MG CAPSULE PO ×2 (11:55→21:15)
[2024-07-28] MEDS: Famotidine 20 MG Tablet PO (11:55)
[2024-07-28] MEDS: Senna/Docusate Sodium 1 Tablet 2 TABLET PO ×2 (11:55→21:13)
[2024-07-28] MEDS: Enoxaparin 40 MG/0.4 ML Syringe SC (13:48)
--- NOTE | 2024-07-28 14:31 | PCM.CONS.GEN ---
Assessment & Plan Assessment/Plan (1) Infection and inflammatory reaction due to internal right knee prosthesis, subsequent encounter: PLAN: Taken to OR 07/25/[address] Agrawal and again 07/28/[address] Jon. Single surg cx now with LUCIA, sens to po doxy. No fever, no leukocytosis, no new cellulitis. Cont po doxy for now. Will follow, thank you HPI Consult Data Date of Consult: 07/28/24 HPI Narrative Reason for Consultation: PJI HPI Narrative: ABDIRAHMAN HERRON, is a 54 M with R knee PJI, had been on po doxy, then last week developed increased pain, irritation, skin breakdown after change in wound vac equipment. No fever, no drainage, no redness. No n/v/d. Admitted, taken back to OR 07/25/[address] Agrawal. Surg cx sent. Feeling ok today, remains on po doxy. Full ROS performed and neg except as noted above. [facility] Medical History Arthritis Chewing tobacco dependence History of pain when walking History of edema Home Medications ?Medication ?Instructions ?Recorded ?Last Taken ?Type acetaminophen 500 mg tablet 1,000 mg (2 x 500 mg) PO TID pain 06/30/24 07/24/24 Rx 14 days #84 tabs aspirin 81 mg capsule 81 mg PO BIDCM blood thinner 30 06/30/24 07/24/24 Rx days #60 caps doxycycline monohydrate 100 mg 100 mg PO BID antibiotic 30 days 06/30/24 07/25/24 Rx capsule #60 caps famotidine 20 mg tablet 20 mg PO DAILY gerd 30 days #30 06/30/24 07/24/24 Rx tabs ibuprofen 600 mg tablet 600 mg PO Q8H PRN pain 07/23/24 07/24/24 History Allergy/AdvReac Type Severity Reaction Status Date / Time No Known Allergies Allergy Verified 07/28/24 08:32 Surgical History History of incision and drainage Hx of knee surgery Hx of knee surgery Hx of knee surgery Hx of total knee arthroplasty Hx of right knee surgery Hx of right knee surgery Social History Smoking Status: Never smoker Physical Exam Const alert, oriented x3 and no apparent distress General Appearance: cooperative HEENT normocephalic and head/scalp atraumatic Eyes PERRL and EOMs intact bilaterally Neck supple and No nodes Resp normal air movement and clear to auscultation bilaterally Cardio regular rate and regular rhythm GI soft to palpation, non-tender and non-distended Extremity General Extremity: Negative for edema Skin Skin Narrative: RLE wrapped Neuro CN's II-XII intact bilaterally Lab / Micro Data Attestation: I reviewed the patient's lab results. 07/28/24 05:29 07/26/24 05:47 Labs: Laboratory Results - last 24 hr 07/28/24 05:29: WBC 5.9, RBC 4.39 L, Hgb 10.9 L, Hct 36.1 L, MCV 82.2, MCH 24.8 L, MCHC 30.2 L, RDW Std Deviation 54.0 H, RDW Coeff of Luigi 17.9 H, Plt Count 315, MPV 8.9 Micro: Microbiology 07/25/24 14:40 Tissue - Knee Gram Stain - Final 07/25/24 14:40 Tissue - Knee Wound Culture - Preliminary Staphylococcus epidermidis 07/25/24 14:40 Tissue - Knee Anaerobic Culture - Preliminary Checking for anaerobes, further studies to follow. 07/25/24 14:40 Tissue - Knee Gram Stain - Final 07/25/24 14:40 Tissue - Knee Wound Culture - Preliminary 07/25/24 14:40 Tissue - Knee Anaerobic Culture - Preliminary Checking for anaerobes, further studies to follow. 07/25/24 14:40 Tissue - Knee Gram Stain - Final 07/25/24 14:40 Tissue - Knee Wound Culture - Preliminary No growth-Final to follow 07/25/24 14:40 Tissue - Knee Anaerobic Culture - Preliminary No growth in 48 hours.
--- NOTE | 2024-07-28 16:49 | PCM.PN.ORT ---
Subjective Subjective Patient doing well overall. Able to ambulate in the hallways. No new symptoms. Objective Data Objective Data Vital Signs: Vital Signs Temp Pulse Resp BP Pulse Ox O2 Del Method O2 Flow Rate 98.0 F 71 16 123/78 H 97 Room Air 4 07/28/24 15:58 07/28/24 15:58 07/28/24 15:58 07/28/24 15:58 07/28/24 15:58 07/28/24 15:58 07/25/24 17:30 Oxygen Flow Rate (L/min) 4 Oxygen Delivery Method Room Air Weight: 286 lb 2.913 oz Body Mass Index (BMI) 38.7 Intake & Output: Intake and Output for Last 24 Hours 07/26/24 07/27/24 07/28/24 23:59 23:59 23:59 Intake Total 3490 / 3790 1000 / 1000 Output Total 1999 / 2374 1775 / 1775 Balance 1490 / 1415 -775 / -775 Lab / Micro Data Attestation: I reviewed the patient's lab results. 07/28/24 05:29 07/26/24 05:47 Labs: Laboratory Results - last 24 hr 07/28/24 05:29: WBC 5.9, RBC 4.39 L, Hgb 10.9 L, Hct 36.1 L, MCV 82.2, MCH 24.8 L, MCHC 30.2 L, RDW Std Deviation 54.0 H, RDW Coeff of Luigi 17.9 H, Plt Count 315, MPV 8.9 Micro: Microbiology 07/25/24 14:40 Tissue - Knee Gram Stain - Final 07/25/24 14:40 Tissue - Knee Wound Culture - Preliminary Staphylococcus epidermidis 07/25/24 14:40 Tissue - Knee Anaerobic Culture - Preliminary Checking for anaerobes, further studies to follow. 07/25/24 14:40 Tissue - Knee Gram Stain - Final 07/25/24 14:40 Tissue - Knee Wound Culture - Preliminary 07/25/24 14:40 Tissue - Knee Anaerobic Culture - Preliminary Checking for anaerobes, further studies to follow. 07/25/24 14:40 Tissue - Knee Gram Stain - Final 07/25/24 14:40 Tissue - Knee Wound Culture - Preliminary No growth-Final to follow 07/25/24 14:40 Tissue - Knee Anaerobic Culture - Preliminary No growth in 48 hours. Physical Exam Narrative Right lower extremity exam stable and neuro vastly intact Const alert, oriented x3 and no apparent distress Assessment & Plan Assessment/Plan (1) Infection and inflammatory reaction due to internal right knee prosthesis, subsequent encounter: PLAN: Postop day 3 right knee irrigation debridement, complete synovectomy, sinus tract excision and placement of wound VAC over distal incision open area. 1. Wound management: Plastic surgery debrided again today. Plan for medial gastroc flap and skin graft on Sunday 2. Periprosthetic joint infection: 1 out of 3 positive MRSE cultures. Sensitive doxycycline. Infectious he saw the patient today continue on oral doxycycline. 3. Pain control: Pain is currently under control continue with current regimen limit IV medications 4. DVT prophylaxis: Aspirin 81 mg p.o. twice daily. SCDs. Patient able to ambulate with knee immobilizer. Did talk with Dr. Jon plastic surgery who did place him on Lovenox today. We did discuss available recommendations at this time I will defer to him as patient does not seem to have a significant hemarthrosis. If plastic indicates more aggressive anticoagulant I would have her to the recommendations at this time. 5. Physical therapy: Patient only activity restriction is no flexion of the right knee. Okay to ambulate with therapy, activity as tolerated throughout the day with knee immobilizer on. 6. Disposition: Patient is awaiting medial gastroc flap for wound coverage with split-thickness skin graft. Definitive discharge will be determined by plastics after this procedure.
[2024-07-28] MEDS: MELATONIN 10 MG TABLET PO (21:14)
[2024-07-29 04:46] VITALS: BP 126/75; PULSE 81; RESP 16; TEMP 36.6; O2SAT 96
[2024-07-29] MEDS: Acetaminophen 500 MG Tablet 1000 MG PO ×3 (04:48→21:15)
--- NOTE | 2024-07-29 07:39 | PCM.PN.ORT ---
Subjective Subjective The patient was sitting in bed upon examination. Patient denies any chest pain, shortness of breath, dizziness, lightheadedness, nausea or vomiting, or calf pain. Pain is controlled on medications. No adverse overnight events. On July 25, 2024 patient underwent a irrigation debridement with complete synovectomy and wound debridement with fascia, skin and subcutaneous tissue right knee with polyethylene exchange with wound VAC placement and sinus tract excision. Plastic surgeon has also been involved for appropriate soft tissue coverage for the wound. Patient yesterday underwent by Dr. Jon debridement of right knee wound and placement of wound VAC. Plan is for patient to undergo medial gastroc flap and skin graft on July 30, 2024. Patient appears to be doing well this morning. He is currently in a knee immobilizer avoiding any flexion of the knee. Patient has been on aspirin for DVT prophylaxis but recently placed on Lovenox per plastic surgeon. Patient has also been followed by infectious disease in which one of the 3 cultures were positive for Staphylococcus epidermidis. He is continuing on oral doxycycline. Patient denies any numbness and tingling in the right lower extremity. Objective Data Objective Data Vital Signs: Vital Signs Temp Pulse Resp BP Pulse Ox O2 Del Method O2 Flow Rate 98 F 81 16 126/75 H 96 Room Air 4 07/29/24 04:46 07/29/24 04:46 07/29/24 04:46 07/29/24 04:46 07/29/24 04:46 07/29/24 04:46 07/25/24 17:30 Oxygen Flow Rate (L/min) 4 Oxygen Delivery Method Room Air Weight: 129.81 kg Body Mass Index (BMI) 38.7 Intake & Output: Intake and Output for Last 24 Hours 07/27/24 07/28/24 07/29/24 23:59 23:59 23:59 Intake Total 1000 / 1000 131.5 / 131.5 Output Total 1775 / 1775 550 / 550 Balance -775 / -775 -418.5 / -418.5 Lab / Micro Data 07/28/24 05:29 07/26/24 05:47 Micro: Microbiology 07/25/24 14:40 Tissue - Knee Gram Stain - Final 07/25/24 14:40 Tissue - Knee Wound Culture - Preliminary Staphylococcus epidermidis 07/25/24 14:40 Tissue - Knee Anaerobic Culture - Preliminary Checking for anaerobes, further studies to follow. 07/25/24 14:40 Tissue - Knee Gram Stain - Final 07/25/24 14:40 Tissue - Knee Wound Culture - Preliminary 07/25/24 14:40 Tissue - Knee Anaerobic Culture - Preliminary Checking for anaerobes, further studies to follow. 07/25/24 14:40 Tissue - Knee Gram Stain - Final 07/25/24 14:40 Tissue - Knee Wound Culture - Preliminary No growth-Final to follow 07/25/24 14:40 Tissue - Knee Anaerobic Culture - Preliminary No growth in 48 hours. Physical Exam Narrative Vital signs stable and afebrile. Patient is able to plantarflex and dorsiflex actively. Sensation is intact to light touch to saphenous, sural, superficial and deep peroneal, and tibial distribution. Patient currently in knee immobilizer Wound VAC in place per plastic surgeon Negative Homans bilaterally, negative signs and symptoms of DVT. Const alert, oriented x3 and no apparent distress Assessment & Plan Assessment/Plan (1) Status post revision of total replacement of right knee: PLAN: 1. S/P right knee irrigation debridement, complete synovectomy, sinus tract excision and placement of wound VAC over distal incision open area with polyethylene exchange POD #4 2. Continue Pain Medications: Tylenol and oxycodone as needed 3. DVT Prophylaxis: Patient has been on aspirin 81 mg twice daily per orthopedics. Continue with SCDs. Patient is able to ambulate with a knee immobilizer. Case was discussed between Dr. Wilman Agrawal and Dr. Jon. We will defer to plastic surgeon if more aggressive anticoagulant would be required. Patient is currently on Lovenox. 4. PT/OT: Weightbearing as tolerated with knee immobilizer in place. No range of motion of the right knee 5. Encouraged Incentive Spirometry 6. Continue postoperative medical treatment per medicine 7. Currently on doxycycline for 2 weeks postoperatively. Microbiology wound and tissue specimens were reviewed in chart. Patient had 1 of 3 Wound cultures positive for Staphylococcus epidermidis. Infectious disease is recommending oral doxycycline. I discussed with the patient potential side effects of doxycycline including sensitivity to the sunlight and increased risk of skin burn. Recommend patient take appropriate precautions. Also recommend patient to take probiotic while on the antibiotic. Patient voiced understanding agreement. 8. Disposition: Plan at this time is for patient to continue care under plastic surgeon Dr Jon. Patient is planned to have a medial gastroc flap and skin graft on July 30, 2024. This will require further stay in the hospital. Patient orthopedically appears stable and well from our standpoint. Case was discussed and reviewed with Dr. Wilman Agrawal. At this time I would defer to plastics with regards to appropriate discharge planning. Also would defer when range of motion is appropriate for wound care. He will remain in the knee immobilizer and further recommendations from plastics. Infectious disease has been involved and patient does have 1 of 3 positive wound cultures for Staphylococcus epidermidis. The plan is for patient to continue on doxycycline and we will defer to infectious disease for length of time on the antibiotic. Patient will keep his scheduled follow-up in 2 weeks with orthopedics. Please reach out to orthopedics if there are any concerns or questions. This dictation was created using voice recognition software. Phonetic and/or grammatical errors may exist. (2) Delayed surgical wound healing:
[2024-07-29 08:19] VITALS: BP 123/83; PULSE 77; RESP 18; TEMP 36.7; O2SAT 96
--- NOTE | 2024-07-29 09:30 | PN.SURG_ITS ---
<Statement entered by Fabio Jon MD - 07/29/24 15:18> I have personally performed a face to face assessment of the patient and have reviewed the RACQUEL Note. Subjective Subjective Patient is doing well. Sitting up in chair with right leg elevated. Pain well controlled. Denies nausea, vomiting, SOB, chest pain, calf discomfort. Objective Data Objective Data Vital Signs: Vital Signs Temp Pulse Resp BP Pulse Ox O2 Del Method O2 Flow Rate 98.0 F 77 18 123/83 H 96 Room Air 4 07/29/24 08:19 07/29/24 08:19 07/29/24 08:19 07/29/24 08:19 07/29/24 08:19 07/29/24 08:19 07/25/24 17:30 Oxygen Flow Rate (L/min) 4 Oxygen Delivery Method Room Air Weight: 286 lb 2.913 oz Body Mass Index (BMI) 38.7 Intake & Output: Intake and Output for Last 24 Hours 07/27/24 07/28/24 07/29/24 23:59 23:59 23:59 Intake Total 1000 / 1000 131.5 / 131.5 Output Total 1775 / 1775 550 / 550 Balance -775 / -775 -418.5 / -418.5 Lab / Micro Data Attestation: I reviewed the patient's lab results. 07/28/24 05:29 07/26/24 05:47 Micro: Microbiology 07/25/24 14:40 Tissue - Knee Gram Stain - Final 07/25/24 14:40 Tissue - Knee Wound Culture - Preliminary Gram Positive Cocci Gram Positive Cocci#2 07/25/24 14:40 Tissue - Knee Anaerobic Culture - Preliminary Checking for anaerobes, further studies to follow. 07/25/24 14:40 Tissue - Knee Gram Stain - Final 07/25/24 14:40 Tissue - Knee Wound Culture - Preliminary Staphylococcus epidermidis Gram Positive Cocci 07/25/24 14:40 Tissue - Knee Anaerobic Culture - Preliminary Checking for anaerobes, further studies to follow. 07/25/24 14:40 Tissue - Knee Gram Stain - Final 07/25/24 14:40 Tissue - Knee Wound Culture - Preliminary No growth-Final to follow 07/25/24 14:40 Tissue - Knee Anaerobic Culture - Preliminary No growth in 48 hours. Physical Exam Const alert and oriented x3 General Appearance: cooperative HEENT normocephalic Eyes General Eye: normal appearance of both eyes Neck full ROM Lymph Lymphatic: no lymphedema noted Resp normal respiratory effort and normal air movement Effort and Inspection: able to speak in complete sentences Cardio regular rate and regular rhythm Back/Spine normal ROM Extremity Extremity Narrative: Right leg in knee immobilizer with wound VAC in place at 125 mmHg. Pedal pulse palpable. Neuro oriented x3 Psych mental status grossly normal and cooperative Appearance: appropriate Speech: normal speech Thought Process: normal thought process Insight: insight good Judgement: judgement good Assessment & Plan Assessment/Plan (1) Status post revision of total replacement of right knee: PLAN: Plan Patient with minimal discomfort. Wound VAC dressing in place at 125 mmHg with good seal. He states that he sometimes gets discomfort where the disc is placed for the suction. Will continue monitor this. DVT prophylaxis with Lovenox and SCDs. He is allowed to ambulate per orthopedics with knee immobilizer in place. Patient states he has been up walking in the [place]. Preliminary operative culture from 07/25/24 positive for Gram positive cocci x2 and tissue culture Staphylococcus epidermidis and Gram positive cocci. ID is following and patient on po Doxycycline. Encouraged incentive spirometer. Plan for reconstruction with medial gastrocnemius flap tomorrow by Dr. Jon. Discussed plan of care with Dr. Jon. Charges/Coding Procedures Integumentary [id number]: [id number] Global Visit
[2024-07-29] MEDS: Famotidine 20 MG Tablet PO (10:37)
[2024-07-29] MEDS: Senna/Docusate Sodium 1 Tablet 2 TABLET PO ×2 (10:37→21:14)
[2024-07-29] MEDS: Doxycycline 100 MG CAPSULE PO ×2 (10:37→21:15)
[2024-07-29] MEDS: Aspirin 81 MG TAB.CHEW PO ×2 (10:37→21:14)
[2024-07-29] MEDS: Enoxaparin 40 MG/0.4 ML Syringe SC (10:39)
[2024-07-29 21:11] VITALS: BP 134/94; PULSE 77; RESP 18; TEMP 36.5; O2SAT 97
[2024-07-29 23:08] VITALS: BP 121/88; PULSE 65; RESP 16; TEMP 36.6; O2SAT 95
[2024-07-30] VITALS (16 sets, daily range): BP systolic 109–170; BP diastolic 73–99; PULSE 63–100; RESP 16–18; TEMP 36.3–36.9; O2SAT 93–97; BMI 38.7
[2024-07-30] MEDS: Acetaminophen 500 MG Tablet 1000 MG PO ×2 (05:49→21:51)
[2024-07-30] MEDS: 0.9% Saline Lock 10 ML Syringe IV (05:50)
[2024-07-30 06:02] LABS: Absolute Lymphocyte Count 2.02 X10^3/uL (0.83-4.51); Absolute Neutrophil Count 3.3 X10^3/uL (2.0-7.7); Basophil# 0.03 X10^3/uL; Basophil% 0.5 % (0-1); Eosinophil# 0.16 X10^3/uL; Eosinophils% 2.6 % (0-5); Hematocrit 34.6 % (40-54); Hemoglobin 10.8 g/dL (13.0-16.5); Lymphocyte # 2.02 X10^3/ul (0.83-4.51); Lymphocyte % 32.8 % (19-41); Mean Corp Hgb Conc 31.2 g/dL (32-36); Mean Corpuscular Hgb 25.8 pg (27.0-32.0); Mean Corpuscular Volume 82.8 fL (80-94); Mean Platelet Vol. 9.5 fl (6.2-12.0); Monocyte# 0.67 X10^3/uL; Monocyte% 10.9 % (0-10); NRBC Flagged by Analyzer 0 % (0-5); Neutrophil # 3.25 X10^3/uL (2.7-7.7); Neutrophil % 52.7 % (47-70); Platelet Count 346 K/mm3 (150-450); RBC Distribution Width CV 17.9 % (11.6-14.6); RBC Distribution Width SD 54.1 fl (35.1-43.9); Red Blood Count 4.18 M/mm3 (4.6-6.2); White Blood Count 6.2 K/mm3 (4.4-11.0)
[2024-07-30] MEDS: Doxycycline 100 MG CAPSULE PO ×2 (08:41→21:51)
--- NOTE | 2024-07-30 09:39 | PCM.PN.ORT ---
Subjective Subjective The patient was sitting in bed upon examination. Patient denies any chest pain, shortness of breath, dizziness, lightheadedness, nausea or vomiting, or calf pain. Pain is controlled on medications. No adverse overnight events. Plan is for patient to go down for surgery today with Dr Jon for a right knee medial gastroc flap and skin graft. He is currently n.p.o. Patient's pain has been well-controlled. He still gets some occasional spasms in the muscle. Denies any numbness and tingling. He has wound VAC in place. Objective Data Objective Data Vital Signs: Vital Signs Temp Pulse Resp BP Pulse Ox O2 Del Method O2 Flow Rate 97.7 F L 63 18 131/91 H 96 CPAP 4 07/30/24 04:11 07/30/24 04:11 07/30/24 04:11 07/30/24 04:11 07/30/24 04:11 07/30/24 04:15 07/25/24 17:30 Oxygen Flow Rate (L/min) 4 Oxygen Delivery Method CPAP Weight: 129.81 kg Body Mass Index (BMI) 38.7 Intake & Output: Intake and Output for Last 24 Hours 07/28/24 07/29/24 07/30/24 23:59 23:59 23:59 Intake Total 131.5 / 131.5 50 / 50 Output Total 550 / 550 1450 / 1450 Balance -418.5 / -418.5 -1400 / -1400 Lab / Micro Data 07/30/24 05:22 07/26/24 05:47 Labs: Laboratory Results - last 24 hr 07/30/24 05:22: WBC 6.2, RBC 4.18 L, Hgb 10.8 L, Hct 34.6 L, MCV 82.8, MCH 25.8 L, MCHC 31.2 L, RDW Std Deviation 54.1 H, RDW Coeff of Luigi 17.9 H, Plt Count 346, MPV 9.5, Immature Gran % (Auto) 0.500, Neut % (Auto) 52.7, Lymph % (Auto) 32.8, [place] % (Auto) 10.9 H, Eos % (Auto) 2.6, Baso % (Auto) 0.5, Absolute Neuts (auto) 3.3, Absolute Lymphs (auto) 2.02, Nucleated RBC % 0 Micro: Microbiology 07/25/24 14:40 Tissue - Knee Gram Stain - Final 07/25/24 14:40 Tissue - Knee Wound Culture - Preliminary No growth-Final to follow 07/25/24 14:40 Tissue - Knee Anaerobic Culture - Preliminary No growth in 48 hours. 07/25/24 14:40 Tissue - Knee Gram Stain - Final 07/25/24 14:40 Tissue - Knee Wound Culture - Final Coag Negative Staph Coag Negative Staph#2 07/25/24 14:40 Tissue - Knee Anaerobic Culture - Preliminary Checking for anaerobes, further studies to follow. 07/25/24 14:40 Tissue - Knee Gram Stain - Final 07/25/24 14:40 Tissue - Knee Wound Culture - Preliminary Staphylococcus epidermidis Gram Positive Cocci 07/25/24 14:40 Tissue - Knee Anaerobic Culture - Preliminary Checking for anaerobes, further studies to follow. Physical Exam Narrative Vital signs stable and afebrile. Patient is able to plantarflex and dorsiflex actively. Sensation is intact to light touch to saphenous, sural, superficial and deep peroneal, and tibial distribution. Patient currently in knee immobilizer Wound VAC in place per plastic surgeon Negative Homans bilaterally, negative signs and symptoms of DVT. Const alert, oriented x3 and no apparent distress Assessment & Plan Assessment/Plan (1) Status post revision of total replacement of right knee: PLAN: 1. S/P right knee irrigation debridement, complete synovectomy, sinus tract excision and placement of wound VAC over distal incision open area with polyethylene exchange POD #5 2. Continue Pain Medications: Tylenol and oxycodone as needed. I would defer to plastics for any further pain medication after procedure today. 3. DVT Prophylaxis: Patient has been on aspirin 81 mg twice daily per orthopedics. Continue with SCDs. Patient is able to ambulate with a knee immobilizer. Case was discussed between Dr. Wilman Agrawal and Dr. Jon. We will defer to plastic surgeon if more aggressive anticoagulant would be required. Patient is currently on Lovenox. 4. PT/OT: Weightbearing as tolerated with knee immobilizer in place. No range of motion of the right knee. Range of motion restrictions will be determined by plastics after today's surgery. Once plastic is okay with range of motion of the knee that will be determined on his protocol. 5. Encouraged Incentive Spirometry 6. Continue postoperative medical treatment per medicine 7. Currently on doxycycline for 2 weeks postoperatively. Microbiology wound and tissue specimens were reviewed in chart. Patient had 2 of 3 Wound cultures positive now. Tibial membrane has grown out Staphylococcus epidermidis and same culture has gram-positive cocci. Patient had second culture in the suprapatella pouch grow out coag negative staph with 50% staph hemolyticus and 50% staph warneri. I did reach out to Dr. Valero and this will require change in antibiotics. He will be following the patient today. Patient will require PICC line and IV antibiotics. Appreciate recommendations from infectious disease. I did discuss case with Wilman Agrawal and he recommends patient continue forward with surgery today. Patient had many questions and extra time was taken with the patient. 8. Disposition: Plan at this time is for patient to continue care under plastic surgeon Dr Jon. Patient is planned to have a medial gastroc flap and skin graft on July 30, 2024. This will require further stay in the hospital. Patient did have second set of cultures grow out positive for bacteria. Appreciate recommendations from infectious disease. Case was discussed and reviewed with Dr. Wilman Agrawal. At this time I would defer to plastics with regards to appropriate discharge planning. Also would defer when range of motion is appropriate for wound care. He will remain in the knee immobilizer and further recommendations from plastics. Patient will require PICC line and IV antibiotics. Case was discussed with care management team. Patient will keep his scheduled follow-up in 2 weeks with orthopedics. Please reach out to orthopedics if there are any concerns or questions. This dictation was created using voice recognition software. Phonetic and/or grammatical errors may exist. (2) Delayed surgical wound healing:
--- NOTE | 2024-07-30 12:24 | PCM.PN.ID ---
Physical Exam Narrative Feeling ok, going to OR today, no fever Const alert and no apparent distress General Appearance: cooperative Resp Effort and Inspection: Negative for uses accessory muscles Cardio regular rate and regular rhythm GI non-tender and non-distended Skin no rashes or lesions noted ID ID: Route of nutrition/ use of supplements: [] Nutritional Intake: [] IV Site: [] Hicks Catheter: [] Assessment & Plan Assessment/Plan (1) Infection and inflammatory reaction due to internal right knee prosthesis, subsequent encounter: PLAN: Taken to OR 07/25/[address] Agrawal and again 07/28/[address] Jon. Two surg cx now with MRSE, CoNS x2, granulicatella. No fever, no leukocytosis, no new cellulitis. Will change doxy to iv vanc, will plan on picc and 6 weeks iv abx. Will follow, d/w ortho
--- NOTE | 2024-07-30 12:48 | PCM.HP.STD ---
HPI - General General Date of Admission: 07/25/24 HPI Narrative ABDIRAHMAN HERRON is a 54 M who presents with an infection around a right total knee prosthesis with an open inferior aspect of the joint. Presents today for coverage with a medial gastrocnemius flap. [facility] Medical History Arthritis Chewing tobacco dependence History of pain when walking History of edema Home Medications ?Medication ?Instructions ?Recorded ?Last Taken ?Type acetaminophen 500 mg tablet 1,000 mg (2 x 500 mg) PO TID pain 06/30/24 07/24/24 Rx 14 days #84 tabs aspirin 81 mg capsule 81 mg PO BIDCM blood thinner 30 06/30/24 07/24/24 Rx days #60 caps doxycycline monohydrate 100 mg 100 mg PO BID antibiotic 30 days 06/30/24 07/25/24 Rx capsule #60 caps famotidine 20 mg tablet 20 mg PO DAILY gerd 30 days #30 06/30/24 07/24/24 Rx tabs ibuprofen 600 mg tablet 600 mg PO Q8H PRN pain 07/23/24 07/24/24 History Allergy/AdvReac Type Severity Reaction Status Date / Time No Known Allergies Allergy Verified 07/28/24 08:32 Surgical History History of incision and drainage Hx of knee surgery Hx of knee surgery Hx of knee surgery Hx of total knee arthroplasty Hx of right knee surgery Hx of right knee surgery Social History Smoking Status: Never smoker Vital Signs Vital Signs Vital Signs: 07/29/24 21:09 07/29/24 21:11 07/29/24 21:20 Temperature 97.7 F L Temperature Source Oral Pulse Rate 77 Pulse Strength Normal (2+) Respiratory Rate 18 Respiratory Effort Normal Non-Labored Respiratory Depth Normal Respiratory Pattern Normal Blood Pressure 134/94 H Blood Pressure Mean 107 Blood Pressure Source Monitor Blood Pressure Position Semi-Fowlers Blood Pressure Location Left Arm Pulse Ox 97 Oxygen Delivery Method Room Air Room Air 07/29/24 23:08 07/30/24 04:11 07/30/24 04:15 Temperature 97.9 F 97.7 F L Temperature Source Oral Oral Pulse Rate 65 63 Pulse Strength Respiratory Rate 16 18 Respiratory Effort Respiratory Depth Respiratory Pattern Blood Pressure 121/88 H 131/91 H Blood Pressure Mean 99 104 Blood Pressure Source Monitor Monitor Blood Pressure Position Semi-Fowlers Semi-Fowlers Blood Pressure Location Left Arm Left Arm Pulse Ox 95 96 Oxygen Delivery Method CPAP CPAP CPAP 07/30/24 09:00 07/30/24 09:00 07/30/24 10:00 Temperature 97.3 F L Temperature Source Oral Pulse Rate 74 Pulse Strength Normal (2+) Respiratory Rate 18 18 Respiratory Effort Normal Non-Labored Respiratory Depth Respiratory Pattern Blood Pressure 119/84 H Blood Pressure Mean 95 Blood Pressure Source Monitor Blood Pressure Position Semi-Fowlers Blood Pressure Location Left Arm Pulse Ox 96 Oxygen Delivery Method Room Air Room Air 07/30/24 11:57 Temperature 98.3 F Temperature Source Oral Pulse Rate 78 Pulse Strength Respiratory Rate 18 Respiratory Effort Respiratory Depth Respiratory Pattern Blood Pressure 128/85 H Blood Pressure Mean 99 Blood Pressure Source Monitor Blood Pressure Position Semi-Fowlers Blood Pressure Location Right Arm Pulse Ox 93 Oxygen Delivery Method Room Air Weight Weight: 286 lb 2.913 oz Body Mass Index (BMI) 38.7 Physical Exam Narrative RLE: VAC holding suction, minimal drainage in the VAC. NO calf swelling on either side. Const oriented x3 and no apparent distress Resp normal respiratory effort Cardio regular rate GI soft to palpation and non-tender Results Lab / Micro Data 07/30/24 05:22 07/26/24 05:47 Labs: Laboratory Results - last 24 hr 07/30/24 05:22: WBC 6.2, RBC 4.18 L, Hgb 10.8 L, Hct 34.6 L, MCV 82.8, MCH 25.8 L, MCHC 31.2 L, RDW Std Deviation 54.1 H, RDW Coeff of Luigi 17.9 H, Plt Count 346, MPV 9.5, Immature Gran % (Auto) 0.500, Neut % (Auto) 52.7, Lymph % (Auto) 32.8, [place] % (Auto) 10.9 H, Eos % (Auto) 2.6, Baso % (Auto) 0.5, Absolute Neuts (auto) 3.3, Absolute Lymphs (auto) 2.02, Nucleated RBC % 0 Micro: Microbiology 07/25/24 14:40 Tissue - Knee Gram Stain - Final 07/25/24 14:40 Tissue - Knee Wound Culture - Final Staphylococcus epidermidis Granulicatella adiacens 07/25/24 14:40 Tissue - Knee Anaerobic Culture - Final No anaerobic bacteria isolated. 07/25/24 14:40 Tissue - Knee Gram Stain - Final 07/25/24 14:40 Tissue - Knee Wound Culture - Final Coag Negative Staph Coag Negative Staph#2 07/25/24 14:40 Tissue - Knee Anaerobic Culture - Final No anaerobic bacteria isolated. 07/25/24 14:40 Tissue - Knee Gram Stain - Final 07/25/24 14:40 Tissue - Knee Wound Culture - Preliminary No growth-Final to follow 07/25/24 14:40 Tissue - Knee Anaerobic Culture - Preliminary No growth in 48 hours. Assessment & Plan Assessment/Plan (1) Infection and inflammatory reaction due to internal right knee prosthesis, subsequent encounter: PLAN: I talked the patient extensively about the risks of surgery, including bleeding, infection, damage to surrounding structures (especially nerves/nerve pain and also Achilles tendon rupture), surgical site dehiscence and wound formation, need for wound care, need for repeat operations, failure to obtain the desired result, FLAP FAILURE, DVT/PE, and the risks of anesthesia including , including stroke (from low blood pressure/ischemia or clot). I talked to him extensively about the donor site weakness, and we talked about how he will have to overcome this problem with rehabilitation/strengthening of his soleus muscle as this will be his second reconstruction with a gastrocnemius flap. The benefits and alternatives of this surgery were also discussed. All of their questions were answered, and they agreed to proceed with surgery. We will proceed with right medial gastrocnemius flap reconstruction for the knee wound.
--- NOTE | 2024-07-30 13:14 | PRE.ANES_ITS ---
ASA Classification* ASA Classification ASA Classification: 2 Assessment & Plan Anesthesia* Anesthesia Assessment Anesthesia Assessment: Discussed sedation and/or anesthesia options, risks, benefits, and alternatives with patient/parents/legal guardian/POA. Questions invited. The patient/parents/legal guardian/POA seems to understand and agrees to proceed with anesthesia plan. Reviewed the physical assessment, medical history, allergy history and patient home medications list prior to surgery/procedure/anesthetic and documented any changes. Performed airway and anesthesia risk assessments. Anesthesia Type Anesthesia Type: General History Source History Obtained from:: Patient and Chart Anesthesia Focused Assessment* Temperature: 98.3 F Pulse Rate: 78 Blood Pressure: 128/85 Respiratory Rate: 18 Pulse Ox: 93 Oxygen Delivery Method: Room Air Oxygen Flow Rate (L/min): 4 Airway Assessment Mouth opens: >3 cm Mallampati Score: IV Teeth Condition: Intact Neck Range of motion (ROM): Limited ROM (slight decreased extension) Focused Labs Anesthesia Preop lab: CBC WBC 6.2 K/mm3 (4.4-11.0) 07/30/24 05:22 07/30/24 RBC 4.18 M/mm3 (4.6-6.2) L 07/30/24 05:22 07/30/24 Hgb 10.8 g/dL (13.0-16.5) L 07/30/24 05:22 5 Hct 34.6 % (40-54) L 07/30/24 05:22 07/30/24 Plt Count 346 K/mm3 (150-450) 07/30/24 05:22 07/30/24 CHEMISTRY Potassium 3.6 mmol/L (3.5-5.1) 07/26/24 05:47 07/26/24 Sodium 137 mmol/L (136-145) 07/26/24 05:47 07/26/24 Magnesium 2.3 mg/dL (1.6-2.6) 06/27/24 06:12 06/27/24 BUN 14 mg/dL (7-18) 07/26/24 05:47 07/26/24 Creatinine 0.76 mg/dL (0.70-1.30) 07/26/24 05:47 07/26/24 Glucose 125 mg/dL (74-106) H 07/26/24 05:47 07/26/24 POC Glucose 86 mg/dL (74-106) 07/25/24 11:50 07/25/24 TSH 1.03 uIU/mL (0.358-3.74) 10/02/14 08:59 COAG Pre-Assessment Diagnosis/Proposed Procedure Planned Operative Procedure(s): Right leg medial gastroc muscle flap with skin graft. 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 When Was Last Pacemaker Check QUESTION #4 FULL TEXT: You/Your Family Experience fever (hyperthermia) with Anesthesia Last Oral Intake Last Oral intake: Last Oral Intake NPO since 00:00 07/30/24 11:57 Meds taken in AM with sips of Yes 07/30/24 11:57 water? Meds patient instructed to take am of surgery PONV PONV - submarine worker: PONV - submarine worker Female No 07/23/24 12:50 HX of Motion Sickness No 07/23/24 12:50 HX of N/V After Surgery No 07/23/24 12:50 Non-Smoker Yes 07/23/24 12:50 Duration of Surgery greater Yes 07/23/24 12:50 than 60 minutes Number of Risk Factors 2 07/23/24 12:50 PONV Score Moderate Risk 07/23/24 12:50 Height & Weight Height & Weight: Anesthesia: Height & Weight Height 6 ft 0.05 in 07/30/24 11:57 Weight: 129.81 kg 07/30/24 11:57 Body Mass Index (BMI) 38.7 07/30/24 11:57 Respiratory Assessment Respiratory Assessment - submarine worker: Respiratory Tract Infection Hx - submarine worker Hx Respiratory Tract Infection No 07/29/24 21:08 STOP Sleep Apnea STOP Sleep Apnea - submarine worker: STOP Sleep Apnea - submarine worker Hx Hypertension No 07/26/24 12:22 Hx Sleep Apnea Yes 07/28/24 11:03 CPAP Yes 07/25/24 19:02 BIPAP No 07/25/24 19:02 Do you snore loudly (louder than talking or can be heard Do you often feel tired/ fatigued/ sleepy during daytime? Has anyone observed you stop breathing during sleep? STOP Results Positive 07/25/24 19:02 QUESTION #5 FULL TEXT : Do you snore loudly (louder than talking or can be heard through closed doors)? 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 Specify any problems Hx of Preganancy in last 3 N/A 07/25/24 19:02 Months Nurse Filling Out Transfusion [email or web address] 07/25/24 19:02 & Questions: Date: 07/25/24 07/25/24 19:02 Time: 20:04 07/25/24 19:02 Patient unable to answer at this time (ie. confused, unrespo /Reproduction History /Reproductive History - submarine worker: /Reproductive Hx- submarine worker Hx Now No 07/29/24 21:08 Gestational Age (in weeks): EDC: Hx Hx Para Hx Section SAB No 07/29/24 21:08 Active Medications Active Medications: Current Medications Generic Name Dose Route Start Last Admin Trade Name Freq PRN Reason Stop Dose Admin Acetaminophen 1,000 mg 07/25/24 22:00 07/30/24 05:49 Acetaminophen 500 Mg Tablet PO 1,000 mg Q8 CRYSTAL Administration Aspirin 81 mg 07/25/24 22:00 07/30/24 08:17 Aspirin 81 Mg Tab.Chew PO Not Given BID [facility] Sodium Hypochlorite 473 ml/ 0 ml 07/25/24 15:20 07/29/24 15:01 Sodium Chloride 473 ml IRRIGATION Not Given UD [facility] Doxycycline Monohydrate 100 mg 07/26/24 13:00 07/30/24 08:41 Doxycycline 100 Mg Capsule PO 100 mg BID CRYSTAL Administration Enoxaparin Sodium 40 mg 07/28/24 14:00 07/30/24 02:11 Enoxaparin 40 Mg/0.4 Ml Syringe SC Not Given DAILY [facility] Famotidine 20 mg 07/26/24 10:00 07/30/24 08:44 Famotidine 20 Mg Tablet PO Not Given DAILY [facility] Sodium Chloride 100 mls @ 15 mls/hr 07/25/24 20:09 07/26/24 06:48 IV Infused .Q6H40M PRN Infusion Saline Flush Sodium Chloride 100 mls @ 15 mls/hr 07/25/24 20:09 IV .Q6H40M PRN Additional IVPB Infusion Sodium Chloride 1,000 mls @ 15 mls/hr 07/28/24 08:35 07/30/24 11:34 IV 08/02/24 21:54 Not Given .Q48H [facility] Protocol Vancomycin IV-PHARMACY TO DOSE 500 mls @ 250 mls/hr 07/30/24 11:59 1 each/ Sodium Chloride IV X1 PRN Rx to Dose Protocol Vancomycin HCl 2,000 mg/ 540 mls @ 250 mls/hr 07/30/24 12:30 Sodium Chloride IV 07/30/24 14:39 X1 ONE Sodium Chloride 1,000 mls @ 15 mls/hr 07/30/24 12:40 IV 08/05/24 01:59 .Q48H [facility] Protocol Melatonin 10 mg 07/27/24 17:27 07/28/24 21:14 Melatonin 10 Mg Tablet PO 5 mg QHS PRN Administration INSOMNIA Morphine Sulfate 2 - 4 mg 07/25/24 17:00 Morphine 2 Mg/Ml Syringe IV Q2H PRN PRN Pain Score 6-10 Ondansetron HCl 4 mg 07/25/24 17:00 Ondansetron 4 Mg/2 Ml Vial IV Q8H PRN PRN NAUSEA Oxycodone HCl 5 - 10 mg 07/25/24 17:00 07/27/24 09:07 Oxycodone 5 Mg Tablet PO 10 mg Q4H PRN PRN Administration Pain Score 4-10 Promethazine HCl 12.5 mg 07/25/24 17:00 Promethazine 25 Mg/Ml Syringe IM Q6H PRN PRN NAUSEA/VOMITING Protocol Senna/Docusate Sodium 2 tablet 07/25/24 22:00 07/30/24 08:44 Senna/Docusate Sodium 1 Tablet PO Not Given BID CRYSTAL Sodium Chloride 10 - 40 ml 07/25/24 20:09 07/30/24 05:50 0.9% Saline Lock 10 Ml Syringe IV 10 ml UD PRN Administration SALINE FLUSH PFSH Medical History Arthritis Chewing tobacco dependence History of pain when walking History of edema Home Medications ?Medication ?Instructions ?Recorded ?Last Taken ?Type acetaminophen 500 mg tablet 1,000 mg (2 x 500 mg) PO T ID pain 06/30/24 07/24/24 Rx 14 days #84 tabs aspirin 81 mg capsule 81 mg PO BIDCM blood thinner 30 06/30/24 07/24/24 Rx days #60 caps doxycycline monohydrate 100 mg 100 mg PO BID antibioti c 30 days 06/30/24 07/30/24 Rx capsule #60 caps famotidine 20 mg tablet 20 mg PO DAILY gerd 30 days #30 06/30/24 07/24/24 Rx tabs ibuprofen 600 mg tablet 600 mg PO Q8H PRN pain 07/2307/24/24 History Allergy/AdvReac Type Severity Reaction Status Date / Time No Known Allergies Allergy Verified 07/28/24 08:32 Surgical History History of incision and drainage Hx of knee surgery Hx of knee surgery Hx of knee surgery Hx of total knee arthroplasty Hx of right knee surgery Hx of right knee surgery Social History Smoking Status: Never smoker Review of Systems (Anesthesia) ROS Narrative System reviewed and no additional complaints, except as documented.
[2024-07-30] MEDS: 0.9% Normal Saline (1000mL) 1,000 ML 15 ML IV (13:30)
[2024-07-30] MEDS: Mineral Oil, Light Sterile 10 ML Vial MC (17:02)
[2024-07-30] MEDS: Epinephrine (1 mg/ml) 1 MG/ML VIAL (17:03)
[2024-07-30] MEDS: Bupiv/Epi 0.25% 30 ML Vial (17:45)
--- NOTE | 2024-07-30 18:12 | PCM.POST.ANE ---
Anesthesia: Postop Eval I Current Vital Signs Temperature: 98.3 F Pulse Rate: 89 Blood Pressure: 142/85 Respiratory Rate: 16 Pulse Ox: 96 Oxygen Delivery Method: Nasal Cannula Oxygen Flow Rate (L/min): 2 Assessment Airway patent: Yes Spontaneous unlabored respirations: Yes Mental status: Awake and Calm nausea: No Vomiting: No Anesthesia Complication: No Fluid Hydration Crystalloid volume administer (ml): 1,800 Total IV fluid infused: 1,800 Progress Note Anesthesia document: Postop Eval 1 completed: Yes
[2024-07-30] MEDS: oxyCODONE 5 MG Tablet PO (20:40)
[2024-07-30] MEDS: Vancomycin HCl 2,000 MG in 0.9% Normal Saline (500mL Bag) 500 ML 250 MG IV (21:47)
[2024-07-30] MEDS: Senna/Docusate Sodium 1 Tablet 2 TABLET PO (21:51)
--- NOTE | 2024-07-30 22:14 | PCM.RX.CS ---
Consult Antibiotic Management Pharmacy has been consulted to manage selected antibiotic: Vancomycin Type of Intervention Type of Consult: New start Labs Labs: Sodium 137 mmol/L (136-145) 07/26/24 05:47 Potassium 3.6 mmol/L (3.5-5.1) 07/26/24 05:47 Chloride 105 mmol/L (98-107) 07/26/24 05:47 Carbon Dioxide 26.0 mmol/L (21.0-32.0) 07/26/24 05:47 Anion Gap 7 (5-15) 07/26/24 05:47 BUN 14 mg/dL (7-18) 07/26/24 05:47 Creatinine 0.76 mg/dL (0.70-1.30) 07/26/24 05:47 Est GFR (MDRD) Af Amer 139 mL/min (>60) 07/26/24 05:47 Est GFR (MDRD) Non-Af 115 mL/min (>60) 07/26/24 05:47 BUN/Creatinine Ratio 18.4 RATIO (10-20) 07/26/24 05:47 Glucose 125 mg/dL (74-106) H 07/26/24 05:47 Microbiology Microbiology: Microbiology 07/25/24 14:40 Tissue - Knee Gram Stain - Final 07/25/24 14:40 Tissue - Knee Wound Culture - Final Staphylococcus epidermidis Granulicatella adiacens 07/25/24 14:40 Tissue - Knee Anaerobic Culture - Final No anaerobic bacteria isolated. 07/25/24 14:40 Tissue - Knee Gram Stain - Final 07/25/24 14:40 Tissue - Knee Wound Culture - Final Coag Negative Staph Coag Negative Staph#2 07/25/24 14:40 Tissue - Knee Anaerobic Culture - Final No anaerobic bacteria isolated. 07/25/24 14:40 Tissue - Knee Gram Stain - Final 07/25/24 14:40 Tissue - Knee Wound Culture - Preliminary No growth-Final to follow 07/25/24 14:40 Tissue - Knee Anaerobic Culture - Preliminary No growth in 48 hours. Dosing Weight Weight used for dosin kg Estimated Creatinine Clearance Estimated Creatinine Clearance: 158 Goal Trough Goal Trough: 15-20 mcg/mL Pharmacy Plan for Drug Dosing Pharmacy Plan for Drug Dosing: Pharmacy Service will continue to monitor and adjust dosing as required LOADING DOSE 2GM GIVEN 07/30 @ 2147. START 1500MG Q8H AND DRAW TROUGH PRIOR TO 4TH DOSE Follow-Up Labs Follow-Up Labs: Trough: Vancomycin Date/Time Labs Ordered Labs to be done on [date and time ordered]: 07/31 @ 1385
[2024-07-31 03:56] VITALS: BP 137/92; PULSE 79; RESP 16; TEMP 36.4; O2SAT 97
[2024-07-31] MEDS: Acetaminophen 500 MG Tablet 1000 MG PO ×3 (06:40→22:07)
[2024-07-31] MEDS: Vancomycin HCl 1,500 MG in 0.9% Normal Saline (500mL Bag) 500 ML 250 MG IV ×3 (06:44→22:31)
[2024-07-31 06:46] VITALS: BP 133/86; PULSE 77; RESP 16; TEMP 36.4; O2SAT 94
--- NOTE | 2024-07-31 07:10 | PCM.OPRPT ---
Operative Report (Standard) Operative Information Date of Procedure: 07/30/24 Pre-Operative Diagnosis: Right anterior knee wound with sinus to the knee joint with del-prosthetic infection Post-Operative Diagnosis: Same Surgery/Procedure Performed: 1) Surgical preparation of wound bed, 4 x 5 cm, right anterior knee (CPT: 03447) 2) Right medial gastrocnemius rotational muscle flap for coverage of the right knee wound (CPT: 57976) 3) Split-thickness skin graft, right thigh to the right medial gastrocnemius flap, 11 x 10 cm graft (CPT: 30509, 94110) 4) Use of fluorescence angiography for assessment of flap (following dissection and inset) intra-operatively (using SPY machine), (CPT: 11131) leaf stripper: Yes Early Learning Teacher: Jagruti Leonard Tasks completed by research assistant professor: Closing and Retracting Type of Anesthesia: General/Supplemental (30 cc of 0.25% Marcaine with 1:200,000 epinephrine for additional local block to skin graft donor site and to gastroc donor site ) RN Documented Start/Stop Times: Operation Date: 07/30/24 14:25 Case Time Into Pre-Op 07/30/24 12:07 Out of Pre-Op 07/30/24 13:23 Anesthesia Start 07/30/24 13:25 Into Room 07/30/24 13:25 Procedure Start 07/30/24 13:55 Procedure End 07/30/24 17:51 Anesthesia End 07/30/24 18:08 Out of Room 07/30/24 18:08 Into Recovery 07/30/24 18:10 Out of Recovery 07/30/24 18:54 Procedure Start Time: 13:55 Procedure Stop Time: 17:51 Select all DRAINS/GRAFTS/IMPLANTS that apply: Drains (Donor site drain) Drain details: 19 Fr Chalino Drain Estimated Blood Loss: 50 cc Specimen collected: No Description of surgery: Indications: Phoenix Fulton is a 54-year-old male with 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 Following reconstruction with a lateral gastrocnemius flap in the fall 2023, he had an antibiotic spacer exchanged for permanent total knee in June 2024, which was complicated by soft tissue infection/infected seroma. He underwent synovectomy and polyethylene exchange on 25 July 2024, at which time it was noticed that there was a residual capsule opening in the anterior of the knee with a sinus down to the joint. This area could not be closed secondary to significant tension and an overlying defect also of subcutaneous tissue and skin. Therefore after discussion with the arthroplasty surgeon, recommendation was made for a medial gastrocnemius flap for closure over the sinus and healing over the anterior the knee. Patient has been on broad-spectrum antibiotics with infectious disease and is getting a PICC line. Infectious disease deemed it appropriate for reconstruction at this time. The wound is clean and ready for reconstruction, and after discussion, orthopedic surgery does not feel the need to do another polyethylene exchange today. I talked to the patient extensively about the risks, benefits, and alternatives to this reconstruction, including the risk of flap failure. He agreed to proceed. Procedure details: The patient was correctly identified in preoperative holding and taken back to the operating room where he was administered general anesthesia. He was prepped and draped in sterile fashion and all proper timeouts were performed. We began the procedure by excising the wound sharply with a curette for surgical preparation of a 4 x 5 cm wound, excising the fibrinous exudate, biofilm, and hypertrophic granulation tissue. The wound was then washed out with 450 cc of Irrisept as well as 3 L normal saline and was deemed clean enough for reconstruction. Hemostasis was obtained with epinephrine soaked Telfa. Attention was then turned to reconstruction with the medial gastrocnemius flap. A curvilinear incision was made on the medial side of the right leg posterior to the tibia over the gastrocnemius extending down the leg to the insertion into the Achilles. Bovie electrocautery was used for dissection down to the fascia and the fascia was opened. Care was taken to preserve all sensory nerves that we encountered, as well as the great saphenous vein. We identified the gastrocnemius, as well as the underlying plantaris longus tendon overlying the soleus, which were used as a landmark to identify the anatomy. Careful dissection with a right angle was then carried out around the gastrocnemius flap circumferentially. When the medial side of the muscle was encountered, significant scar tissue was present and the medial sural nerve was seen and identified within the scar tissue. Great care was taken to protect this nerve. Following lysis of the scar tissue on the medial and deep side of the muscle, a Doppler ultrasound was used to listen to the sural artery at the proximal aspect of the flap, and it had triphasic signal. Attention was then turned to the insertion of the gastrocnemius on the Achilles, where there was again significant amount of scar tissue. A small amount of Achilles was excised with the flap (a portion that was only from contributions of the medial gastrocnemius so as to preserve the soleus contributions in the residual Achilles tendon). The flap was then rotated and advanced medially. The dissection of the flap extended to the posterior the knee and the fascia of the gastrocnemius was scored so as to provide more advancement without tension. Despite these measures, the flap could not be tunneled into the wound without significant tension, and the muscle was too bulky and would have been compressed too much by the skin bridge. Therefore the decision was made to make an incision connecting the donor site and the knee wound so as to lay the flap in this region. Bovie electrocautery was used to perform the dissection and the flap was then rotated and advanced medially over the knee wound, covering completely the sinus and the exposed area of the tibial plateau. The small area of Achilles tendon was used to anchor the flap distally onto the medial portion of the incision with a 0 PDS suture. 2 more loosely tied 0 PDS sutures were then applied from the muscle to the fascial edges of the incision. The skin immediately above the gastrocnemius over the knee joint was then closed with 0 PDS followed by 2-0 nylon interrupted sutures. Fluorescence angiography was then used to assess the flap. We injected 3 cc of indocyanine green intravenously followed by a 10 cc flush to assess perfusion with the Spy machine. Adequate perfusion was noted of the gastrocnemius flap after inset. Attention was then turned to skin grafting of the gastrocnemius flap. A 10 x 11 cm split-thickness skin graft at a depth of 05/1000's of an inch was then taken from the anterior right thigh with and Taylor Dermatome and meshed 1.5-1, trimmed to fit, and sutured into place over the medial gastrocnemius flap with a 3-0 Chromic Gut suture. Donor site hemostasis was obtained with epinephrine soaked Telfa and local injection. The donor site was dressed with Mepilex Ag. Hemostasis was obtained at the flap donor site with Bovie electrocautery and Surgicel powder, and a 19 Mongolian Chalino drain was placed. Closure was then performed with 0 PDS deep fascial sutures followed by 2-0 PDS deep dermal sutures followed by bonnie. A wound VAC was then applied over the flap and over the incisions, with Adaptic used to protect the skin. It was holding suction at the end of the case, as was the drain. The patient was placed in a knee immobilizer (knee in extension). The patient tolerated the procedure well and was awakened and taken to the PACU in stable condition. Postoperative plan: O.K. to restart aspirin and Lovenox on postop day 1. Plan for VAC removal and examination of the wound on Sunday, 04 August 2024. Surgical Findings: Significant scar tissue on medial aspect of the gastrocnemius flap 2/2 previous muscle flap dissection and previous hematoma cavity. Complications Complications: No Admit VTE Documentation VTE Present on Admission: No VTE Mechan Device Prophylaxis: SCD's (on and activated on the left leg during the entire case including induction ) VTE Pharm Prophylaxis ordered?: Yes
[2024-07-31 08:13] VITALS: BP 127/80; PULSE 79; RESP 16; TEMP 36.4; O2SAT 95
[2024-07-31] MEDS: Famotidine 20 MG Tablet PO (08:19)
[2024-07-31] MEDS: Doxycycline 100 MG CAPSULE PO ×2 (08:20→22:06)
[2024-07-31] MEDS: Senna/Docusate Sodium 1 Tablet 2 TABLET PO ×2 (08:20→22:07)
[2024-07-31] MEDS: Aspirin 81 MG TAB.CHEW PO (08:20)
--- NOTE | 2024-07-31 09:41 | NURSING ---
dynamic access contacted via computer regarding picc
--- NOTE | 2024-07-31 10:38 | PN.SURG_ITS ---
<Statement entered by Fabio Jon MD - 07/31/24 13:30> Pt seen & evaluated w/RACQUEL. I personally interviewed & exam the pt. I was involved in all aspects of pt's orders, interpretation of results & treatment VAC holding suction. No numbness on the leg. Feels well overall, pain controlled. For DVT pxx, Lovenox and ASA today, along with SCDs (have been on and activated on the LLE) Subjective Subjective Postop day#1 from right medial gastrocnemius rotational muscle flap to cover right knee wound and a split thickness skin graft. Patient states he is doing well. He is having minimal discomfort. He is keeping his leg elevated and knee immobilizer is loosly in place to prevent pressure on the flap site. Wound VAC is in place at 125 mmHg suction. Objective Data Objective Data Vital Signs: Vital Signs Temp Pulse Resp BP Pulse Ox O2 Del Method O2 Flow Rate 97.6 F L 79 16 127/80 H 95 Room Air 1 07/31/24 08:13 07/31/24 08:13 07/31/24 08:13 07/31/24 08:13 07/31/24 08:13 07/31/24 08:13 07/30/24 18:25 Oxygen Flow Rate (L/min) 1 Oxygen Delivery Method Room Air Weight: 286 lb 2.913 oz Body Mass Index (BMI) 38.7 Intake & Output: Intake and Output for Last 24 Hours 07/29/24 07/30/24 07/31/24 23:59 23:59 23:59 Intake Total 2090 / 2090 930 / 930 Output Total 2465 / 2465 1855 / 1855 Balance -375 / -375 -925 / -925 Lab / Micro Data Attestation: I reviewed the patient's lab results. 07/30/24 05:22 07/26/24 05:47 Micro: Microbiology 07/25/24 14:40 Tissue - Knee Gram Stain - Final 07/25/24 14:40 Tissue - Knee Wound Culture - Final No growth aerobically. 07/25/24 14:40 Tissue - Knee Anaerobic Culture - Final No anaerobic bacteria isolated. 07/25/24 14:40 Tissue - Knee Gram Stain - Final 07/25/24 14:40 Tissue - Knee Wound Culture - Final Staphylococcus epidermidis Granulicatella adiacens 07/25/24 14:40 Tissue - Knee Anaerobic Culture - Final No anaerobic bacteria isolated. 07/25/24 14:40 Tissue - Knee Gram Stain - Final 07/25/24 14:40 Tissue - Knee Wound Culture - Final Coag Negative Staph Coag Negative Staph#2 07/25/24 14:40 Tissue - Knee Anaerobic Culture - Final No anaerobic bacteria isolated. Physical Exam Const alert, oriented x3 and no apparent distress General Appearance: cooperative HEENT normocephalic Eyes General Eye: normal appearance of both eyes Neck full ROM Lymph Lymphatic: no lymphedema noted Resp normal respiratory effort and normal air movement Effort and Inspection: able to speak in complete sentences Cardio regular rate and regular rhythm Back/Spine normal ROM Extremity Extremity Narrative: Right leg with knee immobilizer on loosely to prevent pressure on the flap site. Wound VAC in place at 125 mmHg. MARILYNN drain with dark serosanguineous drainage. Right pedal pulse present. No foot edema. He is keeping his right knee straight and has it elevated on pillows. Neuro oriented x3 Psych mental status grossly normal Assessment & Plan Assessment/Plan (1) Status post revision of total replacement of right knee: PLAN: Plan Patient is doing well. Pain well controlled. He is on bed rest today. He has his knee immobilizer in place but not tight to prevent pressure on the muscle flap. Wound VAC at 125 mmHg. Continue to monitor and strip the MARILYNN drain at least every 4 hours. ID is consulted/managing positive operative cultures from 07/25/24 with Staph epi and Granulicatella adiacens from the tissue culture and coag negative Staph x2 from supra patellar pouch culture. He is on Vanc. He is scheduled to get a PICC line. Plan is 6 weeks of IV antibiotics. He has SCD on left leg and is receiving Lovenox for DVT prophylaxis. Dr. Jon into see patient and discuss plan of care with him.
--- NOTE | 2024-07-31 10:53 | PCM.PN.ID ---
Physical Exam Narrative Feeling ok, pain controlled, no fever Const alert and no apparent distress General Appearance: cooperative Resp normal air movement and clear to auscultation bilaterally Cardio regular rate and regular rhythm GI soft to palpation, non-tender and non-distended Skin Skin Narrative: RLE wrapped ID ID: Route of nutrition/ use of supplements: [] Nutritional Intake: [] IV Site: [] Hicks Catheter: [] Assessment & Plan Assessment/Plan (1) Infection and inflammatory reaction due to internal right knee prosthesis, subsequent encounter: PLAN: Taken to OR 07/25/[address] Agrawal and again 07/28/[address] Jon. Two surg cx now with MRSE, CoNS x2, granulicatella. No fever, no leukocytosis, no new cellulitis. Will cont v vanc, will order picc and plan on 6 weeks iv abx. Will follow
[2024-07-31] MEDS: 0.9% Saline Lock 10 ML Syringe IV ×4 (10:59→22:31)
--- NOTE | 2024-07-31 13:58 | PCM.PN.ORT ---
Subjective Subjective Patient doing well. Receiving PICC line when I walked in the room. New culture results noted. Now plan is for IV vancomycin for now adjust antibiotic sensitivities return. Objective Data Objective Data Vital Signs: Vital Signs Temp Pulse Resp BP Pulse Ox O2 Del Method O2 Flow Rate 97.6 F L 79 16 127/80 H 95 Room Air 1 07/31/24 08:13 07/31/24 08:13 07/31/24 08:13 07/31/24 08:13 07/31/24 08:13 07/31/24 08:13 07/30/24 18:25 Oxygen Flow Rate (L/min) 1 Oxygen Delivery Method Room Air Weight: 286 lb 2.913 oz Body Mass Index (BMI) 38.7 Intake & Output: Intake and Output for Last 24 Hours 07/29/24 07/30/24 07/31/24 23:59 23:59 23:59 Intake Total 2090 / 2090 930 / 930 Output Total 2465 / 2465 1865 / 1865 Balance -375 / -375 -935 / -935 Lab / Micro Data Attestation: I reviewed the patient's lab results. 07/30/24 05:22 07/26/24 05:47 Micro: Microbiology 07/25/24 14:40 Tissue - Knee Gram Stain - Final 07/25/24 14:40 Tissue - Knee Wound Culture - Final No growth aerobically. 07/25/24 14:40 Tissue - Knee Anaerobic Culture - Final No anaerobic bacteria isolated. 07/25/24 14:40 Tissue - Knee Gram Stain - Final 07/25/24 14:40 Tissue - Knee Wound Culture - Final Staphylococcus epidermidis Granulicatella adiacens 07/25/24 14:40 Tissue - Knee Anaerobic Culture - Final No anaerobic bacteria isolated. 07/25/24 14:40 Tissue - Knee Gram Stain - Final 07/25/24 14:40 Tissue - Knee Wound Culture - Final Coag Negative Staph Coag Negative Staph#2 07/25/24 14:40 Tissue - Knee Anaerobic Culture - Final No anaerobic bacteria isolated. Physical Exam Narrative Right lower extremity: Plastics wound VAC dressing in place. Knee immobilizer in place. Positive dorsiflexion neutral plantarflexion. Const alert, oriented x3 and no apparent distress Assessment & Plan Assessment/Plan (1) Status post revision of total replacement of right knee: PLAN: 1. S/P right knee irrigation debridement, complete synovectomy, sinus tract excision and placement of wound VAC over distal incision open area with polyethylene exchange POD #6 2. Continue Pain Medications: Tylenol and oxycodone as needed. I would defer to plastics for any further pain medication after procedure today. 3. DVT Prophylaxis: Patient currently on Lovenox. Did discontinue aspirin today. Does not need double coverage. Anticoagulation. 4. PT/OT: Weightbearing as tolerated with knee immobilizer in place. No range of motion of the right knee. Range of motion restrictions will be determined by plastics after today's surgery. Once plastic is okay with range of motion of the knee that will be determined on his protocol. 5. Encouraged Incentive Spirometry 6. Continue postoperative medical treatment per medicine 7. Currently on vancomycin IV for positive cultures 8. Disposition: Plan at this time is for patient to continue care under plastic surgeon Dr Jon. From an orthopedic standpoint patient has been stable. Continue on IV antibiotics. Okay for discharge when plastics is ready discharge patient. Please call orthopedics for any questions or concerns. Patient can begin range of motion once plastics feels comfortable based on wound management [facility] Office: This dictation was created using voice recognition software. Phonetic and/or grammatical errors may exist. (2) Delayed surgical wound healing:
[2024-07-31] MEDS: Enoxaparin 40 MG/0.4 ML Syringe SC (14:46)
[2024-07-31 14:53] VITALS: BP 125/74; PULSE 76; RESP 18; TEMP 36.4; O2SAT 95
--- NOTE | 2024-07-31 15:22 | CASEMGMT ---
SAGE CM into pt room, pt present, discussed again to confirm pt would like same set up for IV atb and HHC. Pt and agree to [facility] and [facility]. TC to [facility], referral made pending wound vac removal on Sunday and wound reassessment. Referral sent to [facility] with same information via careport at this time.
[2024-07-31 21:55] LABS: Vancomycin, Trough Level 16.8 ug/mL (5.0-15.0)
[2024-07-31 22:00] VITALS: BP 135/83; PULSE 76; RESP 18; TEMP 36.4; O2SAT 95
[2024-07-31] MEDS: MELATONIN 10 MG TABLET PO (22:07)
--- NOTE | 2024-07-31 22:25 | PCM.RX.CS ---
Consult Antibiotic Management Pharmacy has been consulted to manage selected antibiotic: Vancomycin Type of Intervention Type of Consult: Follow-up Labs Labs: Sodium 137 mmol/L (136-145) 07/26/24 05:47 Potassium 3.6 mmol/L (3.5-5.1) 07/26/24 05:47 Chloride 105 mmol/L (98-107) 07/26/24 05:47 Carbon Dioxide 26.0 mmol/L (21.0-32.0) 07/26/24 05:47 Anion Gap 7 (5-15) 07/26/24 05:47 BUN 14 mg/dL (7-18) 07/26/24 05:47 Creatinine 0.76 mg/dL (0.70-1.30) 07/26/24 05:47 Est GFR (MDRD) Af Amer 139 mL/min (>60) 07/26/24 05:47 Est GFR (MDRD) Non-Af 115 mL/min (>60) 07/26/24 05:47 BUN/Creatinine Ratio 18.4 RATIO (10-20) 07/26/24 05:47 Glucose 125 mg/dL (74-106) H 07/26/24 05:47 Vancomycin Trough 16.8 ug/mL (5.0-15.0) H 07/31/24 21:31 Microbiology Microbiology: Microbiology 07/25/24 14:40 Tissue - Knee Gram Stain - Final 07/25/24 14:40 Tissue - Knee Wound Culture - Final No growth aerobically. 07/25/24 14:40 Tissue - Knee Anaerobic Culture - Final No anaerobic bacteria isolated. 07/25/24 14:40 Tissue - Knee Gram Stain - Final 07/25/24 14:40 Tissue - Knee Wound Culture - Final Staphylococcus epidermidis Granulicatella adiacens 07/25/24 14:40 Tissue - Knee Anaerobic Culture - Final No anaerobic bacteria isolated. 07/25/24 14:40 Tissue - Knee Gram Stain - Final 07/25/24 14:40 Tissue - Knee Wound Culture - Final Coag Negative Staph Coag Negative Staph#2 07/25/24 14:40 Tissue - Knee Anaerobic Culture - Final No anaerobic bacteria isolated. Goal Trough Goal Trough: 15-20 mcg/mL Pharmacy Plan for Drug Dosing Pharmacy Plan for Drug Dosing: Pharmacy Service will continue to monitor and adjust dosing as required. TROUGH 16.8 @ 6.75 HOURS. NO CHANGES, FOLLOW UP TROUGH IN 2 DAYS Follow-Up Labs Follow-Up Labs: Trough: Vancomycin Date/Time Labs Ordered Labs to be done on [date and time ordered]: 08/02 @ 1177
[2024-07-31] MEDS: 0.9% Normal Saline (100mL Bag) 100 ML 15 ML IV (22:39)
[2024-08-01 04:37] VITALS: BP 124/70; PULSE 67; RESP 16; TEMP 36.3; O2SAT 97
[2024-08-01] MEDS: Vancomycin HCl 1,500 MG in 0.9% Normal Saline (500mL Bag) 500 ML 250 MG IV ×3 (06:09→21:44)
[2024-08-01] MEDS: Acetaminophen 500 MG Tablet 1000 MG PO ×3 (06:11→21:46)
[2024-08-01] MEDS: Enoxaparin 40 MG/0.4 ML Syringe SC (09:36)
[2024-08-01] MEDS: Doxycycline 100 MG CAPSULE PO ×2 (09:37→21:46)
[2024-08-01] MEDS: Famotidine 20 MG Tablet PO (09:37)
[2024-08-01] MEDS: Senna/Docusate Sodium 1 Tablet 2 TABLET PO ×2 (09:38→21:46)
--- NOTE | 2024-08-01 10:05 | PCM.PN.ID ---
Physical Exam Narrative Feeling ok, no fever, no n/v/d. Pain controlled Const alert and no apparent distress General Appearance: cooperative Resp normal air movement and clear to auscultation bilaterally Cardio regular rate and regular rhythm GI soft to palpation, non-tender and non-distended Skin Skin Narrative: RLE wrapped ID ID: Route of nutrition/ use of supplements: [] Nutritional Intake: [] IV Site: [] Hicks Catheter: [] Assessment & Plan Assessment/Plan (1) Infection and inflammatory reaction due to internal right knee prosthesis, subsequent encounter: PLAN: Taken to OR 07/25/[address] Agrawal and again 07/28/[address] Jon. Two surg cx now with MRSE, CoNS x2, granulicatella. No fever, no leukocytosis, no new cellulitis. Will cont v vanc, placed picc and wrote for 6 weeks iv vanc with stop date 09/10/24 with weekly labs, ID followup in 2 weeks. Will follow, d/w case management social worker
[2024-08-01 10:28] LABS: Absolute Lymphocyte Count 1.25 X10^3/uL (0.83-4.51); Absolute Neutrophil Count 4.9 X10^3/uL (2.0-7.7); Basophil# 0.02 X10^3/uL; Basophil% 0.3 % (0-1); Eosinophil# 0.13 X10^3/uL; Eosinophils% 1.8 % (0-5); Hematocrit 30.8 % (40-54); Hemoglobin 9.4 g/dL (13.0-16.5); Lymphocyte # 1.25 X10^3/ul (0.83-4.51); Lymphocyte % 17.5 % (19-41); Mean Corp Hgb Conc 30.5 g/dL (32-36); Mean Corpuscular Hgb 25.5 pg (27.0-32.0); Mean Corpuscular Volume 83.5 fL (80-94); Mean Platelet Vol. 8.5 fl (6.2-12.0); Monocyte# 0.82 X10^3/uL; Monocyte% 11.5 % (0-10); NRBC Flagged by Analyzer 0 % (0-5); Neutrophil % 68.6 % (47-70); Platelet Count 333 K/mm3 (150-450); RBC Distribution Width CV 18.6 % (11.6-14.6); RBC Distribution Width SD 56.6 fl (35.1-43.9); Red Blood Count 3.69 M/mm3 (4.6-6.2); White Blood Count 7.1 K/mm3 (4.4-11.0)
[2024-08-01 10:35] VITALS: BP 110/69; PULSE 66; RESP 14; TEMP 36.6; O2SAT 98
[2024-08-01] MEDS: Aspirin 81 MG TAB.CHEW PO ×2 (10:41→21:45)
[2024-08-01 10:46] VITALS: RESP 14
[2024-08-01 10:52] LABS: Anion Gap 4 (5-15); BUN 17 mg/dL (7-18); BUN/Creat Ratio 23.5 RATIO (10-20); Calcium,Total 8.8 mg/dL (8.5-10.1); Chloride 108 mmol/L (98-107); Creatinine, Serum 0.72 mg/dL (0.70-1.30); EST Glomerular Filtration Rate 121 mL/min (>60); Est Glom Filt Rate - Afr Amer 147 mL/min (>60); Estimated Creatinine Clearance 167.18 ml/min; Glucose 109 mg/dL (74-106); Potassium 3.5 mmol/L (3.5-5.1); Sodium Level 139 mmol/L (136-145)
--- NOTE | 2024-08-01 11:02 | CASEMGMT ---
Received IV rx from ID, uploaded and sent to [facility] via [facility]. Received tc from Ros at [facility], they can accept pt for SOC on Sunday morning. Spoke with Dr. Jon and pam on Sunday seems feasible.
--- NOTE | 2024-08-01 11:10 | NURSING ---
0945 MARILYNN drain emptied 30 ML dark brown in color. Tubing striped.
[2024-08-01] MEDS: 0.9% Normal Saline (100mL Bag) 100 ML 15 ML IV (13:50)
[2024-08-01] MEDS: 0.9% Saline Lock 10 ML Syringe IV ×2 (13:50→21:42)
--- NOTE | 2024-08-01 14:41 | PN.SURG_ITS ---
Subjective Subjective Pain controlled. Endorses good drain care from nursing staff. SCD has been on and activated. Able to do 2.5 liters on IS. Objective Data Objective Data Hgb 9.4 today Cr 0.72 today (on Vancomycin, so monitoring) Vital Signs: Vital Signs Temp Pulse Resp BP Pulse Ox O2 Del Method O2 Flow Rate 97.8 F 66 14 110/69 98 Room Air 1 08/01/24 10:35 08/01/24 10:35 08/01/24 10:46 08/01/24 10:35 08/01/24 10:35 08/01/24 10:35 07/30/24 18:25 Oxygen Flow Rate (L/min) 1 Oxygen Delivery Method Room Air Weight: 286 lb 2.913 oz Body Mass Index (BMI) 38.7 Intake & Output: Intake and Output for Last 24 Hours 07/30/24 07/31/24 08/01/24 23:59 23:59 23:59 Intake Total 2090 / 2090 1960.25 / 1960.25 1160.50 / 1160.50 Output Total 2465 / 2465 3780 / 3780 1485 / 1485 Balance -375 / -375 -1819.75 / -1819.75 -324.50 / -324.50 Lab / Micro Data 08/01/24 10:16 08/01/24 10:16 Labs: Laboratory Results - last 24 hr 07/31/24 21:31: Vancomycin Trough 16.8 H 08/01/24 10:16: WBC 7.1, RBC 3.69 L, Hgb 9.4 L, Hct 30.8 L, MCV 83.5, MCH 25.5 L , MCHC 30.5 L, RDW Std Deviation 56.6 H, RDW Coeff of Luigi 18.6 H, Plt Count 333, MPV 8.5, Immature Gran % (Auto) 0.300, Neut % (Auto) 68.6, Lymph % (Auto) 17.5 L , [place] % (Auto) 11.5 H, Eos % (Auto) 1.8, Baso % (Auto) 0.3, Absolute Neuts (auto) 4.9, Absolute Lymphs (auto) 1.25, Nucleated RBC % 0, Sodium 139, Potassium 3.5, Chloride 108 H, Carbon Dioxide 27.0, Anion Gap 4 L, BUN 17, Creatinine 0.72, Estim Creat Clear Calc 167.18, Est GFR (MDRD) Af Amer 147, Est GFR (MDRD) Non-Af 121, BUN/Creatinine Ratio 23.5 H, Glucose 109 H, Calcium 8.8 Micro: Microbiology 07/25/24 14:40 Tissue - Knee Gram Stain - Final 07/25/24 14:40 Tissue - Knee Wound Culture - Final No growth aerobically. 07/25/24 14:40 Tissue - Knee Anaerobic Culture - Final No anaerobic bacteria isolated. 07/25/24 14:40 Tissue - Knee Gram Stain - Final 07/25/24 14:40 Tissue - Knee Wound Culture - Final Staphylococcus epidermidis Granulicatella adiacens 07/25/24 14:40 Tissue - Knee Anaerobic Culture - Final No anaerobic bacteria isolated. 07/25/24 14:40 Tissue - Knee Gram Stain - Final 07/25/24 14:40 Tissue - Knee Wound Culture - Final Coag Negative Staph Coag Negative Staph#2 07/25/24 14:40 Tissue - Knee Anaerobic Culture - Final No anaerobic bacteria isolated. Physical Exam Narrative RIGHT LOWER EXTREMITY RLE: VAC holding suction over the incision and the flap, 200 cc SS drainage in the VAC. Thigh dressing in place over skin graft. NO calf swelling on either side. Drain SS and strips well. Motor: Able to plantarflex and dorsiflex. Sensation: Intact to light touch at foot and ankle. Vascular: Foot warm and well perfused. Const oriented x3 and no apparent distress Resp normal respiratory effort Cardio regular rate GI soft to palpation and non-tender Assessment & Plan Assessment/Plan (1) Infection and inflammatory reaction due to internal right knee prosthesis, subsequent encounter: PLAN: S/p medial gastrocnemius flap on 30 Jul 2024. Expected course thus far. O.K. to work with PT today (out of bed/ambulate) but needs to keep right knee extended at all times (discussed). OK for weight bearing per orthopedics recommendations to the right lower extremity. DVT pxx: Continue ASA 81 mg BID per orthopedic ppx protocol and Lovenox 40 mg SubQ daily Continue ID consultation, appreciate recommendations for IV antibiotics/PICC.
--- NOTE | 2024-08-01 17:05 | PN.SURG_ITS ---
Subjective Subjective Patient doing well. Sitting in bed. He states his pain is well controlled. He states he is allowed to walk with 50% weight on his heel with knee immobilizer on. Denying fever, chills, nausea, vominting. Objective Data Objective Data Vital Signs: Vital Signs Temp Pulse Resp BP Pulse Ox O2 Del Method O2 Flow Rate 97.8 F 66 14 110/69 98 Room Air 1 08/01/24 10:35 08/01/24 10:35 08/01/24 10:46 08/01/24 10:35 08/01/24 10:35 08/01/24 10:35 07/30/24 18:25 Oxygen Flow Rate (L/min) 1 Oxygen Delivery Method Room Air Weight: 286 lb 2.913 oz Body Mass Index (BMI) 38.7 Intake & Output: Intake and Output for Last 24 Hours 07/30/24 07/31/24 08/01/24 23:59 23:59 23:59 Intake Total 0 / 2089 1960.25 / 1960.25 1690.50 / 1690.50 Output Total 2465 / 2465 3780 / 3780 2034 / 2034 Balance -375 / -375 -1819.75 / -1819.75 -344.50 / -344.50 Lab / Micro Data Attestation: I reviewed the patient's lab results. 08/01/24 10:16 08/01/24 10:16 Labs: Laboratory Results - last 24 hr 07/31/24 21:31: Vancomycin Trough 16.8 H 08/01/24 10:16: WBC 7.1, RBC 3.69 L, Hgb 9.4 L, Hct 30.8 L, MCV 83.5, MCH 25.5 L , MCHC 30.5 L, RDW Std Deviation 56.6 H, RDW Coeff of Luigi 18.6 H, Plt Count 333, MPV 8.5, Immature Gran % (Auto) 0.300, Neut % (Auto) 68.6, Lymph % (Auto) 17.5 L , [place] % (Auto) 11.5 H, Eos % (Auto) 1.8, Baso % (Auto) 0.3, Absolute Neuts (auto) 4.9, Absolute Lymphs (auto) 1.25, Nucleated RBC % 0, Sodium 139, Potassium 3.5, Chloride 108 H, Carbon Dioxide 27.0, Anion Gap 4 L, BUN 17, Creatinine 0.72, Estim Creat Clear Calc 167.18, Est GFR (MDRD) Af Amer 147, Est GFR (MDRD) Non-Af 121, BUN/Creatinine Ratio 23.5 H, Glucose 109 H, Calcium 8.8 Micro: Microbiology 07/25/24 14:40 Tissue - Knee Gram Stain - Final 07/25/24 14:40 Tissue - Knee Wound Culture - Final No growth aerobically. 07/25/24 14:40 Tissue - Knee Anaerobic Culture - Final No anaerobic bacteria isolated. 07/25/24 14:40 Tissue - Knee Gram Stain - Final 07/25/24 14:40 Tissue - Knee Wound Culture - Final Staphylococcus epidermidis Granulicatella adiacens 07/25/24 14:40 Tissue - Knee Anaerobic Culture - Final No anaerobic bacteria isolated. 07/25/24 14:40 Tissue - Knee Gram Stain - Final 07/25/24 14:40 Tissue - Knee Wound Culture - Final Coag Negative Staph Coag Negative Staph#2 07/25/24 14:40 Tissue - Knee Anaerobic Culture - Final No anaerobic bacteria isolated. Physical Exam Narrative Right knee immobilizer in place, no pressure over the flap site. Wound VAC at 125 mgHg with good suction. MARILYNN with serosanguineous drainage, approx 30 cc every time it is emptied. Changed upper thigh donor site dressing due to serosanguineous drainage on ABDs. Silver foam still in place, changed outer dressing only. +2 edema right lower leg. SCD on left leg. Assessment & Plan Assessment/Plan (1) Status post revision of total replacement of right knee: PLAN: Plan Patient is doing well. Pain well controlled. He has his knee immobilizer in place but not tight to prevent pressure on the muscle flap. He is to keep knee straight at all times. Ok to 50% weight bear per ortho recommendations. Wound VAC at 125 mmHg. Continue to monitor and strip the MARILYNN drain at least every 4 hours. ID is consulted/managing positive operative cultures from 07/25/24 with Staph epi and Granulicatella adiacens from the tissue culture and coag negative Staph x2 from supra patellar pouch culture. He is on Vanc. He is scheduled to get a PICC line. Plan is 6 weeks of IV antibiotics. He has SCD on left leg and is receiving Lovenox and ASA 81 mg for DVT prophylaxis.
[2024-08-01 17:54] VITALS: BP 122/74; PULSE 80; RESP 16; TEMP 36.7; O2SAT 95
[2024-08-01 21:41] VITALS: BP 137/74; PULSE 75; RESP 16; TEMP 36.3; O2SAT 96
[2024-08-02 06:03] VITALS: BP 120/73; PULSE 68; RESP 16; TEMP 36.4; O2SAT 97
[2024-08-02] MEDS: 0.9% Normal Saline (100mL Bag) 100 ML 15 ML IV (06:05)
[2024-08-02] MEDS: Vancomycin HCl 1,500 MG in 0.9% Normal Saline (500mL Bag) 500 ML 250 MG IV (06:06)
[2024-08-02] MEDS: Acetaminophen 500 MG Tablet 1000 MG PO ×3 (06:07→22:22)
--- NOTE | 2024-08-02 07:14 | PCM.PN.ORT ---
Subjective Subjective Patient is stable doing well. No change in cultures. Remains on vancomycin Objective Data Objective Data Vital Signs: Vital Signs Temp Pulse Resp BP Pulse Ox O2 Del Method O2 Flow Rate 97.6 F L 68 16 120/73 97 Room Air 1 08/02/24 06:03 08/02/24 06:03 08/02/24 06:03 08/02/24 06:03 08/02/24 06:03 08/02/24 06:03 07/30/24 18:25 Oxygen Flow Rate (L/min) 1 Oxygen Delivery Method Room Air Weight: 286 lb 2.913 oz Body Mass Index (BMI) 38.7 Intake & Output: Intake and Output for Last 24 Hours 07/31/24 08/01/24 08/02/24 23:59 23:59 23:59 Intake Total 1960.25 / 1960.25 2090.50 / 2090.50 530.5 / 530.5 Output Total 3780 / 3780 2105 / 2105 1430 / 1430 Balance -1819.75 / -1819.75 -14.50 / -14.50 -899.5 / -899.5 Lab / Micro Data Attestation: I reviewed the patient's lab results. 08/01/24 10:16 08/01/24 10:16 Labs: Laboratory Results - last 24 hr 08/01/24 10:16: WBC 7.1, RBC 3.69 L, Hgb 9.4 L, Hct 30.8 L, MCV 83.5, MCH 25.5 L, MCHC 30.5 L, RDW Std Deviation 56.6 H, RDW Coeff of Luigi 18.6 H, Plt Count 333, MPV 8.5, Immature Gran % (Auto) 0.300, Neut % (Auto) 68.6, Lymph % (Auto) 17.5 L, [place] % (Auto) 11.5 H, Eos % (Auto) 1.8, Baso % (Auto) 0.3, Absolute Neuts (auto) 4.9, Absolute Lymphs (auto) 1.25, Nucleated RBC % 0, Sodium 139, Potassium 3.5, Chloride 108 H, Carbon Dioxide 27.0, Anion Gap 4 L, BUN 17, Creatinine 0.72, Estim Creat Clear Calc 167.18, Est GFR (MDRD) Af Amer 147, Est GFR (MDRD) Non-Af 121, BUN/Creatinine Ratio 23.5 H, Glucose 109 H, Calcium 8.8 Micro: Microbiology 07/25/24 14:40 Tissue - Knee Gram Stain - Final 07/25/24 14:40 Tissue - Knee Wound Culture - Final No growth aerobically. 07/25/24 14:40 Tissue - Knee Anaerobic Culture - Final No anaerobic bacteria isolated. 07/25/24 14:40 Tissue - Knee Gram Stain - Final 07/25/24 14:40 Tissue - Knee Wound Culture - Final Staphylococcus epidermidis Granulicatella adiacens 07/25/24 14:40 Tissue - Knee Anaerobic Culture - Final No anaerobic bacteria isolated. 07/25/24 14:40 Tissue - Knee Gram Stain - Final 07/25/24 14:40 Tissue - Knee Wound Culture - Final Coag Negative Staph Coag Negative Staph#2 07/25/24 14:40 Tissue - Knee Anaerobic Culture - Final No anaerobic bacteria isolated. Physical Exam Narrative Left lower extremity: Wound vacs in place. Patient was given a foot drop brace, no problems with dorsiflexion. Positive dorsiflexion neutral plantarflexion. Wound VAC area was examined. No erythema is appreciated however patient does have iodine impregnated dressing. Const alert, oriented x3 and no apparent distress Assessment & Plan Assessment/Plan (1) Status post revision of total replacement of right knee: PLAN: S/P right knee irrigation debridement, complete synovectomy, sinus tract excision and placement of wound VAC over distal incision open area with polyethylene exchange POD #8 Patient overall doing well. Stable orthopedically. Currently transferred to plastic service. When ready from a wound standpoint patient can be discharged. Disposition: Plan at this time is for patient to continue care under plastic surgeon Dr Jon. From an orthopedic standpoint patient has been stable. Continue on IV antibiotics. Okay for discharge when plastics is ready discharge patient. Please call orthopedics for any questions or concerns. Patient can begin range of motion once plastics feels comfortable based on wound management [facility] Office: This dictation was created using voice recognition software. Phonetic and/or grammatical errors may exist. (2) Delayed surgical wound healing:
[2024-08-02 08:00] VITALS: PULSE 80
[2024-08-02 10:05] VITALS: BP 120/66; PULSE 75; RESP 16; TEMP 37.2; O2SAT 95
[2024-08-02] MEDS: Doxycycline 100 MG CAPSULE PO ×2 (10:09→22:23)
[2024-08-02] MEDS: Enoxaparin 40 MG/0.4 ML Syringe SC (10:09)
[2024-08-02] MEDS: Senna/Docusate Sodium 1 Tablet 2 TABLET PO ×2 (10:09→22:22)
[2024-08-02] MEDS: Aspirin 81 MG TAB.CHEW PO ×2 (10:10→22:23)
[2024-08-02] MEDS: Famotidine 20 MG Tablet PO (10:10)
[2024-08-02] MEDS: 0.9% Saline Lock 10 ML Syringe IV ×3 (10:10→18:21)
--- NOTE | 2024-08-02 10:48 | PN.SURG_ITS ---
Subjective Subjective Doing well. Walked with knee immobilizer (straight in extension) yesterday. Pain controlled. No numbness/tingling. Discussed improving protein intake/nutrition consult as albumin/prealbumin low. Repeat labs tomorrow. Objective Data Objective Data Vital Signs: Vital Signs Temp Pulse Resp BP Pulse Ox O2 Del Method O2 Flow Rate 99.0 F 75 16 120/66 95 Room Air 1 08/02/24 10:05 08/02/24 10:05 08/02/24 10:05 08/02/24 10:05 08/02/24 10:05 08/02/24 10:05 07/30/24 18:25 Oxygen Flow Rate (L/min) 1 Oxygen Delivery Method Room Air Weight: 286 lb 2.913 oz Body Mass Index (BMI) 38.7 Intake & Output: Intake and Output for Last 24 Hours 07/31/24 08/01/24 08/02/24 23:59 23:59 23:59 Intake Total 1960.25 / 1960.25 2090.50 / 2090.50 1060.5 / 1060.5 Output Total 3780 / 3780 2105 / 2105 1430 / 1430 Balance -1819.75 / -1819.75 -14.50 / -14.50 -369.5 / -369.5 Lab / Micro Data 08/01/24 10:16 08/01/24 10:16 Labs: Laboratory Results - last 24 hr 08/01/24 10:16: Sodium 139, Potassium 3.5, Chloride 108 H, Carbon Dioxide 27.0, Anion Gap 4 L, BUN 17, Creatinine 0.72, Estim Creat Clear Calc 167.18, Est GFR (MDRD) Af Amer 147, Est GFR (MDRD) Non-Af 121, BUN/Creatinine Ratio 23.5 H, G lucose 109 H, Calcium 8.8 Micro: Microbiology 07/25/24 14:40 Tissue - Knee Gram Stain - Final 07/25/24 14:40 Tissue - Knee Wound Culture - Final No growth aerobically. 07/25/24 14:40 Tissue - Knee Anaerobic Culture - Final No anaerobic bacteria isolated. 07/25/24 14:40 Tissue - Knee Gram Stain - Final 07/25/24 14:40 Tissue - Knee Wound Culture - Final Staphylococcus epidermidis Granulicatella adiacens 07/25/24 14:40 Tissue - Knee Anaerobic Culture - Final No anaerobic bacteria isolated. 07/25/24 14:40 Tissue - Knee Gram Stain - Final 07/25/24 14:40 Tissue - Knee Wound Culture - Final Coag Negative Staph Coag Negative Staph#2 07/25/24 14:40 Tissue - Knee Anaerobic Culture - Final No anaerobic bacteria isolated. Physical Exam Narrative RIGHT LOWER EXTREMITY RLE: VAC holding suction over the incision and the flap, drainage SSin the VAC. Thigh dressing in place over skin graft. NO calf swelling on either side. Drain SS and strips well. Motor: Able to plantarflex and dorsiflex. Sensation: Intact to light touch at foot and ankle. Vascular: Foot warm and well perfused. Const oriented x3 and no apparent distress Resp normal respiratory effort Cardio regular rate GI soft to palpation and non-tender Assessment & Plan Assessment/Plan (1) Infection and inflammatory reaction due to internal right knee prosthesis, subsequent encounter: PLAN: S/p medial gastrocnemius flap on 30 Jul 2024. Expected course thus far. O.K. to work with PT today (out of bed/ambulate) but needs to keep right knee extended at all times (discussed). OK for weight bearing per orthopedics recommendations to the right lower extremity. DVT pxx: Continue ASA 81 mg BID per orthopedic ppx protocol and Lovenox 40 mg SubQ daily Continue ID consultation, appreciate recommendations for IV antibiotics/PICC. [facility] labs tomorrow Charges/Coding Procedures Integumentary [id number]: [id number] Global Visit
[2024-08-02] MEDS: Vancomycin HCl 1,500 MG in 0.9% Normal Saline (500mL Bag) 500 ML 200 MG IV (14:11)
--- NOTE | 2024-08-02 14:19 | NURSING ---
Tubing stripped and narciso bulb emptied for 50 cc.
[2024-08-02 15:08] VITALS: BP 117/71; PULSE 85; RESP 18; TEMP 36.8; O2SAT 96
[2024-08-02 15:09] VITALS: PULSE 80
[2024-08-02 21:00] VITALS: BP 129/73; PULSE 85; RESP 16; TEMP 36.9; O2SAT 98
[2024-08-02 23:37] LABS: Vancomycin, Trough Level 17.4 ug/mL (5.0-15.0)
--- NOTE | 2024-08-02 23:47 | NURSING ---
Called lab for 2200 vanco dose. Will send to the floor shortly.
[2024-08-03] MEDS: Vancomycin HCl 1,500 MG in 0.9% Normal Saline (500mL Bag) 500 ML 200 MG IV ×3 (00:15→14:12)
--- NOTE | 2024-08-03 00:55 | PCM.RX.CS ---
Consult Antibiotic Management Pharmacy has been consulted to manage selected antibiotic: Vancomycin Type of Intervention Type of Consult: Follow-up Labs Labs: Sodium 139 mmol/L (136-145) 08/01/24 10:16 Potassium 3.5 mmol/L (3.5-5.1) 08/01/24 10:16 Chloride 108 mmol/L (98-107) H 08/01/24 10:16 Carbon Dioxide 27.0 mmol/L (21.0-32.0) 08/01/24 10:16 Anion Gap 4 (5-15) L 08/01/24 10:16 BUN 17 mg/dL (7-18) 08/01/24 10:16 Creatinine 0.72 mg/dL (0.70-1.30) 08/01/24 10:16 Est GFR (MDRD) Af Amer 147 mL/min (>60) 08/01/24 10:16 Est GFR (MDRD) Non-Af 121 mL/min (>60) 08/01/24 10:16 BUN/Creatinine Ratio 23.5 RATIO (10-20) H 08/01/24 10:16 Glucose 109 mg/dL (74-106) H 08/01/24 10:16 Vancomycin Trough 17.4 ug/mL (5.0-15.0) H 08/02/24 22:08 Microbiology Microbiology: Microbiology 07/25/24 14:40 Tissue - Knee Gram Stain - Final 07/25/24 14:40 Tissue - Knee Wound Culture - Final No growth aerobically. 07/25/24 14:40 Tissue - Knee Anaerobic Culture - Final No anaerobic bacteria isolated. 07/25/24 14:40 Tissue - Knee Gram Stain - Final 07/25/24 14:40 Tissue - Knee Wound Culture - Final Staphylococcus epidermidis Granulicatella adiacens 07/25/24 14:40 Tissue - Knee Anaerobic Culture - Final No anaerobic bacteria isolated. 07/25/24 14:40 Tissue - Knee Gram Stain - Final 07/25/24 14:40 Tissue - Knee Wound Culture - Final Coag Negative Staph Coag Negative Staph#2 07/25/24 14:40 Tissue - Knee Anaerobic Culture - Final No anaerobic bacteria isolated. Goal Trough Goal Trough: 15-20 mcg/mL Pharmacy Plan for Drug Dosing Pharmacy Plan for Drug Dosing: Pharmacy Service will continue to monitor and adjust dosing as required. TROUGH 17.4 @ 8 HOURS. NO CHANGES, FOLLOW UP TROUGH IN 2 DAYS Follow-Up Labs Follow-Up Labs: Trough: Vancomycin Date/Time Labs Ordered Labs to be done on [date and time ordered]: 08/04 @ 7022
[2024-08-03 03:00] VITALS: BP 118/71; PULSE 68; RESP 16; TEMP 36.4; O2SAT 99
[2024-08-03] MEDS: Acetaminophen 500 MG Tablet 1000 MG PO ×3 (05:49→21:56)
[2024-08-03 07:43] LABS: Albumin, Serum 2.6 g/dL (3.2-5.0); Anion Gap 6 (5-15); BUN 18 mg/dL (7-18); Calcium,Total 8.6 mg/dL (8.5-10.1); Chloride 112 mmol/L (98-107); Creatinine, Serum 0.58 mg/dL (0.70-1.30); EST Glomerular Filtration Rate 156 mL/min (>60); Est Glom Filt Rate - Afr Amer 189 mL/min (>60); Estimated Creatinine Clearance 207.53 ml/min; Glucose 94 mg/dL (74-106); Potassium 3.8 mmol/L (3.5-5.1); Sodium Level 140 mmol/L (136-145)
[2024-08-03 08:00] VITALS: BP 124/85; PULSE 67; RESP 16; TEMP 36.5; O2SAT 100
[2024-08-03] MEDS: Doxycycline 100 MG CAPSULE PO ×2 (08:22→21:56)
[2024-08-03] MEDS: Famotidine 20 MG Tablet PO (08:22)
[2024-08-03] MEDS: Aspirin 81 MG TAB.CHEW PO ×2 (08:22→21:56)
[2024-08-03] MEDS: Enoxaparin 40 MG/0.4 ML Syringe SC (08:22)
--- NOTE | 2024-08-03 12:01 | PCM.PN.SRG ---
Subjective Subjective Doing well overall. 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 Endorses good drain care. Objective Data Objective Data Vital Signs: Vital Signs Temp Pulse Resp BP Pulse Ox O2 Del Method O2 Flow Rate 97.7 F L 67 16 124/85 H 100 Room Air 1 08/03/24 08:00 08/03/24 08:00 08/03/24 08:00 08/03/24 08:00 08/03/24 08:00 08/03/24 08:00 07/30/24 18:25 Oxygen Flow Rate (L/min) 1 Oxygen Delivery Method Room Air Weight: 286 lb 2.913 oz Body Mass Index (BMI) 38.7 Intake & Output: Intake and Output for Last 24 Hours 08/01/24 08/02/24 08/03/24 23:59 23:59 23:59 Intake Total 2090.50 / 2090.50 2090.5 / 2090.5 930 / 930 Output Total 2105 / 2105 1460 / 1460 90 / 90 Balance -14.50 / -14.50 630.5 / 630.5 840 / 840 Lab / Micro Data 08/01/24 10:16 08/03/24 06:45 Labs: Laboratory Results - last 24 hr 08/02/24 22:08: Vancomycin Trough 17.4 H 08/03/24 06:45: Sodium 140, Potassium 3.8, Chloride 112 H, Carbon Dioxide 22.0, Anion Gap 6, BUN 18, Creatinine 0.58 L, Estim Creat Clear Calc 207.53, Est GFR (MDRD) Af Amer 189, Est GFR (MDRD) Non-Af 156, BUN/Creatinine Ratio 31.0 H, Glucose 94, Calcium 8.6, Albumin 2.6 L Micro: Microbiology 07/25/24 14:40 Tissue - Knee Gram Stain - Final 07/25/24 14:40 Tissue - Knee Wound Culture - Final No growth aerobically. 07/25/24 14:40 Tissue - Knee Anaerobic Culture - Final No anaerobic bacteria isolated. 07/25/24 14:40 Tissue - Knee Gram Stain - Final 07/25/24 14:40 Tissue - Knee Wound Culture - Final Staphylococcus epidermidis Granulicatella adiacens 07/25/24 14:40 Tissue - Knee Anaerobic Culture - Final No anaerobic bacteria isolated. 07/25/24 14:40 Tissue - Knee Gram Stain - Final 07/25/24 14:40 Tissue - Knee Wound Culture - Final Coag Negative Staph Coag Negative Staph#2 07/25/24 14:40 Tissue - Knee Anaerobic Culture - Final No anaerobic bacteria isolated. Physical Exam Narrative RIGHT LOWER EXTREMITY RLE: VAC holding suction over the incision and the flap, drainage SS in the VAC. Thigh dressing in place over skin graft. NO calf swelling on either side. Drain SS and strips well. Motor: Able to plantarflex and dorsiflex. Sensation: Intact to light touch at foot and ankle. Vascular: Foot warm and well perfused. Const oriented x3 and no apparent distress Resp normal respiratory effort Cardio regular rate GI soft to palpation and non-tender Assessment & Plan Assessment/Plan (1) Infection and inflammatory reaction due to internal right knee prosthesis, subsequent encounter: PLAN: S/p medial gastrocnemius flap on 30 Jul 2024. Expected course thus far. O.K. to work with PT today (out of bed/ambulate) but needs to keep right knee extended at all times (discussed). OK for weight bearing per orthopedics recommendations to the right lower extremity. DVT pxx: Continue ASA 81 mg BID per orthopedic ppx protocol and Lovenox 40 mg SubQ daily Continue ID consultation, appreciate recommendations for IV antibiotics/PICC. Nutrion labs demonstrate persistently low albumin (2.6). Continue nutrition consultation and high protein diet/supplemenation (ordered) Charges/Coding Procedures Integumentary 111xxx-113xx: 20463 Global Visit
[2024-08-03] MEDS: 0.9% Saline Lock 10 ML Syringe IV (14:12)
[2024-08-03 15:04] VITALS: BP 145/97; PULSE 79; RESP 15; TEMP 37.1; O2SAT 96
[2024-08-03 20:09] VITALS: BP 124/78; PULSE 78; RESP 18; TEMP 37; O2SAT 99
[2024-08-03] MEDS: 0.9% Normal Saline (100mL Bag) 100 ML 15 ML IV (21:55)
[2024-08-03] MEDS: Vancomycin HCl 1,500 MG in 0.9% Normal Saline (500mL Bag) 500 ML 250 MG IV (21:55)
[2024-08-03] MEDS: Senna/Docusate Sodium 1 Tablet 2 TABLET PO (21:56)
[2024-08-04 03:30] VITALS: BP 129/76; PULSE 69; RESP 18; TEMP 36.4; O2SAT 100
[2024-08-04] MEDS: Vancomycin HCl 1,500 MG in 0.9% Normal Saline (500mL Bag) 500 ML 250 MG IV ×2 (06:27→13:02)
[2024-08-04] MEDS: Acetaminophen 500 MG Tablet 1000 MG PO ×3 (06:27→22:12)
[2024-08-04 09:10] VITALS: BP 134/91; PULSE 74; RESP 18; TEMP 36.3; O2SAT 96
[2024-08-04] MEDS: Enoxaparin 40 MG/0.4 ML Syringe SC (10:01)
[2024-08-04] MEDS: Famotidine 20 MG Tablet PO (10:01)
[2024-08-04] MEDS: Senna/Docusate Sodium 1 Tablet 2 TABLET PO ×2 (10:01→22:13)
[2024-08-04] MEDS: Aspirin 81 MG TAB.CHEW PO ×2 (10:01→22:13)
[2024-08-04] MEDS: Doxycycline 100 MG CAPSULE PO ×2 (10:01→22:13)
--- NOTE | 2024-08-04 10:06 | PCM.PN.SRG ---
Subjective Subjective Doing well overall. Walking well with PT. Doing stairs. Compliant with knee extension. VAC removed at bedside today. Objective Data Objective Data Vital Signs: Vital Signs Temp Pulse Resp BP Pulse Ox O2 Del Method O2 Flow Rate 97.3 F L 74 18 134/91 H 96 Room Air 1 08/04/24 09:10 08/04/24 09:10 08/04/24 09:10 08/04/24 09:10 08/04/24 09:10 08/04/24 09:10 07/30/24 18:25 Oxygen Flow Rate (L/min) 1 Oxygen Delivery Method Room Air Weight: 286 lb 2.913 oz Body Mass Index (BMI) 38.7 Intake & Output: Intake and Output for Last 24 Hours 08/02/24 08/03/24 08/04/24 23:59 23:59 23:59 Intake Total 2090.5 / 2090.5 2340 / 2340 1560 / 1560 Output Total 1460 / 1460 180 / 180 20 / 20 Balance 630.5 / 630.5 2160 / 2160 1540 / 1540 Lab / Micro Data 08/01/24 10:16 08/03/24 06:45 Micro: Microbiology 07/25/24 14:40 Tissue - Knee Gram Stain - Final 07/25/24 14:40 Tissue - Knee Wound Culture - Final No growth aerobically. 07/25/24 14:40 Tissue - Knee Anaerobic Culture - Final No anaerobic bacteria isolated. 07/25/24 14:40 Tissue - Knee Gram Stain - Final 07/25/24 14:40 Tissue - Knee Wound Culture - Final Staphylococcus epidermidis Granulicatella adiacens 07/25/24 14:40 Tissue - Knee Anaerobic Culture - Final No anaerobic bacteria isolated. 07/25/24 14:40 Tissue - Knee Gram Stain - Final 07/25/24 14:40 Tissue - Knee Wound Culture - Final Coag Negative Staph Coag Negative Staph#2 07/25/24 14:40 Tissue - Knee Anaerobic Culture - Final No anaerobic bacteria isolated. Physical Exam Narrative RIGHT LOWER EXTREMITY RLE: VAC holding suction over the incision and the flap, drainage SS in the VAC. Thigh dressing in place over skin graft. Removed at bedside. Flap Viable. Skin graft stuck down. No signs of necrosis at this time. NO calf swelling on either side. Drain SS and strips well. Motor: Able to plantarflex and dorsiflex. Sensation: Intact to light touch at foot and ankle. Vascular: Foot warm and well perfused. Const oriented x3 and no apparent distress Resp normal respiratory effort Cardio regular rate GI soft to palpation and non-tender Assessment & Plan Assessment/Plan (1) Infection and inflammatory reaction due to internal right knee prosthesis, subsequent encounter: PLAN: S/p medial gastrocnemius flap on 30 Jul 2024. Expected course thus far. Flap is viable, skin graft is stuck down on the muscle flap. O.K. to work with PT today (out of bed/ambulate) but needs to keep right knee extended at all times (discussed). OK for weight bearing per orthopedics recommendations to the right lower extremity. DVT pxx: Continue ASA 81 mg BID per orthopedic ppx protocol and Lovenox 40 mg SubQ daily (through Sunday) Continue ID consultation, appreciate recommendations for IV antibiotics/PICC. Nutrition labs demonstrate persistently low albumin (2.6). Continue nutrition consultation and high protein diet/supplementation (ordered) Charges/Coding Procedures Integumentary 111xxx-113xx: [id number] Global Visit
--- NOTE | 2024-08-04 10:40 | WOUNDNOTE ---
wound photo: right leg
--- NOTE | 2024-08-04 10:40 | WOUNDNOTE ---
wound photo: right leg
--- NOTE | 2024-08-04 11:59 | CASEMGMT ---
Addendum entered by Melly Cardozo 08/04/24 14:27: [facility] is still planning on a Sunday start of Care, confirmed with intake. Original Note: Sent updated information to [facility] via [facility] at this time with plan for pt to dc tomorrow.
[2024-08-04 12:58] VITALS: BP 123/77; PULSE 79; RESP 16; TEMP 36.6; O2SAT 97
[2024-08-04] MEDS: 0.9% Saline Lock 10 ML Syringe IV (13:02)
[2024-08-04 18:09] VITALS: BP 121/64; PULSE 74; RESP 18; TEMP 36.6; O2SAT 96
[2024-08-04 21:58] VITALS: BP 115/76; PULSE 74; RESP 18; TEMP 36.4; O2SAT 97
[2024-08-04 22:20] LABS: Vancomycin, Trough Level 18.3 ug/mL (5.0-15.0)
[2024-08-05] MEDS: Vancomycin HCl 1,500 MG in 0.9% Normal Saline (500mL Bag) 500 ML 250 MG IV ×3 (00:42→13:38)
[2024-08-05 00:50] VITALS: BP 115/73; PULSE 67; RESP 18; TEMP 36.9; O2SAT 96
--- NOTE | 2024-08-05 01:07 | PCM.RX.CS ---
Consult Antibiotic Management Pharmacy has been consulted to manage selected antibiotic: Vancomycin Type of Intervention Type of Consult: Follow-up Labs Labs: Sodium 140 mmol/L (136-145) 08/03/24 06:45 Potassium 3.8 mmol/L (3.5-5.1) 08/03/24 06:45 Chloride 112 mmol/L (98-107) H 08/03/24 06:45 Carbon Dioxide 22.0 mmol/L (21.0-32.0) 08/03/24 06:45 Anion Gap 6 (5-15) 08/03/24 06:45 BUN 18 mg/dL (7-18) 08/03/24 06:45 Creatinine 0.58 mg/dL (0.70-1.30) L 08/03/24 06:45 Est GFR (MDRD) Af Amer 189 mL/min (>60) 08/03/24 06:45 Est GFR (MDRD) Non-Af 156 mL/min (>60) 08/03/24 06:45 BUN/Creatinine Ratio 31.0 RATIO (10-20) H 08/03/24 06:45 Glucose 94 mg/dL (74-106) 08/03/24 06:45 Vancomycin Trough 18.3 ug/mL (5.0-15.0) H 08/04/24 21:35 Microbiology Microbiology: Microbiology 07/25/24 14:40 Tissue - Knee Gram Stain - Final 07/25/24 14:40 Tissue - Knee Wound Culture - Final No growth aerobically. 07/25/24 14:40 Tissue - Knee Anaerobic Culture - Final No anaerobic bacteria isolated. 07/25/24 14:40 Tissue - Knee Gram Stain - Final 07/25/24 14:40 Tissue - Knee Wound Culture - Final Staphylococcus epidermidis Granulicatella adiacens 07/25/24 14:40 Tissue - Knee Anaerobic Culture - Final No anaerobic bacteria isolated. 07/25/24 14:40 Tissue - Knee Gram Stain - Final 07/25/24 14:40 Tissue - Knee Wound Culture - Final Coag Negative Staph Coag Negative Staph#2 07/25/24 14:40 Tissue - Knee Anaerobic Culture - Final No anaerobic bacteria isolated. Goal Trough Goal Trough: 15-20 mcg/mL Pharmacy Plan for Drug Dosing Pharmacy Plan for Drug Dosing: Pharmacy Service will continue to monitor and adjust dosing as required. TROUGH 18.3 @ 6.5 HOURS. NO CHANGES, FOLLOW UP TROUGH IN 4 DAYS Follow-Up Labs Follow-Up Labs: Trough: Vancomycin Date/Time Labs Ordered Labs to be done on [date and time ordered]: 08/08 @ 9418
[2024-08-05 03:21] VITALS: BP 124/74; PULSE 68; RESP 16; TEMP 36.3; O2SAT 97
[2024-08-05] MEDS: Acetaminophen 500 MG Tablet 1000 MG PO ×2 (06:49→13:41)
[2024-08-05] MEDS: 0.9% Normal Saline (100mL Bag) 100 ML 15 ML IV (06:55)
--- NOTE | 2024-08-05 06:56 | PCM.PN.SRG ---
Objective Data Objective Data Vital Signs: Vital Signs Temp Pulse Resp BP Pulse Ox O2 Del Method O2 Flow Rate 97.3 F L 68 16 124/74 H 97 Room Air 1 08/05/24 03:21 08/05/24 03:21 08/05/24 03:21 08/05/24 03:21 08/05/24 03:21 08/05/24 03:21 07/30/24 18:25 Oxygen Flow Rate (L/min) 1 Oxygen Delivery Method Room Air Weight: 286 lb 2.913 oz Body Mass Index (BMI) 38.7 Intake & Output: Intake and Output for Last 24 Hours 08/03/24 08/04/24 08/05/24 23:59 23:59 23:59 Intake Total 2340 / 2340 2690 / 2690 530 / 530 Output Total 180 / 180 1410 / 1410 1000 / 1000 Balance 2160 / 2160 1280 / 1280 -470 / -470 Lab / Micro Data 08/01/24 10:16 08/03/24 06:45 Labs: Laboratory Results - last 24 hr 08/04/24 21:35: Vancomycin Trough 18.3 H Micro: Microbiology 07/25/24 14:40 Tissue - Knee Gram Stain - Final 07/25/24 14:40 Tissue - Knee Wound Culture - Final No growth aerobically. 07/25/24 14:40 Tissue - Knee Anaerobic Culture - Final No anaerobic bacteria isolated. 07/25/24 14:40 Tissue - Knee Gram Stain - Final 07/25/24 14:40 Tissue - Knee Wound Culture - Final Staphylococcus epidermidis Granulicatella adiacens 07/25/24 14:40 Tissue - Knee Anaerobic Culture - Final No anaerobic bacteria isolated. 07/25/24 14:40 Tissue - Knee Gram Stain - Final 07/25/24 14:40 Tissue - Knee Wound Culture - Final Coag Negative Staph Coag Negative Staph#2 07/25/24 14:40 Tissue - Knee Anaerobic Culture - Final No anaerobic bacteria isolated. Physical Exam Narrative RIGHT LOWER EXTREMITY RLE: Dressings removed. Thigh dressing in place over skin graft. Removed at bedside. Flap Viable. Skin graft stuck down. No signs of necrosis at this time. NO calf swelling on either side. Drain SS and strips well. Motor: Able to plantarflex and dorsiflex. Sensation: Intact to light touch at foot and ankle. Vascular: Foot warm and well perfused. Const oriented x3 and no apparent distress Resp normal respiratory effort Cardio regular rate GI soft to palpation and non-tender Assessment & Plan Assessment/Plan (1) Infection and inflammatory reaction due to internal right knee prosthesis, subsequent encounter: PLAN: S/p medial gastrocnemius flap on 30 Jul 2024. Expected course thus far. Flap is viable, skin graft is stuck down on the muscle flap. O.K. to work with PT today (out of bed/ambulate) but needs to keep right knee extended at all times (discussed). OK for weight bearing per orthopedics recommendations to the right lower extremity. DVT pxx: Continue ASA 81 mg BID per orthopedic ppx protocol and Lovenox 40 mg SubQ daily (through Sunday) Continue ID consultation, appreciate recommendations for IV antibiotics/PICC. Nutrition labs demonstrate persistently low albumin (2.6). Continue nutrition consultation and high protein diet/supplementation (ordered) Likely home today with F/U in wound care center on 11 August 2024. Charges/Coding Procedures Integumentary 111xxx-113xx: 51121 Global Visit
[2024-08-05 08:08] LABS: Prealbumin 19 mg/dL (10-36)
[2024-08-05 09:21] VITALS: BP 146/83; PULSE 80; RESP 16; TEMP 37.1; O2SAT 96
--- NOTE | 2024-08-05 09:26 | WOUNDNOTE ---
Dr Jon had been in this am to assess the right leg. the muscle flap and skin graft appears quite healthy. less edema noted today. reviewed the dressing change with patient and again. plan is for discharge home later today. pt tolerated well. no further needs or concerns voiced at this itme.
[2024-08-05] MEDS: Enoxaparin 40 MG/0.4 ML Syringe SC (09:27)
[2024-08-05] MEDS: Aspirin 81 MG TAB.CHEW PO (09:28)
[2024-08-05] MEDS: Doxycycline 100 MG CAPSULE PO (09:28)
[2024-08-05] MEDS: Famotidine 20 MG Tablet PO (09:29)
[2024-08-05] MEDS: Senna/Docusate Sodium 1 Tablet 2 TABLET PO (09:29)
--- NOTE | 2024-08-05 09:59 | CASEMGMT ---
Addendum entered by Melly Cardozo 08/05/24 13:48: DC Summary attached and sent to [facility]. IV rx faxed to [facility]. Addendum entered by Melly Cardozo 08/05/24 11:46: [facility] to come to the hospital to do a refresher with pt so they can administer the 10pm dose at home. SAGE MARQUEZ into pt room, [facility] has already contacted him regarding this. Spoke to Xochitl at [facility] who requested updated AUG and last pharmacy note for vanc trough. Sent via [employer] at this time. Addendum entered by Melly Cardozo 08/05/24 10:55: Updated [facility] that pt will dc after 2pm dose. Addendum entered by Melly Cardozo 08/05/24 10:39: SAGE MARQUEZ into pt room, pt present. Pt denies needing any PT at home, states he has done steps and feels comfortable keeping his knee in flexion. He is aware that he may skip the 10pm dose of IV atb and HH will start tomorrow morning. Pt asks if she can give the dose tonight as she has done this before. Message to Dr. Valero. Pt has an appt on August [address] [facility], requested bilingual secretary obtain time and also schedule 2wk f/u with ID. Pt denies further needs at this time. Original Note: Spoke to Ros at [facility], they will see pt tomorrow. Spoke with ID and pt may miss his 10pm IV med dose for HH to start tomorrow. Message to that pt may dc today after 2pm dose from a case management standpoint.
--- NOTE | 2024-08-05 13:03 | DS.PCM_ITS ---
<Statement entered by Fabio Jon MD - 08/05/24 16:56> Pt seen & evaluated w/RACQUEL. I personally interviewed & exam the pt. I was involved in all aspects of pt's orders, interpretation of results & treatment Providers Date of Admission: 07/25/24 Date of Discharge: 08/05/24 Primary Care Physician: Dr. Dominic Santana MD Consultations 07/25/24 17:00 Consult: Infectious Disease Routine Consulting Provider: Fabio Valero Reason for Consult: Antibiotic management, patient known to you EMERGENT Consult: No Notified: Yes Date Notified: 07/28/24 Time Notified: 06:47 Method of Notification: Text Consult: Plastic Surgery Routine Consulting Provider: Fabio Jon Reason for Consult: Wound management, patient known to you EMERGENT Consult: No Notified: Yes Date Notified: 07/25/24 Time Notified: 17:01 Method of Notification: Verbal 07/29/24 10:20 Consult: Onc/Wound/vegetable tier Routine Comment: Reason for Consult:: right knee Reason For Visit: Right knee I&D and medial gastrocnemius flap Diagnosis Discharge Diagnosis (1) Infection and inflammatory reaction due to internal right knee prosthesis, subsequent encounter: Status: Acute Code(s): T84.53XD - Infection and inflammatory reaction due to internal right knee prosthesis, subsequent encounter Plan 1) Infection and inflammatory reaction due to internal right knee prosthesis, subsequent encounter: PLAN: S/p medial gastrocnemius flap on 30 Jul 2024. Expected course thus far. Flap is viable, skin graft is stuck down on the muscle flap. O.K. to work with PT today (out of bed/ambulate) but needs to keep right knee extended at all times (discussed). OK for weight bearing per orthopedics recommendations to the right lower extremity. DVT pxx: Continue ASA 81 mg BID per orthopedic ppx protocol and Lovenox 40 mg SubQ daily (through Sunday) Continue ID consultation, appreciate recommendations for IV antibiotics/PICC. Per ID may stop oral Doxycycline upon discharge. IV Vancomycin for 6 weeks. Stop Date 09/10/24. Follow up next week outpatient. Nutrition labs demonstrate persistently low albumin (2.6). Continue nutrition consultation and high protein diet/supplementation (ordered) Home today with F/U in wound care center on 11 August 2024. Medications at Discharge Home Medications acetaminophen 500 mg tablet 1,000 mg (2 x 500 mg) PO TID pain 14 days #84 tabs 06/30/24 aspirin 81 mg capsule 81 mg PO BIDCM blood thinner 30 days #60 caps 06/30/24 famotidine 20 mg tablet 20 mg PO DAILY gerd 30 days #30 tabs 06/30/24 ibuprofen 600 mg tablet 600 mg PO Q8H PRN pain 07/23/24 vancomycin 1.5 gram intravenous solution 1.5 g IV Q8H 39 days 08/01/24 enoxaparin 40 mg/0.4 mL subcutaneous syringe (Lovenox) 40 mg (0.4 mL) subcut DAILY 4 days #1.6 mL 08/05/24 polyethylene glycol 3350 17 gram/dose oral powder (Miralax) 17 g PO DAILY PRN constipation #119 grams 08/05/24 Hospital Course Operations - (I&D x 2 and muscle flap) Summary of Care Provided Minutes Spent on Discharge: 25 Hospital Course: Surgery 07/25/[address] Agrawal: 1. Irrigation debridement complete synovectomy wound debridement with fascia, skin and subcutaneous tissue right knee 2. Wound VAC placement area 4 cm x 2 cm, 8 cm? 3. Sinus tract [id number] x 3 Operative culture from 07/25/24 of Supra Patellar Pouch positive for Coag Negative Staph x 2. Operative culture from 07/25/24 of tibial membrane, right knee positive for Staphylococcus epidermidis and Granulicatella adiacens. ID consulted. Placed on IV Vanc x 6 weeks, stop date 09/10/24. Follow up with ID next week. Surgery 07/25/[address] Jon: 1) Debridement of right knee wound (surgical preparation) 4 x 5 cm 2) Placement of wound VAC, <50 cm ^2 Surgery 07/30/[address] Jon: 1) Surgical preparation of wound bed, 4 x 5 cm, right anterior knee 2) Right medial gastrocnemius rotational muscle flap for coverage of the right knee wound 3) Split-thickness skin graft, right thigh to the right medial gastrocnemius flap, 11 x 10 cm graft 4) Use of fluorescence angiography for assessment of flap (following dissection and inset) intra-operatively (using SPY machine) Wound VAC removed 08/04/24. Xeroform dressing changes covered by ABD twice daily. DVT Prophylaxis: Lovenonx 40 daily until Sunday08/08/24. ASA 81 mg BID for 3 additional weeks. Right knee immobilizer at all times. No bending his knee Weightbearing as tolerated with knee immobilizer in place. Physical Exam Narrative RIGHT LOWER EXTREMITY RLE: Dressings removed. Thigh dressing in place over skin graft. Flap Viable. Skin graft stuck down. No signs of necrosis at this time. Redressed with Xeroform gauze covered with ABD twice daily. Const oriented x3 and no apparent distress Resp normal respiratory effort Effort and Inspection: able to speak in complete sentences Cardio regular rate and regular rhythm GI soft to palpation and non-tender Extremity no calf tenderness Weight / BMI Weight Weight: 286 lb 2.913 oz Body Mass Index (BMI) 38.7 ABG / Lab / Microbiology Data 08/01/24 10:16 08/03/24 06:45 Laboratory: Laboratory Results - last 24 hr 08/03/24 06:45: Prealbumin 19 08/04/24 21:35: Vancomycin Trough 18.3 H Microbiology: Microbiology 07/25/24 14:40 Tissue - Knee Gram Stain - Final 07/25/24 14:40 Tissue - Knee Wound Culture - Final No growth aerobically. 07/25/24 14:40 Tissue - Knee Anaerobic Culture - Final No anaerobic bacteria isolated. 07/25/24 14:40 Tissue - Knee Gram Stain - Final 07/25/24 14:40 Tissue - Knee Wound Culture - Final Staphylococcus epidermidis Granulicatella adiacens 07/25/24 14:40 Tissue - Knee Anaerobic Culture - Final No anaerobic bacteria isolated. 07/25/24 14:40 Tissue - Knee Gram Stain - Final 07/25/24 14:40 Tissue - Knee Wound Culture - Final Coag Negative Staph Coag Negative Staph#2 07/25/24 14:40 Tissue - Knee Anaerobic Culture - Final No anaerobic bacteria isolated. D/C Instructions Discharge Diet: No restrictions (Increased protein for wound healing.) Discharge Activity: Use Walker Weight Bearing Status: Partial weight bearing (as tolerated with knee immobilizer in place) Keep extremity elevated above heart level: Right Leg Additional Activity Instructions: Keep right knee immobilizer in place but not tight against flap Call your doctor if your incision/area has: Continuous Slow Oozing, Sudden Increased Bleeding, Increased Pain/ Swelling, Increased Redness, Foul Smelling Discharge and Swelling at the incision site Call your doctor if you observe: Fever of 101 or Higher, Coldness, Increased Pain, Inability to urinate, Inability to have a bowel movement, Shortness of breath, Chest pain, Calf discomfort and Uncontrolled pain Change Dressing in: 1 day (twice daily) Cleanse incision/area with: - (xeroform gauze covered with gauze/ABD twice daily) Drain: Suction Additional Dressing/Incision Instructions: Strip MARILYNN drain several times per day and keep track of drainage DC O2, CPAP, BIPAP Needs Home O2 Discharge instructions: No Please Follow Up With: Fabio Jon MD When: Sunday at the wound healing center Meaningful Use Info Meaningful Use Meaningful Use Diagnoses (Choose all that apply): None applicable Ischemic Stroke Statin Dosing Therapy Reference: STATIN DOSE THERAPY REFERENCE: * Patients > 75 years receive moderate or high dose statin therapy. * Patients 75 years or YOUNGER should receive HIGH intensity statin dose unless contraindicated. You will be required to document reason for non-treatment if statin daily dose does not meet guidelines. HIGH DOSE STATIN THERAPY DAILY Atorvastatin > than or = to 40 mg Rosuvastatin > than or = to 20 mg Amlodipine + Atorvastatin > than or = to 2.5/40 mg Ezetimibe + Simvastatin 10/80 mg Simvastatin 80mg Discharge Plan Admission Admit Date/Time: 07/25/24 17:00 Attending Provider: Wilman Agrawal Primary Care Provider: Dominic Santana Consulting Providers: Fabio Jon; Fabio Valero Discharge Orders/Prescriptions Prescriptions: New vancomycin 1.5 gram recon soln 1.5 g IV Q8H 39 Days Rx Instructions: stop date 09/10/24. Dx: R knee PJI. Weekly bmp, cbc, ESR, and vanc trough. Fax to [phone]. Routine picc care per protocol. enoxaparin [Lovenox] 40 mg/0.4 mL syringe 40 mg subcut DAILY 4 Days Qty: 1.6 0RF polyethylene glycol 3350 [Miralax] 17 gram/dose powder 17 g PO DAILY PRN (Reason: constipation) Qty: 119 0RF Continued acetaminophen 500 mg Tablet 1,000 mg PO TID 14 Days Qty: 84 0RF Rx Instructions: Do not take more than 3000 mg Tylenol in a 24-hour period. aspirin 81 mg capsule 81 mg PO BIDCM 30 Days Qty: 60 0RF Rx Instructions: Take 81 mg aspirin twice daily for 4 weeks postoperatively for DVT prophylaxis. famotidine 20 mg Tablet 20 mg PO DAILY 30 Days Qty: 30 0RF ibuprofen 600 mg tablet 600 mg PO Q8H PRN (Reason: pain) Discontinued doxycycline monohydrate 100 mg Capsule 100 mg PO BID 30 Days Qty: 60 0RF Rx Instructions: Take for 4 weeks postoperatively Referrals / Follow Up: Dominic Santana MD [Primary Care Provider] - Fabio Valero MD [Med Staff - Active Staff] - 08/20/24 2:15 pm [facility] [facility] [Non-Staff] - 08/11/24 11:00 am Disposition Disposition (needs filled in before D/C Order can be placed): Home, Self Care Charges/Coding Procedures Integumentary 111xxx-113xx: [id number] Global Visit
--- NOTE | 2024-08-05 13:25 | NURSING ---
Pt gave the lovenox injection to him this morning, see EMAR. Lovenox injection was administered correctly by his . No further questions were asked by the pt or .
== END 2024-08-05 16:29 | disposition home health service (06) | DRG 464 ==
PROVIDERS: Anesthesiology; Internal Medicine Infectious Disease; Surgery Plastic and Reconstructive Surgery; Admitting Provider Specialist; PCP Family Medicine; Referring Provider Specialist; Visit Provider Specialist
PROC: 0SPC0JZ Removal of Synthetic Substitute from Right Knee Joint, Open Approach (ICD-10-PCS; CPT 27301; principal; 2024-07-25 13:10)
PROC: 0HRKX74 Replacement of Right Lower Leg Skin with Autologous Tissue Substitute, Partial Thickness, External Approach (ICD-10-PCS; principal; 2024-07-30 14:10)
DX: T84.53XA Infection and inflammatory reaction due to internal right knee prosthesis, initial encounter (principal); T81.329A Deep disruption or dehiscence of operation wound, unspecified, initial encounter; Z16.20 Resistance to unspecified antibiotic; F17.220 Nicotine dependence, chewing tobacco, uncomplicated; G47.33 Obstructive sleep apnea (adult) (pediatric); K21.9 Gastro-esophageal reflux disease without esophagitis; B96.89 Other specified bacterial agents as the cause of diseases classified elsewhere; Z79.01 Long term (current) use of anticoagulants; Z79.2 Long term (current) use of antibiotics; Z79.82 Long term (current) use of aspirin; Z96.651 Presence of right artificial knee joint; Z99.89 Dependence on other enabling machines and devices; Y79.2 Prosthetic and other implants, materials and accessory orthopedic devices associated with adverse incidents; Z79.899 Other long term (current) drug therapy; Z79.1 Long term (current) use of non-steroidal anti-inflammatories (NSAID); X58.XXXA Exposure to other specified factors, initial encounter; B95.4 Other streptococcus as the cause of diseases classified elsewhere
CPT/HCPCS: 36415; 36569; 75801; 80048; 80202; 82040; 82962; 83036; 84134; 85025; 85027; 87015; 87070; 87075; 87077; 87102; 87116; 87186; 87205; 87206; 88305; 88311; 94668; 97116; 97161; 97165; 97530; 97802; 99252; A4648; C1776; A4216; G0463; J2405; J3475

== ENCOUNTER → 2024-08-13 | Outpatient (CLI) | payer OTHER, SELFPAY ==
[2024-08-13 15:31] LABS: Vancomycin, Trough Level 18.1 ug/mL (5.0-15.0)
[2024-08-13 15:38] LABS: Erythrocyte Sedimentation Rate 37 mm/hr (0-20)
[2024-08-13 15:41] LABS: Hematocrit 32.1 % (40-54); Hemoglobin 9.7 g/dL (13.0-16.5); Mean Corp Hgb Conc 30.2 g/dL (32-36); Mean Corpuscular Hgb 25.2 pg (27.0-32.0); Mean Corpuscular Volume 83.4 fL (80-94); Mean Platelet Vol. 9.4 fl (6.2-12.0); Platelet Count 364 K/mm3 (150-450); RBC Distribution Width CV 17.4 % (11.6-14.6); RBC Distribution Width SD 53.1 fl (35.1-43.9); Red Blood Count 3.85 M/mm3 (4.6-6.2); White Blood Count 7.8 K/mm3 (4.4-11.0)
[2024-08-13 15:42] LABS: Scan Indicated on CBC? Y/N NO
[2024-08-13 16:32] LABS: Anion Gap 13 (5-15); BUN 28 mg/dL (4-19); BUN/Creat Ratio 36.9 RATIO (10-20); Calcium,Total 9.1 mg/dL (7.6-11.0); Carbon Dioxide 22.1 mmol/L (21.0-32.0); Chloride 104 mmol/L (98-108); Creatinine, Serum 0.76 mg/dL (0.70-1.20); EST Glomerular Filtration Rate 108 (>60); Glucose 81 mg/dL (70-99); Potassium 3.9 mmol/L (3.3-5.1); Sodium Level 139 mmol/L (133-145)
== END | disposition home or self-care (01) ==
LOC: LABSPEC 13:44
PROVIDERS: PCP Family Medicine; Visit Provider Family Medicine
DX: Z76.0 Encounter for issue of repeat prescription (principal); Z79.2 Long term (current) use of antibiotics
CPT/HCPCS: 80048; 80202; 85027; 85652

== ENCOUNTER → 2024-08-20 | Outpatient (CLI) | payer OTHER, SELFPAY ==
[2024-08-20 18:08] LABS: Hematocrit 33.7 % (40-54); Hemoglobin 10.2 g/dL (13.0-16.5); Mean Corp Hgb Conc 30.3 g/dL (32-36); Mean Corpuscular Hgb 24.9 pg (27.0-32.0); Mean Corpuscular Volume 82.2 fL (80-94); Mean Platelet Vol. 9.6 fl (6.2-12.0); Platelet Count 328 K/mm3 (150-450); RBC Distribution Width CV 16.8 % (11.6-14.6); RBC Distribution Width SD 50.8 fl (35.1-43.9); White Blood Count 6.4 K/mm3 (4.4-11.0)
[2024-08-20 18:13] LABS: Erythrocyte Sedimentation Rate 37 mm/hr (0-20)
[2024-08-20 18:32] LABS: Vancomycin, Trough Level 18.8 ug/mL (5.0-15.0)
[2024-08-20 23:01] LABS: Anion Gap 16 (5-15); BUN 22 mg/dL (4-19); BUN/Creat Ratio 29.9 RATIO (10-20); Calcium,Total 9.3 mg/dL (7.6-11.0); Carbon Dioxide 20.9 mmol/L (21.0-32.0); Chloride 102 mmol/L (98-108); Creatinine, Serum 0.75 mg/dL (0.70-1.20); EST Glomerular Filtration Rate 109 (>60); Glucose 87 mg/dL (70-99); Potassium 4.2 mmol/L (3.3-5.1); Sodium Level 139 mmol/L (133-145)
== END | disposition home or self-care (01) ==
LOC: LABSPEC 14:49
PROVIDERS: PCP Family Medicine; Visit Provider Family Medicine
DX: M25.561 Pain in right knee (principal)
CPT/HCPCS: 80048; 80202; 85027; 85652

== ENCOUNTER 2024-08-27 14:07 | Outpatient (RCR) | payer OTHER, SELFPAY ==
[2024-08-27 14:45] LABS: Hemoglobin 10.1 g/dL (13.0-16.5); Mean Corp Hgb Conc 30.6 g/dL (32-36); Mean Corpuscular Hgb 24.8 pg (27.0-32.0); Mean Corpuscular Volume 80.9 fL (80-94); Mean Platelet Vol. 9.4 fl (6.2-12.0); Platelet Count 301 K/mm3 (150-450); RBC Distribution Width CV 16.3 % (11.6-14.6); RBC Distribution Width SD 48.5 fl (35.1-43.9); Red Blood Count 4.08 M/mm3 (4.6-6.2); White Blood Count 5.8 K/mm3 (4.4-11.0)
[2024-08-27 14:50] LABS: Erythrocyte Sedimentation Rate 28 mm/hr (0-20)
[2024-08-27 15:06] LABS: Vancomycin, Trough Level 20.5 ug/mL (5.0-15.0)
[2024-08-27 15:07] LABS: Anion Gap 11 (5-15); BUN 25 mg/dL (4-19); BUN/Creat Ratio 33.2 RATIO (10-20); Calcium,Total 9.1 mg/dL (7.6-11.0); Carbon Dioxide 23.2 mmol/L (21.0-32.0); Chloride 103 mmol/L (98-108); Creatinine, Serum 0.74 mg/dL (0.70-1.20); EST Glomerular Filtration Rate 109 (>60); Glucose 78 mg/dL (70-99); Potassium 3.9 mmol/L (3.3-5.1); Sodium Level 137 mmol/L (133-145)
[2024-09-01 09:22] VITALS: BP 137/82; PULSE 67; RESP 16; TEMP 35.8
== END 2024-09-08 23:59 ==
LOC: LABSPEC 14:07
PROVIDERS: PCP Family Medicine; Referring Provider Internal Medicine Infectious Disease; Visit Provider Internal Medicine Infectious Disease
DX: T84.50XA Infection and inflammatory reaction due to unspecified internal joint prosthesis, initial encounter (principal)
CPT/HCPCS: 80048; 80202; 85027; 85652

== ENCOUNTER → 2024-09-03 | Outpatient (CLI) | payer OTHER, SELFPAY ==
[2024-09-03 11:20] LABS: Anion Gap 9 (5-15); BUN 15 mg/dL (4-19); BUN/Creat Ratio 20.6 RATIO (10-20); Carbon Dioxide 24.6 mmol/L (21.0-32.0); Chloride 105 mmol/L (98-108); EST Glomerular Filtration Rate 111 (>60); Glucose 94 mg/dL (70-99); Potassium 4.2 mmol/L (3.3-5.1); Sodium Level 138 mmol/L (133-145); Vancomycin, Random Level 16.5 ug/mL (0.0-15.0)
[2024-09-03 12:18] LABS: Erythrocyte Sedimentation Rate 22 mm/hr (0-20)
[2024-09-03 12:22] LABS: Hematocrit 34.7 % (40-54); Hemoglobin 10.5 g/dL (13.0-16.5); Mean Corp Hgb Conc 30.3 g/dL (32-36); Mean Corpuscular Hgb 24.6 pg (27.0-32.0); Mean Corpuscular Volume 81.3 fL (80-94); Mean Platelet Vol. 9.8 fl (6.2-12.0); Platelet Count 308 K/mm3 (150-450); RBC Distribution Width CV 16.1 % (11.6-14.6); RBC Distribution Width SD 47.9 fl (35.1-43.9); Red Blood Count 4.27 M/mm3 (4.6-6.2)
== END | disposition home or self-care (01) ==
LOC: LABSPEC 09:07
PROVIDERS: PCP Family Medicine; Visit Provider Internal Medicine Infectious Disease
DX: T84.53XA Infection and inflammatory reaction due to internal right knee prosthesis, initial encounter (principal)
CPT/HCPCS: 80048; 80202; 85027; 85652

== ENCOUNTER 2024-09-08 09:30 | Outpatient (RCR) | payer OTHER, SELFPAY ==
[2024-08-09 00:38] VITALS: BP 147/70; PULSE 79; RESP 18; TEMP 36.6; BMI 39.7
[2024-08-11 10:52] VITALS: BP 131/84; PULSE 74; RESP 16; TEMP 36.4; BMI 39.7
--- NOTE | 2024-08-11 13:21 | PCM.PN.SRG ---
Subjective Subjective Doing well. Compliant with keeping knee extended. David ~50 cc SS per day. Objective Data Objective Data Vital Signs: Vital Signs Temp Pulse Resp BP O2 Del Method 97.5 F L 74 16 131/84 H Room Air 08/11/24 10:52 08/11/24 10:52 08/11/24 10:52 08/11/24 10:52 08/11/24 10:52 Oxygen Delivery Method Room Air Weight: 285 lb Body Mass Index (BMI) 39.7 Physical Exam Narrative No drainage. Skin graft stuck down in place. No surroudning induration/cellulitis Assessment & Plan Assessment/Plan (1) Infection and inflammatory reaction due to internal right knee prosthesis, subsequent encounter: PLAN: Expected course s/p medial gastrocnemius flap reconstruction. Continue Xeroform dressings twice daily F/u in 1 week (possibly drain out at that time). Continue Baby Aspirin BID per orthopedics. Continue knee immobilizer at all times (4 weeks total) Charges/Coding Procedures Integumentary 111xxx-113xx: 38039 Global Visit
--- NOTE | 2024-08-13 13:58 | WC ---
PHOTO 08/11/24 RIGHT KNEE
[2024-08-18 09:58] VITALS: BP 133/86; PULSE 83; RESP 16; TEMP 36.6; BMI 39.7
--- NOTE | 2024-08-18 11:01 | PCM.PN.SRG ---
Subjective Subjective Doing well. Compliant with keeping knee extended. David ~30 cc SS per day. Objective Data Objective Data Vital Signs: Vital Signs Temp Pulse Resp BP O2 Del Method 98 F 83 16 133/86 H Room Air 08/18/24 09:58 08/18/24 09:58 08/18/24 09:58 08/18/24 09:58 08/18/24 09:58 Oxygen Delivery Method Room Air Weight: 285 lb Body Mass Index (BMI) 39.7 Physical Exam Narrative No drainage. Skin graft stuck down in place. No surrounding induration/cellulitis Assessment & Plan Assessment/Plan (1) Infection and inflammatory reaction due to internal right knee prosthesis, subsequent encounter: PLAN: Expected course 2.5 weeks after medial gastrocnemius muscle flap and skin graft for reconstruction over right knee wound. Continue drain. Sutures removed and every -other staple removed F/u in 1 week for drain removal and to check progress. Charges/Coding Procedures Integumentary 111xxx-113xx: [id number] Global Visit
--- NOTE | 2024-08-18 15:43 | WC ---
PHOTO 08/18/24 RIGHT KNEE POST-OP
--- NOTE | 2024-08-18 15:43 | WC ---
PHOTO 08/18/24 RIGHT THIGH POST-OP
[2024-08-25 09:59] VITALS: BP 127/80; PULSE 77; RESP 14; TEMP 35.7; BMI 39.7
--- NOTE | 2024-08-25 13:20 | PCM.PN.SRG ---
Subjective Subjective Doing well, almost 4 weeks out from surgery. Compliant with immobilization of the knee in extension. Objective Data Objective Data Vital Signs: Vital Signs Temp Pulse Resp BP O2 Del Method 96.3 F L 77 14 127/80 H Room Air 08/25/24 09:59 08/25/24 09:59 08/25/24 09:59 08/25/24 09:59 08/18/24 09:58 Oxygen Delivery Method Room Air Weight: 285 lb Body Mass Index (BMI) 39.7 Physical Exam Narrative No drainage. Skin graft stuck down in place except for partial skin graft loss superiorly near incision line. No surrounding induration/cellulitis. No drainage Extremity Extremity Narrative: No calf swelling on either side. 5/5 Dorsiflexion and Plantarflexion Assessment & Plan Assessment/Plan (1) Infection and inflammatory reaction due to internal right knee prosthesis, subsequent encounter: PLAN: Expected course 3.5 weeks after medial gastrocnemius muscle flap and skin graft for reconstruction over right knee wound. Drain and bonnie/Sutures removed. F/u in 1 week to check progress. Charges/Coding Procedures Integumentary 111xxx-113xx: [id number] Global Visit
--- NOTE | 2024-09-01 10:18 | PCM.PROGNOTE ---
Subjective Subjective Doing well. Complaint with splinting and with Hydrogel dressing changes. Objective Data Objective Data Vital Signs: Vital Signs Temp Pulse Resp BP O2 Del Method 96.3 F L 77 14 127/80 H Room Air 08/25/24 09:59 08/25/24 09:59 08/25/24 09:59 08/25/24 09:59 08/18/24 09:58 Oxygen Delivery Method Room Air Weight: 285 lb Body Mass Index (BMI) 39.7 Physical Exam Narrative No drainage. Skin graft stuck down. Small 0.5 x 0.5 cm wound on the inferior aspect of the knee incision near the muscle flap, but superficial (0.1 cm). No surrounding induration/cellulitis. No drainage Donor sites have healed, no problems. Extremity Extremity Narrative: No calf swelling on either side. 5/5 Dorsiflexion and Plantarflexion Assessment & Plan Assessment/Plan (1) Infection and inflammatory reaction due to internal right knee prosthesis, subsequent encounter: PLAN: Doing well. 1 more week of wound care and knee immobilization (would like to see complete re-epithelialization before he starts bending knee). F/u in 1 week Charges/Coding Procedures Integumentary 111xxx-113xx: [id number] Global Visit
--- NOTE | 2024-09-01 14:34 | WC ---
PHOTO 09/01/2024 RIGHT KNEE POST OP
--- NOTE | 2024-09-08 09:03 | PCM.PN.SRG ---
Subjective Subjective Doing well. Feels like things have healed. Ready to do therapy. Objective Data Objective Data Vital Signs: Vital Signs Temp Pulse Resp BP O2 Del Method 96.3 F L 77 14 127/80 H Room Air 08/25/24 09:59 08/25/24 09:59 08/25/24 09:59 08/25/24 09:59 08/18/24 09:58 Oxygen Delivery Method Room Air Weight: 285 lb Body Mass Index (BMI) 39.7 Physical Exam Narrative No drainage. Skin graft stuck down. Skin graft/wound has re-epithelialized over muscle flap. No surrounding induration/cellulitis. No drainage Donor sites have healed, no problems. Const alert and oriented x3 Extremity Extremity Narrative: No calf swelling on either side. 5/5 Dorsiflexion and Plantarflexion Assessment & Plan Assessment/Plan (1) Infection and inflammatory reaction due to internal right knee prosthesis, subsequent encounter: PLAN: Doing well almost 6 weeks from flap reconstruction. OK to begin PT/knee flexion Charges/Coding Procedures Integumentary 111xxx-113xx: [id number] Global Visit
[2024-09-08 09:22] VITALS: BP 146/91; PULSE 65; RESP 16; TEMP 35.7; BMI 39.7
--- NOTE | 2024-09-09 11:26 | WC ---
PHOTO 09/08/24 RIGHT KNEE
== END 2024-09-08 16:17 | disposition home or self-care (01) ==
LOC: WC 09:30
PROVIDERS: PCP Family Medicine; Referring Provider Surgery Plastic and Reconstructive Surgery; Visit Provider Surgery Plastic and Reconstructive Surgery
DX: T81.31XD Disruption of external operation (surgical) wound, not elsewhere classified, subsequent encounter (principal); Z96.651 Presence of right artificial knee joint
CPT/HCPCS: 11042; 99213; 99214; G0463

== ENCOUNTER → 2024-09-11 | Outpatient (CLI) | payer OTHER, SELFPAY ==
[2024-09-11 12:24] LABS: Erythrocyte Sedimentation Rate 21 mm/hr (0-20)
[2024-09-11 12:25] LABS: Hematocrit 35.2 % (40-54); Hemoglobin 10.7 g/dL (13.0-16.5); Mean Corp Hgb Conc 30.4 g/dL (32-36); Mean Corpuscular Hgb 24.1 pg (27.0-32.0); Mean Corpuscular Volume 79.3 fL (80-94); Mean Platelet Vol. 9.7 fl (6.2-12.0); Platelet Count 282 K/mm3 (150-450); RBC Distribution Width CV 15.8 % (11.6-14.6); RBC Distribution Width SD 45.3 fl (35.1-43.9); Red Blood Count 4.44 M/mm3 (4.6-6.2); White Blood Count 5.5 K/mm3 (4.4-11.0)
[2024-09-11 13:39] LABS: Vancomycin, Trough Level 13.6 ug/mL (5.0-15.0)
[2024-09-11 14:04] LABS: Anion Gap 12 (5-15); BUN 21 mg/dL (4-19); BUN/Creat Ratio 26.1 RATIO (10-20); Calcium,Total 9.3 mg/dL (7.6-11.0); Carbon Dioxide 20.9 mmol/L (21.0-32.0); Chloride 105 mmol/L (98-108); EST Glomerular Filtration Rate 106 (>60); Glucose 82 mg/dL (70-99); Potassium 3.9 mmol/L (3.3-5.1); Sodium Level 138 mmol/L (133-145)
== END | disposition home or self-care (01) ==
LOC: LABSPEC 10:40
PROVIDERS: PCP Family Medicine; Visit Provider Internal Medicine Infectious Disease
DX: M25.561 Pain in right knee (principal)
CPT/HCPCS: 80048; 80202; 85027; 85652